=== PATIENT | male | born 1935 | race Caucasian/White ===

== ENCOUNTER 2018-11-28 14:11 | Outpatient (REF) | payer MEDICARE, BC, SELFPAY ==
[2018-11-28 21:49] LABS: ALT 34 U/L (12-78); AST 35 U/L (15-37); Amylase 49 U/L (25-115); Anion Gap 10.8 mmol/L (3-11); BUN 20 mg/dL (7-18); CO2 26.2 mmol/L (21.0-32.0); CREATININE 0.76 mg/dL (0.70-1.30); Calcium 8.6 mg/dL (8.5-10.1); Chloride 103 mmol/L (98-107); Glucose 91 mg/dL (70-100); Lipase 121 U/L (73-393); Potassium 4.3 mmol/L (3.5-5.1); Sodium 140 mmol/L (136-145)
[2018-11-28 21:51] LABS: HGB 13.9 g/dL (13.5-17.5); Mean Corp. HGB Concentration 33.9 g/dL (32.0-36.0); Mean Corpuscular Hemoglobin 31.9 pg (27.0-33.0); Platelet Count 105 x1000/uL (130-400); RBC 4.36 m/cumm (4.50-6.00); RBC Distribution Width 12.8 % (11.8-14.1)
== END 2018-11-28 14:31 ==
LOC: NCHCN 14:11
PROVIDERS: PCP Internal Medicine; Visit Provider Nurse Practitioner Family
DX: R10.9 Unspecified abdominal pain (principal)
CPT/HCPCS: 80048; 83690; 85027; 82150; 84450; 84460

== ENCOUNTER 2019-01-03 01:47 | Outpatient (CLI) | payer MEDICARE, BC, SELFPAY ==
--- NOTE | 2019-01-03 14:15 | MERGE_ITS ---
*[facility]* *[facility]* [address] [place] [address] Date of study: 01/03/2019 Transthoracic Echocardiography M-mode, complete 2D, complete spectral Doppler, and color Doppler *STUDY CONCLUSIONS* Summary: 1. Left ventricle: The cavity size was normal. Systolic function was normal. The estimated ejection fraction was 60-65%. Diastolic parameters were normal for age. There was no evidence of elevated ventricular filling pressure by Doppler parameters. 2. Aortic valve: There was mild regurgitation. 3. Mitral valve: There was mild regurgitation. 4. Left atrium: The atrium was mildly dilated. 5. Right ventricle: The cavity size was normal. Wall thickness was normal. Systolic function was normal. 6. Right atrium: The atrium was moderately dilated. 7. Atrial septum: No defect or patent foramen ovale was identified. 8. Tricuspid valve: There was moderate-severe regurgitation. 9. Pulmonary arteries: Pulmonary systolic pressure was >= 35mm Hg. 10. Inferior vena cava: Poorly visualized. *PATIENT PRESENTATION* Height: 182.9cm (72in ) S/D Pressure: 152 / 85 Weight: 68kg (149.7lb ) BSA: 1.85m^2 Test start time: 02:15 PM. Test stop time: 03:15 PM. CONSULTING Nikhil Serrano MD ORDERING Nikhil Serrano MD REFERRING Nikhil Serrano MD PERFORMING [facility] MAIL WEIGHER Rosaline Jo *PROCEDURE DATA* Procedure information: This study was interpreted by [facility]. Pertinent images and digital data are archived for permanent storage and are available for subsequent review. No prior study was available for comparison. Study status: Routine. Transthoracic echocardiography. M-mode, complete 2D, complete spectral Doppler, and color Doppler. A Transthoracic Echocardiogram was performed. Scanning was performed from the parasternal, apical, subcostal, and suprasternal notch acoustic windows. Images were obtained using an [employer] sc [id number] cardiac ultrasound machine. Image quality was adequate. Study completion: The patient tolerated the procedure well. History: PMH: Exertional dyspnea *CARDIAC ANATOMY* Left ventricle: The cavity size was normal. Systolic function was normal. The estimated ejection fraction was 60-65%. Diastolic parameters were normal for age. There was no evidence of elevated ventricular filling pressure by Doppler parameters. Aortic valve: Trileaflet; mildly thickened, mildly calcified leaflets. Doppler: There was no stenosis. There was mild regurgitation. VTI ratio of LVOT to aortic valve: 0.53. Peak velocity ratio of LVOT to aortic valve: 0.52. Mean velocity ratio of LVOT to aortic valve: 0.49. Mean gradient (S): 6mm Hg. Peak gradient (S): 11.9mm Hg. Aorta: Aortic root: The aortic root was normal in size. Mitral valve: Doppler: There was no evidence for stenosis. There was mild regurgitation. Valve area by pressure half-time: 2.9cm^2. Indexed valve area by pressure half-time: 1.6cm^2/m^2. Peak gradient (D): 3mm Hg. Left atrium: The atrium was mildly dilated. Atrial septum: No defect or patent foramen ovale was identified. Right ventricle: The cavity size was normal. Wall thickness was normal. Systolic function was normal. Pulmonic valve: Doppler: There was no evidence for stenosis. There was mild regurgitation. Peak gradient (S): 3.9mm Hg. Tricuspid valve: Doppler: There was moderate-severe regurgitation. Pulmonary artery: Poorly visualized. Pulmonary systolic pressure was >= 35mm Hg. Right atrium: The atrium was moderately dilated. Pericardium: There was no pericardial effusion. Systemic veins: Inferior vena cava: Poorly visualized. Measurements Left ventricle Value Reference LV ID, ED, PLAX 4.5 cm 3.5 - 6.0 LV ID, ES, PLAX 3.0 cm 2.1 - 4.0 LV PW thickness, ED, PLAX 0.8 cm LV end-diastolic volume, 1-p A2C 74 ml LV ejection fraction, 1-p A2C 55 % LV end-diastolic volume, 1-p A4C 86 ml LV ejection fraction, 1-p A4C 57 % LV e', lateral 0.098 m/sec LV E/e', lateral 9 LV e', medial 0.091 m/sec LV E/e', medial 10 LV e', average 0.094 m/sec LV E/e', average 9 Ventricular septum Value Reference IVS thickness, ED, PLAX 0.8 cm LVOT Value Reference LVOT peak velocity, S 0.89 m/sec LVOT mean velocity, S 0.56 m/sec LVOT VTI, S 17.6 cm LVOT peak gradient, S 3.2 mm Hg LVOT mean gradient, S 1.5 mm Hg Aortic valve Value Reference Aortic valve peak velocity, S 1.7 m/sec Aortic valve mean velocity, S 1.1 m/sec Aortic valve VTI, S 33.0 cm Aortic mean gradient, S 6 mm Hg Aortic peak gradient, S 11.9 mm Hg VTI ratio, LVOT/AV 0.53 Velocity ratio, peak, LVOT/AV 0.52 Velocity ratio, mean, LVOT/AV 0.49 Aortic regurg deceleration 156 cm/s^2 Aortic regurg pressure half-time 582 ms Aorta Value Reference Aortic root ID, ED 2.6 cm Left atrium Value Reference LA ID, A-P, ES 4.1 cm LA ID/bsa, A-P 2.2 cm/m^2 <=2.2 LA volume, ES, 2-p 72 ml LA volume/bsa, ES, 2-p 39 ml/m^2 LA/aortic root ratio 1.59 Mitral valve Value Reference Mitral E-wave peak velocity 0.87 m/sec Mitral deceleration time (H) 259 ms 150 - 230 Mitral pressure half-time 75 ms Mitral peak gradient, D 3 mm Hg Mitral valve area, PHT, DP 2.9 cm^2 Tricuspid valve Value Reference Tricuspid regurg peak velocity 2.6 m/sec Tricuspid peak RV-RA gradient 27.4 mm Hg Right atrium Value Reference RA area, ES, A4C (H) 32.2 cm^2 8.3 - 19.5 Pulmonic valve Value Reference Pulmonic peak gradient, S 3.9 mm Hg Legend: (L) and (H) casey values outside specified reference range. I have personally reviewed the images and have reviewed and edited the reported findings. Electronically signed by Martin Rae MD 01/03/2019 17:47
== END 2019-01-03 02:07 ==
PROVIDERS: PCP Internal Medicine; Visit Provider Internal Medicine
DX: R06.09 Other forms of dyspnea (principal); I35.1 Nonrheumatic aortic (valve) insufficiency; I34.0 Nonrheumatic mitral (valve) insufficiency; I36.1 Nonrheumatic tricuspid (valve) insufficiency; I51.7 Cardiomegaly
CPT/HCPCS: 93306

== ENCOUNTER 2019-01-09 03:26 | Outpatient (CLI) | payer MEDICARE, BC, SELFPAY ==
--- NOTE | 2019-01-09 15:42 | DI.US_ITS ---
EXAM: US RENAL CLINICAL HISTORY: URINARY RETENTION, R33.9. TECHNIQUE: Renal ultrasound was performed according to the usual protocol. COMPARISON: There are no comparison exams available. FINDINGS: Kidneys are normal in size and shape. There is 19 millimeter simple cyst of the upper pole of left k idney. Urinary bladder shows pre and postvoid volume measurements 383 cc and 347 cc, respectively. Urinary bladder wall appears mildly thickened and trabeculated consistent with chronic bladder outlet obstruction. Prostatic volume 22 cc. IMPRESSION: Probable chronic bladder outlet obstruction with large postvoid residual volume of the urinary bladde r. No evidence of significant upper tract lesion.
== END 2019-01-09 03:46 ==
PROVIDERS: PCP Internal Medicine; Visit Provider Internal Medicine
DX: R33.9 Retention of urine, unspecified (principal); N28.1 Cyst of kidney, acquired; N32.0 Bladder-neck obstruction
CPT/HCPCS: 76770

== ENCOUNTER → 2019-01-16 10:17 | Outpatient (BNVA) | payer MEDICARE, BC, SELFPAY | PROVIDERS: PCP Internal Medicine; Referring Provider Internal Medicine; Visit Provider Nurse Practitioner Gerontology | DX: R35.0 Frequency of micturition (principal); Z80.42 Family history of malignant neoplasm of prostate; N40.1 Benign prostatic hyperplasia with lower urinary tract symptoms | CPT/HCPCS: 51798; 99204 ==

== ENCOUNTER 2019-01-21 10:00 | Outpatient (CLI) | payer MEDICARE, BC, SELFPAY ==
[2019-01-22 10:19] LABS: PSA, Screening 84.4 ng/ml (0-6.5)
== END 2019-01-21 10:20 ==
PROVIDERS: PCP Internal Medicine; Visit Provider Nurse Practitioner Gerontology
DX: N40.1 Benign prostatic hyperplasia with lower urinary tract symptoms (principal); Z80.42 Family history of malignant neoplasm of prostate; Z12.5 Encounter for screening for malignant neoplasm of prostate
CPT/HCPCS: 36415; 84153

== ENCOUNTER → 2019-01-23 14:59 | Outpatient (BNVA) | payer MEDICARE, BC, SELFPAY | PROVIDERS: PCP Internal Medicine; Referring Provider Internal Medicine; Visit Provider Nurse Practitioner Gerontology | DX: R35.0 Frequency of micturition (principal); R97.20 Elevated prostate specific antigen [PSA]; Z71.89 Other specified counseling | CPT/HCPCS: 99213 ==

== ENCOUNTER 2019-01-29 11:22 | Outpatient (CLI) | payer MEDICARE, BC, SELFPAY ==
[2019-01-29 12:17] LABS: D-Dimer 1086 ng/mlFEU (<500)
[2019-01-29 12:59] LABS: BUN 22 mg/dL (7-18); CREATININE 0.67 mg/dL (0.70-1.30); Calcium 8.7 mg/dL (8.5-10.1); Chloride 105 mmol/L (98-107); Glucose 95 mg/dL (70-100); NT-proBNP 1529 pg/mL; Potassium 4.9 mmol/L (3.5-5.1); Sodium 140 mmol/L (136-145)
== END 2019-01-29 11:42 ==
PROVIDERS: PCP Internal Medicine; Visit Provider Nurse Practitioner Family
DX: R06.02 Shortness of breath (principal); R60.9 Edema, unspecified; R39.9 Unspecified symptoms and signs involving the genitourinary system; R97.20 Elevated prostate specific antigen [PSA]
CPT/HCPCS: 36415; 51798; 80048; 99213; 83880; 85379

== ENCOUNTER 2019-01-29 12:47 | Emergency (ER) | payer MEDICARE, BC, SELFPAY ==
[2019-01-29] VITALS (41 sets, daily range): BP systolic 101–166; BP diastolic 66–131; PULSE 54–82; RESP 15–26; TEMP 36.6; O2SAT 95–99
[2019-01-29 13:33] LABS: Abs Immature Grans 0.01 k/cumm (0.0-0.09); Absolute Basophil Count 0.02 k/cumm (0.0-0.2); Absolute Eosinophil Count 0.22 k/cumm (0.0-0.7); Absolute Lymphocyte Count 0.67 k/cumm (1.2-3.4); Absolute Monocyte Count 0.48 k/cumm (0.11-0.7); Absolute Neutrophil Count 2.62 k/cumm (1.2-6.7); Basophils % 0.5; Eosinophils % 5.5; HCT 36.2 % (40.0-50.0); HGB 11.8 g/dL (13.5-17.5); Immature Grans % 0.2; Lymphocytes % 16.7; Mean Corp. HGB Concentration 32.6 g/dL (32.0-36.0); Mean Corpuscular Hemoglobin 31.4 pg (27.0-33.0); Mean Corpuscular Volume 96.3 fL (80-95); Mean Platelet Volume 9.4 fL (8.0-11.0); Monocytes % 11.9; Neutrophils % 65.2; Platelet Count 146 x1000/uL (130-400); RBC 3.76 m/cumm (4.50-6.00); RBC Distribution Width 13.7 % (11.8-14.1); White Blood Cell Count 4.02 k/cumm (4.4-10.8)
--- NOTE | 2019-01-29 13:37 | DI.US_ITS ---
EXAM: US EXTREMITY VENOUS BI CLINICAL HISTORY: Bilateral lower leg swelling, elevated d-dimer TECHNIQUE: Ultrasound performed using standard protocol. COMPARISON: No exams were available for comparison FINDINGS: There is no evidence of DVT. Note is made of dilated popliteal vessels, left greater than right. No te is made of bilateral thigh edema. This is a nonspecific finding that can be seen chronically or w ith infection/heart failure in the appropriate clinical setting.
--- NOTE | 2019-01-29 13:37 | DI.CT_ITS ---
EXAM: CT CHEST PE CTA CLINICAL HISTORY: Shortness of breath, elevated d-dimer. TECHNIQUE: The study was conducted according to the usual protocol with an intravenous injection of 100 cc of Omnipaque 350. COMPARISON: No exams were available for comparison FINDINGS: There is no evidence of PE. Evaluation of the ascending thoracic aorta is somewhat limited due to pat ient motion. There is no evidence of an aneurysm. Atherosclerotic changes are identified. Note is made of biapical pulmonary scarring. There are scattered areas of ground-glass density which could re present atelectasis. A component of edema could not be excluded. There is moderate right and small left pleural effusion with basilar opacities which could represent atelectasis or infection. A calci fied granuloma is identified in the right lung. There is no evidence of a pneumothorax. The heart i s enlarged. There is no pericardial effusion. There is significant enlargement of the right atrium a nd right ventricle and reflux of contrast into the IVC which can be seen in right heart failure. Not e is made of lymphadenopathy with lymph nodes measuring up to 1.3 cm in short axis. Lymphadenopathy is also identified along the descending thoracic aorta with lymph nodes measuring up to 1.3 cm in edelmira rt axis. There is in addition an enlarged right hilar lymph node measuring 1.3 cm in short axis. De generative changes are noted in the thoracic spine. IMPRESSION: There is no evidence of pulmonary embolus. Mediastinal lymphadenopathy and enlarged right hilar lymp h nodes and lymphadenopathy along the descending thoracic aorta is noted. This is a nonspecific find ing that can be seen with malignancy, metastasis or infection. Note is also made of a rounded sclero tic focus in the body of T5 and a metastatic focus could not be excluded. There is a moderate right and small left pleural effusion with bibasilar opacities which could represent atelectasis or infecti on. Note is made of cardiomegaly with findings suggestive of pulmonary hypertension and right heart failure.
[2019-01-29 13:58] LABS: ALT 32 U/L (16-63); AST 29 U/L (15-37); Albumin 3.3 g/dL (3.4-5.0); Alkaline Phosphatase 112 U/L (46-116); Anion Gap 9.6 mmol/L (3-11); BUN 21 mg/dL (7-18); CO2 25.4 mmol/L (21.0-32.0); Calcium 8.5 mg/dL (8.5-10.1); Chloride 105 mmol/L (98-107); Glucose 87 mg/dL (70-100); Magnesium 1.9 mg/dL (1.8-2.4); NT-proBNP 1540 pg/mL; Potassium 4.1 mmol/L (3.5-5.1); Sodium 140 mmol/L (136-145)
[2019-01-29 14:07] LABS: INR 1.2 (0.9-1.1); PTT Activated 26.1 sec (21.0-31.4); Prothrombin Time 11.6 sec (9.3-11.0)
[2019-01-29 14:08] LABS: Troponin I < 0.05 ng/mL (0.00-0.06)
--- NOTE | 2019-01-29 14:34 | W.ED.GENAD ---
Discharge Plan Disposition Patient Disposition: HOME Condition: Fair Discharge Details Chief Complaint: SOB Clinical Impression: Acute dyspnea, CHF (congestive heart failure), Lymphadenopathy, mediastinal, Pleural effusion Primary Care Provider: Nikhil Serrano ED Provider: Yadi Chavez Home Meds and New Rx's Prescriptions: New furosemide [Lasix] 20 mg tablet 20 mg PO QAM Qty: 2 RF: 0 Continued terbinafine HCl [Antifungal (terbinafine)] 1 % cream 1 applic TP BID RF: 0 triamcinolone acetonide 0.1 % cream 1 applic TP BID RF: 0 carica papaya Tablet 1 tab PO DAILY RF: 0 Eliquis 5 mg tablet 5 mg PO BID RF: 0 turmeric root extract 500 mg capsule 750 mg PO DAILY RF: 0 cholecalciferol (vitamin D3) 400 unit capsule 800 unit PO DAILY RF: 0 saw palmetto fruit 450 mg capsule 450 mg PO DAILY RF: 0 ascorbic acid (vitamin C) 500 mg capsule 250 mg PO DAILY RF: 0 alfuzosin 10 mg tablet extended release 24 hr 10 mg PO DAILY Qty: 30 RF: 2 levofloxacin [Levaquin] 500 mg tablet 500 mg PO DAILY Qty: 3 RF: 0 Discharge Instructions Instructions: Furosemide (By mouth), Dyspnea (ED) Additional Instructions: Please keep your appointment tomorrow with urology. Please wait until after procedure to take your Lasix. Please call tomorrow morning to schedule follow-up appointment on Sunday with your primary care physician. If you develop lightheadedness, weakness it did not take Lasix. Your exam findings and CT are suggestive of congestive heart failure which is likely was leading to your fluid overload. Please avoid salty or processed foods as this can exacerbate this further. Your CT scan today did not show evidence of a blood clot but was concerning for enlarged lymph nodes and sclerosis of T5. Please discuss this further tomorrow with Dr. Verdugo as well as with your primary care. If you develop any new or worsening symptoms please seek care urgently once again. Referrals: Nikhil Serrano MD [Primary Care Provider] - Discharge Data Discharge Date/Time-TO BE ENTERED AT DEPARTURE: 01/29/19 18:45 Medical Decision Making <Oswaldo Goins NP - Last Filed: 01/30/19 10:00> Patient presenting the emergency department for chief complaint of dyspnea. Patient was seen by urology office due to him pending a biopsy for concern of prostate cancer. Patient stopped his Eliquis on Sunday in preparation for biopsy. Patient states that both his shortness of breath and swelling of his lower extremities started before stopping his Eliquis. Patient had been on a long trip down to [place] when all of his symptoms had started. Patient denies any chest pain or discomfort, syncope, fever chills. Patient is on Eliquis due to history of A. fib physical exam shows irregularly irregular rhythm but rate controlled in the 60s to 70s, clear lung sounds, no hypoxia, unremarkable vital signs, bilateral pitting edema without erythema or pain noted 3+ extending from the knees down through the ankles. Exam is otherwise unremarkable. Given patient's risk factors I do feel is reasonable to check labs, and perform CTA along with DVT studies. Review of d-dimer from previous provider shows elevated outside of age adjustment so I do feel that again studies are recommended. Patient denies any need of treatment at this time Review of labs show negative troponin, slight decrease in WBCs and hemoglobin hematocrit but nothing critical at this time, platelet count 146, BNP of 1540, otherwise unremarkable CMP. <JAYLIN Tirado - Last Filed: 01/30/19 01:04> Care was transitioned to myself from Oswaldo Goins NP with imaging pending. Patient presented today with shortness of breath. Thus far, patient has noted to have a slightly low white count at 4.02, anemia with hemoglobin of 11.8, BNP of 1540. Troponin is normal less than 0.05. Has had progressive and worsening over the past few days. No chest pain. Please refer to clinic Briseida's note regarding initial presentation and evaluation. Contacted by [facility] who advised medialstinal lymphadenopathy. Sclerotic focus in the spine. She is primarily concerned for metastasis. This does correlate with the concerns from radiology for possible prostate cancer. She also noted cardiomegally, findings suggestive of pulmonary HTN, right heart failure. robotic maintenance technician advised that any evidence of clot in the area appreciated lower extremity edema. Discussed the findings with the patient. He advised that he did have a echo 1 month ago.. Reviewed results: The left atrium is mildly dilated. Right ventricle was normal size wall thickness is normal, systolic function normal. Right atrium moderately dilated. Reviewed the echo from 1 month ago. patient had a EF of 60 to 65%. No evidence of elevated ventricular filling pressure. Mild aortic valve vegetation, mild mitral valve regurgitation atrial septum is normal, tricuspid valve was significant for moderate to severe regurgitation. Pulmonary artery systolic pressure over 35 mmHg. Patient has good kidney function and Is diuretic na?ve, will begin with 20 of Lasix for diuresis. Discussed this plan with the patient who agrees with diuresis. Patient will need close f/u with PCP. I believe the patient's primary source of his shortness of breath is associated with his congestive heart failure, most likely associated with dietary changes the patient had last week. He reports that he had more processed foods need to be because of the weekend which may have led to the increase in fluid retention. We discussed dietary changes he can make to help and is in the future. Courtney Linares NP, who knows patient well through urology, presented to the emergency department after I discussed the CT findings with her given the patient's upcoming prostate biopsy. She was to continue with the patient on 20 mg p.o. Lasix for the next 2 days appropriate. Was unable to contact the patient's primary care. Advised patient call them tomorrow to schedule follow-up appointment. Patient will keep his biopsy appointment tomorrow morning. His oxygen has been maintained in the mid to high 90s. He does not appear short of breath or respiratory distress at this time. He is requesting discharge. He was given return precautions. All questions concerns were addressed and is agreement this plan. CT findings: FINDINGS: Pulmonary arteries: No pulmonary embolism identified. The main pulmonary artery measures 3.3 cm and is similar in caliber to the aorta which can be seen with pulmonary hypertension. Aorta: Evaluation of the ascending thoracic aorta is limited secondary to motion. No aneurysm. There are vascular calcifications. Lungs: There is motion on this examination. Biapical scarring noted. There are scattered areas of groundglass which could represent atelectasis. A component of edema not excluded. There is a moderate right and small left pleural effusion with bibasilar opacities that could represent atelectasis. Infection not excluded. Calcified granuloma in the right lung, series 4 image 31 Pleural space: See above. No pneumothorax. Heart: There is cardiomegaly. No pericardial effusion. There is enlargement of the right atrium and right ventricle and reflux of contrast into the IVC which can be seen with right heart failure. Lymph nodes: There is mediastinal lymphadenopathy with lymph nodes measuring up to 1.3 cm on short axis, series 4 image 12. Lymphadenopathy is also noted along the descending thoracic aorta with lymph nodes measuring up to 1.3 cm on short axis, series 4, images 41, 52. There is an enlarged right hilar lymph node measuring 1.3 cm on short axis, series 9 image 258. Bones/joints: Skeletal degenerative changes. Series 5, image 53 demonstrates a 1.1 cm rounded sclerotic focus in the T5 vertebral body. A bony metastatic focus is not excluded. No acute fracture. Soft tissues: Unremarkable. IMPRESSION: 1. No pulmonary embolism identified. 2. Mediastinal lymphadenopathy, enlarged right hilar lymph node, and lymphadenopathy along the descending thoracic aorta. This is a nonspecific finding that can be seen with malignancy/ metastases or infection. There is also a rounded sclerotic focus in the T5 vertebral body for which a bony metastatic focus is not excluded. Per the provider, the patient is scheduled to receive a biopsy to exclude prostate cancer. Findings are therefore concerning for metastatic disease. 3. There is a moderate right and small left pleural effusion with bibasilar opacities that could represent atelectasis. Infection not excluded. 4. Cardiomegaly with findings suggestive of pulmonary hypertension and right heart failure. Other findings/details as above. FINDINGS: Right deep veins: Unremarkable. The common femoral, femoral, proximal profunda femoral and popliteal veins are patent without thrombus. Normal Doppler waveforms. Normal compressibility and/or augmentation response. Right posterior tibial vein is patent. Right superficial veins: Saphenofemoral junction is patent without thrombus. Left deep veins: Unremarkable. The common femoral, femoral, proximal profunda femoral and popliteal veins are patent without thrombus. Normal Doppler waveforms. Normal compressibility and/or augmentation response. Left posterior tibial vein is patent. Left superficial veins: Saphenofemoral junction is patent without thrombus. Soft tissues: Dilated popliteal vessels are noted, left greater than right. There is bilateral calf and thigh edema. Per the automation technologist, she mislabeled images timed at 4:36:06 PM - 4:36:52PM. These are labeled left medial calf and left medial thigh. These should be labeled right medial calf and right medial thigh. She is going to attempt to correct the labels and resubmitted the images. IMPRESSION: 1. No DVT identified in the lower extremities bilaterally as described. 2. There are dilated popliteal vessels, left greater than right. This can be seen with venous insufficiency. 3. Bilateral calf and thigh edema. This is a nonspecific finding that can be seen chronically or with infection/heart failure in the appropriate clinical setting. Correlation suggested. 4. Other findings/details as above. HPI <Oswaldo Goins NP - Last Filed: 01/30/19 10:00> General Mode of arrival: wheelchair. Date/Time Provider Initiated Documentation: 01/29/19 12:53. Limitations to Documentation: no limitations. Information obtained by: RN notes reviewed. History of Present Illness 83 year old M presents to the emergency department with the chief complaint of Shortness of breath, leg swelling, described as moderate, Quality is described as other (Denies pain or discomfort), Patient started experiencing this day(s) (5) and it has been constant. Patient notes weakness. Patient did receive the following treatments prior to arrival, none Related Data Home Medications Medication Instructions Recorded Confirmed alfuzosin 10 mg tablet,extended 10 mg PO DAILY #30 tab 01/16/19 01/29/19 release 24 hr apixaban 5 mg tablet 5 mg PO BID 01/16/19 01/29/19 ascorbic acid (vitamin C) 500 mg 250 mg PO DAILY cap 01/16/19 01/29/19 capsule carica papaya 1 tab PO DAILY tab 01/16/19 01/29/19 cholecalciferol (vitamin D3) 400 800 unit PO DAILY cap 01/16/19 01/29/19 unit capsule saw palmetto fruit 450 mg capsule 450 mg PO DAILY cap 01/16/19 01/29/19 terbinafine HCl 1 % topical cream 1 applic TP BID 01/16/19 01/29/19 triamcinolone acetonide 0.1 % 1 applic TP BID 01/16/19 01/29/19 topical cream turmeric root extract 500 mg 750 mg PO DAILY cap 01/16/19 01/29/19 capsule levofloxacin 500 mg tablet 500 mg PO DAILY #3 tab 01/23/19 01/29/19 furosemide [Lasix] 20 mg PO QAM #2 tab 01/29/19 Previous Rx's Medication Instructions Recorded alfuzosin 10 mg tablet,extended 10 mg PO DAILY #30 tab 01/16/19 release 24 hr levofloxacin 500 mg tablet 500 mg PO DAILY #3 tab 01/23/19 furosemide [Lasix] 20 mg PO QAM #2 tab 01/29/19 Allergies Allergy/AdvReac Type Severity Reaction Status Date / Time Fish Containing Products Allergy Intermediate sob,swelling Verified 01/29/19 13:01 throat Sulfa (Sulfonamide Allergy Intermediate rash,sob Verified 01/29/19 13:01 Antibiotics) General Stated Complaint: SOB YENNIFER: 2 Review of Systems <Oswaldo Goins NP - Last Filed: 01/30/19 10:00> Constitutional Constitutional: Denies chills, Denies fever(s) and Denies malaise Cardiovascular Cardiovascular: Reports as per HPI, Denies chest pain, Denies chest pain with activity, Denies syncope, Denies irregular heart rhythm, Reports leg edema, Denies palpitations and Reports dyspnea Respiratory Respiratory: Denies cough, Denies hemoptysis and Reports dyspnea Gastrointestinal Gastrointestinal: Denies abdominal pain, Denies nausea and Denies vomiting Neurologic Neurologic: Denies syncope Psychiatric Psychiatric: Denies anxiety Endocrine Endocrine: Denies cold intolerance, Denies heat intolerance and Denies palpitations PFSH <Oswaldo Goins NP - Last Filed: 01/30/19 10:00> Medical History (Updated 01/23/19 @ 16:07 by Courtney Solomon NP) Abdominal pain (Acute) Atrial fibrillation (Chronic) Degenerative joint disease (DJD) of lumbar spine (Acute) Exertional dyspnea (Acute) Lower urinary tract symptoms (Acute) Thrombocytopenia (Chronic) Tinea corporis (Acute) Urinary frequency (Acute) White coat syndrome with hypertension (Acute) Social History Smoking/Tobacco Use Status: Never Alcohol Intake: current Alcohol Intake frequency: a few times a week Alcohol type: wine Drug use: Never Current gender identity: male Do you feel safe at home: Yes Do you feel safe in your relationship?: Yes Exam <Oswaldo Goins NP - Last Filed: 01/30/19 10:00> Const General: cooperative, healthy appearing, comfortable, no acute distress, not diaphoretic and not ill appearing Nutritional Appearance: average body habitus Orientation: alert, awake and oriented x3 Limitations: mental status not altered Neck Neck: normal visual inspection, full ROM, trachea midline, supple and no anterior neck swelling Carotids: normal carotid upstroke and no bruits Chest Chest: normal inspection of the chest Resp Effort & Inspection: normal respiratory effort and able to speak in complete sentences Auscultation: clear to auscultation bilaterally Cardio Jugular venous pressure: no JVD Palpation: normal PMI Rate: regular rate Rhythm: regular rhythm Heart Sounds: S1 normal, S2 normal, no click, no gallops, no murmurs and no rubs Bruits: no abdominal aortic bruits and no carotid bruits Pulses: radial pulses present bilaterally 2+ GI Inspection: normal to inspection Palpation: soft, no aortic enlargement, no pulsatile masses and nontender Auscultation: normal bowel sounds Skin General skin exam: no rashes or lesions noted Neuro General: alert, awake, oriented x3, tone normal and moves all extremities Extrem General: normal capillary refill, no calf tenderness and pedal edema bilaterally (3+ knee down) Course <Oswaldo Goins NP - Last Filed: 01/30/19 10:00> Vital Signs Vital signs: Vital Signs Temperature 36.6 C 01/29/19 12:53 Pulse 82 01/29/19 12:53 Respiratory Rate 20 01/29/19 12:53 Blood Pressure 139/88 01/29/19 12:53 Pulse Oximetry 96 01/29/19 12:53 Temperature 36.6 C 01/29/19 12:53 Temperature Source Temporal Artery Scan 01/29/19 12:53 Pulse 59 L 01/29/19 14:16 Pulse 70 01/29/19 14:20 Respiratory Rate 19 01/29/19 14:20 Respiratory Effort 01/29/19 13:13 Respiratory Depth Normal 01/29/19 13:13 Respiratory Pattern Normal 01/29/19 13:13 Blood Pressure 147/79 H 01/29/19 14:16 Blood Pressure Mean 96 01/29/19 14:16 Blood Pressure Position Supine 01/29/19 12:53 Pulse Oximetry 98 01/29/19 14:20 Oxygen Delivery Method Room Air 01/29/19 12:53 Oxygen Flow Rate 0 01/29/19 12:53 Pain Level 0 01/29/19 12:53 Lab/Test Results Lab/Test Results: Laboratory Tests Range/Units 01/29/19 01/29/19 01/29/19 13:25 13:25 13:25 WBC (4.4-10.8) k/cumm 4.02 L RBC (4.50-6.00) m/cumm 3.76 L Hgb (13.5-17.5) g/dL 11.8 L Hct (40.0-50.0) % 36.2 L MCV (80-95) fL 96.3 H MCH (27.0-33.0) pg 31.4 MCHC (32.0-36.0) g/dL 32.6 RDW (11.8-14.1) % 13.7 Plt Count (130-400) x1000/uL 146 MPV (8.0-11.0) fL 9.4 Immature Gran % 0.2 Neutrophils % 65.2 Lymphocytes % 16.7 Monocytes % 11.9 Eosinophils % 5.5 Basophils % 0.5 Absolute Neutrophils (1.2-6.7) k/cumm 2.62 Absolute Lymphocytes (1.2-3.4) k/cumm 0.67 L Absolute Monocytes (0.11-0.7) k/cumm 0.48 Absolute Eosinophils (0.0-0.7) k/cumm 0.22 Absolute Basophils (0.0-0.2) k/cumm 0.02 PT (9.3-11.0) sec 11.6 H INR (0.9-1.1) 1.2 H APTT (21.0-31.4) sec 26.1 Sodium (136-145) mmol/L 140 Potassium (3.5-5.1) mmol/L 4.1 Chloride (98-107) mmol/L 105 Carbon Dioxide (21.0-32.0) mmol/L 25.4 Anion Gap (3-11) mmol/L 9.6 BUN (7-18) mg/dL 21 H Creatinine (0.70-1.30) mg/dL 0.70 Estimated GFR/1.73 m2 (mL/min/1.73m2) >= 60.00 Glucose (70-100) mg/dL 87 Calcium (8.5-10.1) mg/dL 8.5 Magnesium (1.8-2.4) mg/dL 1.9 Total Bilirubin (0.2-1.0) mg/dL 1.0 AST (15-37) U/L 29 ALT (16-63) U/L 32 Alkaline Phosphatase (46-116) U/L 112 Troponin I (0.00-0.06) ng/mL < 0.05 NT-Pro-B Natriuret Pep ( - 299) pg/mL 1540 H Total Protein (6.4-8.2) g/dL 7.0 Albumin (3.4-5.0) g/dL 3.3 L Sign Out <Oswaldo Goins NP - Last Filed: 01/30/19 10:00> Sign Out Data: Sign Out Comment: Patient signed out to JAYLIN Gonzalez pending CTA and DVT studies Last updated by Oswaldo Goins NP at 01/29/19 16:22
[2019-01-29] MEDS: Omnipaque 350 MG/ML 100 ML BTL IV (16:08)
--- NOTE | 2019-01-29 16:57 | DI.[facility]_ITS ---
PROCEDURE INFORMATION: Exam: CT Angiography Chest With Contrast Exam date and time: 01/29/2019 4:04 PM Clinical history: 83 years old, male; Shortness of breath; Patient HX: SOB elevated d-dimer TECHNIQUE: Imaging protocol: Computed tomographic angiography of the chest with intravenous contrast. 3D rendering: MIP reconstructed images were created and reviewed. Radiation optimization: All CT scans at this facility use at least one of these dose optimization techniques: automated exposure control; mA and/or kV adjustment per patient size (includes targeted exams where dose is matched to clinical indication); or iterative reconstruction. Contrast material: OMNIPAQUE 350; Contrast volume: 100 ml; Contrast route: IV; COMPARISON: No relevant prior studies available. FINDINGS: Pulmonary arteries: No pulmonary embolism identified. The main pulmonary artery measures 3.3 cm and is similar in caliber to the aorta which can be seen with pulmonary hypertension. Aorta: Evaluation of the ascending thoracic aorta is limited secondary to motion. No aneurysm. There are vascular calcifications. Lungs: There is motion on this examination. Biapical scarring noted. There are scattered areas of groundglass which could represent atelectasis. A component of edema not excluded. There is a moderate right and small left pleural effusion with bibasilar opacities that could represent atelectasis. Infection not excluded. Calcified granuloma in the right lung, series 4 image 31 Pleural space: See above. No pneumothorax. Heart: There is cardiomegaly. No pericardial effusion. There is enlargement of the right atrium and right ventricle and reflux of contrast into the IVC which can be seen with right heart failure. Lymph nodes: There is mediastinal lymphadenopathy with lymph nodes measuring up to 1.3 cm on short axis, series 4 image 12. Lymphadenopathy is also noted along the descending thoracic aorta with lymph nodes measuring up to 1.3 cm on short axis, series 4, images 41, 52. There is an enlarged right hilar lymph node measuring 1.3 cm on short axis, series 9 image 258. Bones/joints: Skeletal degenerative changes. Series 5, image 53 demonstrates a 1.1 cm rounded sclerotic focus in the T5 vertebral body. A bony metastatic focus is not excluded. No acute fracture. Soft tissues: Unremarkable. IMPRESSION: 1. No pulmonary embolism identified. 2. Mediastinal lymphadenopathy, enlarged right hilar lymph node, and lymphadenopathy along the descending thoracic aorta. This is a nonspecific finding that can be seen with malignancy/ metastases or infection. There is also a rounded sclerotic focus in the T5 vertebral body for which a bony metastatic focus is not excluded. Per the provider, the patient is scheduled to receive a biopsy to exclude prostate cancer. Findings are therefore concerning for metastatic disease. 3. There is a moderate right and small left pleural effusion with bibasilar opacities that could represent atelectasis. Infection not excluded. 4. Cardiomegaly with findings suggestive of pulmonary hypertension and right heart failure. Other findings/details as above. THIS REPORT CONTAINS FINDINGS THAT MAY BE CRITICAL TO PATIENT CARE. The findings were verbally communicated via telephone conference with JAYLIN Chavez at 4:52 PM EDT on 01/29/2019. The findings were acknowledged and understood. Dictated and Authenticated by: Chichi Benavides MD. Ordering:PARKER Chacon MD
--- NOTE | 2019-01-29 17:25 | DI.[facility]_ITS ---
PROCEDURE INFORMATION: Exam: US Duplex Lower Extremity Veins Exam date and time: 01/29/2019 5:03 PM Clinical history: 83 years old, male; Edema, localized; Lower extremity, right and lower extremity, left; Patient HX: Bilateral lower leg edema, elevated d-dimer. Patient is on eliquis. TECHNIQUE: Imaging protocol: Real-time duplex ultrasound of the Lower Extremities with 2-D dominguez scale, color Doppler flow and spectral waveform analysis with image documentation. Complete exam focused on the bilateral lower extremity veins. Findings were discussed with Anna Quiñonez at 01/29/2019 5:15 PM EDT. COMPARISON: No relevant prior studies available. FINDINGS: Right deep veins: Unremarkable. The common femoral, femoral, proximal profunda femoral and popliteal veins are patent without thrombus. Normal Doppler waveforms. Normal compressibility and/or augmentation response. Right posterior tibial vein is patent. Right superficial veins: Saphenofemoral junction is patent without thrombus. Left deep veins: Unremarkable. The common femoral, femoral, proximal profunda femoral and popliteal veins are patent without thrombus. Normal Doppler waveforms. Normal compressibility and/or augmentation response. Left posterior tibial vein is patent. Left superficial veins: Saphenofemoral junction is patent without thrombus. Soft tissues: Dilated popliteal vessels are noted, left greater than right. There is bilateral calf and thigh edema. Per the invasive cardiovascular technologist, she mislabeled images timed at 4:36:06 PM - 4:36:52PM. These are labeled left medial calf and left medial thigh. These should be labeled right medial calf and right medial thigh. She is going to attempt to correct the labels and resubmitted the images. IMPRESSION: 1. No DVT identified in the lower extremities bilaterally as described. 2. There are dilated popliteal vessels, left greater than right. This can be seen with venous insufficiency. 3. Bilateral calf and thigh edema. This is a nonspecific finding that can be seen chronically or with infection/heart failure in the appropriate clinical setting. Correlation suggested. 4. Other findings/details as above. Note: Per the invasive cardiovascular technologist, she mislabeled images timed at 4:36:06 PM - 4:36:52PM. These are labeled left medial calf and left medial thigh. These should be labeled right medial calf and right medial thigh. She is going to attempt to correct the labels and resubmitted the images. Dictated and Authenticated by: Chichi Benavides MD. Ordering:PARKER Chacon MD
[2019-01-29] MEDS: Furosemide 20 MG/2 ML VIAL IVP (18:20)
== END 2019-01-29 18:45 | disposition home or self-care (01) ==
PROVIDERS: Nurse Practitioner Family; Emergency Provider Physician Assistant; PCP Internal Medicine
DX: R06.00 Dyspnea, unspecified (principal); I50.9 Heart failure, unspecified; R59.0 Localized enlarged lymph nodes; J90 Pleural effusion, not elsewhere classified
CPT/HCPCS: 36415; 51798; 71275; 80048; 80053; 93005; 96374; 99213; 99285; 83735; 83880; 84484; 85025; 85379; 85610; 85730; 93010; 93970; 99284; J1941; J3490

== ENCOUNTER 2019-01-30 01:06 | Outpatient (CLI) | payer MEDICARE, BC, SELFPAY ==
--- NOTE | 2019-01-30 08:50 | PROST_PTH ---
PATIENT: Gabe Kramer LOC: [facility] U#:[id number] AGE/SX: 83/M ROOM: RE01/30/[address]: Courtney Solomon DNP : [id number] BED: DIS: 01/30/2019 SPEC #: [id number] RECD: 01/30/19 12:52 STATUS: PHILIP RE #: [id number] ERIC: 01/30/19 08:[address]: Courtney Solomon DEPT: Surgical Specimen RECD BY: Kylee Jeffrey ENTERED: 01/30/19 12:54 SP TYPE: PROST OTHR DR: Nikhil Serrano Tissues: 1 - PROSTATE NEEDLE BIOPSY 2 - PROSTATE NEEDLE BIOPSY 3 - PROSTATE NEEDLE BIOPSY 4 - PROSTATE NEEDLE BIOPSY 5 - PROSTATE NEEDLE BIOPSY 6 - PROSTATE NEEDLE BIOPSY 7 - PROSTATE NEEDLE BIOPSY 8 - PROSTATE NEEDLE BIOPSY 9 - PROSTATE NEEDLE BIOPSY 10 - PROSTATE NEEDLE BIOPSY 11 - PROSTATE NEEDLE BIOPSY 12 - PROSTATE NEEDLE BIOPSY Procedures: GROSS AND MICRO LEVEL 4 Comments: [id number]
--- NOTE | 2019-01-30 09:15 | DI.US_ITS ---
EXAM: US PROSTATE BIOPSY CLINICAL HISTORY: elevated psa,family h/o prostate ca,r97.20,z80.42 TECHNIQUE: Ultrasound performed using standard protocol. COMPARISON: US EXTREMITY VENOUS BI from 01/29/2019 FINDINGS: The prostate is enlarged measuring [address] Verdugo carried out multiple prostatic biopsies. The tissue submitted to pathology for histologic review. Please see Dr. Verdugo's report for further i nformation.
--- NOTE | 2019-01-30 09:56 | ROE_ITS ---
REPORT OF OPERATIVE PROCEDURE DATE OF PROCEDURE January 30, 2019 PREPROCEDURE DIAGNOSIS Elevated PSA. POSTPROCEDURE DIAGNOSES Elevated PSA with Pathology pending. PROCEDURE Ultrasound guided biopsy of the prostate. SURGEON Sher Verdugo M.D. ANESTHESIA Local. COMPLICATIONS None. HISTORY This is an 83-year-old gentleman who recently had a finding of an elevated PSA. His level is 84 ng/dl . He has a family history of prostate cancer. He has also had lower urinary tract symptoms and an abn ormal digital rectal exam. Yesterday, he was seen with edema. There was concern he might have a pulmonary embolism. He was evalu ated with a CT scan, which showed some mediastinal adenopathy, raising the concern for metastatic dis ease. PROCEDURE The patient was given an antibiotic and mechanical bowel prep. He was brought to the Radiology Suite on 01/30/2019. He was placed in the left lateral position. Digital rectal exam confirmed the asymmetry and firmness to his prostate. Transrectal imaging of the prostate was then performed using a variable megahertz transducer. The prostate was imaged in transverse and longitudinal planes. The prosthetic volume was calculated a t about 43 cc. No particular hypoechoic areas were seen in the peripheral zone. The transition zone was asymmetric a nd enlarged. There did appear to be asymmetry in the seminal vesicles with the right side being large r and more hypoechoic compared to the left. Periprosthetic nerve blocks were then performed and a total of 12 laterally directed biopsies were t aken and sent to Pathology for permanent section. The patient tolerated this procedure well. There were no complications. He will followup next week fo r his pathology result. CC: Nikhil Serrano M.D.
== END 2019-01-30 01:26 ==
PROVIDERS: PCP Internal Medicine; Visit Provider Nurse Practitioner Gerontology
DX: C61 Malignant neoplasm of prostate (principal); R97.20 Elevated prostate specific antigen [PSA]; Z80.42 Family history of malignant neoplasm of prostate; D07.5 Carcinoma in situ of prostate
CPT/HCPCS: 55700; 76872; 76942; 88305

== ENCOUNTER 2019-02-02 01:20 | Emergency (ER) | payer MEDICARE, BC, SELFPAY ==
[2019-02-02 01:29] VITALS: PULSE 77; RESP 16; TEMP 36.9; O2SAT 98
--- NOTE | 2019-02-02 01:38 | ED.GENADUL_ITS ---
Discharge Plan Disposition Patient Disposition: HOME Condition: Good Discharge Details Chief Complaint: Abd Prob Clinical Impression: Acute urinary retention Primary Care Provider: Nikhil Serrano ED Provider: Kenton Veliz Home Meds and New Rx's Prescriptions: No Action terbinafine HCl [Antifungal (terbinafine)] 1 % cream 1 applic TP BID RF: 0 triamcinolone acetonide 0.1 % cream 1 applic TP BID RF: 0 carica papaya Tablet 1 tab PO DAILY RF: 0 Eliquis 5 mg tablet 5 mg PO BID RF: 0 turmeric root extract 500 mg capsule 750 mg PO DAILY RF: 0 cholecalciferol (vitamin D3) 400 unit capsule 800 unit PO DAILY RF: 0 saw palmetto fruit 450 mg capsule 450 mg PO DAILY RF: 0 ascorbic acid (vitamin C) 500 mg capsule 250 mg PO DAILY RF: 0 alfuzosin 10 mg tablet extended release 24 hr 10 mg PO DAILY Qty: 30 RF: 2 furosemide [Lasix] 20 mg tablet 20 mg PO QAM Qty: 2 RF: 0 Discharge Instructions Instructions: Urinary Retention in Men (ED) Additional Instructions: You have urinary retention likely secondary to the natural aggravation caused by prostate biopsy. Please keep the Sterling catheter in until you see Dr. Verdugo on Sunday or Sunday. If you notice severe amount of blood, fever chills or flank pain, or a very large amount of urine greater than 2 Liters in 3 hours, please return immediately for reassessment. If you notice any worsening of your symptoms, or any new symptoms such as vomiting, diarrhea, fever, chills, shortness of breath, chest pain, numbness, weakness, or fainting , please return immediately to the emergency department for reevaluation. Please follow up with your primary care provider as soon as possible for reassessment and reevaluation. As always, it was a pleasure participating in your medical care today. Referrals: Sher Verdugo MD [ [facility] STAFF PHYSICIAN] - Medical Decision Making This is a pleasant 83-year-old male with a past medical history of A. fib on Eliquis, and recent prostate biopsy 3-1/2 days ago. He presents today with suprapubic pressure sensation, in conjunction with increased urinary frequency. He denies red flags of fever chills or significant abdominal pain aside from mild abdominal achiness in the suprapubic region. Physical exam demonstrates stable vital signs, however he has a notably distended bladder, confirmed by bedside ultrasound. Genitourinary exam is otherwise unremarkable. Signs and symptoms are concerning for urinary retention which he feels likely secondary to his recent prostate biopsy. We will place a Sterling catheter. We did discuss temporary catheter versus Sterling with leg bag, and at this time the patient would like to maintain the Sterling catheter and leg bag until he follows up with Dr. Verdugo. We will evaluate for infection. After he is drained we will reassess. 2:43 AM Patient had 900 mL's of urine removed. Urinalysis shows no evidence of infection. Patient was observed, there was no significant post drainage diuresis. Patient tolerated procedures well. He will be discharged home with a Sterling leg bag. Strict follow-up with Dr. Verdugo. I have extensively reviewed the treatment plan and discharge instructions with the patient and their family. I have addressed all patient concerns at this time. The patient and family was made aware of what symptoms to monitor for that would warrant a return to the emergency department. Discussed the plan with the patient and family, they demonstrate verbal understanding and agreement with our assessment and plan at this time. HPI General Date/Time Provider Initiated Documentation: 02/02/19 01:22 . HPI Narrative: This is a pleasant 83-year-old male with past medical history of a recent bladder biopsy, who presents today for evaluation of suprapubic pressure. Patient had a biopsy of his prostate by Dr. Verdugo 3-1/2 days ago. This had no complications, he had no bleeding afterwards and had been doing well. However over the last 2 days he has noticed significant suprapubic pressure which she describes as achiness, in conjunction with increased frequency of urination. He denies any burning, fever chills, flank pain, nausea vomiting or diarrhea. He has no other complaints at this time. He has been urinating every 45 minutes to an hour. It is usually in small amounts, roughly 30 to 50 cc. Aside for this he has no other complaints at this time. Past medical history is positive for atrial fibrillation for which she is on Eliquis. Related Data Home Medications Medication Instructions Recorded Confirmed alfuzosin 10 mg tablet,extended 10 mg PO DAILY #30 tab 01/16/19 02/02/19 release 24 hr apixaban 5 mg tablet 5 mg PO BID 10/10/19 10/27/19 ascorbic acid (vitamin C) 500 mg 250 mg PO DAILY cap 01/16/19 02/02/19 capsule carica papaya 1 tab PO DAILY tab 01/16/19 02/02/19 cholecalciferol (vitamin D3) 400 800 unit PO DAILY cap 01/16/19 02/02/19 unit capsule saw palmetto fruit 450 mg capsule 450 mg PO DAILY cap 01/16/19 02/02/19 terbinafine HCl 1 % topical cream 1 applic TP BID 01/16/19 02/02/19 triamcinolone acetonide 0.1 % 1 applic TP BID 01/16/19 02/02/19 topical cream turmeric root extract 500 mg 750 mg PO DAILY cap 01/16/19 02/02/19 capsule furosemide [Lasix] 20 mg PO QAM #2 tab 01/29/19 02/02/19 Previous Rx's Medication Instructions Recorded alfuzosin 10 mg tablet,extended 10 mg PO DAILY #30 tab 01/16/19 release 24 hr furosemide [Lasix] 20 mg PO QAM #2 tab 01/29/19 Allergies Allergy/AdvReac Type Severity Reaction Status Date / Time Fish Containing Products Allergy Intermediate sob,swelling Verified 02/02/19 01:33 throat Sulfa (Sulfonamide Allergy Intermediate rash,sob Verified 02/02/19 01:33 Antibiotics) General Stated Complaint: Abd Prob YENNIFER: 3 Review of Systems All systems reviewed & are unremarkable except as noted in HPI and below PFSH Medical History (Updated 01/23/19 @ 16:07 by Courtney Solomon NP) Abdominal pain (Acute) Atrial fibrillation (Chronic) Degenerative joint disease (DJD) of lumbar spine (Acute) Exertional dyspnea (Acute) Lower urinary tract symptoms (Acute) Thrombocytopenia (Chronic) Tinea corporis (Acute) Urinary frequency (Acute) White coat syndrome with hypertension (Acute) Social History Smoking/Tobacco Use Status: Never Alcohol Intake: current Alcohol Intake frequency: a few times a week Alcohol type: wine Drug use: Never Substance use type: does not use Current gender identity: male Do you feel safe at home: Yes Do you feel safe in your relationship?: Yes Exam Narrative Exam Narrative: 1.Const: Well-nourished, Well-developed, appearing stated age 2.Eyes: PERRL, no conjunctival injection, and symmetrical lids. 3.ENT: Atraumatic external nose and ears. Moist MM. Neck: Symmetric, trachea midline, No thyromegaly. 4.CVS: +S1/S2, No murmurs or gallops. Peripheral pulses 2+ and equal in all extremities. Brisk capillary refill in all extremities. 5.RESP: Unlabored respiratory effort. Clear to auscultation bilaterally. No wheezes rales or rhonchi 6.GI: Soft, Nontender/Nondistended, No hepatosplenomegaly. No guarding or rebound. Suprapubic region is notably firm, with a notably distended palpable bladder. Bedside ultrasound demonstrates notable increase in bladder size with a volume greater than 800 cc, likely around 1000 total. No testicular tenderness, no penile tenderness. No other significant abnormalities on exam. No flank or CVA tenderness. No pain at McBurney's point, negative Mccormack sign. 7.MSK: Normocephalic/Atraumatic, Extremities w/o deformity or ttp No cyanosis or clubbing, Normal movement of all extremities 8.Skin: Warm, Dry. No rashes or lesions. 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 Sensation grossly intact, no focal neurologic deficits. 10.Psych: (AAO) x3. Appropriate mood and affect Course Vital Signs Vital signs: Vital Signs Temperature 36.9 C 02/02/19 01:29 Pulse 77 02/02/19 01:29 Respiratory Rate 16 02/02/19 01:29 Pulse Oximetry 98 02/02/19 01:29 Temperature 36.9 C 02/02/19 01:29 Temperature Source Tympanic 02/02/19 01:29 Pulse 77 02/02/19 01:29 Respiratory Rate 16 02/02/19 01:29 Pulse Oximetry 98 02/02/19 01:29 Oxygen Delivery Method Room Air 02/02/19 01:29 Oxygen Flow Rate 0 02/02/19 01:29 Pain Level 5 02/02/19 01:29
[2019-02-02] MEDS: Lidocaine 2% Jelly 6 ML SYR (01:45)
[2019-02-02 01:48] LABS: Bilirubin Negative (Negative); Blood Small (Negative); Clarity Clear (Clear); Glucose Negative (Negative); Ketones Negative (Negative); Leukocyte Esterase Negative (Negative); Nitrite Negative (Negative); Urobilinogen 0.2 EU/dL (Up TO 0.2)
[2019-02-02 01:51] LABS: Bacteria Rare HPF (Negative); C & S Indicated? No; Casts Negative LPF (Negative); Crystals Negative HPF (Negative); Epithelial Cells Rare HPF (Negative); Mucus Negative (Negative); WBC Negative HPF (0-5)
--- NOTE | 2019-02-02 02:03 | NUR.NOTE ---
faxed referal to urology on02/02/19Nursing Note:
[2019-02-02 02:45] VITALS: BP 163/90; PULSE 77; RESP 16; O2SAT 100
[2019-02-02 03:01] VITALS: BP 156/83; PULSE 77; RESP 16; O2SAT 100
== END 2019-02-02 02:55 | disposition home or self-care (01) ==
LOC: ER 02:06
PROVIDERS: Emergency Provider Student in an Organized Health Care Education/Training Program; PCP Internal Medicine
DX: R33.9 Retention of urine, unspecified (principal); I48.91 Unspecified atrial fibrillation; Z79.01 Long term (current) use of anticoagulants
CPT/HCPCS: 51702; 99284; 81003; 81015

== ENCOUNTER → 2019-02-03 08:50 | Outpatient (BNVA) | payer MEDICARE, BC, SELFPAY | PROVIDERS: PCP Internal Medicine; Referring Provider Internal Medicine; Visit Provider Urology | DX: R33.9 Retention of urine, unspecified (principal) | CPT/HCPCS: 99212; 99213 ==

== ENCOUNTER → 2019-02-06 11:01 | Outpatient (BNVA) | payer MEDICARE, BC, SELFPAY | PROVIDERS: PCP Internal Medicine; Referring Provider Internal Medicine; Visit Provider Urology | DX: R33.8 Other retention of urine (principal); Z98.890 Other specified postprocedural states; Z46.6 Encounter for fitting and adjustment of urinary device; Z96.0 Presence of urogenital implants | CPT/HCPCS: 99212 ==

== ENCOUNTER → 2019-02-10 14:41 | Outpatient (BNVA) | payer MEDICARE, BC, SELFPAY | PROVIDERS: PCP Internal Medicine; Referring Provider Internal Medicine; Visit Provider Urology | DX: C61 Malignant neoplasm of prostate (principal); Z48.816 Encounter for surgical aftercare following surgery on the genitourinary system; R33.9 Retention of urine, unspecified | CPT/HCPCS: 99213 ==

== ENCOUNTER 2019-02-12 21:41 | Outpatient (REF) | payer MEDICARE, BC, SELFPAY ==
[2019-02-12 21:30] LABS: Anion Gap 7.4 mmol/L (3-11); BUN 21 mg/dL (7-18); CO2 27.6 mmol/L (21.0-32.0); CREATININE 0.84 mg/dL (0.70-1.30); Calcium 8.4 mg/dL (8.5-10.1); Chloride 103 mmol/L (98-107); Glucose 107 mg/dL (70-100); Potassium 4.5 mmol/L (3.5-5.1); Sodium 138 mmol/L (136-145)
== END 2019-02-12 22:01 ==
LOC: NCHCN 21:41
PROVIDERS: PCP Internal Medicine; Visit Provider Internal Medicine
DX: R06.9 Unspecified abnormalities of breathing (principal)
CPT/HCPCS: 80048

== ENCOUNTER 2019-02-19 00:33 | Outpatient (CLI) | payer MEDICARE, BC, SELFPAY ==
--- NOTE | 2019-02-19 07:11 | DI.CT_ITS ---
EXAM: CT ABDOMEN PELVIS W CLINICAL HISTORY: PROSTATE CA,C61, ? METS TECHNIQUE: Imaging Protocol: Axial computed tomography images with coronal and sagittal reformatted images were created and reviewed CONTRAST MATERIAL: Intravenous: Omnipaque 350 Contrast volume:100 mL contrast route:IV - Oral: Yes COMPARISON: CT CHEST PE CTA from 01/29/2019 FINDINGS: ABDOMEN: Lung Bases: There are small bilateral pleural effusions, right greater than left. Subjacent infiltra eliud are noted. These may represent atelectasis or pneumonia. There is cardiomegaly. Liver: The liver has a lobulated contour. No discrete mass is identified. There does appear to be de creased attenuation of the liver suggesting hepatic steatosis. The portal, superior mesenteric and s plenic veins are patent. Gallbladder and biliary tract: No radiodense calculus or dilation. Pancreas: Normal density, no abnormal calcifications or inflammatory process. Spleen: There are tiny hypodensities seen within the spleen. They are homogeneously of low attenuati on and may reflect cysts. Kidneys: Normal size, contour and axis. There are nonobstructing stones in the right kidney. There a re bilateral renal cysts. No solid renal mass is present. No evidence of obstruction. Adrenal glands: No masses seen. Abdominal Aorta: Abdominal portion non-dilated. Atherosclerosis. PELVIS: Bladder: There is diffuse thickening of the wall of the urinary bladder. This may be due to chronic bladder outlet obstruction or an inflammatory or infectious process. Bowel: No obstruction or bowel wall thickening. There is a large amount of stool throughout the colon which may represent constipation. No right lower quadrant inflammatory process is seen to suggest a cute appendicitis. Peritoneal cavity: No ascites, collection or mesenteric inflammatory response. Bones: There are degenerative changes seen in the spine. There are few sclerotic foci seen in the pe lvis and sacrum. Reproductive organs: The prostate gland is enlarged and impinges upon the base of the urinary bladder . The patient has a history of prostate cancer. Lymph nodes: There are enlarged retroperitoneal lymph nodes. The largest lymph node is seen in the l eft periaortic region and measures 2.3 x 1.5 cm. There an aortic caval lymph node measuring 1.1 x 1. 5 cm. There is an enlarged right external iliac lymph node measuring 1.7 x 1 cm. Impression: 1. Enlarged prostate gland impinging upon the base of the urinary bladder. The patient has a history of prostate cancer. 2. Abdominal and pelvic adenopathy. 3. Heterogeneous liver without discrete mass. Findings may suggest hepatic steatosis and hepatic cir rhosis. Please correlate clinically. 4. Diffuse thickening of the wall of the urinary bladder. This may be due to chronic bladder outlet obstruction or an inflammatory or infectious process. 5. Sclerotic foci seen in the pelvis and sacrum. A bone scan should be considered to assess for meta stasis. DATA REPOSITORY: All CT scans at this facility are submitted to the National Radiology Data Registry (NRDR) Dose Index Registry (DIR) with the [employer] (ACR). RADIATION OPTIMIZATION: All CT scans at this facility use at least one of these dose optimization te chniques: automated exposure control; mA and/or kV adjustment per patient size (includes targeted exa ms where dose is matched to clinical indication); or iterative reconstruction.
--- NOTE | 2019-02-19 07:11 | DI.NM_ITS ---
EXAM: NM BONE SCAN WHOLE BODY GRP CLINICAL HISTORY: PROSTATE CA, C61, ? METS. TECHNIQUE: Injected Dose: 25 mCi Tc-99m MDP Delayed Images: 2-3 hours. COMPARISON: No exams were available for comparison FINDINGS: Symmetric axial uptake. Bilateral renal excretion is identified. There is a focus of increased radiot racer uptake on the right side in the T5 vertebra. There is also an area of increased radiotracer up take in the cervical spine on the right. No other areas of increased radiotracer uptake are noted. IMPRESSION: Foci of increased radiotracer uptake in the cervical and thoracic spine as described above. This may represent degenerative change though metastatic disease cannot be excluded. Plain film or CT correl ation is recommended.
[2019-02-19] MEDS: Omnipaque 350 MG/ML 50 ML BTL PO (08:49)
[2019-02-19] MEDS: Omnipaque 350 MG/ML 100 ML BTL IJ (08:50)
[2019-02-19] MEDS: Breeza Beverage 473 ML BTL PO ×2 (08:50→08:51)
== END 2019-02-19 00:53 ==
PROVIDERS: PCP Internal Medicine; Visit Provider Urology
DX: C61 Malignant neoplasm of prostate (principal); I51.7 Cardiomegaly; J90 Pleural effusion, not elsewhere classified; R91.8 Other nonspecific abnormal finding of lung field; K76.0 Fatty (change of) liver, not elsewhere classified; N32.89 Other specified disorders of bladder; K59.00 Constipation, unspecified; N40.0 Benign prostatic hyperplasia without lower urinary tract symptoms; R59.0 Localized enlarged lymph nodes; M47.813 Spondylosis without myelopathy or radiculopathy, cervicothoracic region
CPT/HCPCS: 78306; 74177; J3490; Q9967

== ENCOUNTER 2019-02-24 08:35 | Outpatient (CLI) | payer MEDICARE, BC, SELFPAY ==
--- NOTE | 2019-02-24 15:40 | DI.RAD_ITS ---
EXAM: XR THORACIC SPINE COMPLETE INDICATION: correlate with bone scan, prostate cancer, C61. COMPARISON: No exams were available for comparison TECHNIQUE: 2D digital imaging was performed. FINDINGS: There is no evidence of compression fracture or scoliosis. There are degenerative disc changes which are greater in the mid to lower thoracic region, eccentric toward the right side. IMPRESSION: Degenerative disc changes. No acute abnormality.
--- NOTE | 2019-02-24 15:40 | DI.RAD_ITS ---
EXAM: XR CERVICAL SP COMP W FLEX/EXT INDICATION: correlate with bone scan, prostate cancer, C61. COMPARISON: No exams were available for comparison TECHNIQUE: 2D digital imaging was performed. FINDINGS: There is no evidence of fracture. The alignment appears normal. The disc spaces are well maintained . There are minimal endplate osteophytes. There are facet degenerative changes throughout which are most prominent at C4-5. There is apparent severe left neural foraminal narrowing at this level. Th e remaining neural foramina appear well maintained. The airway appears intact. IMPRESSION: Left neural foraminal narrowing at C4-5 mainly secondary to facet degenerative changes.
== END 2019-02-24 08:55 ==
PROVIDERS: PCP Internal Medicine; Visit Provider Urology
DX: C61 Malignant neoplasm of prostate (principal); M51.34 Other intervertebral disc degeneration, thoracic region; M47.812 Spondylosis without myelopathy or radiculopathy, cervical region
CPT/HCPCS: 99213; 72052; 72072

== ENCOUNTER → 2019-02-24 14:40 | Outpatient (BNVA) | payer MEDICARE, BC, SELFPAY | PROVIDERS: PCP Internal Medicine; Referring Provider Internal Medicine; Visit Provider Urology | DX: R69 Illness, unspecified (principal) ==

== ENCOUNTER → 2019-03-04 10:13 | Outpatient (BNVA) | payer MEDICARE, BC, SELFPAY | PROVIDERS: PCP Internal Medicine; Referring Provider Internal Medicine; Visit Provider Urology | DX: C61 Malignant neoplasm of prostate (principal); C77.0 Secondary and unspecified malignant neoplasm of lymph nodes of head, face and neck | CPT/HCPCS: 38500; 99213 ==

== ENCOUNTER 2019-03-04 11:43 | Outpatient (REF) | payer MEDICARE, BC, SELFPAY ==
--- NOTE | 2019-03-04 11:30 | LYM_PTH ---
PATIENT: Gabe Kramer LOC: [facility] U#:[id number] AGE/SX: 83/M ROOM: RE03/04/[address]: Sher Verdugo MD : [id number] BED: DIS: 03/04/2019 SPEC #: [id number] RECD: 03/04/19 12:53 STATUS: PHIILP REQ #: [id number] ERIC: 03/04/19 11:[address]: Sher Verdugo DEPT: Surgical Specimen RECD BY: Kylee Jeffrey ENTERED: 03/04/19 12:54 SP TYPE: LYM OTHR DR: Nikhil Serrano Tissues: 1 - LYMPH NODE BIOPSY Procedures: GROSS AND MICRO LEVEL 4 IMMUNOPEROXIDASE STAIN Comments: [id number]
== END 2019-03-04 12:03 ==
LOC: LBN 11:43
PROVIDERS: PCP Internal Medicine; Visit Provider Urology
DX: C77.0 Secondary and unspecified malignant neoplasm of lymph nodes of head, face and neck (principal); C61 Malignant neoplasm of prostate
CPT/HCPCS: 88305; 88361

== ENCOUNTER 2019-03-11 07:54 | Outpatient (CLI) | payer MEDICARE, BC, SELFPAY | END 2019-03-11 08:14 | PROVIDERS: PCP Internal Medicine; Visit Provider Internal Medicine Cardiovascular Disease | DX: I48.91 Unspecified atrial fibrillation (principal); I36.1 Nonrheumatic tricuspid (valve) insufficiency; R06.02 Shortness of breath; C61 Malignant neoplasm of prostate; C77.0 Secondary and unspecified malignant neoplasm of lymph nodes of head, face and neck | CPT/HCPCS: 36415; 99204; 99212; 99213; 99215; 84153; 93005; 93010 ==

== ENCOUNTER 2019-03-11 13:30 | Outpatient (CLI) | payer MEDICARE, BC, SELFPAY ==
[2019-03-12 16:08] LABS: PSA, Diagnostic 81.5 ng/mL (0.0-6.5)
== END 2019-03-11 13:50 ==
PROVIDERS: PCP Internal Medicine; Visit Provider Urology
DX: C61 Malignant neoplasm of prostate (principal)
CPT/HCPCS: 36415; 84153

== ENCOUNTER 2019-04-14 08:32 | Outpatient (CLI) | payer MEDICARE, BC, SELFPAY | END 2019-04-14 08:52 | PROVIDERS: PCP Internal Medicine; Visit Provider Internal Medicine | DX: Z91.89 Other specified personal risk factors, not elsewhere classified (principal); I48.91 Unspecified atrial fibrillation; C61 Malignant neoplasm of prostate; C77.1 Secondary and unspecified malignant neoplasm of intrathoracic lymph nodes | CPT/HCPCS: 36415; 80053; 84153; 84403; 85025; 93005; 93010 ==

== ENCOUNTER 2019-04-14 11:29 | Outpatient (CLI) | payer MEDICARE, BC, SELFPAY ==
[2019-04-14 12:32] LABS: Abs Immature Grans 0.01 k/cumm (0.0-0.09); Absolute Basophil Count 0.03 k/cumm (0.0-0.2); Absolute Eosinophil Count 0.19 k/cumm (0.0-0.7); Absolute Lymphocyte Count 1.04 k/cumm (1.2-3.4); Basophils % 0.7; Eosinophils % 4.5; HCT 37.7 % (40.0-50.0); HGB 12.7 g/dL (13.5-17.5); Immature Grans % 0.2 %; Lymphocytes % 24.6; Mean Corp. HGB Concentration 33.7 g/dL (32.0-36.0); Mean Corpuscular Hemoglobin 31.8 pg (27.0-33.0); Mean Corpuscular Volume 94.5 fL (80-95); Mean Platelet Volume 9.4 fL (8.0-11.0); Monocytes % 11.8; Neutrophils % 58.2; Platelet Count 158 x1000/uL (130-400); RBC 3.99 m/cumm (4.50-6.00); RBC Distribution Width 12.6 % (11.8-14.1); White Blood Cell Count 4.22 k/cumm (4.4-10.8)
[2019-04-14 12:33] LABS: Absolute Neutrophil Count 2.46 k/cumm (1.2-6.7)
[2019-04-14 14:02] LABS: ALT 28 U/L (16-63); AST 25 U/L (15-37); Albumin 3.7 g/dL (3.4-5.0); Alkaline Phosphatase 121 U/L (46-116); Anion Gap 7.5 mmol/L (3-11); BUN 28 mg/dL (7-18); Bilirubin, Total 0.6 mg/dL (0.2-1.0); CO2 29.5 mmol/L (21.0-32.0); CREATININE 0.73 mg/dL (0.70-1.30); Calcium 8.9 mg/dL (8.5-10.1); Chloride 103 mmol/L (98-107); Glucose 95 mg/dL (74-106); Potassium 4.8 mmol/L (3.5-5.1); Sodium 140 mmol/L (136-145); Total Protein 7.4 g/dL (6.4-8.2)
[2019-04-15 15:47] LABS: PSA, Ultrasensitive 36.1 ng/mL (<= 7.2)
[2019-04-17 07:38] LABS: Testosterone, Total <7.0 ng/dL (240-950)
== END 2019-04-14 11:49 ==
PROVIDERS: PCP Internal Medicine; Visit Provider Internal Medicine
DX: C61 Malignant neoplasm of prostate (principal); C77.1 Secondary and unspecified malignant neoplasm of intrathoracic lymph nodes
CPT/HCPCS: 36415; 80053; 84153; 84403; 85025

== ENCOUNTER 2019-05-12 02:32 | Outpatient (CLI) | payer MEDICARE, BC, SELFPAY ==
[2019-05-12 09:11] LABS: Absolute Basophil Count 0.03 k/cumm (0.0-0.2); Absolute Eosinophil Count 0.19 k/cumm (0.0-0.7); Absolute Lymphocyte Count 0.94 k/cumm (1.2-3.4); Absolute Monocyte Count 0.37 k/cumm (0.11-0.7); Absolute Neutrophil Count 1.75 k/cumm (1.2-6.7); Basophils % 0.9; Eosinophils % 5.8; HCT 37.6 % (40.0-50.0); HGB 12.6 g/dL (13.5-17.5); Lymphocytes % 28.7; Mean Corp. HGB Concentration 33.5 g/dL (32.0-36.0); Mean Corpuscular Hemoglobin 31.7 pg (27.0-33.0); Mean Corpuscular Volume 94.7 fL (80-95); Mean Platelet Volume 9.1 fL (8.0-11.0); Monocytes % 11.3; Neutrophils % 53.3; Platelet Count 140 x1000/uL (130-400); RBC 3.97 m/cumm (4.50-6.00); RBC Distribution Width 12.6 % (11.8-14.1); White Blood Cell Count 3.28 k/cumm (4.4-10.8)
[2019-05-12 09:26] LABS: ALT 26 U/L (16-63); AST 29 U/L (15-37); Albumin 3.6 g/dL (3.4-5.0); Alkaline Phosphatase 117 U/L (46-116); BUN 19 mg/dL (7-18); Bilirubin, Total 0.7 mg/dL (0.2-1.0); CREATININE 0.84 mg/dL (0.70-1.30); Calcium 8.7 mg/dL (8.5-10.1); Chloride 104 mmol/L (98-107); Glucose 83 mg/dL (74-106); Potassium 4.3 mmol/L (3.5-5.1); Sodium 142 mmol/L (136-145); Total Protein 7.2 g/dL (6.4-8.2)
[2019-05-14 16:04] LABS: Testosterone, Total <7.0 ng/dL (240-950)
[2019-05-14 19:43] LABS: PSA, Ultrasensitive 19.4 ng/mL (<= 7.2)
== END 2019-05-12 02:52 ==
PROVIDERS: PCP Internal Medicine; Visit Provider Internal Medicine
DX: C61 Malignant neoplasm of prostate (principal); C77.1 Secondary and unspecified malignant neoplasm of intrathoracic lymph nodes
CPT/HCPCS: 36415; 80053; 84153; 84403; 85025

== ENCOUNTER 2019-06-09 02:04 | Outpatient (CLI) | payer MEDICARE, BC, SELFPAY ==
[2019-06-09 09:50] LABS: Absolute Basophil Count 0.03 k/cumm (0.0-0.2); Absolute Lymphocyte Count 0.94 k/cumm (1.2-3.4); Absolute Neutrophil Count 2.28 k/cumm (1.2-6.7); Basophils % 0.7; Eosinophils % 9.9; HCT 35.7 % (40.0-50.0); HGB 11.9 g/dL (13.5-17.5); Lymphocytes % 23.2; Mean Corp. HGB Concentration 33.3 g/dL (32.0-36.0); Mean Corpuscular Hemoglobin 31.7 pg (27.0-33.0); Mean Corpuscular Volume 95.2 fL (80-95); Mean Platelet Volume 9.8 fL (8.0-11.0); Monocytes % 9.9; Neutrophils % 56.3; Platelet Count 138 x1000/uL (130-400); RBC 3.75 m/cumm (4.50-6.00); RBC Distribution Width 13.4 % (11.8-14.1); White Blood Cell Count 4.05 k/cumm (4.4-10.8)
[2019-06-09 10:08] LABS: ALT 23 U/L (16-63); AST 27 U/L (15-37); Albumin 3.6 g/dL (3.4-5.0); Alkaline Phosphatase 111 U/L (46-116); Anion Gap 6.5 mmol/L (3-11); BUN 23 mg/dL (7-18); Bilirubin, Total 0.8 mg/dL (0.2-1.0); CO2 30.5 mmol/L (21.0-32.0); CREATININE 0.82 mg/dL (0.70-1.30); Calcium 8.5 mg/dL (8.5-10.1); Chloride 103 mmol/L (98-107); Glucose 92 mg/dL (74-106); Potassium 4.2 mmol/L (3.5-5.1); Sodium 140 mmol/L (136-145); Total Protein 6.7 g/dL (6.4-8.2)
[2019-06-10 14:33] LABS: PSA, Ultrasensitive 13.4 ng/mL (<= 7.2)
[2019-06-12 07:42] LABS: Testosterone, Total <7.0 ng/dL (240-950)
== END 2019-06-09 02:24 ==
PROVIDERS: PCP Internal Medicine; Visit Provider Internal Medicine
DX: C61 Malignant neoplasm of prostate (principal); C77.1 Secondary and unspecified malignant neoplasm of intrathoracic lymph nodes
CPT/HCPCS: 36415; 80053; 84153; 84403; 85025

== ENCOUNTER → 2019-06-19 11:52 | Outpatient (BNVA) | payer MEDICARE, BC, SELFPAY | PROVIDERS: PCP Internal Medicine; Referring Provider Internal Medicine; Visit Provider Urology | DX: R69 Illness, unspecified (principal) ==

== ENCOUNTER 2019-06-27 02:13 | Outpatient (CLI) | payer MEDICARE, BC, SELFPAY ==
--- NOTE | 2019-06-27 | DI.NM_ITS ---
EXAM: NM BONE SCAN WHOLE BODY GRP CLINICAL HISTORY: METASTATIC PROSTATE CA, C61, C77.1, C79.51. COMPARISON: NM BONE SCAN WHOLE BODY GRP from 02/19/2019 XR CERVICAL SP COMP W FLEX/EXT from 02/24/2019 XR THORACIC SPINE COMPLETE from 02/24/2019 EXAMINATION: Whole body bone scan was performed with intravenous infusion of 24.0 millicuries of tyra hnetium 99 labeled methylene diphosphonate. FINDINGS: The previously described T5 vertebral body lesion seen on prior CT and bone scan of February 2019 is again noted on today's examination as an area of increased uptake, this lesion was larger on CT and m ay be slightly more intense on today's bone scan than on the prior examination. Small focus of mildly increased uptake in the right cervical spine is indeterminate and could represent degenerative roque e, unchanged on bone scan from prior examination and consistent with very prominent localized facet h ypertrophic changes on prior radiographs. No other area of increased bony uptake is seen. IMPRESSION: Stable to slightly increased intensity of T5 vertebral body lesion, presumably metastatic. No other s uspicious findings for metastatic disease.
[2019-06-27 09:44] LABS: Absolute Basophil Count 0.02 k/cumm (0.0-0.2); Absolute Lymphocyte Count 0.93 k/cumm (1.2-3.4); Absolute Monocyte Count 0.34 k/cumm (0.11-0.7); Absolute Neutrophil Count 2.06 k/cumm (1.2-6.7); Basophils % 0.6; Eosinophils % 5.6; HCT 35.8 % (40.0-50.0); HGB 11.9 g/dL (13.5-17.5); Lymphocytes % 26.2; Mean Corp. HGB Concentration 33.2 g/dL (32.0-36.0); Mean Corpuscular Hemoglobin 31.7 pg (27.0-33.0); Mean Corpuscular Volume 95.5 fL (80-95); Mean Platelet Volume 9.2 fL (8.0-11.0); Monocytes % 9.6; Platelet Count 165 x1000/uL (130-400); RBC 3.75 m/cumm (4.50-6.00); RBC Distribution Width 13.3 % (11.8-14.1); White Blood Cell Count 3.55 k/cumm (4.4-10.8)
[2019-06-27 10:01] LABS: ALT 30 U/L (16-63); AST 30 U/L (15-37); Albumin 3.6 g/dL (3.4-5.0); Alkaline Phosphatase 118 U/L (46-116); Anion Gap 7.3 mmol/L (3-11); BUN 24 mg/dL (7-18); Bilirubin, Total 0.8 mg/dL (0.2-1.0); CO2 29.7 mmol/L (21.0-32.0); CREATININE 0.83 mg/dL (0.70-1.30); Calcium 8.6 mg/dL (8.5-10.1); Chloride 104 mmol/L (98-107); Glucose 97 mg/dL (74-106); Potassium 4.1 mmol/L (3.5-5.1); Sodium 141 mmol/L (136-145); Total Protein 7.3 g/dL (6.4-8.2)
--- NOTE | 2019-06-27 10:47 | DI.CT_ITS ---
EXAM: CT CHEST/ABD/PEL W CLINICAL HISTORY: METASTATIC PROSTATE CA, RESTAGING EXAM,C61,C77.1,C79.51 TECHNIQUE: CT examination of the chest, abdomen, and pelvis was performed with bolus infusion of 100 cc of Omnipaque 350. COMPARISON: CT CHEST PE CTA from 01/29/2019 CT ABDOMEN PELVIS W from 02/19/2019 XR THORACIC SPINE COMPLETE from 02/24/2019 FINDINGS: There is a right pleural effusion and there is cardiomegaly. No pulmonary mass or consolidation. No pulmonary edema. No mediastinal or hilar adenopathy. Tracheobronchial tree appears intact. There is a T5 vertebral body sclerotic lesion which was present on prior study 02/19/2019 and which h as increased markedly since the prior examination in size, this now measures about 21 millimeters in greatest diameter on axial imaging. Findings are consistent with metastatic prostatic carcinoma. Multiple minimal sclerotic foci in the pelvis appear unchanged from prior study, these are indetermin ate for malignancy. The liver is heterogeneous in appearance, findings may indicate vascular flow phenomenon with decreas ed cardiac output in a patient with right pleural effusion and cardiomegaly. Cirrhosis not excluded. Spleen is unremarkable except for some incidental cysts. Small bilateral renal cysts also noted. Pancreas appears intact. Gallbladder and bile ducts are CT normal. Abdominal wall shows no evidence of hernia. Abdominal aorta is of normal diameter. No major abnormality of branch vessels, multi focal calcific aortic plaque is noted in the arterial circulation the abdomen. Prior study of 02/19/2019 showed multiple enlarged lymph nodes, retro aortic node in the lower medias tinum has resolved. Retrocrural node now measures 11 millimeters, compared to 18 millimeters on prio r study. Retroaortic node measures 14 millimeters as compared to 26 millimeters on prior study. Rig ht external iliac and right pelvic sidewall nodes may be slightly smaller on the current study. No focal bowel pathology identified. Urinary bladder is mildly thickened. No new adenopathy in the chest, abdomen, pelvis. IMPRESSION: 1. Interval decrease in prominence of multiple metastatic nodes in the abdomen and lower thorax. Sli ght interval decrease in size of pelvic nodes. 2. Marked interval increase in size of T5 vertebral body/right pedicle presumed metastatic lesion. 3. No other evidence of new metastatic disease.
[2019-06-27] MEDS: Omnipaque 350 MG/ML 100 ML BTL IJ (11:03)
[2019-06-27] MEDS: Normal Saline - Diluent 50 ML VIAL IV (11:05)
[2019-06-27] MEDS: Breeza Beverage 473 ML BTL PO (11:07)
[2019-06-27] MEDS: Normal Saline Flush 10 ML SYR IVP (12:53)
[2019-06-28 14:32] LABS: PSA, Ultrasensitive 11.6 ng/mL (<= 7.2)
[2019-07-01 08:12] LABS: Testosterone, Total <7.0 ng/dL (240-950)
== END 2019-06-27 02:33 ==
PROVIDERS: PCP Internal Medicine; Visit Provider Internal Medicine
DX: C61 Malignant neoplasm of prostate (principal); C77.1 Secondary and unspecified malignant neoplasm of intrathoracic lymph nodes; C79.51 Secondary malignant neoplasm of bone; J90 Pleural effusion, not elsewhere classified; I51.7 Cardiomegaly; R59.0 Localized enlarged lymph nodes
CPT/HCPCS: 74177; 78306; 80053; 84153; 84403; 71260; 85025; J3490

== ENCOUNTER 2019-07-07 04:12 | Outpatient (CLI) | payer MEDICARE, BC, SELFPAY ==
[2019-07-07 12:17] LABS: Abs Immature Grans 0.01 k/cumm (0.0-0.09); Absolute Basophil Count 0.03 k/cumm (0.0-0.2); Absolute Eosinophil Count 0.18 k/cumm (0.0-0.7); Absolute Lymphocyte Count 0.94 k/cumm (1.2-3.4); Absolute Monocyte Count 0.44 k/cumm (0.11-0.7); Absolute Neutrophil Count 2.09 k/cumm (1.2-6.7); Basophils % 0.8; Eosinophils % 4.9; HGB 12.3 g/dL (13.5-17.5); Immature Grans % 0.3 %; Lymphocytes % 25.5; Mean Corp. HGB Concentration 33.2 g/dL (32.0-36.0); Mean Corpuscular Hemoglobin 31.9 pg (27.0-33.0); Mean Corpuscular Volume 95.9 fL (80-95); Mean Platelet Volume 9.6 fL (8.0-11.0); Monocytes % 11.9; Neutrophils % 56.6; Platelet Count 163 x1000/uL (130-400); RBC 3.86 m/cumm (4.50-6.00); RBC Distribution Width 13.1 % (11.8-14.1); White Blood Cell Count 3.69 k/cumm (4.4-10.8)
[2019-07-07 13:25] LABS: ALT 30 U/L (16-63); AST 30 U/L (15-37); Alkaline Phosphatase 123 U/L (46-116); Anion Gap 5.4 mmol/L (3-11); BUN 27 mg/dL (7-18); Bilirubin, Total 0.6 mg/dL (0.2-1.0); CO2 30.6 mmol/L (21.0-32.0); CREATININE 0.81 mg/dL (0.70-1.30); Calcium 9.1 mg/dL (8.5-10.1); Chloride 103 mmol/L (98-107); Glucose 98 mg/dL (74-106); Sodium 139 mmol/L (136-145); Total Protein 7.5 g/dL (6.4-8.2)
[2019-07-08 13:13] LABS: PSA, Ultrasensitive 11.5 ng/mL (<= 7.2)
[2019-07-08 19:54] LABS: Testosterone, Total <7.0 ng/dL (240-950)
== END 2019-07-07 04:32 ==
PROVIDERS: PCP Internal Medicine; Visit Provider Internal Medicine
DX: C61 Malignant neoplasm of prostate (principal); C77.1 Secondary and unspecified malignant neoplasm of intrathoracic lymph nodes
CPT/HCPCS: 36415; 80053; 84153; 84403; 85025

== ENCOUNTER 2019-08-04 00:55 | Outpatient (CLI) | payer MEDICARE, BC, SELFPAY ==
[2019-08-04 10:10] LABS: Abs Immature Grans 0.01 k/cumm (0.0-0.09); Absolute Basophil Count 0.03 k/cumm (0.0-0.2); Absolute Eosinophil Count 0.25 k/cumm (0.0-0.7); Absolute Lymphocyte Count 0.98 k/cumm (1.2-3.4); Absolute Monocyte Count 0.53 k/cumm (0.11-0.7); Absolute Neutrophil Count 2.82 k/cumm (1.2-6.7); Basophils % 0.6; Eosinophils % 5.4; HGB 11.8 g/dL (13.5-17.5); Immature Grans % 0.2 %; Lymphocytes % 21.2; Mean Corp. HGB Concentration 33.7 g/dL (32.0-36.0); Mean Corpuscular Hemoglobin 32.8 pg (27.0-33.0); Mean Corpuscular Volume 97.2 fL (80-95); Mean Platelet Volume 9.4 fL (8.0-11.0); Monocytes % 11.5; Neutrophils % 61.1; Platelet Count 147 x1000/uL (130-400); RBC Distribution Width 13.4 % (11.8-14.1); White Blood Cell Count 4.62 k/cumm (4.4-10.8)
[2019-08-04 10:25] LABS: ALT 25 U/L (16-63); AST 22 U/L (15-37); Albumin 3.5 g/dL (3.4-5.0); Alkaline Phosphatase 102 U/L (46-116); Anion Gap 5.8 mmol/L (3-11); BUN 20 mg/dL (7-18); Bilirubin, Total 0.9 mg/dL (0.2-1.0); CO2 30.2 mmol/L (21.0-32.0); CREATININE 0.81 mg/dL (0.70-1.30); Calcium 8.6 mg/dL (8.5-10.1); Chloride 102 mmol/L (98-107); Glucose 108 mg/dL (74-106); Potassium 3.9 mmol/L (3.5-5.1); Sodium 138 mmol/L (136-145); Total Protein 7.2 g/dL (6.4-8.2)
[2019-08-05 12:39] LABS: PSA, Ultrasensitive 8.3 ng/mL (<= 7.2)
[2019-08-06 18:44] LABS: Testosterone, Total <7.0 ng/dL (240-950)
== END 2019-08-04 01:15 ==
PROVIDERS: PCP Internal Medicine; Visit Provider Internal Medicine
DX: C61 Malignant neoplasm of prostate (principal); C77.1 Secondary and unspecified malignant neoplasm of intrathoracic lymph nodes
CPT/HCPCS: 36415; 80053; 84153; 84403; 85025

== ENCOUNTER 2019-08-10 07:25 | Emergency (ER) | payer MEDICARE, BC, SELFPAY ==
[2019-08-10 07:32] VITALS: BP 142/66; PULSE 77; RESP 16; TEMP 36.7; O2SAT 99
--- NOTE | 2019-08-10 08:14 | ED.GENADUL_ITS ---
Discharge Plan Disposition Patient Disposition: HOME Condition: Stable Discharge Details Chief Complaint: Laceration Clinical Impression: Noninfected skin tear of left lower extremity Primary Care Provider: Nikhil Serrano ED Provider: Ami Camacho Home Meds and New Rx's Prescriptions: Continued terbinafine HCl [Antifungal (terbinafine)] 1 % cream 1 applic TP BID RF: 0 carica papaya Tablet 1 tab PO DAILY RF: 0 Eliquis 5 mg tablet 5 mg PO BID RF: 0 turmeric root extract 500 mg capsule 750 mg PO DAILY RF: 0 cholecalciferol (vitamin D3) 400 unit capsule 800 unit PO DAILY RF: 0 saw palmetto fruit 450 mg capsule 450 mg PO DAILY RF: 0 ascorbic acid (vitamin C) 500 mg capsule 250 mg PO DAILY RF: 0 alfuzosin 10 mg tablet extended release 24 hr 10 mg PO DAILY Qty: 30 RF: 2 triamcinolone acetonide 0.1 % cream 1 applic TP BID PRNRF: 0 ibuprofen 200 mg tablet 200 mg PO DAILY RF: 0 abiraterone 250 mg Tablet 100 mg PO DAILY RF: 0 furosemide [Lasix] 20 mg tablet 20 mg PO QAM Qty: 2 RF: 0 Discharge Instructions Instructions: Laceration (ED) Additional Instructions: Your wound was repaired by placing Steri-Strips and nonadherent dressing. Keep clean and dry, no soaking. May wash in a running soap and water daily. Return for any signs of infection, swelling, red streaks or drainage. At this time your wound is nonsuturable. Follow up with primary care provider in 3-5 days. Return to ED sooner if any worsening or concerns. Increase oral fluids. Referrals: Nikhil Serrano MD [Primary Care Provider] - Medical Decision Making 84-year-old male presents with a left anterior leonardo skin tear after catching his leg yesterday at 4 PM on a snowplow blade. He is ambulatory without difficulty in department, bleeding is controlled with pressure. He is on Eliquis daily. At this time it does not appear that the wound is suturable, mostly superficial with a small flap of skin. Wound care performed in department and Steri-Strips applied with a sterile dressing application. Patient has no other complaints no other injuries. Wound care performed with sterile saline and chlorhexidine. Bleeding is controlled upon arrival. Due to the superficial nature of the wound and the time since onset at this time we will do Steri-Strips with a nonadherent dressing and Kerlix wrap and allow wound to heal by secondary intention. At this time the wound is nonsuturable. Patient is up-to-date on his tetanus shot last tetanus was in 2019. He is otherwise without complaint. There is no signs of infection no surrounding erythema or swelling. This text was generated using [employer] dictation system, please disregard any oddities of phrase or misspellings. Patient discharged with home care instructions and strict return instructions given, verbalized understanding. HPI General Mode of arrival: ambulatory . Date/Time Provider Initiated Documentation: 08/10/19 07:26 . Limitations to Documentation: no limitations . Information obtained by: patient . HPI Narrative: 84-year-old male presents with a left anterior leonardo skin tear after catching his leg yesterday at 4 PM on a snowplow blade. He is ambulatory without difficulty in department, bleeding is controlled with pressure. He is on Eliquis daily. At this time it does not appear that the wound is suturable, mostly superficial with a small flap of skin. Wound care performed in department and Steri-Strips applied with a sterile dressing application. Patient has no other complaints no other injuries. Related Data Home Medications Medication Instructions Recorded Confirmed alfuzosin 10 mg tablet,extended 10 mg PO DAILY #30 tab 01/16/19 08/10/19 release 24 hr apixaban 5 mg tablet 5 mg PO BID 01/16/19 08/10/19 ascorbic acid (vitamin C) 500 mg 250 mg PO DAILY cap 01/16/19 08/10/19 capsule carica papaya 1 tab PO DAILY tab 01/16/19 08/10/19 cholecalciferol (vitamin D3) 10 800 unit PO DAILY cap 01/16/19 08/10/19 mcg (400 unit) capsule saw palmetto fruit 450 mg capsule 450 mg PO DAILY cap 01/16/19 08/10/19 terbinafine HCl 1 % topical cream 1 applic TP BID 01/16/19 08/10/19 turmeric root extract 500 mg 750 mg PO DAILY cap 01/16/19 08/10/19 capsule furosemide [Lasix] 20 mg PO QAM #2 tab 01/29/19 08/10/19 ibuprofen 200 mg tablet 200 mg PO DAILY tab 03/11/19 08/10/19 triamcinolone acetonide 0.1 % 1 applic TP BID PRN 03/11/19 08/10/19 topical cream abiraterone 100 mg PO DAILY 08/10/19 08/10/19 Previous Rx's Medication Instructions Recorded alfuzosin 10 mg tablet,extended 10 mg PO DAILY #30 tab 01/16/19 release 24 hr furosemide [Lasix] 20 mg PO QAM #2 tab 01/29/19 Allergies Allergy/AdvReac Type Severity Reaction Status Date / Time Fish Containing Products Allergy Intermediate sob,swelling Verified 08/10/19 07:36 throat Sulfa (Sulfonamide Allergy Intermediate rash,sob Verified 08/10/19 07:36 Antibiotics) General Stated Complaint: Laceration YENNIFER: 3 Review of Systems Narrative: Constitutional: Negative for weight loss, alert and oriented, well groomed, normal body habitus, appears comfortable. HEENT: Denies trauma, headaches, blurry vision, nasal discharge, sore throat, trouble swallowing. Neuro: Denies dizziness, blurry vision, weakness, syncope, headache or facial numbness. Hematologic: Denies intolerance to heat or cold, hair loss. Integumentary/Breasts Skin/Breast: Reports wounds [facility] Medical History Abdominal pain (Acute) Atrial fibrillation (Chronic) Degenerative joint disease (DJD) of lumbar spine (Acute) Edema (Acute) Exertional dyspnea (Acute) Lower urinary tract symptoms (Acute) Prostate cancer (Chronic) Severe tricuspid regurgitation by prior echocardiogram (Acute) Thrombocytopenia (Chronic) Tinea corporis (Acute) Urinary frequency (Acute) White coat syndrome with hypertension (Acute) Social History Smoking/Tobacco Use Status: Never Alcohol Intake: current Alcohol Intake frequency: a few times a week Alcohol type: wine Drug use: Never Substance use type: does not use Current gender identity: male What type of physical activity do you participate in: walking, bicycling and other Details: snow shoeing, hiking Duration: 30-45 minutes/day Frequency: 5-6 times per week Seatbelt use: always Do you feel safe at home: Yes Do you feel safe in your relationship?: Yes Exam Narrative Exam Narrative: Constitutional: Alert and oriented x3. Appears stated age. Normal body habitus. Head: Normocephalic, no trauma. Chest: RRR, Normal S1, S2, distal pulses intact. Resp: Lungs clear to auscultation bilaterally, no wheezes, rales, or rhonchi. Musculoskeletal: Normal gait, 5/5 strength to all four extremities. Skin: Capillary refill less than 2 sec. he has approximate 6 cm superficial skin tear noted to his anterior left leonardo. He does have a skin flap, bleeding is controlled. Neurologic: Cranial nerves II-XII intact. Alert and oriented x 3. DTR's intact. Hematologic/Lymphatic: No ecchymosis, no lymphadenopathy. Course Vital Signs Vital signs: Vital Signs Temperature 36.7 C 08/10/19 07:32 Pulse 77 08/10/19 07:32 Respiratory Rate 16 08/10/19 07:32 Blood Pressure 142/66 H 08/10/19 07:32 Pulse Oximetry 99 08/10/19 07:32 Temperature 36.7 C 08/10/19 07:32 Temperature Source Skin 08/10/19 07:32 Pulse 77 08/10/19 07:32 Respiratory Rate 16 08/10/19 07:32 Respiratory Effort Non-Labored 08/10/19 07:32 Blood Pressure 142/66 H 08/10/19 07:32 Blood Pressure Position Supine 08/10/19 07:32 Pulse Oximetry 99 08/10/19 07:32 Oxygen Delivery Method Room Air 08/10/19 07:32 Oxygen Flow Rate 0 08/10/19 07:32 Pain Level 2 08/10/19 07:32
== END 2019-08-10 08:30 | disposition home or self-care (01) ==
LOC: ER 08:25
PROVIDERS: Emergency Provider Registered Nurse Emergency; PCP Internal Medicine
DX: S81.812A Laceration without foreign body, left lower leg, initial encounter (principal); W26.8XXA Contact with other sharp object(s), not elsewhere classified, initial encounter; Z79.01 Long term (current) use of anticoagulants; I48.91 Unspecified atrial fibrillation
CPT/HCPCS: 99282; 99283

== ENCOUNTER → 2019-08-25 13:14 | Outpatient (BNVA) | payer MEDICARE, BC, SELFPAY | PROVIDERS: PCP Internal Medicine; Referring Provider Internal Medicine; Visit Provider Urology | DX: R39.89 Other symptoms and signs involving the genitourinary system (principal) | CPT/HCPCS: 99213; 99442 ==

== ENCOUNTER 2019-09-09 11:36 | Outpatient (RCR) | payer MEDICARE, BC, SELFPAY ==
[2019-09-09 12:42] LABS: Absolute Basophil Count 0.01 k/cumm (0.0-0.2); Absolute Monocyte Count 0.45 k/cumm (0.11-0.7); Absolute Neutrophil Count 2.33 k/cumm (1.2-6.7); Basophils % 0.2; Eosinophils % 6.8; HCT 37.4 % (40.0-50.0); HGB 12.5 g/dL (13.5-17.5); Lymphocytes % 29.6; Mean Corp. HGB Concentration 33.4 g/dL (32.0-36.0); Mean Corpuscular Hemoglobin 32.7 pg (27.0-33.0); Mean Corpuscular Volume 97.9 fL (80-95); Mean Platelet Volume 9.9 fL (8.0-11.0); Monocytes % 10.3; Neutrophils % 53.1; Platelet Count 155 x1000/uL (130-400); RBC 3.82 m/cumm (4.50-6.00); White Blood Cell Count 4.39 k/cumm (4.4-10.8)
[2019-09-09 12:51] LABS: ALT 27 U/L (16-63); AST 22 U/L (15-37); Albumin 3.7 g/dL (3.4-5.0); Alkaline Phosphatase 116 U/L (46-116); Anion Gap 4.8 mmol/L (3-11); BUN 24 mg/dL (7-18); Bilirubin, Total 0.8 mg/dL (0.2-1.0); CO2 29.2 mmol/L (21.0-32.0); CREATININE 0.86 mg/dL (0.70-1.30); Calcium 8.9 mg/dL (8.5-10.1); Chloride 101 mmol/L (98-107); Glucose 94 mg/dL (74-106); Sodium 135 mmol/L (136-145); Total Protein 7.6 g/dL (6.4-8.2)
[2019-09-10 15:18] LABS: PSA, Diagnostic 6.1 ng/mL (0.0-6.5)
[2019-09-13 00:25] LABS: Testosterone, Total <7.0 ng/dL (240-950)
== END 2019-10-07 23:59 | disposition home or self-care (01) ==
LOC: INF 11:36
PROVIDERS: PCP Internal Medicine; Visit Provider Internal Medicine
DX: C61 Malignant neoplasm of prostate (principal); C77.1 Secondary and unspecified malignant neoplasm of intrathoracic lymph nodes
CPT/HCPCS: 36415; 80053; 84403; 84153; 85025

== ENCOUNTER 2019-09-10 02:08 | Outpatient (CLI) | payer MEDICARE, BC, SELFPAY ==
--- NOTE | 2019-09-10 12:35 | DI.US_ITS ---
APPROVED REPORT EXAM: Comprehensive 2D, Doppler, and color-flow Echocardiogram Patient Location: Out-Patient Software Engineer Sales: Rosaline Jo RDCS (AE) Indications: Tricuspid Regurgitation Other Information Study Quality: Good Conclusion Normal left ventricular wall thickness and chamber size. Estimated ejection fraction is 60%. There are no segmental wall motion abnormalities The right ventricle is mildly to moderately dilated with normal systolic function The left atrium is mildly enlarged. The right atrium is severely dilated The aortic valve is trileaflet, mildly sclerotic with trace regurgitation Mitral leaflets are mildly thickened with trace regurgitation The tricuspid valve is structurally normal. There is severe tricuspid regurgitation. Estimated RVSP is 42 mmHg Pulmonic valve is structurally normal with trace to mild regurgitation The IVC is dilated with less than 50% collapse with inspiration Wall motion Left Ventricle The left ventricle is normal size. The left ventricular systolic function is normal. The left ventric ular ejection fraction is within the normal range. There is normal left ventricular wall thickness. T here is normal LV segmental wall motion. There is no ventricular septal defect visualized. LVEF is 60 %. Right Ventricle Right ventricle is mild to moderately dilated. The right ventricular systolic function is normal. The RVSP is 42.1 mmHg Atria Left atrium is mildly dilated. Right atrium is severely dilated. The interatrial septum is intact wit h no evidence for an atrial septal defect. Aortic Valve The Aortic valve is sclerotic. There is no aortic valvular stenosis. Trace aortic regurgitation. Mitral Valve There is mitral annular calcification. No evidence of mitral valve stenosis. Trace mitral regurgitati on. Tricuspid Valve The tricuspid valve is normal in structure. There is no tricuspid valve stenosis. Severe tricuspid re gurgitation. Pulmonic Valve The pulmonary valve is normal in structure. There is no pulmonic valvular stenosis. Trace to mild pul ed regurgitation. Great Vessels The aortic root is normal in size. The ascending aorta is normal in size. Aortic arch is not well vis ualized. The IVC collapses <50% with inspiration. The IVC is dilated. Pericardium There is no pericardial effusion. There is no pleural effusion. 2D Dimensions IVSD d PLAX 0.74 cm M: 0.6-1.2 LV Vol A2C d MOD 86.6 mL LVPW d PLAX 0.74 cm M: 0.6 - 1.2 LV Vol A4C d MOD 77.9 mL LVID d PLAX 4.51 cm M: 4.2 - 5.8 LA vol/ BSA A2C s A-L 26.4 mL/m2 LVDs 2.80 cm M: 2.5 - 4.0 LA vol/ BSA A4C s A-L 29.1 mL/m2 Ao Root d 2.66 cm M: 3.1 - 3.7 LA Vol/ BSA Biplane s A-L 28.0 mL/m2 RA Area A4C 32.93 cm2 LA Area A4C s MOD 18.58 cm2 RA Vol/ BSA A4C s A-L 75.3 mL/m2 LA Area A2C s MOD 17.50 cm2 Ao Asc Diam d 2.75 cm M: 2.6 - 3.4 LV EF A4C MOD 50.7 % LV EF Teichholz 68.0 % LV EF A2C MOD 50.7 % LVEF (Arcos's) 50.46 % M: 52 - 72 LV EF Biplane MOD 50.5 % LV Volume 65.65 mL M: 62 - 150 SV 43.29 mL LV Volume Index 34.92 mL/m2 M: 34 - 74 SV Index 22.96 mL/m2 LV Vol Biplane MOD 85.8 mL FS 37.75 % M-Mode TAPSE 1.67 cm (M/F) >1.7 LV Diastology MV E' medial 0.169 (>0.07 m/s) MV E Vmax 0.96 (0.4-1.3 m/s) LV E/e MED 5.65 (<14) MV E' lateral 0.177 (>0.1 m/s) LV E/e LAT 5.40 (<14) MV E/E' medial 5.68 MV E/E' lateral 5.41 Aortic Valve LVOT Area 2.65 cm2 AoV Area Vmax 2.87 cm2 LVOT Vmax 1.86 m/s AoV Area/ BSA (Vmax) 1.52 cm2/m2 LVOT Mean Jeramy. 1.05 m/s SAVI Mean Jeramy. 2.28 cm2 LVOT Peak Grad 13.8 mmHg SAVI Mean Jermay. Index 1.21 cm2/m2 LVOT Mean Grad 5.5 mmHg AR DT 2456 msec LVOT VTI 0.330 m AR PHT 712 msec LVOT Diam s 1.80 cm AoV Vmax 1.71 m/s Velocity Ratio 1.08 AoV Mean Jeramy. 1.22 m/s AoV Peak Grad 11.7 mmHg LVOT SV 87.21 mL AoV Mean Grad 6.6 mmHg AoV VTI 0.307 m AoV Area VTI 2.84 cm2 AoV Area/ BSA (VTI) 1.50 cm/m2 Mitral Valve MV DT 200 (160-240 msec) MV PHT 58 msec MV Area PHT 3.79 cm2 Pulmonary Valve PV Vmax 1.02 (0.5-1.5 m/s) RVOT Peak Gr. 3.08 mmHg PV Peak Grad 4.2 mmHg RVOT Mean Gr. 1.50 mmHg PV Mean Grad 2.0 mmHg RVOT VTI 0.148 m PV VTI 0.176 m RVOT Vmax 0.88 m/s Tricuspid Valve TR Peak Grad 34.0 mmHg TR Vmax 2.92 m/s RA Pressure 8.00 mmHg RVSP (TR) 42.1 mmHg
== END 2019-09-10 02:28 ==
PROVIDERS: PCP Internal Medicine; Visit Provider Internal Medicine Cardiovascular Disease
DX: I07.1 Rheumatic tricuspid insufficiency (principal); I08.0 Rheumatic disorders of both mitral and aortic valves; I51.7 Cardiomegaly
CPT/HCPCS: 93306

== ENCOUNTER → 2019-09-12 08:43 | Outpatient (BNVA) | payer MEDICARE, BC, SELFPAY | PROVIDERS: PCP Internal Medicine; Referring Provider Internal Medicine; Visit Provider Internal Medicine Cardiovascular Disease | DX: I48.91 Unspecified atrial fibrillation (principal); I07.1 Rheumatic tricuspid insufficiency | CPT/HCPCS: 99214 ==

== ENCOUNTER 2019-09-14 18:39 | Inpatient (IN) | payer MEDICARE, BC, SELFPAY ==
[2019-09-14 18:42] VITALS: BP 160/93; PULSE 82; RESP 97; TEMP 36.8; O2SAT 98
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
[2019-09-14] MEDS: HYDROmorphone 2 MG/ML VIAL 0.5 MG IVP (18:57)
[2019-09-14] MEDS: Normal Saline Flush 10 ML SYR IVP ×2 (18:58→23:08)
[2019-09-14] MEDS: Normal Saline 1,000 ML 150 ML IV (19:05)
[2019-09-14 19:09] LABS: Abs Immature Grans 0.01 k/cumm (0.0-0.09); Absolute Basophil Count 0.01 k/cumm (0.0-0.2); Absolute Eosinophil Count 0.07 k/cumm (0.0-0.7); Absolute Lymphocyte Count 0.63 k/cumm (1.2-3.4); Absolute Monocyte Count 0.29 k/cumm (0.11-0.7); Absolute Neutrophil Count 4.06 k/cumm (1.2-6.7); Basophils % 0.2; Eosinophils % 1.4; HCT 33.8 % (40.0-50.0); HGB 11.2 g/dL (13.5-17.5); Immature Grans % 0.2 %; Lymphocytes % 12.4; Mean Corp. HGB Concentration 33.1 g/dL (32.0-36.0); Mean Corpuscular Hemoglobin 32.7 pg (27.0-33.0); Mean Corpuscular Volume 98.5 fL (80-95); Mean Platelet Volume 9.7 fL (8.0-11.0); Monocytes % 5.7; Neutrophils % 80.1; Platelet Count 144 x1000/uL (130-400); RBC 3.43 m/cumm (4.50-6.00); RBC Distribution Width 12.8 % (11.8-14.1); White Blood Cell Count 5.07 k/cumm (4.4-10.8)
[2019-09-14 19:22] LABS: ALT 24 U/L (16-63); AST 24 U/L (15-37); Albumin 3.5 g/dL (3.4-5.0); Alkaline Phosphatase 112 U/L (46-116); Anion Gap 9.5 mmol/L (3-11); BUN 31 mg/dL (7-18); Bilirubin, Total 0.7 mg/dL (0.2-1.0); CO2 28.5 mmol/L (21.0-32.0); CREATININE 0.98 mg/dL (0.70-1.30); Calcium 8.6 mg/dL (8.5-10.1); Chloride 105 mmol/L (98-107); Glucose 153 mg/dL (74-106); Potassium 4.1 mmol/L (3.5-5.1); Sodium 143 mmol/L (136-145); Total Protein 7.1 g/dL (6.4-8.2)
[2019-09-14 19:29] LABS: INR 1.1 (0.9-1.1); PTT Activated 23.6 sec (21.0-31.4); Prothrombin Time 11.2 sec (9.3-11.0)
--- NOTE | 2019-09-14 19:55 | DI.RAD_ITS ---
EXAM: XR CHEST 1V IN DI DEPT CLINICAL HISTORY: Left hip pain and deformity TECHNIQUE: 2D digital imaging was performed. COMPARISON: CR XR THORACIC SPINE COMPLETE from 02/24/[address] CHEST/ABD/PEL W from 06/27/2019 FINDINGS: MEDIASTINUM: Normal. HEART: Moderate cardiomegaly. PULMONARY VASCULATURE: Mild venous congestion. LUNGS: Clear. PLEURAL SPACE: No pleural effusion or pneumothorax. BONE:There is a 2 cm round sclerotic lesion again seen in the right aspect of the T5 vertebral body. This was present on the CT scan of the abdomen and pelvis from 06/27 19. On the nuclear medicine ex amination of the same day, it showed increased uptake. This is unchanged compared to the prior exami nations. OTHER FINDINGS:Normal. IMPRESSION: Moderate cardiomegaly with mild vascular congestion. DATA REPOSITORY: RADIATION DOSE DELIVERED:
--- NOTE | 2019-09-14 19:55 | DI.RAD_ITS ---
EXAM: XR HIP LT COMPLETE AP PELVIS CLINICAL HISTORY: Left hip pain and deformity after fall from standi. TECHNIQUE: 2D digital imaging was performed. COMPARISON: No exams were available for comparison FINDINGS: BONES: There is an acute comminuted intertrochanteric fracture of the left femur. There is varus ang ulation of the fracture. No bony destructive lesion is seen. JOINTS: No dislocation present. Degenerative changes are seen in the lower lumbar spine. SOFT TISSUE: Surgical clips are seen inferior to the pelvis which may reflect prior vasectomy. IMPRESSION: Acute comminuted angulated intertrochanteric fracture of the left femur. DATA REPOSITORY: RADIATION DOSE DELIVERED:
--- NOTE | 2019-09-14 20:04 | DI.VRAD_ITS ---
PROCEDURE INFORMATION: Exam: XR Left Hip with Pelvis when Performed Exam date and time: 09/14/2019 19:38 Age: 84 years old Clinical indication: Injury or trauma; Initial encounter; Blunt trauma (contusions or hematomas); Left; Injury date: 09/14/19; Injury details: Fall, hip pain and deformity TECHNIQUE: Imaging protocol: XR Left hip with pelvis when performed. Views: 2 or 3 views. COMPARISON: CT CHEST/ABD/PEL W 06/27/2019 10:42 FINDINGS: Bones/joints: Acute comminuted left femoral intertrochanteric fracture with a severe varus angulation. Mild degenerative changes in the hips. Soft tissues: Surgical clips projecting over the upper scrotum. IMPRESSION: Acute comminuted left femoral intertrochanteric fracture with a severe varus angulation. Dictated and Authenticated by: Manjula Garcia MD. Ordering:GEORGI Caldera MD
--- NOTE | 2019-09-14 20:05 | DI.VRAD_ITS ---
PROCEDURE INFORMATION: Exam: XR Chest, 1 View Exam date and time: 09/14/2019 19:55 Age: 84 years old Clinical indication: Injury or trauma; Initial encounter; Blunt trauma (contusions or hematomas); Injury date: 09/14/19; Injury details: Fall with hip deformity TECHNIQUE: Imaging protocol: XR of the chest Views: 1 view. COMPARISON: CT CHEST/ABD/PEL W 06/27/2019 10:42 FINDINGS: Lungs: No airspace consolidation. Pleural space: No significant pleural effusion. No pneumothorax. Heart/Mediastinum: Moderate cardiomegaly with mild vascular congestion. Bones/joints: 21 mm calcific density projecting over the upper mediastinum, also projecting over the spine, question a large osteophyte. No corresponding mediastinal calcification on a recent prior CT. No displaced fracture. IMPRESSION: Moderate cardiomegaly with mild vascular congestion. Dictated and Authenticated by: Manjula Garcia MD. Ordering:GEORGI Caldera MD
--- NOTE | 2019-09-14 20:36 | NUR.NOTE ---
Nursing Note: informed of admission and has been consulted about pt's medications from home. Verified medication with over the phone. Family has brought in 2 medication (3 bottles) from home, 2 of oral chemo medication Abiraterone and also Alfuzosin. Gate Agent to take meds to pharmacy.
[2019-09-14 20:54] VITALS: BP 160/93; PULSE 86; RESP 16; O2SAT 95
[2019-09-14 21:00] VITALS: BP 109/76; PULSE 108; RESP 18; TEMP 36.8; O2SAT 88
[2019-09-14] MEDS: Normal Saline 1,000 ML 75 ML IV (22:08)
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
[2019-09-14] MEDS: diazePAM 10 MG/2 ML SYR 2 MG IVP (23:05)
[2019-09-14 23:06] VITALS: BP 150/73; PULSE 77; RESP 17; TEMP 37.6; O2SAT 97
[2019-09-14 23:15] VITALS: BP 153/75; PULSE 83; RESP 18; O2SAT 96
[2019-09-15] VITALS (15 sets, daily range): BP systolic 104–152; BP diastolic 62–90; PULSE 69–109; RESP 13–21; TEMP 37–37.7; O2SAT 92–100
[2019-09-15] MEDS: Normal Saline Flush 10 ML SYR IVP ×8 (01:54→21:40)
[2019-09-15] MEDS: MORPHine 2 MG/ML SYR IVP (05:54)
[2019-09-15 06:41] LABS: HCT 29.8 % (40.0-50.0); HGB 9.9 g/dL (13.5-17.5); Mean Corp. HGB Concentration 33.2 g/dL (32.0-36.0); Mean Corpuscular Hemoglobin 32.6 pg (27.0-33.0); Mean Platelet Volume 9.9 fL (8.0-11.0); Platelet Count 122 x1000/uL (130-400); RBC 3.04 m/cumm (4.50-6.00); RBC Distribution Width 12.7 % (11.8-14.1); White Blood Cell Count 6.24 k/cumm (4.4-10.8)
[2019-09-15 06:48] LABS: Anion Gap 8.5 mmol/L (3-11); BUN 20 mg/dL (7-18); CO2 26.5 mmol/L (21.0-32.0); CREATININE 0.77 mg/dL (0.70-1.30); Chloride 106 mmol/L (98-107); Glucose 93 mg/dL (74-106); Potassium 3.5 mmol/L (3.5-5.1); Sodium 141 mmol/L (136-145)
[2019-09-15 06:52] LABS: Calcium 8.2 mg/dL (8.5-10.1)
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
[2019-09-15] MEDS: predniSONE 5 MG TAB PO (09:16)
[2019-09-15] MEDS: Furosemide 20 MG TAB 40 MG PO (09:16)
--- NOTE | 2019-09-15 09:29 | PGE_ITS ---
Date of Service Date of service: 09/15/19 Time of Service: 09:29 Assessment and Plan Assessment and plan (1) Closed fracture of left hip: Start date: 09/15/19 Start time: 09:33 Status: Acute Assessment and plan: He has a severely angulated and comminuted fracture of the left hip. Dr. Lorenz has decided to take patient to OR today given severity of trauma. NPO, will hold fluids at this time due to severe regurg and cardiomyopathy. Sterling ICS Bowel regimen pain management- managed with both valium and morphine therefore will be placed on capnography Qualifiers: Encounter type: initial encounter Qualified Code(s): S72.002A - Fracture of unspecified part of neck of left femur, initial encounter for closed fracture (2) Severe tricuspid regurgitation by prior echocardiogram: Start date: 09/15/19 Start time: 09:35 Status: Acute Assessment and plan: Severe and potentially worsening tricuspid regurg. He does not show overt signs of right heart failure or severe fluid overload. Will continue on his furosemide dose of 40 mg daily. (3) Atrial fibrillation: Start date: 09/15/19 Start time: 09:36 Status: Chronic Assessment and plan: His rate is well controlled. We are holding the api xaban because of the acute fracture. Will use SCDs for DVT prophylaxis. (4) Prostate cancer: Start date: 09/15/19 Start time: 09:36 Status: Chronic Assessment and plan: He has advanced prostate cancer. We will continue him on his abiraterone and prednisone. He also takes alfluzosin for urinary retention. He will be getting a Sterling catheter. (5) Discharge planning issues: Start date: 09/15/19 Start time: 09:36 Status: Acute Assessment and plan: He will remain inpatient with PT until stable for discharge. Will either be discharged with home services or rehab. Above case discussed with Dr. Reynoso who is in agreement. Subjective Subjective Patient reports: pain is less Interval history since last seen: Slept well pain is controlled. Plan for OR this afternoon. Denies SOB, CP, N/V/D. Exam Narrative Exam Narrative: Const: Younger appearing than stated age. Comfortable in bed AAOx3. Eyes: Perrla, EOMI Neck: no lymphedema, goiter Resp: LSC no wheezing, rhonchi or crackles anteriorly, did not listen posteriorly due to comfort and positioning. Cardio: Irregular rate and rhythm, controlled GI: BSx4, no tenderness Extrem: LLE with internal rotation, unable to compare to right for shortening given position and comfortability Objective Objective Clinical Data: Abnormal lab results 09/14/19 09/14/19 09/14/19 Range/Units 18:50 18:50 18:50 RBC 3.43 L (4.50-6.00) m/cumm Hgb 11.2 L (13.5-17.5) g/dL Hct 33.8 L (40.0-50.0) % MCV 98.5 H (80-95) fL Plt Count (130-400) x1000/uL Absolute Lymphocytes 0.63 L (1.2-3.4) k/cumm PT 11.2 H (9.3-11.0) sec BUN 31 H (7-18) mg/dL Glucose 153 H (74-106) mg/dL Calcium (8.5-10.1) mg/dL 09/15/19 09/15/19 Range/Units 06:27 06:27 RBC 3.04 L (4.50-6.00) m/cumm Hgb 9.9 L (13.5-17.5) g/dL Hct 29.8 L (40.0-50.0) % MCV 98.0 H (80-95) fL Plt Count 122 L (130-400) x1000/uL Absolute Lymphocytes (1.2-3.4) k/cumm PT (9.3-11.0) sec BUN 20 H D (7-18) mg/dL Glucose (74-106) mg/dL Calcium 8.2 L (8.5-10.1) mg/dL Vital Signs Temperature 36.8 C 09/15/19 07:05 Temperature Source Tympanic 09/15/19 07:05 Pulse 108 H 09/15/19 07:05 Pulse Rhythm Irregular 09/15/19 01:45 Respiratory Rate 18 09/15/19 07:05 Respiratory Effort 09/15/19 01:45 Respiratory Depth Normal 09/15/19 01:45 Respiratory Pattern Normal 09/15/19 01:45 Blood Pressure 109/76 09/15/19 07:05 Blood Pressure Position Supine 09/14/19 18:42 Pulse Oximetry 98 09/15/19 07:05 Oxygen Delivery Method Nasal Cannula 09/15/19 07:05 Oxygen Flow Rate 2 09/15/19 07:05 Pain Level 1 09/15/19 09:15 Comment 09/15/19 00:32 Intake & Output 09/14/19 09/14/19 09/15/19 11:59 23:59 11:59 Intake Total 967.5 / 967.5 1383.75 / 1383.75 Output Total 850 / 850 Balance 967.5 / 967.5 533.75 / 533.75 Weight 68.039 kg 78.5 kg Intake: IV 467.5 / 467.5 833.75 / 833.75 Oral 500 / 500 550 / 550 Output: Urine 850 / 850 Other: Urine Color Pale Yellow Yellow Urine Appearance Clear Clear Urine Odor Normal Laboratory Results WBC 6.24 k/cumm (4.4-10.8) 09/15/19 06:27 RBC 3.04 m/cumm (4.50-6.00) L 09/15/19 06:27 Hgb 9.9 g/dL (13.5-17.5) L 09/15/19 06:27 Hct 29.8 % (40.0-50.0) L 09/15/19 06:27 MCV 98.0 fL (80-95) H 09/15/19 06:27 MCH 32.6 pg (27.0-33.0) 09/15/19 06:27 MCHC 33.2 g/dL (32.0-36.0) 09/15/19 06:27 RDW 12.7 % (11.8-14.1) 09/15/19 06:27 Plt Count 122 x1000/uL (130-400) L 09/15/19 06:27 MPV 9.9 fL (8.0-11.0) 09/15/19 06:27 Immature Gran % 0.2 % 09/14/19 18:50 Neutrophils % 80.1 09/14/19 18:50 Lymphocytes % 12.4 09/14/19 18:50 Monocytes % 5.7 09/14/19 18:50 Eosinophils % 1.4 09/14/19 18:50 Basophils % 0.2 09/14/19 18:50 Absolute Neutrophils 4.06 k/cumm (1.2-6.7) 09/14/19 18:50 Absolute Lymphocytes 0.63 k/cumm (1.2-3.4) L 09/14/19 18:50 Absolute Monocytes 0.29 k/cumm (0.11-0.7) 09/14/19 18:50 Absolute Eosinophils 0.07 k/cumm (0.0-0.7) 09/14/19 18:50 Absolute Basophils 0.01 k/cumm (0.0-0.2) 09/14/19 18:50 PT 11.2 sec (9.3-11.0) H 09/14/19 18:50 INR 1.1 (0.9-1.1) 09/14/19 18:50 APTT 23.6 sec (21.0-31.4) 09/14/19 18:50 Sodium 141 mmol/L (136-145) 09/15/19 06:27 Potassium 3.5 mmol/L (3.5-5.1) 09/15/19 06:27 Chloride 106 mmol/L (98-107) 09/15/19 06:27 Carbon Dioxide 26.5 mmol/L (21.0-32.0) 09/15/19 06:27 Anion Gap 8.5 mmol/L (3-11) 09/15/19 06:27 BUN 20 mg/dL (7-18) H D 09/15/19 06:27 Creatinine 0.77 mg/dL (0.70-1.30) 09/15/19 06:27 Estimated GFR/1.73 m2 >= 60.00 (mL/min/1.73m2) 09/15/19 06:27 Glucose 93 mg/dL (74-106) D 09/15/19 06:27 Calcium 8.2 mg/dL (8.5-10.1) L 09/15/19 06:27 Magnesium 2.0 mg/dL (1.8-2.4) 09/15/19 06:27 Total Bilirubin 0.7 mg/dL (0.2-1.0) 09/14/19 18:50 AST 24 U/L (15-37) 09/14/19 18:50 ALT 24 U/L (16-63) 09/14/19 18:50 Alkaline Phosphatase 112 U/L (46-116) 09/14/19 18:50 Total Protein 7.1 g/dL (6.4-8.2) 09/14/19 18:50 Albumin 3.5 g/dL (3.4-5.0) 09/14/19 18:50 Patient ABO/Rh O Positive 09/14/19 19:10 Antibody Screen Negative 09/14/19 19:10
--- NOTE | 2019-09-15 11:58 | PHA.REVIEW ---
Pharmacy Admission Review - Admission Clinical Review (Last Reviewed 09/15/19 @ 08:11 by Parker Lorenz MD) Discharge planning issues (Acute) Closed fracture of left hip (Acute) Severe tricuspid regurgitation by prior echocardiogram (Acute) Fish Containing Products Allergy (Intermediate, Verified 08/10/19 07:36) sob,swelling throat Sulfa (Sulfonamide Antibiotics) Allergy (Intermediate, Verified 08/10/19 07:36) rash,sob Height 6 ft Weight 78.5 kg - Renal Dosing Renal Dosing: BUN 20 mg/dL (7-18) H D 09/15/19 06:27 Creatinine 0.77 mg/dL (0.70-1.30) 09/15/19 06:27 Medications needing adjustments: Reviewed (Crcl ~76 mL/min current meds okay) - Anticoagulation Anticoagulation: Hgb 9.9 g/dL (13.5-17.5) L 09/15/19 06:27 Hct 29.8 % (40.0-50.0) L 09/15/19 06:27 Plt Count 122 x1000/uL (130-400) L 09/15/19 06:27 INR 1.1 (0.9-1.1) 09/14/19 18:50 Creatinine 0.77 mg/dL (0.70-1.30) 09/15/19 06:27 Therapeutic Anticoagulation: Reviewed Medications: Apixaban (on hold until after surgery) - Opiate Usage Evaluate Pain Scale/Pains Meds: Reviewed Scheduled Bowel Reg ordered if on Opiates?: No (PRN meds ordered) - Relevant Labs Sodium 141 mmol/L (136-145) 09/15/19 06:27 Potassium 3.5 mmol/L (3.5-5.1) 09/15/19 06:27 Chloride 106 mmol/L (98-107) 09/15/19 06:27 Magnesium 2.0 mg/dL (1.8-2.4) 09/15/19 06:27 Electrolytes, C-Reactive P, ESR: Reviewed - DM Control DM Control: Glucose 93 mg/dL (74-106) D 09/15/19 06:27 Insulin Dosing: N/A - Heart Failure/RI EF%, STEVAN's, B-Blockers, Diuretics: Reviewed (furosemide) - BP Control BP Control: Blood Pressure 152/83 Blood Pressure 146/77 If elevated: Reviewed - Qtc Review If Elevated: Reviewed (QTc 463) - IV to PO Switch IV Medications: N/A () - Home Meds Home Med List reviewed: Reviewed (Ibuprofen may enhance the bleed risk of apixaban. Ibuprofen may diminish the diuretic effect of furosemide, furosemide may enhance the nephrotoxic effect of ibuprofen. Monitor renal function and for decreased effects.) Relevent Home Meds Not ordered & why?: apixaban (on hold), other meds on home med list that are not ordered have not been confirmed. - Current meds Current Medication Order Review: Intervened (talked to provider about 2 morphine orders, changed to one order with a dose range, discontinued duplicate entries, fixed diazpam order (added PRN in frequency)) - Comments Comments/Follow Ups: Watch BP and for restart of apixaban postop. Pt has two home meds that have been checked by pharmacy and sent up for pt use. Antibiotic Activity - Pharmacy Antibiotic Review Pharmacy Antibiotic Activity: Reviewed, no change (preop dose ordered)
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
--- NOTE | 2019-09-15 14:30 | DI.RAD_ITS ---
EXAM: XR HIP LT IN OR CLINICAL HISTORY: LEFT HIP FX TECHNIQUE: 2D and realtime digital imaging was performed. CONTRAST MATERIAL: Refer to procedure report. COMPARISON: CR,XR XR HIP LT COMPLETE AP PELVIS from 09/14/2019 FINDINGS: Fluoroscopy was provided for Dr. Lorenz during the performance of a reduction and internal fixatio n of the proximal left femoral fracture.. Please refer to the procedure report for complete details. Fluoro time: 215.1 seconds IMPRESSION: RADIATION DOSE DELIVERED:
[2019-09-15 14:56] LABS: COVID-19 RT-PCR UVMMC Result Negative (Negative)
[2019-09-15] MEDS: ceFAZolin 2 GM/50 ML BAG IVPB (15:44)
[2019-09-15] MEDS: Ketorolac 30 MG/ML VIAL (16:23)
[2019-09-15] MEDS: Bupivacaine 0.25% Pres-Free 30 ML VIAL (16:23)
[2019-09-15] MEDS: ELECTROLYTE-R SOLUTION 1,000 ML 30 ML IV ×3 (16:23→19:53)
--- NOTE | 2019-09-15 19:24 | W.PM.OP ---
Date of service: 09/15/19 Time of Service: 18:25 Operative Note Operative Note DATE OF PROCEDURE: 09/15/19 PRE-OP DIAGNOSIS: Left Femur Fracture, Comminuted Subtrochanteric POST-OP DIAGNOSIS: same PROCEDURE: Left Intramedullary and Cerclage Fixation of Proximal Femur Fracture SURGEON: Parker Lorenz DELIVERER MERCHANDISE: Barbie Marrero ANESTHESIA: GETA ESTIMATED BLOOD LOSS: 500 PATHOLOGY: none sent TOURNIQUET TIME: 0 COMPLICATIONS: None Patient was transported to: PACU Patient's condition: stable Implants: Depuy-Synthes TFNA 11mm x 400mm with 100mm Helical Blade Indications: Gabe is a 84 year old male who presented to the Emergency Department after a fall. X-rays confirmed the diagnosis of a comminuted, subtrochanteric fracture of the proximal femur. I reviewed the possible treatment options and given the fracture of the femur, I recommened operative fixation. I discussed the technical details of the surgery. I reviewed the risks such as bleeding, infection, pain, stiffness, malunion, nonunion, hardware prominence, hardware faiilure, malrotation, avascular necrosis, blood clot. Despite these risks, he agreed to proceed. Findings: There was a fracture of the proximal femur which was comminuted. I was able to be reduce the fracture with open reduction. This was secured with an intramedullary TFNA and an accessory cerclage cable. Procedure Description: Gabe was greeted in the preoperative area. Consent was previously reviewed and signed. Once in the operating room, general anesthesia was administered. The patient was transferred to the fracture table in the supine position. He was positioned onto the perineal post. All bony prominences were well padded. The arm of the operative side was then placed across the chest and secured. The nonoperative leg was scissored and secured to the traction boom with a pillow and tape. The operative limb was placed in the traction boot and padded and secured. A gentle reduction was then performed with traction and internal rotation and gentle external manipulation. This improved alignment considerably but there still was displacement of the multiple fracture fragments. A single dose of TXA, 1 gram, was then administered IV. Prophylactic antibiotics, Cefazolin 2 grams, was given for prophylactic antibiotics. A timeout was performed for safe surgery. The left leg was prepped with Chloraprep. A shower curtain drape was placed. Using fluoroscopy, the starting point was marked over the lateral hip, proximal to the tip of the greater trochanter. A lateral incision was made at the level of the fracture approximately in line of where the helical blade would enter the lateral femur. This incision was taken down through the skin, subcutaneous tissue, IT band, and vastus fascia. The vastus musculature was split in line with its fibers using a Rankin elevator. This exposed the fracture which was noted to be displaced and comminuted. There was a main coronal split which extended quite distally. This coronal split was then in half creating a proximal and a distal portion. There is notable displacement. The fracture edges were cleaned and interposed muscle was removed. A collinear clamp was first applied but kept falling into the coronal split. Therefore, with the piece distally manually reduced I placed over a Verbruge clamp. This nicely reduced the distal coronal split. There is some mild gapping proximally extending into the lesser trochanter which was difficult to control. However, a ball spike pusher was able to reduce the lateral wall which also improve the proximal reduction. Both manual palpation confirmed adequate reduction with less than 2 to 3 mm of displacement. X-ray also, in both AP and lateral, confirmed appropriate reduction. This reduction was held with the Verbruge clamp and a ball spike pusher. A 3cm incision was made through skin and the fascia of the gluteus musculature until the tip of the trochanter was palpable. The starting wire was placed onto the tip, just slightly on the media aspect, and centered in the AP plane. Using a nati, the starting guide wire was buried into the bone. A lateral x-ray confirmed appropriate position and the guidewire was advanced to the level of the lesser trochanter. With a tissue protector, the proximal femur was opened with the opening reamer. A ball-tipped guide wire was inserted into the femur and advanced to the distal extent. AP and lateral fluoroscopic images confirmed appropriate positioning in the distal femur. The length was measured as 400mm. A Synthes TFNA [id number] nail was selected and opened on the back table. The femur was reamed sequentially from 9mm to 13mm. The nail was assembled to the aiming arm on the back table and confirmed to be aligned with the triple sleeve for blade insertion. Using manual force the nail was advanced into the femur. A few light mallet blows advanced the nail to its appropriate position. The triple sleeve was inserted through the targeting arm and the skin, soft tissue, and IT band was then incised. The triple sleeve was advanced down to the lateral femur. A guidewire was advanced into the femoral head where it was noted to be centered. A lateral x-ray was used to confirm centered positioning on the lateral. Happy with the length of the guidewire, this was measured. A 100mm helical blade was opened. The path of the blade was reamed with a tapered reamer to appropriate depth. The helical blade was malletted into position and confirmed to be appropriately located on fluoroscopy. The set screw was advanced to a half turn shy of fully tightened, allowing for the helical blade to slide. The targeting device was removed. AP and lateral x-rays of both the hip and the knee confirmed appropriate positioning within the femur and with good alignment of the fracture. The ball spike pusher was removed without any signicant change in the alignment. However, the verbruge clamp, when relaxed, seemed to be holding the lateral, posterior fragment in better alignment. This piece, without the verbruge, displaced posteriorly and laterally. Therefore, since it was reducible with the clamp, I placed a single Synthes Cerclage Cable. This was passed around the femur with the passer, staying next to bone. The wire was manually tightened and the piece was reduced. The tensioner was applied and tightened to 40 lbs. This was crimped in two directions an then the cable was cut. The c-arm was moved to the knee where perfect circles were obtained for distal screw placement. The skin and deeper tissues were incised down to the femur. The drill was taken through the femur, nail, and opposite cortex. This was measured. The screw was inserted with good purchase and bite. Lateral x-ray showed the screws were through the nail and then an AP image confirmed appopriate length. Final x-rays were obtained. The wounds were thoroughly irrigated with normal saline and Irrispet. A mixture of 0.25% Bupivacaine along with Ketorolac and Exparal was injected throughout the wounds over the leg. The deep fascia of the proximal wouns was reapproximated with a 0 Vicryl. The Vastus lateralis fascia was closed with a running #0 Vicrly. The IT band was clsed with a running #1 Vicryl. The deep tisses were closed with a 2-0 Vicryl and the skin was closed with kevin. At the end of the case, all counts were correct. Gabe tolerated the procedure well without known complication and was taken to the PACU for recovery. He did have 500cc of blood loss but a large portion of that was evacuate from the thigh compartment around the fracture. Physical therapy will start post-operatively, weigh-bearing as tolerated with assistive devices. Anticoagulation will start within 12-24 hours. 3 doses of post-operative antibitiocis for prophylaxis will
[2019-09-15] MEDS: ceFAZolin 1 GM/50 ML BAG IVPB (19:52)
[2019-09-15] MEDS: Acetaminophen 325 MG TAB 650 MG PO (20:41)
[2019-09-15] MEDS: Ketorolac 15 MG/ML VIAL IVP (21:40)
[2019-09-16] VITALS (9 sets, daily range): BP systolic 89–111; BP diastolic 45–65; PULSE 68–95; RESP 16–20; TEMP 36.5–37.2; O2SAT 95–100
[2019-09-16] MEDS: ceFAZolin 1 GM/50 ML BAG IVPB ×2 (03:37→11:57)
[2019-09-16] MEDS: Ketorolac 15 MG/ML VIAL IVP ×3 (03:38→16:32)
[2019-09-16] MEDS: Normal Saline Flush 10 ML SYR IVP (03:39)
[2019-09-16 05:48] LABS: HCT 26.2 % (40.0-50.0); HGB 8.7 g/dL (13.5-17.5); Mean Corp. HGB Concentration 33.2 g/dL (32.0-36.0); Mean Corpuscular Hemoglobin 32.3 pg (27.0-33.0); Mean Corpuscular Volume 97.4 fL (80-95); Mean Platelet Volume 9.6 fL (8.0-11.0); Platelet Count 129 x1000/uL (130-400); RBC 2.69 m/cumm (4.50-6.00); RBC Distribution Width 12.2 % (11.8-14.1); White Blood Cell Count 8.23 k/cumm (4.4-10.8)
[2019-09-16 05:51] LABS: Anion Gap 3.2 mmol/L (3-11); BUN 22 mg/dL (7-18); CO2 31.8 mmol/L (21.0-32.0); CREATININE 0.79 mg/dL (0.70-1.30); Calcium 7.9 mg/dL (8.5-10.1); Chloride 104 mmol/L (98-107); Glucose 126 mg/dL (74-106); Potassium 3.7 mmol/L (3.5-5.1); Sodium 139 mmol/L (136-145)
[2019-09-16] MEDS: predniSONE 5 MG TAB PO (08:28)
[2019-09-16] MEDS: Apixaban 5 MG TAB PO ×2 (08:28→19:47)
[2019-09-16] MEDS: Acetaminophen 325 MG TAB 650 MG PO ×4 (08:29→19:47)
[2019-09-16] MEDS: Furosemide 20 MG TAB 40 MG PO (08:31)
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
--- NOTE | 2019-09-16 10:23 | PDOC.CMPRO ---
Care Management Progress Note S/O: Gabe is being closely monitored for pain post surgically and continues to work with Physical Therapy. Anticipate he will discharge home when ready per MD, with new FWW and VNA PT orders through [facility]. Gabe struggled to participate in PT today, due to increased weakness and low BP. CM continues to follow. A: 84 year old male admitted to [facility] 09/14/19 for Left Hip Fracture, surgical intervention 09/15/19. P: Gabe continues to be closely monitored post surgically and evaluated by physical therapy. Anticipate he will return home with new VNA orders for PT, a new FWW, as well as follow up appointments with Ortho, and his PCP. He will transport via private vehicle with his .
--- NOTE | 2019-09-16 10:39 | W.NUTRFU ---
Date of service: 09/16/19 Time of Service: 10:39 Nutritional Follow up NOTE: 84 year old male s/p hip fracture/surgery. Following heart healthy diet with adequate intake. Not at risk for nutritional decline. will follow prn. Time Spent in Nutritional Counseling and Treatment: 0 time spent
--- NOTE | 2019-09-16 11:17 | W.PM.PROGNOT ---
Date of Service Date of service: 09/16/19 Time of Service: 11:18 Assessment and Plan Assessment and plan (1) Closed fracture of left hip: Status: Acute Assessment and plan: POD #1, pain managed, continue routine post operative care per orthopedics. continue bowel management, PT/OT, pulmonary toileting and wean oxygen. Qualifiers: Encounter type: initial encounter Qualified Code(s): S72.002A - Fracture of unspecified part of neck of left femur, initial encounter for closed fracture (2) Atrial fibrillation: Status: Chronic Assessment and plan: stable with rate controlled, is anticoagulated with apixaban, (3) Urinary retention: Status: Acute Assessment and plan: has indwelling lester catheter which will be removed at discharge. will continue Alfuzosin. patient straight caths daily at home. (4) Prostate cancer: Status: Chronic Assessment and plan: continue abiraterone (5) DVT prophylaxis: Status: Acute Assessment and plan: is fully anticoagulated on apixaban (6) Discharge planning issues: Status: Acute Assessment and plan: plan is discharge to home with home health services/PT/OT. case management following. case and plan of care discussed with Dr Reynoso who is in agreement Subjective Subjective Patient reports: no new complaints, feels better, pain is less, tolerating liquids well, tolerating a regular diet, bowel movement, nausea (brief nausea in am that resolved spontaneously) and afebrile; denies shortness of breath Exam Const General: cooperative, comfortable, no acute distress and well groomed Nutritional Appearance: thin Orientation: alert, awake and oriented x3 HENMT Head: normal to inspection, normocephalic and atraumatic Mouth: oral mucosae normal Resp Effort & Inspection: normal respiratory effort Auscultation: clear to auscultation bilaterally Cardio Rate: regular rate Rhythm: abnormal rhythm irregularly irregular Heart Sounds: murmur GI Inspection: normal to inspection Palpation: soft Auscultation: normal bowel sounds General: other (lester draining med yellow urine) Skin Lesions: lesion noted (surgical, clean and dry) Neuro General: patient alert, patient awake and patient oriented x3 Cognition: normal cognition Speech: speech normal Gait: normal gait Motor: muscle tone normal throughout Extrem General: normal to inspection and no pedal edema Objective Objective Clinical Data: Abnormal lab results 09/16/19 09/16/19 Range/Units 05:35 05:35 RBC 2.69 L (4.50-6.00) m/cumm Hgb 8.7 L (13.5-17.5) g/dL Hct 26.2 L (40.0-50.0) % MCV 97.4 H (80-95) fL Plt Count 129 L (130-400) x1000/uL BUN 22 H (7-18) mg/dL Glucose 126 H (74-106) mg/dL Calcium 7.9 L (8.5-10.1) mg/dL Vital Signs Temperature 37.2 C 09/16/19 07:28 Temperature Source Temporal Artery Scan 09/16/19 07:28 Pulse 85 09/16/19 09:35 Pulse Rhythm Regular 09/16/19 08:30 Respiratory Rate 18 09/16/19 07:28 Respiratory Effort Non-Labored 09/16/19 08:30 Respiratory Depth Normal 09/16/19 08:30 Respiratory Pattern Normal 09/16/19 08:30 Blood Pressure 109/57 L 09/16/19 09:35 Blood Pressure Position Supine 09/14/19 18:42 Pulse Oximetry 100 09/16/19 11:08 Respiratory End-tidal CO2 32 09/15/19 19:13 Oxygen Delivery Method Nasal Cannula 09/16/19 11:08 Oxygen Flow Rate 1 09/16/19 11:08 Pain Level 1 09/16/19 07:28 Comment 09/16/19 09:35 Intake & Output 09/15/19 09/15/19 09/16/19 11:59 23:59 11:59 Intake Total 1433.75 / 2961.75 1528 / 2961.75 360 / 360 Output Total 2800 / 5400 2600 / 5400 550 / 550 Balance -1366.25 / -2438.25 -1072 / -2438.25 -190 / -190 Weight 70.5 kg 69.8 kg Intake: IV 883.75 / 2211.75 1328 / 2211.75 Oral 550 / 750 200 / 750 360 / 360 Output: Urine 2800 / 4900 2100 / 4900 550 / 550 Estimated Blood Loss 500 / 500 Other: Urine Color Yellow Yellow [place] Urine Appearance Clear Clear Clear Urine Odor Normal Stool Size Moderate Stool Characteristics Soft Formed Brown Emesis Description None Laboratory Results WBC 8.23 k/cumm (4.4-10.8) D 09/16/19 05:35 RBC 2.69 m/cumm (4.50-6.00) L 09/16/19 05:35 Hgb 8.7 g/dL (13.5-17.5) L 09/16/19 05:35 Hct 26.2 % (40.0-50.0) L 09/16/19 05:35 MCV 97.4 fL (80-95) H 09/16/19 05:35 MCH 32.3 pg (27.0-33.0) 09/16/19 05:35 MCHC 33.2 g/dL (32.0-36.0) 09/16/19 05:35 RDW 12.2 % (11.8-14.1) 09/16/19 05:35 Plt Count 129 x1000/uL (130-400) L 09/16/19 05:35 MPV 9.6 fL (8.0-11.0) 09/16/19 05:35 Immature Gran % 0.2 % 09/14/19 18:50 Neutrophils % 80.1 09/14/19 18:50 Lymphocytes % 12.4 09/14/19 18:50 Monocytes % 5.7 09/14/19 18:50 Eosinophils % 1.4 09/14/19 18:50 Basophils % 0.2 09/14/19 18:50 Absolute Neutrophils 4.06 k/cumm (1.2-6.7) 09/14/19 18:50 Absolute Lymphocytes 0.63 k/cumm (1.2-3.4) L 09/14/19 18:50 Absolute Monocytes 0.29 k/cumm (0.11-0.7) 09/14/19 18:50 Absolute Eosinophils 0.07 k/cumm (0.0-0.7) 09/14/19 18:50 Absolute Basophils 0.01 k/cumm (0.0-0.2) 09/14/19 18:50 PT 11.2 sec (9.3-11.0) H 09/14/19 18:50 INR 1.1 (0.9-1.1) 09/14/19 18:50 APTT 23.6 sec (21.0-31.4) 09/14/19 18:50 Sodium 139 mmol/L (136-145) 09/16/19 05:35 Potassium 3.7 mmol/L (3.5-5.1) 09/16/19 05:35 Chloride 104 mmol/L (98-107) 09/16/19 05:35 Carbon Dioxide 31.8 mmol/L (21.0-32.0) 09/16/19 05:35 Anion Gap 3.2 mmol/L (3-11) 09/16/19 05:35 BUN 22 mg/dL (7-18) H 09/16/19 05:35 Creatinine 0.79 mg/dL (0.70-1.30) 09/16/19 05:35 Estimated GFR/1.73 m2 >= 60.00 (mL/min/1.73m2) 09/16/19 05:35 Glucose 126 mg/dL (74-106) H 09/16/19 05:35 Calcium 7.9 mg/dL (8.5-10.1) L 09/16/19 05:35 Magnesium 2.0 mg/dL (1.8-2.4) 09/16/19 05:35 Total Bilirubin 0.7 mg/dL (0.2-1.0) 09/14/19 18:50 AST 24 U/L (15-37) 09/14/19 18:50 ALT 24 U/L (16-63) 09/14/19 18:50 Alkaline Phosphatase 112 U/L (46-116) 09/14/19 18:50 Total Protein 7.1 g/dL (6.4-8.2) 09/14/19 18:50 Albumin 3.5 g/dL (3.4-5.0) 09/14/19 18:50 COVID-19 PCR Negative (Negative) 09/14/19 20:28 Nasopharyn COVID-19 PCR Not Applicable 09/14/19 20:28 Ref Test Perform Site [facility] lab 09/14/19 20:28 Patient ABO/Rh O Positive 09/14/19 19:10 Antibody Screen Negative 09/14/19 19:10
--- NOTE | 2019-09-16 11:31 | PTTR_ITS ---
Date of service: 09/16/19 Time of Service: 10:50 PT Notes Visit Reasons: L HIP FRACTURE Inpatient Physical Therapy Treatment Note [facility] Date: 09/16/19 PRECAUTIONS: Fall, WBAT L SUBJECTIVE: Gabe is agreeable to participating in PT, he reports that his hip is somewhat uncomfortable at this time. OBJECTIVE: PAIN: Patient c/o L hip discomfort with transfers and ther ex completion. BED MOBILITY/TRANSFERS Sit-stand: CGA Stand-sit: CGA GAIT Assistive Device: FWW Weight bearing: WBAT L Assist: CGA Distance: 0' Deviation: Held gait training due to low BP VITALS: Standing BP: 89/45; SaO2: 100% on 1L O2 via NC THEREX: Patient completed a LE strengthening and stabilization program, as per flow sheet. He completed standing weight shifts and L hip flexion, as well as seated hip flexion and abduction, LAQ, glute sets, and ankle pumps. ASSESSMENT: Patient tolerated session well with some c/o L hip discomfort with transfers and ther ex completion. Held gait training due to othrostatic BP, but patient was able to perform ther ex program for L LE strengthening and stabilization in both standing and seated positions, while remaining asy mptomatic. PLAN: Continue with PT's POC TREATMENT CODE/TIME: 35 minutes; 73002, [id number]
--- NOTE | 2019-09-16 13:49 | CHAPLAIN ---
Gabe had surgery yesterday for a fractured hip. He said from his point of view it went well. He easily engaged in a conversation. I left when Dr. Lorenz arrived to check in with Gabe.
--- NOTE | 2019-09-16 17:59 | PGE_ITS ---
Date of Service Date of service: 09/16/19 Time of Service: 09:59 Assessment and Plan Assessment and plan (1) Closed fracture of left hip: Status: Acute Assessment and plan: Gabe is an 84-year-old who status post intervention nail fixation of a comminuted subtrochanteric femur fracture. He is doing well. It is to be expect this will take some time for him to start mobilizing more fully. I am happy that he made up to the chair today. Hopefully, tomorrow he will be able to make some more improvements. His blood pressures have been running slightly low which is not terribly concerning. I do recommend continued fluids with likely Sterling discontinuation later today or tomorrow. He may return to his Eliquis for DVT prophylaxis. Weightbearing as tolerated with assistive devices. Continue PT consult and discharge planning. Qualifiers: Encounter type: initial encounter Qualified Code(s): S72.002A - Fracture of unspecified part of neck of left femur, initial encounter for closed fracture Subjective Subjective Interval history since last seen: Gabe reports that he has been able to be more comfortable in the bed in the chair. He was able to mobilize from the bed to the chair with physical therapy although he does have hip discomfort. The pain he has about the left hip is much different than it was from before surgery. He does complain of this pain around the left hip and thigh. He denies any chest pain or shortness of breath. His vital signs have been stable although he has been running low in blood pressure, but not requiring any other interventions. Exam Narrative Exam Narrative: Sitting up in the chair having breakfast. No acute distress. Evaluation the left thigh shows that all dressings are clean dry and intact. There is some swelling of the left thigh. Mild ecchymosis. The thigh is compressible. Gentle range of motion, hip internal and external rotation, does not reproduce any significant pain. Sensation intact light touch over the femoral nerve distribution, deep and superficial peroneal nerve, and tibial nerve distributions. Palpable DP and PT pulses. Objective Objective Clinical Data: Abnormal lab results 09/16/19 09/16/19 Range/Units 05:35 05:35 RBC 2.69 L (4.50-6.00) m/cumm Hgb 8.7 L (13.5-17.5) g/dL Hct 26.2 L (40.0-50.0) % MCV 97.4 H (80-95) fL Plt Count 129 L (130-400) x1000/uL BUN 22 H (7-18) mg/dL Glucose 126 H (74-106) mg/dL Calcium 7.9 L (8.5-10.1) mg/dL Vital Signs Temperature 36.9 C 09/16/19 18:50 Temperature Source Tympanic 09/16/19 18:50 Pulse 83 09/16/19 18:50 Pulse Rhythm Regular 09/16/19 12:00 Respiratory Rate 18 09/16/19 18:50 Respiratory Effort Non-Labored 09/16/19 12:00 Respiratory Depth Normal 09/16/19 12:00 Respiratory Pattern Normal 09/16/19 12:00 Blood Pressure 97/59 L 09/16/19 18:50 Blood Pressure Position Supine 09/14/19 18:42 Pulse Oximetry 99 09/16/19 18:50 Respiratory End-tidal CO2 32 09/15/19 19:13 Oxygen Delivery Method Room Air 09/16/19 18:50 Oxygen Flow Rate 0 09/16/19 18:50 Pain Level 1 09/16/19 19:47 Comment 09/16/19 09:35 Intake & Output 09/15/19 09/16/19 09/16/19 23:59 11:59 23:59 Intake Total 1528 / 2961.75 410 / 810 400 / 810 Output Total 2600 / 5400 550 / 1200 650 / 1200 Balance -1072 / -2438.25 -140 / -390 -250 / -390 Weight 69.8 kg Intake: IV 1328 / 2211.75 50 / 50 Oral 200 / 750 360 / 760 400 / 760 Output: Urine 2100 / 4900 550 / 1200 650 / 1200 Estimated Blood Loss 500 / 500 Other: Urine Color Yellow [place] Yellow Urine Appearance Clear Clear Clear Stool Size Moderate Stool Characteristics Soft Formed Brown Emesis Description None Laboratory Results WBC 8.23 k/cumm (4.4-10.8) D 09/16/19 05:35 RBC 2.69 m/cumm (4.50-6.00) L 09/16/19 05:35 Hgb 8.7 g/dL (13.5-17.5) L 09/16/19 05:35 Hct 26.2 % (40.0-50.0) L 09/16/19 05:35 MCV 97.4 fL (80-95) H 09/16/19 05:35 MCH 32.3 pg (27.0-33.0) 09/16/19 05:35 MCHC 33.2 g/dL (32.0-36.0) 09/16/19 05:35 RDW 12.2 % (11.8-14.1) 09/16/19 05:35 Plt Count 129 x1000/uL (130-400) L 09/16/19 05:35 MPV 9.6 fL (8.0-11.0) 09/16/19 05:35 Immature Gran % 0.2 % 09/14/19 18:50 Neutrophils % 80.1 09/14/19 18:50 Lymphocytes % 12.4 09/14/19 18:50 Monocytes % 5.7 09/14/19 18:50 Eosinophils % 1.4 09/14/19 18:50 Basophils % 0.2 09/14/19 18:50 Absolute Neutrophils 4.06 k/cumm (1.2-6.7) 09/14/19 18:50 Absolute Lymphocytes 0.63 k/cumm (1.2-3.4) L 09/14/19 18:50 Absolute Monocytes 0.29 k/cumm (0.11-0.7) 09/14/19 18:50 Absolute Eosinophils 0.07 k/cumm (0.0-0.7) 09/14/19 18:50 Absolute Basophils 0.01 k/cumm (0.0-0.2) 09/14/19 18:50 PT 11.2 sec (9.3-11.0) H 09/14/19 18:50 INR 1.1 (0.9-1.1) 09/14/19 18:50 APTT 23.6 sec (21.0-31.4) 09/14/19 18:50 Sodium 139 mmol/L (136-145) 09/16/19 05:35 Potassium 3.7 mmol/L (3.5-5.1) 09/16/19 05:35 Chloride 104 mmol/L (98-107) 09/16/19 05:35 Carbon Dioxide 31.8 mmol/L (21.0-32.0) 09/16/19 05:35 Anion Gap 3.2 mmol/L (3-11) 09/16/19 05:35 BUN 22 mg/dL (7-18) H 09/16/19 05:35 Creatinine 0.79 mg/dL (0.70-1.30) 09/16/19 05:35 Estimated GFR/1.73 m2 >= 60.00 (mL/min/1.73m2) 09/16/19 05:35 Glucose 126 mg/dL (74-106) H 09/16/19 05:35 Calcium 7.9 mg/dL (8.5-10.1) L 09/16/19 05:35 Magnesium 2.0 mg/dL (1.8-2.4) 09/16/19 05:35 Total Bilirubin 0.7 mg/dL (0.2-1.0) 09/14/19 18:50 AST 24 U/L (15-37) 09/14/19 18:50 ALT 24 U/L (16-63) 09/14/19 18:50 Alkaline Phosphatase 112 U/L (46-116) 09/14/19 18:50 Total Protein 7.1 g/dL (6.4-8.2) 09/14/19 18:50 Albumin 3.5 g/dL (3.4-5.0) 09/14/19 18:50 COVID-19 PCR Negative (Negative) 09/14/19 20:28 Nasopharyn COVID-19 PCR Not Applicable 09/14/19 20:28 Ref Test Perform Site [facility] lab 09/14/19 20:28 Patient ABO/Rh O Positive 09/14/19 19:10 Antibody Screen Negative 09/14/19 19:10
[2019-09-17 03:46] VITALS: BP 110/56; PULSE 91; RESP 17; TEMP 37.1; O2SAT 100
[2019-09-17] MEDS: ELECTROLYTE-R SOLUTION 1,000 ML 30 ML IV (04:26)
[2019-09-17 06:54] LABS: HCT 25.5 % (40.0-50.0); HGB 8.5 g/dL (13.5-17.5); Mean Corp. HGB Concentration 33.3 g/dL (32.0-36.0); Mean Corpuscular Hemoglobin 32.4 pg (27.0-33.0); Mean Corpuscular Volume 97.3 fL (80-95); Mean Platelet Volume 10.1 fL (8.0-11.0); Platelet Count 129 x1000/uL (130-400); RBC 2.62 m/cumm (4.50-6.00); RBC Distribution Width 12.3 % (11.8-14.1); White Blood Cell Count 7.81 k/cumm (4.4-10.8)
[2019-09-17 07:07] LABS: BUN 31 mg/dL (7-18); Calcium 8.2 mg/dL (8.5-10.1); Chloride 103 mmol/L (98-107); Glucose 92 mg/dL (74-106); Potassium 3.8 mmol/L (3.5-5.1); Sodium 139 mmol/L (136-145)
[2019-09-17 07:17] VITALS: BP 131/59; PULSE 83; RESP 18; TEMP 36.6; O2SAT 98
[2019-09-17] MEDS: Acetaminophen 325 MG TAB 650 MG PO ×4 (08:14→20:14)
[2019-09-17] MEDS: predniSONE 5 MG TAB PO (08:14)
[2019-09-17] MEDS: Furosemide 20 MG TAB 40 MG PO (08:15)
[2019-09-17] MEDS: Apixaban 5 MG TAB PO ×2 (08:15→20:14)
[2019-09-17] MEDS: oxyCODONE 5 MG TAB PO ×2 (08:15→14:29)
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
--- NOTE | 2019-09-17 10:13 | W.PM.PROGNOT ---
Date of Service Date of service: 09/17/19 Time of Service: 10:14 Assessment and Plan Assessment and plan (1) Orthostatic hypotension: Status: Acute Assessment and plan: likely d/t fluid volume deficit. given 2 250 ml bolus of NS with resolution of symptoms. his H&H stable, with no evidence of active bleeding. lasix placed on hold for tomorrow. will check orthostatic vital signs in am, safety/fall precautions. (2) Closed fracture of left hip: Status: Acute Assessment and plan: POD #2, pain managed, continue routine post operative care per orthopedics. continue bowel management, PT/OT, pulmonary toileting and successfully weaned off oxygen. Qualifiers: Encounter type: initial encounter Qualified Code(s): S72.002A - Fracture of unspecified part of neck of left femur, initial encounter for closed fracture (3) Atrial fibrillation: Status: Chronic Assessment and plan: stable with rate controlled, is anticoagulated with apixaban (4) Prostate cancer: Status: Chronic Assessment and plan: continue abiraterone (5) Urinary retention: Status: Acute Assessment and plan: has indwelling lester catheter which will be removed at discharge. will continue Alfuzosin. patient straight caths daily at home. (6) DVT prophylaxis: Status: Acute Assessment and plan: is fully anticoagulated on apixaban (7) Discharge planning issues: Status: Acute Assessment and plan: plan is discharge to home with home health services/PT/OT. case management following. case and plan of care discussed with Dr Reynoso who is in agreement Subjective Subjective Patient reports: no new complaints, tolerating liquids well, tolerating a regular diet, bowel movement and afebrile Exam Const General: cooperative, comfortable, no acute distress and well groomed Nutritional Appearance: thin Orientation: alert, awake and oriented x3 HENMT Head: normal to inspection, normocephalic and atraumatic Mouth: oral mucosae normal Resp Effort & Inspection: normal respiratory effort Auscultation: clear to auscultation bilaterally Cardio Rate: regular rate Rhythm: abnormal rhythm irregularly irregular Heart Sounds: murmur GI Inspection: normal to inspection Palpation: soft Auscultation: normal bowel sounds General: other (lester draining med yellow urine) Skin Lesions: lesion noted (surgical, clean and dry) Neuro General: patient alert, patient awake and patient oriented x3 Cognition: normal cognition Speech: speech normal Gait: normal gait Motor: muscle tone normal throughout Extrem General: normal to inspection and no pedal edema Objective Objective Clinical Data: Abnormal lab results 09/17/19 09/17/19 Range/Units 06:05 06:05 RBC 2.62 L (4.50-6.00) m/cumm Hgb 8.5 L (13.5-17.5) g/dL Hct 25.5 L (40.0-50.0) % MCV 97.3 H (80-95) fL Plt Count 129 L (130-400) x1000/uL BUN 31 H D (7-18) mg/dL Calcium 8.2 L (8.5-10.1) mg/dL Vital Signs Temperature 36.6 C 09/17/19 07:17 Temperature Source Tympanic 09/17/19 07:17 Pulse 83 09/17/19 07:17 Pulse Rhythm Regular 09/17/19 09:41 Respiratory Rate 18 09/17/19 07:17 Respiratory Effort Non-Labored 09/17/19 09:41 Respiratory Depth Normal 09/17/19 09:41 Respiratory Pattern Normal 09/17/19 09:41 Blood Pressure 131/59 L 09/17/19 07:17 Blood Pressure Position Supine 09/14/19 18:42 Pulse Oximetry 98 09/17/19 07:17 Respiratory End-tidal CO2 32 09/15/19 19:13 Oxygen Delivery Method Room Air 09/17/19 07:17 Oxygen Flow Rate 0 09/17/19 07:17 Pain Level 1 09/17/19 09:15 Comment 09/16/19 09:35 Intake & Output 09/16/19 09/16/19 09/17/19 11:59 23:59 11:59 Intake Total 410 / 860 450 / 860 1736.5 / 1736.5 Output Total 550 / 1750 1200 / 1750 1250 / 1250 Balance -140 / -890 -750 / -890 486.5 / 486.5 Weight 69.8 kg 70.3 kg Intake: IV 50 / 100 50 / 100 986.5 / 986.5 Oral 360 / 760 400 / 760 750 / 750 Output: Urine 550 / 1750 1200 / 1750 1250 / 1250 Other: Urine Color [place] Yellow Yellow Urine Appearance Clear Clear Clear Stool Size Moderate Stool Characteristics Soft Formed Brown Laboratory Results WBC 7.81 k/cumm (4.4-10.8) 09/17/19 06:05 RBC 2.62 m/cumm (4.50-6.00) L 09/17/19 06:05 Hgb 8.5 g/dL (13.5-17.5) L 09/17/19 06:05 Hct 25.5 % (40.0-50.0) L 09/17/19 06:05 MCV 97.3 fL (80-95) H 09/17/19 06:05 MCH 32.4 pg (27.0-33.0) 09/17/19 06:05 MCHC 33.3 g/dL (32.0-36.0) 09/17/19 06:05 RDW 12.3 % (11.8-14.1) 09/17/19 06:05 Plt Count 129 x1000/uL (130-400) L 09/17/19 06:05 MPV 10.1 fL (8.0-11.0) 09/17/19 06:05 Immature Gran % 0.2 % 09/14/19 18:50 Neutrophils % 80.1 09/14/19 18:50 Lymphocytes % 12.4 09/14/19 18:50 Monocytes % 5.7 09/14/19 18:50 Eosinophils % 1.4 09/14/19 18:50 Basophils % 0.2 09/14/19 18:50 Absolute Neutrophils 4.06 k/cumm (1.2-6.7) 09/14/19 18:50 Absolute Lymphocytes 0.63 k/cumm (1.2-3.4) L 09/14/19 18:50 Absolute Monocytes 0.29 k/cumm (0.11-0.7) 09/14/19 18:50 Absolute Eosinophils 0.07 k/cumm (0.0-0.7) 09/14/19 18:50 Absolute Basophils 0.01 k/cumm (0.0-0.2) 09/14/19 18:50 PT 11.2 sec (9.3-11.0) H 09/14/19 18:50 INR 1.1 (0.9-1.1) 09/14/19 18:50 APTT 23.6 sec (21.0-31.4) 09/14/19 18:50 Sodium 139 mmol/L (136-145) 09/17/19 06:05 Potassium 3.8 mmol/L (3.5-5.1) 09/17/19 06:05 Chloride 103 mmol/L (98-107) 09/17/19 06:05 Carbon Dioxide 31.0 mmol/L (21.0-32.0) 09/17/19 06:05 Anion Gap 5.0 mmol/L (3-11) 09/17/19 06:05 BUN 31 mg/dL (7-18) H D 09/17/19 06:05 Creatinine 1.00 mg/dL (0.70-1.30) 09/17/19 06:05 Estimated GFR/1.73 m2 >= 60.00 (mL/min/1.73m2) 09/17/19 06:05 Glucose 92 mg/dL (74-106) 09/17/19 06:05 Calcium 8.2 mg/dL (8.5-10.1) L 09/17/19 06:05 Magnesium 2.0 mg/dL (1.8-2.4) 09/16/19 05:35 Total Bilirubin 0.7 mg/dL (0.2-1.0) 09/14/19 18:50 AST 24 U/L (15-37) 09/14/19 18:50 ALT 24 U/L (16-63) 09/14/19 18:50 Alkaline Phosphatase 112 U/L (46-116) 09/14/19 18:50 Total Protein 7.1 g/dL (6.4-8.2) 09/14/19 18:50 Albumin 3.5 g/dL (3.4-5.0) 09/14/19 18:50 COVID-19 PCR Negative (Negative) 09/14/19 20:28 Nasopharyn COVID-19 PCR Not Applicable 09/14/19 20:28 Ref Test Perform Site [facility] lab 09/14/19 20:28 Patient ABO/Rh O Positive 09/14/19 19:10 Antibody Screen Negative 09/14/19 19:10
[2019-09-17] MEDS: Normal Saline 250 ML 500 ML IV ×2 (10:58→12:34)
[2019-09-17 11:12] VITALS: BP 100/52; PULSE 83; RESP 17; TEMP 36.6; O2SAT 100
--- NOTE | 2019-09-17 14:44 | PT.INTREAT ---
Date of service: 09/17/19 Time of Service: 14:44 PT Notes Visit Reasons: L HIP FRACTURE Inpatient Physical Therapy Treatment Note [facility] Date: 09/17/19 PRECAUTIONS: Standard. Fall. WBAT on left LE. SUBJECTIVE: Patient reports feeling considerably better today than he did yesterday. He denies any symptoms of dizziness, lightheadedness, chest pain, and headache during both sessions today. Patient adamantly refuses to be placed in a intermediate and states that his can replicate his room environment at home while providing the care that he needs. He is agreeable to home health PT coming in to continue with mobility skilling. OBJECTIVE: General observation: IV in the right UE. Sterling catheter in place. PAIN: 4-5/10 in the left hip with movement and weightbearing BED MOBILITY/TRANSFERS Supine to sit standby assist requires minimal verbal cueing for use of BUE for support Sit to supine standby assist requires minimal verbal cueing for use of BUE for support Sit to stand standby assist requires minimal verbal cueing for use of BUE for support, needs front wheeled walker Stand to sit standby assist requires minimal verbal cueing for use of BUE for support Bed to chair standby assist requires minimal verbal cueing for use of BUE for support, needs front wheeled walker Chair to bed standby assist requires minimal verbal cueing for use of BUE for support, needs front wheeled walker GAIT Assistive Device: FWW Weight bearing: WBAT L Assist: CGA Distance: For the morning session ambulation activity was deferred due to blood pressure being in the 80s systolically and in the high 30s diastolically. In the afternoon, patient's blood pressure normalized to 120 systolically and in the high 50s diastolically. Patient did feet of level surface ambulation using front wheeled walker with contact-guard assist with complaints of 5-6/10 pain level in the left hip. Deviation: Step to gait pattern THEREX: In the morning session patient tolerated ankle pumps x20 neutral setting exercises x10, long arc quads to 30 degrees on the left side x10 seated hip flexion on the left side to 10 degrees beyond 90?10 and chair push-ups with both hands on armrests x10 without any significant effect on blood pressure. In the afternoon patient tolerated ankle pumps x20 quad sets x10, glutes sets x10 and long arc quads x10. A new set of room exercises was written on the white board for patient to do every hour. ASSESSMENT: Ambulation activity was withheld for the morning session but was performed with patient for the afternoon session with normalization of blood pressure. PLAN: Continue with PT's POC TREATMENT CODE/TIME: Session 1??[id number] x 30 minutes, [id number] 0 x 13 minutes beginning at 9:45 AM. Session 2-- [id number] x47 minutes beginning at 14:44 PM. CC:
--- NOTE | 2019-09-17 15:36 | CMPROGNOTE_ITS ---
- If Service Date Differs Date of service: 09/17/19 Time of Service: 15:36 Care Management Progress Note S/O: CHUCK met with Gabe while he was sitting in his chair. He stated that the recommendation made today by the provider was for him to go to a short term rehab facility for continued PT. Gabe stated that his goal is to return home with his , who is an RN. CM discussed this with the PROPERTY DAMAGE CLAIMS ADJUSTOR, PT and Ortho, who reported that his blood pressure was low today, which was a concern regarding him going home. CM presented the [facility] form to give Gabe options for rehab facilities, and he agreed to sending a referral to the [facility]. The [facility] did have a bed and made an offer for tomorrow at the earliest. Upon further discussion with the providers, it was determined that Gabe would remain at [facility] today to monitor his blood pressure and to continue work with PT. Once he is medically cleared, he will then be ready to return home with the support of and his . Gabe later stated that he is agreeable to remaining at [facility], but he does not agree to go to a rehab facility. CM will continue to follow. A: 84 year old male admitted to [facility] 09/14/19 for Left Hip Fracture, surgical intervention 09/15/19. P: Gabe continues to be closely monitored post surgically and evaluated by physical therapy. Anticipate he will return home with new VNA orders for PT, a new FWW, as well as follow up appointments with Ortho, and his PCP. He will transport via private vehicle with his . CM will continue to follow and support pt with discharge planning considerations.
[2019-09-17 18:15] VITALS: BP 107/59; PULSE 106; RESP 19; TEMP 36.5; O2SAT 79
--- NOTE | 2019-09-17 21:53 | W.PM.PROGNOT ---
Date of Service Date of service: 09/17/19 Time of Service: 09:53 Assessment and Plan Assessment and plan (1) Closed fracture of left hip: Status: Acute Assessment and plan: Gabe is an 84-year-old who is status post intramedullary nail fixation of a comminuted subtrochanteric femur fracture of the left side. In general, I think he is doing well. Unfortunately, his ability to work with physical therapy has been limited due to orthostatic hypotension. However, I think this just may be he is slightly dehydrated. I expect that since he is not symptomatic that will improve with some time. I would continue with diligent physical therapy to assess whether will he be able to return home or not. He is motivated to get home and does not need to be able to do much given his single floor living. However, short swing bed or rehab stay may be necessary depending on how he does over the next 1 to 2 days. Weight-bear as tolerated with assistive devices. Continue anticoagulation, Eliquis. Qualifiers: Encounter type: initial encounter Qualified Code(s): S72.002A - Fracture of unspecified part of neck of left femur, initial encounter for closed fracture Subjective Subjective Interval history since last seen: Gabe reports been doing well. His pain, while present, is controlled. He has been up in the chair. He has been unable to work diligently with physical therapy due to some hypotension when he stands. Although, he has not been particularly symptomatic. His hemoglobin has been stable in the low eights. He has had no chest pain or shortness of breath. He denies numbness or tingling. Exam Narrative Exam Narrative: Sitting comfortably in the chair, no acute distress. Left lower extremity shows swelling throughout the thigh. There is some ecchymosis. Dressings are clean dry and intact. He tolerates internal X rotation of the left hip without any significant pain. Active dorsiflexion and plantarflexion of the ankle and sensation intact light touch over the femoral and static nerve distributions. Objective Objective Clinical Data: Abnormal lab results 09/17/19 09/17/19 Range/Units 06:05 06:05 RBC 2.62 L (4.50-6.00) m/cumm Hgb 8.5 L (13.5-17.5) g/dL Hct 25.5 L (40.0-50.0) % MCV 97.3 H (80-95) fL Plt Count 129 L (130-400) x1000/uL BUN 31 H D (7-18) mg/dL Calcium 8.2 L (8.5-10.1) mg/dL Vital Signs Temperature 36.8 C 09/18/19 03:23 Temperature Source Tympanic 09/18/19 03:23 Pulse 85 09/18/19 03:23 Pulse Rhythm Regular 09/18/19 02:12 Respiratory Rate 18 09/18/19 03:23 Respiratory Effort Non-Labored 09/18/19 02:12 Respiratory Depth Deep 09/18/19 02:12 Respiratory Pattern Normal 09/18/19 02:12 Blood Pressure 117/56 L 09/18/19 03:23 Blood Pressure Position Supine 09/14/19 18:42 Pulse Oximetry 98 09/18/19 03:23 Respiratory End-tidal CO2 32 09/15/19 19:13 Oxygen Delivery Method Room Air 09/18/19 03:23 Oxygen Flow Rate 0 09/18/19 03:23 Pain Level 0 09/18/19 03:23 Comment 09/16/19 09:35 Intake & Output 09/17/19 09/17/19 09/18/19 11:59 23:59 11:59 Intake Total 1986.5 / 2476.5 490 / 2476.5 Output Total 1250 / 2600 1350 / 2600 1400 / 1400 Balance 736.5 / -123.5 -860 / -123.5 -1400 / -1400 Weight 70.3 kg 70.2 kg Intake: IV 1236.5 / 1486.5 250 / 1486.5 Oral 750 / 990 240 / 990 Output: Urine 1250 / 2600 1350 / 2600 1400 / 1400 Other: Urine Color Yellow Yellow Yellow Straw Urine Appearance Clear Clear Clear Stool Size Small Stool Characteristics Soft Formed Brown Black Laboratory Results WBC 7.81 k/cumm (4.4-10.8) 09/17/19 06:05 RBC 2.62 m/cumm (4.50-6.00) L 09/17/19 06:05 Hgb 8.5 g/dL (13.5-17.5) L 09/17/19 06:05 Hct 25.5 % (40.0-50.0) L 09/17/19 06:05 MCV 97.3 fL (80-95) H 09/17/19 06:05 MCH 32.4 pg (27.0-33.0) 09/17/19 06:05 MCHC 33.3 g/dL (32.0-36.0) 09/17/19 06:05 RDW 12.3 % (11.8-14.1) 09/17/19 06:05 Plt Count 129 x1000/uL (130-400) L 09/17/19 06:05 MPV 10.1 fL (8.0-11.0) 09/17/19 06:05 Immature Gran % 0.2 % 09/14/19 18:50 Neutrophils % 80.1 09/14/19 18:50 Lymphocytes % 12.4 09/14/19 18:50 Monocytes % 5.7 09/14/19 18:50 Eosinophils % 1.4 09/14/19 18:50 Basophils % 0.2 09/14/19 18:50 Absolute Neutrophils 4.06 k/cumm (1.2-6.7) 09/14/19 18:50 Absolute Lymphocytes 0.63 k/cumm (1.2-3.4) L 09/14/19 18:50 Absolute Monocytes 0.29 k/cumm (0.11-0.7) 09/14/19 18:50 Absolute Eosinophils 0.07 k/cumm (0.0-0.7) 09/14/19 18:50 Absolute Basophils 0.01 k/cumm (0.0-0.2) 09/14/19 18:50 PT 11.2 sec (9.3-11.0) H 09/14/19 18:50 INR 1.1 (0.9-1.1) 09/14/19 18:50 APTT 23.6 sec (21.0-31.4) 09/14/19 18:50 Sodium 139 mmol/L (136-145) 09/17/19 06:05 Potassium 3.8 mmol/L (3.5-5.1) 09/17/19 06:05 Chloride 103 mmol/L (98-107) 09/17/19 06:05 Carbon Dioxide 31.0 mmol/L (21.0-32.0) 09/17/19 06:05 Anion Gap 5.0 mmol/L (3-11) 09/17/19 06:05 BUN 31 mg/dL (7-18) H D 09/17/19 06:05 Creatinine 1.00 mg/dL (0.70-1.30) 09/17/19 06:05 Estimated GFR/1.73 m2 >= 60.00 (mL/min/1.73m2) 09/17/19 06:05 Glucose 92 mg/dL (74-106) 09/17/19 06:05 Calcium 8.2 mg/dL (8.5-10.1) L 09/17/19 06:05 Magnesium 2.0 mg/dL (1.8-2.4) 09/16/19 05:35 Total Bilirubin 0.7 mg/dL (0.2-1.0) 09/14/19 18:50 AST 24 U/L (15-37) 09/14/19 18:50 ALT 24 U/L (16-63) 09/14/19 18:50 Alkaline Phosphatase 112 U/L (46-116) 09/14/19 18:50 Total Protein 7.1 g/dL (6.4-8.2) 09/14/19 18:50 Albumin 3.5 g/dL (3.4-5.0) 09/14/19 18:50 25-OH Vitamin D Total 56.2 ng/ml (30-100) 09/16/19 05:35 COVID-19 PCR Negative (Negative) 09/14/19 20:28 Nasopharyn COVID-19 PCR Not Applicable 09/14/19 20:28 Ref Test Perform Site [facility] lab 09/14/19 20:28 Patient ABO/Rh O Positive 09/14/19 19:10 Antibody Screen Negative 09/14/19 19:10
[2019-09-18] VITALS (7 sets, daily range): BP systolic 111–129; BP diastolic 56–74; PULSE 72–95; RESP 17–18; TEMP 36.4–37.1; O2SAT 97–100
[2019-09-18] MEDS: oxyCODONE 5 MG TAB PO ×2 (02:18→20:28)
[2019-09-18 05:40] LABS: Vitamin D 25 Total 56.2 ng/ml (30-100)
[2019-09-18 07:09] LABS: HCT 27.1 % (40.0-50.0); HGB 8.9 g/dL (13.5-17.5); Mean Corp. HGB Concentration 32.8 g/dL (32.0-36.0); Mean Corpuscular Hemoglobin 32.1 pg (27.0-33.0); Mean Corpuscular Volume 97.8 fL (80-95); Mean Platelet Volume 9.6 fL (8.0-11.0); Platelet Count 194 x1000/uL (130-400); RBC 2.77 m/cumm (4.50-6.00); RBC Distribution Width 12.6 % (11.8-14.1); White Blood Cell Count 8.48 k/cumm (4.4-10.8)
[2019-09-18 07:30] LABS: Anion Gap 6.6 mmol/L (3-11); BUN 29 mg/dL (7-18); CO2 30.4 mmol/L (21.0-32.0); CREATININE 0.97 mg/dL (0.70-1.30); Calcium 8.4 mg/dL (8.5-10.1); Chloride 100 mmol/L (98-107); Glucose 98 mg/dL (74-106); Potassium 3.3 mmol/L (3.5-5.1); Sodium 137 mmol/L (136-145)
[2019-09-18] MEDS: Acetaminophen 325 MG TAB 650 MG PO ×4 (09:28→20:29)
[2019-09-18] MEDS: predniSONE 5 MG TAB PO (09:28)
[2019-09-18] MEDS: Apixaban 5 MG TAB PO ×2 (09:28→20:29)
--- NOTE | 2019-09-18 09:40 | CMPROGNOTE_ITS ---
Care Management Progress Note S/O: Gabe continues to be closely monitored, per MD he may be discharge ready as soon as tomorrow. He was sitting up in his chair, reviewed his discharge plan and plan for recovering at home. He reports having all equipment in his home setting and feeling confident in his ability to make progress within his own home setting. He reports having a bedroom and bathroom on one floor, FWW, hospital bed, commode and more. Anticipate new orders for VNA PT/OT. CM will continue to follow. A: 84 year old male admitted to [facility] 09/14/19 for Left Hip Fracture, surgical intervention 09/15/19. P: Gabe continues to be closely monitored post surgically and evaluated by physical therapy. Anticipate he will return home with new VNA orders for PT/OT, as well as follow up appointments with Ortho, and his PCP. He will transport via private vehicle with his . CM will continue to follow and support discharge planning considerations.
[2019-09-18 10:01] LABS: Magnesium 2.1 mg/dL (1.8-2.4)
[2019-09-18] MEDS: Potassium Chloride 20 MEQ TABCR 40 MEQ PO ×2 (11:28→20:30)
--- NOTE | 2019-09-18 11:37 | W.PM.PROGNOT ---
Date of Service Date of service: 09/18/19 Time of Service: 11:37 Assessment and Plan Assessment and plan (1) Orthostatic hypotension: Status: Acute Assessment and plan: likely d/t fluid volume deficit. resolved after receiving 2 250 ml bolus of NS yesterday. his H&H stable, with no evidence of active bleeding. lasix placed on hold today. will check orthostatic vital signs in am, safety/fall precautions. (2) Closed fracture of left hip: Status: Acute Assessment and plan: POD #3, pain managed, continue routine post operative care per orthopedics. continue bowel management, PT/OT, pulmonary toileting and successfully weaned off oxygen. Qualifiers: Encounter type: initial encounter Qualified Code(s): S72.002A - Fracture of unspecified part of neck of left femur, initial encounter for closed fracture (3) Atrial fibrillation: Status: Chronic Assessment and plan: stable with rate controlled, is anticoagulated with apixaban (4) Prostate cancer: Status: Chronic Assessment and plan: continue abiraterone (5) Urinary retention: Status: Acute Assessment and plan: has indwelling lester catheter which will be removed at discharge. will continue Alfuzosin. patient straight caths daily at home. (6) DVT prophylaxis: Status: Acute Assessment and plan: is fully anticoagulated on apixaban (7) Discharge planning issues: Status: Acute Assessment and plan: plan is discharge to home with home health services/PT/OT. case management following. case and plan of care discussed with Dr Reynoso who is in agreement (8) Blood loss anemia: Status: Acute Assessment and plan: operative, H&H stable, will add supplemental iron. Subjective Subjective Patient reports: no new complaints, feels better, pain is less, tolerating liquids well, tolerating a regular diet and bowel movement Interval history since last seen: continue to have lester, working with PT, no hypotension this am. Exam Const General: cooperative, comfortable, no acute distress and well groomed Nutritional Appearance: thin Orientation: alert, awake and oriented x3 HENMT Head: normal to inspection, normocephalic and atraumatic Mouth: oral mucosae normal Resp Effort & Inspection: normal respiratory effort Auscultation: clear to auscultation bilaterally Cardio Rate: regular rate Rhythm: abnormal rhythm irregularly irregular Heart Sounds: murmur GI Inspection: normal to inspection Palpation: soft Auscultation: normal bowel sounds General: other (lester draining med yellow urine) Skin Lesions: lesion noted (surgical, clean and dry) Neuro General: patient alert, patient awake and patient oriented x3 Cognition: normal cognition Speech: speech normal Gait: normal gait Motor: muscle tone normal throughout Extrem General: normal to inspection and no pedal edema Objective Objective Clinical Data: Abnormal lab results 09/18/19 09/18/19 Range/Units 06:50 06:50 RBC 2.77 L (4.50-6.00) m/cumm Hgb 8.9 L (13.5-17.5) g/dL Hct 27.1 L (40.0-50.0) % MCV 97.8 H (80-95) fL Potassium 3.3 L (3.5-5.1) mmol/L BUN 29 H (7-18) mg/dL Calcium 8.4 L (8.5-10.1) mg/dL Vital Signs Temperature 36.4 C L 09/18/19 07:48 Temperature Source Tympanic 09/18/19 07:48 Pulse 93 H 09/18/19 07:48 Pulse Rhythm Regular 09/18/19 02:12 Respiratory Rate 18 09/18/19 07:48 Respiratory Effort Non-Labored 09/18/19 02:12 Respiratory Depth Deep 09/18/19 02:12 Respiratory Pattern Normal 09/18/19 02:12 Blood Pressure 129/67 09/18/19 07:48 Blood Pressure Position Supine 09/14/19 18:42 Pulse Oximetry 100 09/18/19 07:48 Respiratory End-tidal CO2 32 09/15/19 19:13 Oxygen Delivery Method Room Air 09/18/19 07:48 Oxygen Flow Rate 0 09/18/19 07:48 Pain Level 1 09/18/19 07:48 Comment 09/16/19 09:35 Intake & Output 09/17/19 09/17/19 09/18/19 11:59 23:59 11:59 Intake Total 1986.5 / 2476.5 490 / 2476.5 450 / 450 Output Total 1250 / 2600 1350 / 2600 1400 / 1400 Balance 736.5 / -123.5 -860 / -123.5 -950 / -950 Weight 70.3 kg 70.2 kg Intake: IV 1236.5 / 1486.5 250 / 1486.5 Oral 750 / 990 240 / 990 450 / 450 Output: Urine 1250 / 2600 1350 / 2600 1400 / 1400 Other: Urine Color Yellow Yellow Yellow Straw Urine Appearance Clear Clear Clear Stool Size Small Large Stool Characteristics Soft Soft Formed Formed Brown Brown Black Laboratory Results WBC 8.48 k/cumm (4.4-10.8) 09/18/19 06:50 RBC 2.77 m/cumm (4.50-6.00) L 09/18/19 06:50 Hgb 8.9 g/dL (13.5-17.5) L 09/18/19 06:50 Hct 27.1 % (40.0-50.0) L 09/18/19 06:50 MCV 97.8 fL (80-95) H 09/18/19 06:50 MCH 32.1 pg (27.0-33.0) 09/18/19 06:50 MCHC 32.8 g/dL (32.0-36.0) 09/18/19 06:50 RDW 12.6 % (11.8-14.1) 09/18/19 06:50 Plt Count 194 x1000/uL (130-400) 09/18/19 06:50 MPV 9.6 fL (8.0-11.0) 09/18/19 06:50 Immature Gran % 0.2 % 09/14/19 18:50 Neutrophils % 80.1 09/14/19 18:50 Lymphocytes % 12.4 09/14/19 18:50 Monocytes % 5.7 09/14/19 18:50 Eosinophils % 1.4 09/14/19 18:50 Basophils % 0.2 09/14/19 18:50 Absolute Neutrophils 4.06 k/cumm (1.2-6.7) 09/14/19 18:50 Absolute Lymphocytes 0.63 k/cumm (1.2-3.4) L 09/14/19 18:50 Absolute Monocytes 0.29 k/cumm (0.11-0.7) 09/14/19 18:50 Absolute Eosinophils 0.07 k/cumm (0.0-0.7) 09/14/19 18:50 Absolute Basophils 0.01 k/cumm (0.0-0.2) 09/14/19 18:50 PT 11.2 sec (9.3-11.0) H 09/14/19 18:50 INR 1.1 (0.9-1.1) 09/14/19 18:50 APTT 23.6 sec (21.0-31.4) 09/14/19 18:50 Sodium 137 mmol/L (136-145) 09/18/19 06:50 Potassium 3.3 mmol/L (3.5-5.1) L 09/18/19 06:50 Chloride 100 mmol/L (98-107) 09/18/19 06:50 Carbon Dioxide 30.4 mmol/L (21.0-32.0) 09/18/19 06:50 Anion Gap 6.6 mmol/L (3-11) 09/18/19 06:50 BUN 29 mg/dL (7-18) H 09/18/19 06:50 Creatinine 0.97 mg/dL (0.70-1.30) 09/18/19 06:50 Estimated GFR/1.73 m2 >= 60.00 (mL/min/1.73m2) 09/18/19 06:50 Glucose 98 mg/dL (74-106) 09/18/19 06:50 Calcium 8.4 mg/dL (8.5-10.1) L 09/18/19 06:50 Magnesium 2.1 mg/dL (1.8-2.4) 09/18/19 06:50 Total Bilirubin 0.7 mg/dL (0.2-1.0) 09/14/19 18:50 AST 24 U/L (15-37) 09/14/19 18:50 ALT 24 U/L (16-63) 09/14/19 18:50 Alkaline Phosphatase 112 U/L (46-116) 09/14/19 18:50 Total Protein 7.1 g/dL (6.4-8.2) 09/14/19 18:50 Albumin 3.5 g/dL (3.4-5.0) 09/14/19 18:50 25-OH Vitamin D Total 56.2 ng/ml (30-100) 09/16/19 05:35 COVID-19 PCR Negative (Negative) 09/14/19 20:28 Nasopharyn COVID-19 PCR Not Applicable 09/14/19 20:28 Ref Test Perform Site [facility] lab 09/14/19 20:28 Patient ABO/Rh O Positive 09/14/19 19:10 Antibody Screen Negative 09/14/19 19:10
--- NOTE | 2019-09-18 14:26 | PT.INTREAT ---
Date of service: 09/18/19 Time of Service: 14:26 PT Notes Visit Reasons: L HIP FRACTURE Inpatient Physical Therapy Treatment Note [facility] Date: 09/18/19 PRECAUTIONS: Standard. Fall. WBAT on left LE. SUBJECTIVE: Patient was upset about the delay in his pain pill medication early today and requested that PT session be moved to a later time in the morning. OBJECTIVE: General observation: IV in the right UE. Sterling catheter in place. PAIN: 6-7/10 in the left hip with movement and weight bearing BED MOBILITY/TRANSFERS Supine to sit standby assist requires minimal verbal cueing for use of BUE for support Sit to supine standby assist requires minimal verbal cueing for use of BUE for support Sit to stand standby assist requires minimal verbal cueing for use of BUE for support, needs front wheeled walker Stand to sit standby assist requires minimal verbal cueing for use of BUE for support Bed to chair standby assist requires minimal verbal cueing for use of BUE for support, needs front wheeled walker Chair to bed standby assist requires minimal verbal cueing for use of BUE for support, needs front wheeled walker GAIT Assistive Device: FWW Weight bearing: WBAT L Assist: CGA Distance: For the morning session patient tolerated 50 feet and reported increase in pain to 8-9/10 and requested to stop and rest so he could do more in the afternoon. In the afternoon,patient was able to do 200 feet with 6-7/10 pain report. Up to gait pattern with cues required for safe technique and posture. No LOB. No SOB. No dizziness. Deviation: Step-to gait pattern STAIRS: Patient tolerated up-and-down six 4 inch steps and four 6 inch steps while holding onto bilateral rails requiring minimal assist to left knee for increased stability with pain report of 8?9/10 at the end. ASSESSMENT: Patient tolerated today's activity but needed ample rest time in between due to pain complaint. He has been very good with doing his hourly performance of his room exercises. PLAN: Continue with PT's POC. We will continue to coordinate with nurse for pre-medication for pain for maximized functional performance. TREATMENT CODE/TIME: Session 1?? [id number] x 28 minutes beginning at 10:15 AM. Session 2-- [id number] x 53 minutes beginning at 14:26 PM.
[2019-09-18] MEDS: Ferrous Sulfate 325 MG TAB PO ×2 (14:29→20:29)
[2019-09-18] MEDS: Calcium Carbonate *TUMS* 500 MG CHEW PO (20:29)
[2019-09-19 00:15] VITALS: BP 114/75; PULSE 82; RESP 16; TEMP 36.2; O2SAT 99
[2019-09-19] MEDS: oxyCODONE 5 MG TAB PO ×3 (01:18→15:13)
[2019-09-19 07:30] VITALS: BP 139/66; PULSE 63; RESP 22; TEMP 36.9; O2SAT 100
[2019-09-19 07:38] LABS: HCT 25.4 % (40.0-50.0); HGB 8.2 g/dL (13.5-17.5); Mean Corp. HGB Concentration 32.3 g/dL (32.0-36.0); Mean Corpuscular Volume 99.2 fL (80-95); Platelet Count 210 x1000/uL (130-400); RBC 2.56 m/cumm (4.50-6.00); RBC Distribution Width 12.7 % (11.8-14.1); White Blood Cell Count 6.97 k/cumm (4.4-10.8)
[2019-09-19 07:47] LABS: Anion Gap 5.5 mmol/L (3-11); BUN 22 mg/dL (7-18); CO2 30.5 mmol/L (21.0-32.0); CREATININE 0.86 mg/dL (0.70-1.30); Calcium 8.5 mg/dL (8.5-10.1); Chloride 103 mmol/L (98-107); Glucose 95 mg/dL (74-106); Sodium 139 mmol/L (136-145)
[2019-09-19] MEDS: predniSONE 5 MG TAB PO (07:56)
[2019-09-19] MEDS: Acetaminophen 325 MG TAB 650 MG PO ×3 (07:56→15:14)
[2019-09-19] MEDS: Ferrous Sulfate 325 MG TAB PO (07:57)
[2019-09-19] MEDS: Apixaban 5 MG TAB PO (07:57)
--- NOTE | 2019-09-19 08:49 | PDOC.CMDIS ---
LACE Index Scoring Tool - Questions: Length of Stay (in days): 4 - 6 Acuity (Admit via E.D.?): Yes Comorbidities: Any Tumor E.D. Visits: 2 - Answers: Total Score: 11 Risk of Readmission: High Risk Care Management Discharge Reason for Hospitalization: L Hip Fracture Discharge Plan: Gabe will return home with new [facility] orders for RN/PT/OT, as well as follow up appointments with Ortho, and his PCP. He has all needed DME equipment at home and is refusing SNF, reporting confidence in his abilility to return home for recovery. He will transport via private vehicle with his . CM will continue to follow and support discharge planning considerations. Patient/Family Education Needs: Review of discharge instructions, discuss Ask Me Three. Services Needed at Discharge: DME Agency (Patient's own), Home Health Care Services ([facility]: RN/PT/OT)
--- NOTE | 2019-09-19 09:37 | CHAPLAIN ---
Gabe was up in a chair when I visited yesterday. He shared some personal history, telling me about moving from [place] to [place], his careen moves, and where his children are now. Gabe said he is experiencing more pain than the thought he would but he understands pain is expected. He is in touch with family by phone. He is a member of the [employer], but has not attended in a long time due to health issues.
[2019-09-19] MEDS: Calcium Carbonate *TUMS* 500 MG CHEW PO (09:49)
--- NOTE | 2019-09-19 09:55 | W.PM.PROGNOT ---
Date of Service Date of service: 09/19/19 Time of Service: 07:56 Assessment and Plan Assessment and plan (1) Closed fracture of left hip: Status: Acute Assessment and plan: Gabe is an 84-year-old who is status post IM nail fixation of a left femur fracture., He is doing well. He does have some limitations by think he is made enough progress to be able to go home if not today tomorrow. I will default to physical therapy and their evaluation. He does seem to be slightly more fluid overloaded. He is chronically on Lasix I think this should be restarted today. The serous drainage is to be expected and not particular concerning. I have advised nursing to apply a pressure type dressing with gauze, ABD, and tape. This should stay on for the next 3 days and then can be replaced we there is some light gauze dressing or Mepilex dressing. He will continue on his home dose of Eliquis as a blood thinner for the surgery. I will see him back in 4 weeks. Discharge instructions were updated in the discharge summary. Qualifiers: Encounter type: initial encounter Qualified Code(s): S72.002A - Fracture of unspecified part of neck of left femur, initial encounter for closed fracture Subjective Subjective Interval history since last seen: Gabe is an 84-year-old who is status post IM nail fixation of a left proximal femur fracture with significant comminution. He is doing well. He has made some progress physical therapy. He does report pain but responds well to pain medications. He is happy that he has been able to walk. He is looking forward to going home soon as he can. He denies chest pain or shortness of breath. There has been some drainage from his wounds which has been serous in nature. They have been changed by nursing. He has no fever no chills. Exam Narrative Exam Narrative: Sitting up in the bed. No acute distress. Alert and oriented x3. Evaluation of left leg shows notable swelling. This is slightly worse than it has been. There is some serous drainage seen from all 3 wounds equally, actually worse on the more distal one. Minimal ecchymosis. No bleeding. Very minimal tenderness to palpation. He tolerates internal and external rotation without significant pain. Objective Objective Clinical Data: Abnormal lab results 09/19/19 09/19/19 Range/Units 06:25 06:25 RBC 2.56 L (4.50-6.00) m/cumm Hgb 8.2 L (13.5-17.5) g/dL Hct 25.4 L (40.0-50.0) % MCV 99.2 H (80-95) fL BUN 22 H D (7-18) mg/dL Vital Signs Temperature 36.2 C L 09/19/19 00:15 Temperature Source Tympanic 09/19/19 00:15 Pulse 82 09/19/19 00:15 Pulse Rhythm Regular 09/18/19 22:00 Respiratory Rate 16 09/19/19 00:15 Respiratory Effort Non-Labored 09/18/19 22:00 Respiratory Depth Deep 09/18/19 22:00 Respiratory Pattern Normal 09/18/19 22:00 Blood Pressure 114/75 09/19/19 00:15 Blood Pressure Position Supine 09/14/19 18:42 Pulse Oximetry 99 09/19/19 00:15 Respiratory End-tidal CO2 32 09/15/19 19:13 Oxygen Delivery Method Room Air 09/19/19 00:15 Oxygen Flow Rate 0 09/19/19 00:15 Pain Level 3 09/19/19 09:49 Comment 09/16/19 09:35 Intake & Output 09/18/19 09/18/19 09/19/19 11:59 23:59 11:59 Intake Total 450 / 1690 1240 / 1690 Output Total 1900 / 2850 950 / 2850 150 / 150 Balance -1450 / -1160 290 / -1160 -150 / -150 Weight 70.2 kg 71.1 kg Intake: IV 1000 / 1000 Oral 450 / 690 240 / 690 Output: Urine 1900 / 2850 950 / 2850 150 / 150 Other: Urine Color Yellow Yellow Yellow Urine Appearance Clear Clear Clear Stool Size Large Stool Characteristics Soft Formed Brown Laboratory Results WBC 6.97 k/cumm (4.4-10.8) 09/19/19 06:25 RBC 2.56 m/cumm (4.50-6.00) L 09/19/19 06:25 Hgb 8.2 g/dL (13.5-17.5) L 09/19/19 06:25 Hct 25.4 % (40.0-50.0) L 09/19/19 06:25 MCV 99.2 fL (80-95) H 09/19/19 06:25 MCH 32.0 pg (27.0-33.0) 09/19/19 06:25 MCHC 32.3 g/dL (32.0-36.0) 09/19/19 06:25 RDW 12.7 % (11.8-14.1) 09/19/19 06:25 Plt Count 210 x1000/uL (130-400) 09/19/19 06:25 MPV 10.0 fL (8.0-11.0) 09/19/19 06:25 Immature Gran % 0.2 % 09/14/19 18:50 Neutrophils % 80.1 09/14/19 18:50 Lymphocytes % 12.4 09/14/19 18:50 Monocytes % 5.7 09/14/19 18:50 Eosinophils % 1.4 09/14/19 18:50 Basophils % 0.2 09/14/19 18:50 Absolute Neutrophils 4.06 k/cumm (1.2-6.7) 09/14/19 18:50 Absolute Lymphocytes 0.63 k/cumm (1.2-3.4) L 09/14/19 18:50 Absolute Monocytes 0.29 k/cumm (0.11-0.7) 09/14/19 18:50 Absolute Eosinophils 0.07 k/cumm (0.0-0.7) 09/14/19 18:50 Absolute Basophils 0.01 k/cumm (0.0-0.2) 09/14/19 18:50 PT 11.2 sec (9.3-11.0) H 09/14/19 18:50 INR 1.1 (0.9-1.1) 09/14/19 18:50 APTT 23.6 sec (21.0-31.4) 09/14/19 18:50 Sodium 139 mmol/L (136-145) 09/19/19 06:25 Potassium 4.0 mmol/L (3.5-5.1) D 09/19/19 06:25 Chloride 103 mmol/L (98-107) 09/19/19 06:25 Carbon Dioxide 30.5 mmol/L (21.0-32.0) 09/19/19 06:25 Anion Gap 5.5 mmol/L (3-11) 09/19/19 06:25 BUN 22 mg/dL (7-18) H D 09/19/19 06:25 Creatinine 0.86 mg/dL (0.70-1.30) 09/19/19 06:25 Estimated GFR/1.73 m2 >= 60.00 (mL/min/1.73m2) 09/19/19 06:25 Glucose 95 mg/dL (74-106) 09/19/19 06:25 Calcium 8.5 mg/dL (8.5-10.1) 09/19/19 06:25 Magnesium 2.1 mg/dL (1.8-2.4) 09/18/19 06:50 Total Bilirubin 0.7 mg/dL (0.2-1.0) 09/14/19 18:50 AST 24 U/L (15-37) 09/14/19 18:50 ALT 24 U/L (16-63) 09/14/19 18:50 Alkaline Phosphatase 112 U/L (46-116) 09/14/19 18:50 Total Protein 7.1 g/dL (6.4-8.2) 09/14/19 18:50 Albumin 3.5 g/dL (3.4-5.0) 09/14/19 18:50 25-OH Vitamin D Total 56.2 ng/ml (30-100) 09/16/19 05:35 COVID-19 PCR Negative (Negative) 09/14/19 20:28 Nasopharyn COVID-19 PCR Not Applicable 09/14/19 20:28 Ref Test Perform Site Counts include 234 beds at the [facility] lab 09/14/19 20:28 Patient ABO/Rh O Positive 09/14/19 19:10 Antibody Screen Negative 09/14/19 19:10
--- NOTE | 2019-09-19 11:19 | PDOC.HHF2F_ITS ---
Home Health Certification Home Health Certification: 1. Encounter Date and Reason I certify that MARISA MARTIN was seen by Fani Porras on 09/19/19 and that I had a [id number] encounter with this patient that meets the physician face to face encounter requirements. 2. Clinical Findings Supporting Skilled Need and Homebound Status I certify that home health services are medically necessary, include either intermittent intermediate and/or physical/speech therapy, and that this patient is homebound in that absences from the home require considerable and taxing effort and are infrequent or of short duration, or are attributable to the need to receive medical care. [X] (a) Attached documentation from encounter provides clinical findings supporting skilled need and homebound status (including what assistance patient requires to leave the home). The encounter with the patient was in whole, or in part, for the following medical condition, which is the primary reason for home health care: L HIP FRACTURE Physical Therapy: routine evaluation and treatment following a left hip repair of fracture following a mechanical fall. goal to restore patient's ability to ambulate safely and independently, increase strength and endurance. Homebound: patient unable to safely leave house unassisted d/t pain, decreased strength and endurance, unsteady gait, and impaired transfers 3. Certification and Authentication I certify that I composed the above information based on my clinical judgement relating to this patient's medical condition and, if applicable, clinical findings communicated to me by the NPP or inpatient physician who performed the Home Health Referral. All further orders will be obtained through (Community Based Physician - PCP)
[2019-09-19 12:45] VITALS: RESP 20; O2SAT 100
[2019-09-19 13:35] VITALS: BP 122/61; BP 123/58; BP 139/66; PULSE 63; PULSE 97; PULSE 98
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
== END 2019-09-19 16:04 | disposition home health service (06) | DRG 481 ==
LOC: ER 20:39 → MS 20:56
PROVIDERS: Nurse Practitioner Acute Care; Nurse Practitioner Family; Student in an Organized Health Care Education/Training Program; Admitting Provider Family Medicine; Emergency Provider Emergency Medicine; PCP Internal Medicine; Visit Provider Internal Medicine
PROC: 0QS706Z Reposition Left Upper Femur with Intramedullary Internal Fixation Device, Open Approach (ICD-10-PCS; CPT 27245; principal; 2019-09-15 15:30)
DX: S72.142A Displaced intertrochanteric fracture of left femur, initial encounter for closed fracture (principal); D62 Acute posthemorrhagic anemia; M25.552 Pain in left hip; M21.152 Varus deformity, not elsewhere classified, left hip; V18.3XXA Person boarding or alighting a pedal cycle injured in noncollision transport accident, initial encounter; E87.70 Fluid overload, unspecified; I48.91 Unspecified atrial fibrillation; Z79.01 Long term (current) use of anticoagulants; I95.1 Orthostatic hypotension; C61 Malignant neoplasm of prostate; Z79.899 Other long term (current) drug therapy; Z01.818 Encounter for other preprocedural examination; I07.1 Rheumatic tricuspid insufficiency; R33.9 Retention of urine, unspecified; Y83.8 Other surgical procedures as the cause of abnormal reaction of the patient, or of later complication, without mention of misadventure at the time of the procedure
CPT/HCPCS: 27245; 36415; 51702; 80048; 80053; 82306; 85027; 86850; 86900; 86901; 93005; 96361; 96374; 96375; 97110; 97162; 97530; 99222; 99233; 99239; 99253; 99285; NC; U0003; 71045; 73501; 73502; 83735; 85025; 85610; 85730; 93010; 99232; J0690; J1100; J1885; J2001; J2270; J2405; J3010; J3360; J7512

== ENCOUNTER 2019-09-30 19:39 | Outpatient (REF) | payer MEDICARE, BC, SELFPAY ==
[2019-09-30 20:46] LABS: Abs Immature Grans 0.01 k/cumm (0.0-0.09); Absolute Basophil Count 0.02 k/cumm (0.0-0.2); Absolute Eosinophil Count 0.04 k/cumm (0.0-0.7); Absolute Lymphocyte Count 0.68 k/cumm (1.2-3.4); Absolute Monocyte Count 0.62 k/cumm (0.11-0.7); Basophils % 0.3; Eosinophils % 0.5; HCT 29.2 % (40.0-50.0); HGB 9.4 g/dL (13.5-17.5); Immature Grans % 0.1 %; Mean Corp. HGB Concentration 32.2 g/dL (32.0-36.0); Mean Corpuscular Hemoglobin 33.2 pg (27.0-33.0); Mean Corpuscular Volume 103.2 fL (80-95); Mean Platelet Volume 9.5 fL (8.0-11.0); Monocytes % 8.2; Neutrophils % 81.9; Platelet Count 352 x1000/uL (130-400); RBC 2.83 m/cumm (4.50-6.00); RBC Distribution Width 15.1 % (11.8-14.1); White Blood Cell Count 7.57 k/cumm (4.4-10.8)
[2019-09-30 21:00] LABS: Bilirubin Negative (Negative); Blood Negative (Negative); Clarity Sl Cloudy (Clear); Glucose Negative (Negative); Ketones Negative (Negative); Leukocyte Esterase Moderate (Negative); Nitrite Negative (Negative); Specific Gravity 1.015 (1.005-1.025)
[2019-09-30 21:01] LABS: ALT 20 U/L (16-63); AST 24 U/L (15-37); Alkaline Phosphatase 227 U/L (46-116); Anion Gap 7.4 mmol/L (3-11); BUN 20 mg/dL (7-18); Bilirubin, Total 1.1 mg/dL (0.2-1.0); CO2 29.6 mmol/L (21.0-32.0); CREATININE 0.93 mg/dL (0.70-1.30); Calcium 8.3 mg/dL (8.5-10.1); Chloride 101 mmol/L (98-107); Glucose 118 mg/dL (74-106); Potassium 4.4 mmol/L (3.5-5.1); Sodium 138 mmol/L (136-145); Total Protein 6.2 g/dL (6.4-8.2)
[2019-09-30 21:19] LABS: Bacteria Packed HPF (Negative); C & S Indicated? Yes; Crystals Negative HPF (Negative); Epithelial Cells Negative HPF (Negative); Mucus Negative (Negative); Other Cells Rare Renal (Negative)
[2019-10-04 08:36] LABS: Testosterone, Total <7.0 ng/dL (240-950)
== END 2019-09-30 19:59 ==
LOC: NCHCN 19:39
PROVIDERS: Internal Medicine; PCP Internal Medicine; Visit Provider Internal Medicine
DX: C61 Malignant neoplasm of prostate (principal); R30.0 Dysuria
CPT/HCPCS: 80053; 84153; 84403; 87077; 81003; 81015; 85025; 87086; 87186

== ENCOUNTER 2019-10-20 11:37 | Outpatient (CLI) | payer MEDICARE, BC, SELFPAY ==
--- NOTE | 2019-10-20 10:30 | DI.RAD_ITS ---
EXAM: XR FEMUR LT CLINICAL HISTORY: F/U FRACTURE. TECHNIQUE: 2D digital imaging was performed. COMPARISON: XR HIP LT IN OR from 09/15/2019 FINDINGS: There is again seen an intramedullary angelia screws and wire transfixing the proximal left femoral fract ure. The orthopedic hardware appears in good position. The fracture is stable in alignment. Callus formation has developed about the fracture consistent with some interval healing. Soft tissues are unremarkable. Vascular calcifications are present. IMPRESSION: Healing proximal left femoral fracture. DATA REPOSITORY: RADIATION DOSE DELIVERED:
== END 2019-10-20 11:57 ==
PROVIDERS: PCP Internal Medicine; Referring Provider Internal Medicine; Visit Provider Student in an Organized Health Care Education/Training Program
DX: S72.142D Displaced intertrochanteric fracture of left femur, subsequent encounter for closed fracture with routine healing (principal); X58.XXXD Exposure to other specified factors, subsequent encounter
CPT/HCPCS: 73552

== ENCOUNTER 2019-10-28 08:32 | Outpatient (CLI) | payer MEDICARE, BC, SELFPAY | END 2019-10-28 08:52 | PROVIDERS: PCP Internal Medicine; Visit Provider Internal Medicine | DX: R33.8 Other retention of urine (principal); C61 Malignant neoplasm of prostate | CPT/HCPCS: 99213; 99442 ==

== ENCOUNTER 2019-10-28 12:40 | Outpatient (REF) | payer MEDICARE, BC, SELFPAY ==
[2019-10-28 21:25] LABS: Abs Immature Grans 0.01 k/cumm (0.0-0.09); Absolute Basophil Count 0.02 k/cumm (0.0-0.2); Absolute Lymphocyte Count 0.94 k/cumm (1.2-3.4); Absolute Monocyte Count 0.78 k/cumm (0.11-0.7); Absolute Neutrophil Count 4.27 k/cumm (1.2-6.7); Basophils % 0.3; Eosinophils % 4.7; HCT 36.4 % (40.0-50.0); HGB 11.5 g/dL (13.5-17.5); Immature Grans % 0.2 %; Lymphocytes % 14.9; Mean Corp. HGB Concentration 31.6 g/dL (32.0-36.0); Mean Corpuscular Volume 98.1 fL (80-95); Mean Platelet Volume 11.2 fL (8.0-11.0); Monocytes % 12.3; Neutrophils % 67.6; Platelet Count 274 x1000/uL (130-400); RBC 3.71 m/cumm (4.50-6.00); RBC Distribution Width 13.4 % (11.8-14.1); White Blood Cell Count 6.32 k/cumm (4.4-10.8)
[2019-10-29 14:07] LABS: ALT 18 U/L (16-63); AST 20 U/L (15-37); Albumin 3.5 g/dL (3.4-5.0); Alkaline Phosphatase 347 U/L (46-116); Anion Gap 6.1 mmol/L (3-11); BUN 20 mg/dL (7-18); Bilirubin, Total 0.7 mg/dL (0.2-1.0); CO2 30.9 mmol/L (21.0-32.0); CREATININE 0.76 mg/dL (0.70-1.30); Calcium 9.2 mg/dL (8.5-10.1); Chloride 103 mmol/L (98-107); Glucose 110 mg/dL (74-106); Sodium 140 mmol/L (136-145)
[2019-10-29 14:10] LABS: Total Protein 7.3 g/dL (6.4-8.2)
[2019-10-30 11:15] LABS: PSA, Ultrasensitive 6.7 ng/mL (<= 7.2)
[2019-11-05 08:09] LABS: Testosterone, Total <7.0 ng/dL (240-950)
== END 2019-10-28 13:00 ==
LOC: NCHCN 12:40
PROVIDERS: PCP Internal Medicine; Visit Provider Family Medicine
DX: C61 Malignant neoplasm of prostate (principal)
CPT/HCPCS: 80053; 84153; 84403; 85025

== ENCOUNTER 2019-11-12 14:09 | Outpatient (REF) | payer MEDICARE, BC, SELFPAY ==
[2019-11-12 20:12] LABS: Anion Gap 7.8 mmol/L (3-11); BUN 23 mg/dL (7-18); CO2 28.2 mmol/L (21.0-32.0); CREATININE 0.79 mg/dL (0.70-1.30); Calcium 8.9 mg/dL (8.5-10.1); Chloride 102 mmol/L (98-107); Glucose 107 mg/dL (74-106); Potassium 4.1 mmol/L (3.5-5.1); Sodium 138 mmol/L (136-145)
== END 2019-11-12 14:29 ==
LOC: NCHCN 14:09
PROVIDERS: PCP Internal Medicine; Visit Provider Internal Medicine
DX: R35.1 Nocturia (principal)
CPT/HCPCS: 80048

== ENCOUNTER 2019-11-17 10:21 | Outpatient (CLI) | payer MEDICARE, BC, SELFPAY ==
--- NOTE | 2019-11-17 10:00 | DI.RAD_ITS ---
EXAM: XR FEMUR LT CLINICAL HISTORY: s/p L femur IMN. TECHNIQUE: 2D digital imaging was performed. COMPARISON: CR XR FEMUR LT from 10/20/2019 FINDINGS: BONES: There are stable post operative changes present. There has been no change in alignment of the proximal femoral fracture. There is increased callus formation about the fracture. No new fracture or dislocation is present. JOINTS: The joint spaces are well maintained. SOFT TISSUE: Vascular calcifications are present. IMPRESSION: Stable postoperative changes. DATA REPOSITORY: RADIATION DOSE DELIVERED:
== END 2019-11-17 10:41 ==
PROVIDERS: PCP Internal Medicine; Referring Provider Internal Medicine; Visit Provider Student in an Organized Health Care Education/Training Program
DX: S72.002D Fracture of unspecified part of neck of left femur, subsequent encounter for closed fracture with routine healing; X58.XXXD Exposure to other specified factors, subsequent encounter
CPT/HCPCS: 73552

== ENCOUNTER 2019-11-25 02:31 | Outpatient (CLI) | payer MEDICARE, BC, SELFPAY ==
[2019-11-25 10:32] LABS: Abs Immature Grans 0.02 10^3/uL (0.0-0.06); Absolute Basophil Count 0.03 10^3/uL (0.0-0.2); Absolute Eosinophil Count 0.24 10^3/uL (0.0-0.7); Absolute Lymphocyte Count 0.76 10^3/uL (1.2-3.4); Absolute Neutrophil Count 3.56 10^3/uL (1.2-6.7); Basophils % 0.6; Eosinophils % 4.7; HGB 11.2 g/dL (13.5-17.5); Immature Grans % 0.4; Lymphocytes % 14.9; MCH 31.1 pg (27.0-33.0); MCHC 32.9 % (32.0-36.0); MCV 94.4 fL (80-95); MPV 9.5 fL (8.0-11.0); Monocytes % 9.8; Neutrophils % 69.6; Nucleated RBC 0 %; Platelet Count 200 10^3/uL (130-400); RDW 13.3 % (11.8-14.1); RDW-SD 45.7 fL; WBC 5.11 10^3/uL (4.4-10.8)
[2019-11-25 10:57] LABS: ALT 18 U/L (16-63); AST 20 U/L (15-37); Albumin 3.3 g/dL (3.4-5.0); Alkaline Phosphatase 280 U/L (46-116); Anion Gap 11.4 mmol/L (3-11); BUN 24 mg/dL (7-18); Bilirubin, Total 0.8 mg/dL (0.2-1.0); CO2 24.6 mmol/L (21.0-32.0); CREATININE 0.62 mg/dL (0.70-1.30); Chloride 103 mmol/L (98-107); Glucose 106 mg/dL (74-106); Potassium 3.6 mmol/L (3.5-5.1); Sodium 139 mmol/L (136-145); Total Protein 7.4 g/dL (6.4-8.2)
[2019-11-27 11:06] LABS: Testosterone, Total <7.0 ng/dL (240-950)
== END 2019-11-25 02:51 ==
PROVIDERS: PCP Internal Medicine; Visit Provider Internal Medicine
DX: C61 Malignant neoplasm of prostate (principal); C77.1 Secondary and unspecified malignant neoplasm of intrathoracic lymph nodes
CPT/HCPCS: 36415; 80053; 84153; 84403; 85025

== ENCOUNTER 2019-12-05 18:14 | Outpatient (REF) | payer MEDICARE, BC, SELFPAY ==
[2019-12-05 21:09] LABS: Anion Gap 6.2 mmol/L (3-11); BUN 16 mg/dL (7-18); CO2 29.8 mmol/L (21.0-32.0); CREATININE 0.75 mg/dL (0.70-1.30); Calcium 8.8 mg/dL (8.5-10.1); Chloride 101 mmol/L (98-107); Glucose 116 mg/dL (74-106); Potassium 4.7 mmol/L (3.5-5.1); Sodium 137 mmol/L (136-145)
== END 2019-12-05 18:34 ==
LOC: NCHCN 18:14
PROVIDERS: PCP Internal Medicine; Visit Provider Internal Medicine
DX: R35.1 Nocturia (principal)
CPT/HCPCS: 80048

== ENCOUNTER 2019-12-22 03:20 | Outpatient (CLI) | payer MEDICARE, BC, SELFPAY ==
[2019-12-22 11:16] LABS: Abs Immature Grans 0.01 10^3/uL (0.0-0.06); Absolute Basophil Count 0.02 10^3/uL (0.0-0.2); Absolute Eosinophil Count 0.19 10^3/uL (0.0-0.7); Absolute Lymphocyte Count 0.74 10^3/uL (1.2-3.4); Absolute Monocyte Count 0.51 10^3/uL (0.1-0.8); Absolute Neutrophil Count 3.52 10^3/uL (1.2-6.7); Basophils % 0.4; Eosinophils % 3.8; HCT 35.5 % (40.0-50.0); HGB 11.3 g/dL (13.5-17.5); Immature Grans % 0.2; Lymphocytes % 14.8; MCH 29.7 pg (27.0-33.0); MCHC 31.8 % (32.0-36.0); MCV 93.4 fL (80-95); MPV 9.6 fL (8.0-11.0); Monocytes % 10.2; Neutrophils % 70.6; Nucleated RBC 0 %; Platelet Count 189 10^3/uL (130-400); RDW 13.7 % (11.8-14.1); RDW-SD 46.6 fL; WBC 4.99 10^3/uL (4.4-10.8)
[2019-12-22 11:26] LABS: ALT 27 U/L (16-63); AST 25 U/L (15-37); Albumin 3.3 g/dL (3.4-5.0); Alkaline Phosphatase 237 U/L (46-116); Anion Gap 4.1 mmol/L (3-11); BUN 21 mg/dL (7-18); Bilirubin, Total 0.8 mg/dL (0.2-1.0); CO2 30.9 mmol/L (21.0-32.0); CREATININE 0.74 mg/dL (0.70-1.30); Calcium 8.8 mg/dL (8.5-10.1); Chloride 102 mmol/L (98-107); Glucose 95 mg/dL (74-106); Potassium 4.1 mmol/L (3.5-5.1); Sodium 137 mmol/L (136-145); Total Protein 7.3 g/dL (6.4-8.2)
[2019-12-25 08:36] LABS: Testosterone, Total <7.0 ng/dL (240-950)
== END 2019-12-22 03:40 ==
PROVIDERS: PCP Internal Medicine; Visit Provider Internal Medicine
DX: C61 Malignant neoplasm of prostate (principal); C77.1 Secondary and unspecified malignant neoplasm of intrathoracic lymph nodes
CPT/HCPCS: 36415; 80053; 84153; 84403; 85025

== ENCOUNTER 2020-01-19 14:56 | Outpatient (REF) | payer MEDICARE, BC, SELFPAY ==
[2020-01-19 20:55] LABS: Abs Immature Grans 0.02 10^3/uL (0.0-0.06); Absolute Basophil Count 0.04 10^3/uL (0.0-0.2); Absolute Eosinophil Count 0.08 10^3/uL (0.0-0.7); Absolute Lymphocyte Count 0.73 10^3/uL (1.2-3.4); Absolute Monocyte Count 0.42 10^3/uL (0.1-0.8); Absolute Neutrophil Count 4.34 10^3/uL (1.2-6.7); Basophils % 0.7; Eosinophils % 1.4; HCT 36.9 % (40.0-50.0); HGB 11.8 g/dL (13.5-17.5); Immature Grans % 0.4; MCH 29.6 pg (27.0-33.0); MCV 92.5 fL (80-95); MPV 11.2 fL (8.0-11.0); Monocytes % 7.5; Nucleated RBC 0 %; Platelet Count 232 10^3/uL (130-400); RBC 3.99 10^6/uL (4.36-5.78); RDW 14.6 % (11.8-14.1); RDW-SD 49.9 fL; WBC 5.63 10^3/uL (4.4-10.8)
[2020-01-19 21:07] LABS: ALT 28 U/L (16-63); AST 29 U/L (15-37); Albumin 3.7 g/dL (3.4-5.0); Alkaline Phosphatase 363 U/L (46-116); Anion Gap 7.7 mmol/L (3-11); BUN 20 mg/dL (7-18); CO2 30.3 mmol/L (21.0-32.0); CREATININE 0.82 mg/dL (0.70-1.30); Calcium 9.2 mg/dL (8.5-10.1); Chloride 102 mmol/L (98-107); Glucose 101 mg/dL (74-106); Potassium 4.5 mmol/L (3.5-5.1); Sodium 140 mmol/L (136-145); Total Protein 7.7 g/dL (6.4-8.2)
[2020-01-20 18:22] LABS: PSA, Diagnostic 3.3 ng/mL (0.0-6.5)
== END 2020-01-19 15:16 ==
LOC: NCHCN 14:56
PROVIDERS: PCP Internal Medicine; Visit Provider Internal Medicine
DX: C61 Malignant neoplasm of prostate (principal)
CPT/HCPCS: 80053; 84402; 84403; 84153; 85025

== ENCOUNTER 2020-01-20 12:06 | Outpatient (CLI) | payer MEDICARE, BC, SELFPAY ==
[2020-01-23 12:21] LABS: Testosterone, Total <7.0 ng/dL (240-950)
== END 2020-01-20 12:26 ==
PROVIDERS: PCP Internal Medicine; Visit Provider Internal Medicine
DX: C61 Malignant neoplasm of prostate (principal)
CPT/HCPCS: 36415; 84402; 84403

== ENCOUNTER 2020-01-26 12:43 | Outpatient (CLI) | payer MEDICARE, BC, SELFPAY ==
--- NOTE | 2020-01-26 09:43 | DI.RAD_ITS ---
EXAM: XR FEMUR LT INDICATION: follow up. COMPARISON: CR XR FEMUR LT from 11/17/2019 TECHNIQUE: 2D digital imaging was performed. FINDINGS: There has been no change in fracture or hardware alignment.. There has been continued increase in ca llous formation around the proximal femoral fracture. DATA REPOSITORY: RADIATION DOSE DELIVERED:
== END 2020-01-26 13:03 ==
PROVIDERS: PCP Internal Medicine; Referring Provider Internal Medicine; Visit Provider Student in an Organized Health Care Education/Training Program
DX: S72.8X2A Other fracture of left femur, initial encounter for closed fracture (principal); S72.002D Fracture of unspecified part of neck of left femur, subsequent encounter for closed fracture with routine healing; X58.XXXD Exposure to other specified factors, subsequent encounter
CPT/HCPCS: 73552; 99213

== ENCOUNTER 2020-02-17 02:10 | Outpatient (CLI) | payer MEDICARE, BC, SELFPAY ==
[2020-02-17 16:21] LABS: Abs Immature Grans 0.02 10^3/uL (0.0-0.06); Absolute Basophil Count 0.02 10^3/uL (0.0-0.2); Absolute Eosinophil Count 0.06 10^3/uL (0.0-0.7); Absolute Lymphocyte Count 0.63 10^3/uL (1.2-3.4); Absolute Monocyte Count 0.31 10^3/uL (0.1-0.8); Absolute Neutrophil Count 3.55 10^3/uL (1.2-6.7); Basophils % 0.4; Eosinophils % 1.3; HCT 35.1 % (40.0-50.0); HGB 11.4 g/dL (13.5-17.5); Immature Grans % 0.4; Lymphocytes % 13.7; MCH 30.3 pg (27.0-33.0); MCHC 32.5 % (32.0-36.0); MCV 93.4 fL (80-95); MPV 9.5 fL (8.0-11.0); Monocytes % 6.8; Neutrophils % 77.4; Nucleated RBC 0 %; Platelet Count 161 10^3/uL (130-400); RBC 3.76 10^6/uL (4.36-5.78); RDW 14.2 % (11.8-14.1); RDW-SD 49.1 fL; WBC 4.59 10^3/uL (4.4-10.8)
[2020-02-17 18:02] LABS: ALT 23 U/L (16-63); AST 26 U/L (15-37); Albumin 3.6 g/dL (3.4-5.0); Alkaline Phosphatase 268 U/L (46-116); Anion Gap 9.3 mmol/L (3-11); BUN 23 mg/dL (7-18); Bilirubin, Total 0.8 mg/dL (0.2-1.0); CO2 25.7 mmol/L (21.0-32.0); CREATININE 0.85 mg/dL (0.70-1.30); Calcium 8.5 mg/dL (8.5-10.1); Chloride 105 mmol/L (98-107); Glucose 106 mg/dL (74-106); Potassium 4.1 mmol/L (3.5-5.1); Sodium 140 mmol/L (136-145); Total Protein 7.1 g/dL (6.4-8.2)
[2020-02-19 13:27] LABS: PSA, Ultrasensitive 2.9 ng/mL (<= 7.2)
[2020-02-20 13:56] LABS: Testosterone, Total <7.0 ng/dL (240-950)
== END 2020-02-17 02:30 ==
PROVIDERS: PCP Internal Medicine; Visit Provider Internal Medicine
DX: C61 Malignant neoplasm of prostate (principal); C77.1 Secondary and unspecified malignant neoplasm of intrathoracic lymph nodes
CPT/HCPCS: 36415; 80053; 84153; 84403; 85025

== ENCOUNTER 2020-03-02 01:31 | Outpatient (CLI) | payer MEDICARE, BC, SELFPAY ==
--- NOTE | 2020-03-02 | DI.DEXA_ITS ---
EXAM: XR DEXA BONE DENSITY W/WO TAINA CLINICAL HISTORY: METASTATIC PROSTATE CA,C61,C77.1,OSTEOPOROSIS, M81.0,ANDROGEN DEPRIVATION TECHNIQUE: COMPARISON: CR,XR XR HIP LT COMPLETE AP PELVIS from 09/14/2019 FINDINGS: DEXA scan was performed according to the usual protocol. Please see the accompanying data sheets. F indings for right hip scanning are T-score -1.6. Lumbar spine scanning shows T-score 1.1. Left forearm scanning shows T-score -1.3. IMPRESSION: Findings consistent with osteopenia according to the WHO criteria. The lateral vertebral scanogram shows no evidence of a vertebral compression fracture. RADIATION DOSE DELIVERED: Total DLP
== END 2020-03-02 01:51 ==
PROVIDERS: PCP Internal Medicine; Visit Provider Internal Medicine
DX: M85.89 Other specified disorders of bone density and structure, multiple sites (principal); C61 Malignant neoplasm of prostate; C77.1 Secondary and unspecified malignant neoplasm of intrathoracic lymph nodes; M81.0 Age-related osteoporosis without current pathological fracture; R39.89 Other symptoms and signs involving the genitourinary system
CPT/HCPCS: 77080; 99213; 99442

== ENCOUNTER 2020-03-11 02:49 | Outpatient (CLI) | payer MEDICARE, BC, SELFPAY ==
[2020-03-13 16:32] LABS: COVID-19 RT-PCR Result NEGATIVE (Negative)
== END 2020-03-11 03:09 ==
PROVIDERS: PCP Internal Medicine; Visit Provider Nurse Practitioner
DX: Z11.59 Encounter for screening for other viral diseases (principal); Z01.818 Encounter for other preprocedural examination
CPT/HCPCS: U0003

== ENCOUNTER 2020-03-17 10:38 | Outpatient (CLI) | payer MEDICARE, BC, SELFPAY ==
[2020-03-17 10:57] LABS: Abs Immature Grans 0.01 10^3/uL (0.0-0.06); Absolute Basophil Count 0.03 10^3/uL (0.0-0.2); Absolute Eosinophil Count 0.32 10^3/uL (0.0-0.7); Absolute Lymphocyte Count 0.95 10^3/uL (1.2-3.4); Basophils % 0.7; HCT 38.2 % (40.0-50.0); HGB 12.2 g/dL (13.5-17.5); Immature Grans % 0.2; Lymphocytes % 23.7; MCH 30.3 pg (27.0-33.0); MCHC 31.9 % (32.0-36.0); MCV 94.8 fL (80-95); MPV 9.4 fL (8.0-11.0); Monocytes % 12.5; Neutrophils % 54.9; Nucleated RBC 0 %; Platelet Count 155 10^3/uL (130-400); RBC 4.03 10^6/uL (4.36-5.78); RDW-SD 49.1 fL; WBC 4.01 10^3/uL (4.4-10.8)
[2020-03-17 11:13] LABS: ALT 18 U/L (16-63); AST 22 U/L (15-37); Albumin 3.5 g/dL (3.4-5.0); Alkaline Phosphatase 201 U/L (46-116); Anion Gap 3.5 mmol/L (3-11); BUN 24 mg/dL (7-18); Bilirubin, Total 0.7 mg/dL (0.2-1.0); CO2 30.5 mmol/L (21.0-32.0); CREATININE 0.79 mg/dL (0.70-1.30); Calcium 8.9 mg/dL (8.5-10.1); Chloride 105 mmol/L (98-107); Glucose 85 mg/dL (74-106); Sodium 139 mmol/L (136-145); Total Protein 7.4 g/dL (6.4-8.2)
[2020-03-18 16:19] LABS: PSA, Ultrasensitive 2.8 ng/mL (<= 7.2)
[2020-03-19 12:30] LABS: Testosterone, Total <7.0 ng/dL (240-950)
== END 2020-03-17 10:58 ==
PROVIDERS: PCP Internal Medicine; Visit Provider Internal Medicine
DX: C61 Malignant neoplasm of prostate (principal); C77.1 Secondary and unspecified malignant neoplasm of intrathoracic lymph nodes
CPT/HCPCS: 36415; 80053; 84153; 84403; 85025

== ENCOUNTER → 2020-04-05 14:01 | Outpatient (BNVA) | payer MEDICARE, BC, SELFPAY | PROVIDERS: PCP Internal Medicine; Referring Provider Internal Medicine; Visit Provider Internal Medicine Cardiovascular Disease | DX: I07.1 Rheumatic tricuspid insufficiency; I48.21 Permanent atrial fibrillation; Z79.01 Long term (current) use of anticoagulants | CPT/HCPCS: 99442; 99213 ==

== ENCOUNTER 2020-04-19 02:38 | Outpatient (CLI) | payer MEDICARE, BC, SELFPAY ==
[2020-04-19 13:35] LABS: Abs Immature Grans 0.02 10^3/uL (0.0-0.06); Absolute Basophil Count 0.03 10^3/uL (0.0-0.2); Absolute Eosinophil Count 0.04 10^3/uL (0.0-0.7); Absolute Lymphocyte Count 0.49 10^3/uL (1.2-3.4); Absolute Monocyte Count 0.19 10^3/uL (0.1-0.8); Basophils % 0.6; Eosinophils % 0.8; HCT 37.1 % (40.0-50.0); HGB 12.2 g/dL (13.5-17.5); Immature Grans % 0.4; Lymphocytes % 9.7; MCHC 32.9 % (32.0-36.0); MCV 94.4 fL (80-95); MPV 9.8 fL (8.0-11.0); Monocytes % 3.7; Neutrophils % 84.8; Nucleated RBC 0 %; Platelet Count 152 10^3/uL (130-400); RBC 3.93 10^6/uL (4.36-5.78); WBC 5.07 10^3/uL (4.4-10.8)
[2020-04-19 14:31] LABS: ALT 24 U/L (16-63); AST 25 U/L (15-37); Albumin 3.8 g/dL (3.4-5.0); Alkaline Phosphatase 178 U/L (46-116); Anion Gap 5.3 mmol/L (3-11); BUN 25 mg/dL (7-18); Bilirubin, Total 0.9 mg/dL (0.2-1.0); CO2 29.7 mmol/L (21.0-32.0); CREATININE 0.78 mg/dL (0.70-1.30); Calcium 9.1 mg/dL (8.5-10.1); Chloride 104 mmol/L (98-107); Glucose 145 mg/dL (74-106); Potassium 4.5 mmol/L (3.5-5.1); Sodium 139 mmol/L (136-145); Total Protein 7.2 g/dL (6.4-8.2)
[2020-04-20 17:50] LABS: PSA, Ultrasensitive 2.2 ng/mL (<= 7.2)
[2020-04-21 22:28] LABS: Testosterone, Total <7.0 ng/dL (240-950)
== END 2020-04-19 02:58 ==
PROVIDERS: PCP Internal Medicine; Visit Provider Internal Medicine
DX: C61 Malignant neoplasm of prostate (principal); C77.1 Secondary and unspecified malignant neoplasm of intrathoracic lymph nodes
CPT/HCPCS: 36415; 80053; 84153; 84403; 85025

== ENCOUNTER 2020-05-17 03:27 | Outpatient (CLI) | payer MEDICARE, BC, SELFPAY ==
[2020-05-17 12:24] LABS: Abs Immature Grans 0.02 10^3/uL (0.0-0.06); Absolute Basophil Count 0.02 10^3/uL (0.0-0.2); Absolute Eosinophil Count 0.08 10^3/uL (0.0-0.7); Absolute Lymphocyte Count 0.52 10^3/uL (1.2-3.4); Absolute Monocyte Count 0.29 10^3/uL (0.1-0.8); Absolute Neutrophil Count 4.48 10^3/uL (1.2-6.7); Basophils % 0.4; Eosinophils % 1.5; HCT 36.8 % (40.0-50.0); HGB 12.1 g/dL (13.5-17.5); Immature Grans % 0.4; Lymphocytes % 9.6; MCH 31.5 pg (27.0-33.0); MCHC 32.9 % (32.0-36.0); MCV 95.8 fL (80-95); MPV 10.2 fL (8.0-11.0); Monocytes % 5.4; Neutrophils % 82.7; Nucleated RBC 0 %; Platelet Count 178 10^3/uL (130-400); RBC 3.84 10^6/uL (4.36-5.78); RDW 13.5 % (11.8-14.1); RDW-SD 47.8 fL; WBC 5.41 10^3/uL (4.4-10.8)
[2020-05-17 13:28] LABS: ALT 24 U/L (16-63); AST 21 U/L (15-37); Albumin 3.7 g/dL (3.4-5.0); Alkaline Phosphatase 173 U/L (46-116); Anion Gap 8.5 mmol/L (3-11); BUN 20 mg/dL (7-18); CO2 28.5 mmol/L (21.0-32.0); CREATININE 0.7 mg/dL (0.70-1.30); Calcium 9.3 mg/dL (8.5-10.1); Chloride 104 mmol/L (98-107); Glucose 97 mg/dL (74-106); Potassium 4.4 mmol/L (3.5-5.1); Sodium 141 mmol/L (136-145); Total Protein 7.3 g/dL (6.4-8.2)
[2020-05-18 15:35] LABS: PSA, Ultrasensitive 2.2 ng/mL (<= 7.2)
[2020-05-20 15:12] LABS: Testosterone, Total <7.0 ng/dL (240-950)
== END 2020-05-17 03:28 | disposition home or self-care (01) ==
PROVIDERS: PCP Internal Medicine; Visit Provider Nurse Practitioner Adult Health
DX: C61 Malignant neoplasm of prostate (principal); C77.1 Secondary and unspecified malignant neoplasm of intrathoracic lymph nodes; C79.51 Secondary malignant neoplasm of bone
CPT/HCPCS: 36415; 80053; 84153; 84403; 85025

== ENCOUNTER → 2020-06-02 08:44 | Outpatient (BNVA) | payer MEDICARE, BC, SELFPAY | PROVIDERS: PCP Internal Medicine; Referring Provider Internal Medicine; Visit Provider Nurse Practitioner Gerontology | DX: R33.0 Drug induced retention of urine (principal); T44.6X5A Adverse effect of alpha-adrenoreceptor antagonists, initial encounter; Z79.899 Other long term (current) drug therapy; C61 Malignant neoplasm of prostate | CPT/HCPCS: 99443 ==

== ENCOUNTER 2020-06-14 04:29 | Outpatient (CLI) | payer MEDICARE, BC, SELFPAY ==
[2020-06-14 10:08] LABS: Abs Immature Grans 0.02 10^3/uL (0.0-0.06); Absolute Basophil Count 0.04 10^3/uL (0.0-0.2); Absolute Eosinophil Count 0.21 10^3/uL (0.0-0.7); Absolute Lymphocyte Count 0.95 10^3/uL (1.2-3.4); Absolute Monocyte Count 0.63 10^3/uL (0.1-0.8); Absolute Neutrophil Count 3.72 10^3/uL (1.2-6.7); Basophils % 0.7; Eosinophils % 3.8; HCT 36.6 % (40.0-50.0); Immature Grans % 0.4; Lymphocytes % 17.1; MCH 31.3 pg (27.0-33.0); MCHC 32.8 % (32.0-36.0); MCV 95.6 fL (80-95); MPV 9.7 fL (8.0-11.0); Monocytes % 11.3; Neutrophils % 66.7; Nucleated RBC 0 %; Platelet Count 176 10^3/uL (130-400); RBC 3.83 10^6/uL (4.36-5.78); RDW 13.2 % (11.8-14.1); RDW-SD 46.6 fL; WBC 5.57 10^3/uL (4.4-10.8)
[2020-06-14 10:17] LABS: ALT 21 U/L (16-63); AST 21 U/L (15-37); Albumin 3.5 g/dL (3.4-5.0); Alkaline Phosphatase 155 U/L (46-116); Anion Gap 6.6 mmol/L (3-11); BUN 22 mg/dL (7-18); CO2 28.4 mmol/L (21.0-32.0); CREATININE 0.6 mg/dL (0.70-1.30); Calcium 9.1 mg/dL (8.5-10.1); Chloride 105 mmol/L (98-107); Glucose 94 mg/dL (74-106); Potassium 4.2 mmol/L (3.5-5.1); Sodium 140 mmol/L (136-145); Total Protein 7.6 g/dL (6.4-8.2)
[2020-06-15 16:06] LABS: PSA, Ultrasensitive 2.2 ng/mL (<= 7.2)
[2020-06-18 10:30] LABS: Testosterone, Total <7.0 ng/dL (240-950)
== END 2020-06-14 04:30 | disposition home or self-care (01) ==
LOC: LBO 04:29
PROVIDERS: PCP Internal Medicine; Visit Provider Internal Medicine
DX: C61 Malignant neoplasm of prostate (principal); C77.1 Secondary and unspecified malignant neoplasm of intrathoracic lymph nodes; C79.51 Secondary malignant neoplasm of bone
CPT/HCPCS: 36415; 80053; 84153; 84403; 85025

== ENCOUNTER → 2020-08-31 13:52 | Outpatient (BNVA) | payer MEDICARE, BC, SELFPAY | PROVIDERS: PCP Internal Medicine; Referring Provider Internal Medicine; Visit Provider Nurse Practitioner Gerontology | DX: R33.8 Other retention of urine (principal); C61 Malignant neoplasm of prostate | CPT/HCPCS: 99443 ==

== ENCOUNTER 2020-09-07 02:51 | Outpatient (CLI) | payer MEDICARE, BC, SELFPAY ==
[2020-09-07 09:07] LABS: Abs Immature Grans 0.02 10^3/uL (0.0-0.06); Absolute Basophil Count 0.04 10^3/uL (0.0-0.2); Absolute Eosinophil Count 0.27 10^3/uL (0.0-0.7); Absolute Lymphocyte Count 0.87 10^3/uL (1.2-3.4); Absolute Monocyte Count 0.49 10^3/uL (0.1-0.8); Absolute Neutrophil Count 2.76 10^3/uL (1.2-6.7); Basophils % 0.9; Eosinophils % 6.1; HCT 38.1 % (40.0-50.0); HGB 12.7 g/dL (13.5-17.5); Immature Grans % 0.4; Lymphocytes % 19.6; MCH 31.8 pg (27.0-33.0); MCHC 33.3 % (32.0-36.0); MCV 95.5 fL (80-95); MPV 9.5 fL (8.0-11.0); Nucleated RBC 0 %; Platelet Count 163 10^3/uL (130-400); RBC 3.99 10^6/uL (4.36-5.78); RDW 13.2 % (11.8-14.1); RDW-SD 46.8 fL; WBC 4.45 10^3/uL (4.4-10.8)
[2020-09-07 10:19] LABS: ALT 20 U/L (16-63); AST 22 U/L (15-37); Albumin 3.7 g/dL (3.4-5.0); Alkaline Phosphatase 143 U/L (46-116); Anion Gap 7.6 mmol/L (3-11); BUN 21 mg/dL (7-18); CO2 30.4 mmol/L (21.0-32.0); CREATININE 0.9 mg/dL (0.70-1.30); Calcium 8.9 mg/dL (8.5-10.1); Chloride 105 mmol/L (98-107); Glucose 110 mg/dL (74-106); Sodium 143 mmol/L (136-145); Total Protein 7.3 g/dL (6.4-8.2)
[2020-09-08 15:51] LABS: PSA, Ultrasensitive 1.7 ng/mL (<= 7.2)
[2020-09-10 17:33] LABS: Testosterone, Total <7.0 ng/dL (240-950)
== END 2020-09-07 02:52 | disposition home or self-care (01) ==
LOC: LBO 02:51
PROVIDERS: PCP Internal Medicine; Visit Provider Internal Medicine
DX: C61 Malignant neoplasm of prostate (principal); C77.1 Secondary and unspecified malignant neoplasm of intrathoracic lymph nodes; C79.51 Secondary malignant neoplasm of bone
CPT/HCPCS: 36415; 80053; 84153; 84403; 85025

== ENCOUNTER → 2020-10-15 09:28 | Outpatient (BNVA) | payer MEDICARE, BC, SELFPAY | PROVIDERS: PCP Internal Medicine; Referring Provider Internal Medicine; Visit Provider Internal Medicine Cardiovascular Disease | DX: I48.21 Permanent atrial fibrillation (principal); I07.1 Rheumatic tricuspid insufficiency; C61 Malignant neoplasm of prostate; Z79.01 Long term (current) use of anticoagulants | CPT/HCPCS: 99214 ==

== ENCOUNTER 2020-10-18 12:29 | Outpatient (REF) | payer MEDICARE, BC, SELFPAY ==
[2020-10-18 17:33] LABS: HCT 34.9 % (40.0-50.0); HGB 11.1 g/dL (13.5-17.5); MCH 31.4 pg (27.0-33.0); MCHC 31.8 % (32.0-36.0); MCV 98.9 fL (80-95); MPV 10.3 fL (8.0-11.0); Platelet Count 280 10^3/uL (130-400); RBC 3.53 10^6/uL (4.36-5.78); RDW 13.6 % (11.8-14.1); RDW-SD 49.6 fL; WBC 7.55 10^3/uL (4.4-10.8)
[2020-10-18 17:42] LABS: Anion Gap 8.1 mmol/L (3-11); BUN 20 mg/dL (7-18); CO2 28.9 mmol/L (21.0-32.0); CREATININE 0.9 mg/dL (0.70-1.30); Calcium 8.7 mg/dL (8.5-10.1); Chloride 103 mmol/L (98-107); Glucose 98 mg/dL (74-106); NT-proBNP 1213 pg/mL (<300); Potassium 4.5 mmol/L (3.5-5.1); Sodium 140 mmol/L (136-145)
== END 2020-10-18 12:30 | disposition home or self-care (01) ==
LOC: NCHCN 12:29
PROVIDERS: PCP Internal Medicine; Visit Provider Internal Medicine
DX: C61 Malignant neoplasm of prostate (principal); I07.1 Rheumatic tricuspid insufficiency; I48.91 Unspecified atrial fibrillation; R06.09 Other forms of dyspnea; R60.0 Localized edema
CPT/HCPCS: 80048; 85027; 83880

== ENCOUNTER 2020-10-20 02:06 | Outpatient (CLI) | payer MEDICARE, BC, SELFPAY ==
--- NOTE | 2020-10-20 | DI.RAD_ITS ---
Exam(s) XR CHEST 2V PA LATERAL EXAM: XR CHEST 2V PA LATERAL CLINICAL HISTORY: EXERTIONAL DYSPNEA,R06.09,METASTATIC PROSTATE CA,C61,TRICUSPID INSUFFICIENC. TECHNIQUE: 2D digital imaging was performed. COMPARISON: CR,XR XR CHEST 1V IN DI DEPT from 09/14/2019 FINDINGS: Cardiomegaly again noted. Mediastinum not widened. There is now significant infiltrate in left lower lobe and a moderate-sized left pleural effusion, no t previously present 1 year ago. There is also a smaller right-sided pleural effusion which was also not previously present. There does not appear to be airspace pulmonary edema. IMPRESSION: Significant deterioration as described above when compared to the prior x-rays of September 2019. DATA REPOSITORY: RADIATION DOSE DELIVERED:
== END 2020-10-20 02:26 ==
PROVIDERS: PCP Internal Medicine; Visit Provider Internal Medicine
DX: C61 Malignant neoplasm of prostate (principal); I07.1 Rheumatic tricuspid insufficiency; R06.09 Other forms of dyspnea
CPT/HCPCS: 71046

== ENCOUNTER 2020-10-21 10:43 | Emergency (ER) | payer MEDICARE, BC, SELFPAY ==
[2020-10-21] VITALS (19 sets, daily range): BP systolic 127–156; BP diastolic 76–93; PULSE 75–96; RESP 21–31; TEMP 36.5; O2SAT 95–97
--- NOTE | 2020-10-21 10:30 | RT.EKG_ITS ---
APPROVED REPORT Exam: Resting ECG Reason for Exam: shortness of breath Patient Location: E HR:73 bpm ECG Measurements Heart Rate 73 AXIS NV [id number] P [id number] QRSd 107 QRS 72 QT 379 T 10 QTc 418 Conclusion Atrial fibrillation...V-rate 61- 85, irreg A-activity Anteroseptal infarct, age indeterminate...Q >35mS, T neg, V1-V2. Afib. I have reviewed and interpreted ECG and agree with software generated interpretation. No STEMI.
--- NOTE | 2020-10-21 10:47 | ED.GENADUL_ITS ---
Discharge Plan Disposition Patient Disposition: [facility] ([facility]) Condition: Serious Discharge Details Clinical Impression: Pericardial effusion, Pleural effusion, Prostate cancer metastatic to intraabdominal lymph node, Acute Lyme disease, History of atrial fibrillation, Chronic anticoagulation Primary Care Provider: Nikhil Serrano ED Provider: Noemi Mitchell Home Meds and New Rx's Prescriptions: No Action carica papaya Tablet 1 tab PO DAILY RF: 0 Eliquis 5 mg tablet 5 mg PO BID RF: 0 saw palmetto 450 mg capsule 450 mg PO DAILY RF: 0 ascorbic acid (vitamin C) 500 mg capsule 250 mg PO DAILY RF: 0 triamcinolone acetonide 0.1 % cream 1 applic TP BID PRNRF: 0 cholecalciferol (vitamin D3) 10 mcg (400 unit) capsule 800 unit PO DAILY RF: 0 Lupron Depot 7.5 mg syringe kit 22.5 mg IM .3months RF: 0 silodosin 4 mg capsule 4 mg PO DAILY Qty: 30 RF: 6 furosemide [Lasix] 40 mg tablet 40 mg PO BID RF: 0 abiraterone 250 mg tablet 1,000 mg PO DAILY RF: 0 prednisone 5 mg tablet 5 mg PO DAILY RF: 0 doxycycline hyclate 100 mg capsule 100 mg PO BID RF: 0 torsemide 20 mg tablet 20 mg PO DAILY RF: 0 desmopressin 0.2 mg tablet 0.4 mg PO HS RF: 0 magnesium 250 mg Tablet 250 mg PO DAILY RF: 0 calcium citrate 200 mg (950 mg) Tablet 200 mg PO DAILY RF: 0 silodosin 4 mg capsule 4 mg PO DAILY RF: 0 Discharge Data Discharge Date/Time-TO BE ENTERED AT DEPARTURE: 10/21/20 14:10 Medical Decision Making 85-year-old male with a history of 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 Patient sent here by PCP office after they discussed with surgery on recommendation to send patient here for potential thoracentesis secondary to a moderate size left sided pleural effusion noted on outpatient chest x-ray yesterday. Patient appears comfortable and nontoxic. He is breathing normally and speaking in full sentences. His oxygen is 97% on room air. He has diminished breath sounds in the left base. He has bilateral lower extremity edema, more significant in the right leg. He states this is been present for a few weeks, but review of PCP records notes that this is been present for quite a long time and being managed with diuretics. We will obtain screening labs, CT chest abdomen and pelvis, and bilateral leg ultrasounds. Labs and imaging reviewed. Normal white blood cell count. INR 1.2. Troponin negative. BNP 1710. CT chest notes b/l pleural effusions, worse on left and significant sized pericardial effusion with a maximum diameter of almost 2 cm. Doppler ultrasound negative for DVT bilaterally. Imaging reviewed and case discussed with surgery on-call. Considering patient's extensive history and new pericardial effusion which may require pericardiocentesis, patient will be best served at a tertiary care center. Discussed with [facility] transfer [place] and no beds available. Discussed with [facility] transfer center who discussed with CT surgery and advised patient be transferred to their ED. Case discussed with [facility] ED attending Dr. Sherman who accepts patient for transfer. Plan discussed with patient and family and agreeable with transfer. Patient has remained comfortable and hemodynamically stable. Oxygen saturation high 90s on room air. Patient is a full code. Medical Records Medical records reviewed: Yes I reviewed the patient's medical records. Imaging Data Radiologic Study: Radiologist's impression: US EXTREMITY VENOUS BI CLINICAL HISTORY: b/l leg swelling, R worse than L, r/o dvt TECHNIQUE: Grayscale, color, and doppler imaging of the deep venous system of both lower extremities was performed. COMPARISON: US US ECHOCARDIOGRAM from 09/10/2019 FINDINGS: There is no evidence of intraluminal thrombus and there is normal compression a nd augmentation demonstrated within the common femoral veins, femoral veins, and popliteal veins of both lower extremities. In the calves the interrogated veins also exhibit normal compression/ augme ntation properties. The greater saphenous veins also appear patent as do the saphenofemoral junctions bilaterally.. IMPRESSION: 1. No ultrasound evidence of DVT in either lower extremity. 2. There is some edema noted bilaterally. CT CHEST PE ABD PELVIS W CLINICAL HISTORY: shortness of breath. TECHNIQUE: Imaging Protocol: Axial CT angiography was performed with multi- slice acquisition and multi-planar and/or 3D reconstructions. CONTRAST MATERIAL: Intravenous: Omnipaque 350 Contrast volume:100 ml Oral: None COMPARISON: CT CT CHEST/ABD/PEL W from 06/27/2019 FINDINGS: CHEST: PULMONARY ARTERIES: There are no intra-arterial filling defects to suggest the presence of acute pulmonary emboli. LUNGS: There are now moderate relatively symmetrical size bilateral pleural effusions with volume loss in the basal segments of both lower lobes evident.. There are no distinct pulmonary nodules. There is no pneumothorax. MEDIASTINUM: There is no hilar nor mediastinal adenopathy. Visualized thyroid unremarkable. CARDIAC: There is cardiomegaly. Enlarged right side of the heart with some contrast reflux into the intrahepatic IVC noted. There is also a significant pericardial effusion now evident. Maximum thickness of this pericardial effusion is 1.9 cm. The caliber of the thoracic aorta is within normal limits. OSSEOUS: No significant osseous lesions.. ABDOMEN: There is no ascites. LIVER: Liver size is upper normal. There is an element of inhomogeneous enhancement of the liver parenchyma without a discernible nodule. I suspect th is may be related to an element of right heart failure GALLBLADDER/BILIARY: No obvious gallbladder pathology. CBD is not dilated. PANCREAS: No evidence of pancreatic mass nor dilatation of the pancreatic duct. SPLEEN: Spleen size is normal. There is a cyst in the inferior pole of the spleen which measures 11 x 8 millimeters. Splenic and portal veins are patent. ADRENALS: There are no significant adrenal masses. KIDNEYS:There is a benign cyst in the anterior cortex of the left kidney measuring 2.3 by 1.8 cm. A smaller cyst is noted in the posterior cortex. No other significant focal left kidney findings. Small cortical cysts in the opposite-right kidney measuring up to 9 millimeters are noted. No calculi nor hydronephrosis. No solid renal masses. ABDOMINAL AORTA: Abdominal aorta is not enlarged. LYMPH NODES: There is no retroperitoneal or para-aortic adenopathy. ABDOMINAL WALL/GI: No evidence of significant anterior abdominal wall hernia. There is streaking in the anterior abdominal wall subcutaneous fat both sides as well as flanks. No drainable fluid collection noted. PELVIS: LYMPH NODES: There is no intrapelvic nor inguinal adenopathy. GI: The appendix is difficult to located is a separate structure.No evidence of obvious acute appendicitis. No evidence of sigmoid diverticulitis. URINARY BLADDER: Slight uniform thickening of the bladder wall noted. REPRODUCTIVE: Prostate gland is slightly enlarged. There is a 1.4 x 0.9 cm right obturator lymph node noted. No other lymphadenopathy noted in the pelvis. There is no inguinal adenopathy. OSSEOUS: Left hip hardware. There are no lytic nor blastic osseous lesions identified IMPRESSION: 1. No evidence of acute pulmonary emboli nor pulmonary infarction. 2. However, there are now significant bilateral pleural effusions and volume loss in both lower lobes basal segments. 3. There is also a significant sized pericardial effusion now evident with maximum diameter 1.9 cm. 4. Cardiomegaly. Enlarged right heart also noted with some contrast reflux into the intrahepatic IVC. Possibly element right heart failure. 5. Inhomogeneous enhancement pattern in the liver which may be related to an e lement of right heart failure. There are no discernible hepatic lesions. 6. there is an 11 millimeter cyst in the spleen. Spleen size is normal. 7. benign bilateral renal cysts. No solid renal masses. 8. Prominent subcutaneous streaking on both sides of the abdomen. No drainable fluid collection. 9. Mild enlargement of the prostate gland and there is also a 14 x 9 millimeter right sided obturator lymph node evident. No other intrapelvic adenopathy. 10. Left hip hardware. Lab Data Lab results reviewed: Yes I reviewed the patient's lab results. Labs: Laboratory Tests Range/Units 10/21/20 10/21/20 10/21/20 11:04 11:04 11:04 WBC (4.4-10.8) 10^3/uL 6.30 RBC (4.36-5.78) 10^6/uL 3.32 L Hgb (13.5-17.5) g/dL 10.5 L Hct (40.0-50.0) % 31.9 L MCV (80-95) fL 96.1 H MCH (27.0-33.0) pg 31.6 MCHC (32.0-36.0) % 32.9 RDW (11.8-14.1) % 13.2 Plt Count (130-400) 10^3/uL 213 MPV (8.0-11.0) fL 9.2 Immature Gran % 0.3 Neutrophils % 71.5 Lymphocytes % 12.4 Monocytes % 13.0 Eosinophils % 2.5 Basophils % 0.3 Nucleated RBC % % 0 Absolute Neutrophils (1.2-6.7) 10^3/uL 4.50 Absolute Lymphocytes (1.2-3.4) 10^3/uL 0.78 L Absolute Monocytes (0.1-0.8) 10^3/uL 0.82 H Absolute Eosinophils (0.0-0.7) 10^3/uL 0.16 Absolute Basophils (0.0-0.2) 10^3/uL 0.02 PT (9.3-11.0) sec INR (0.9-1.1) APTT (21.0-27.5) sec Sodium (136-145) mmol/L 134 L Potassium (3.5-5.1) mmol/L 3.6 Chloride (98-107) mmol/L 102 Carbon Dioxide (21.0-32.0) mmol/L 28.2 Anion Gap (3-11) mmol/L 3.8 BUN (7-18) mg/dL 16 Creatinine (0.70-1.30) mg/dL 0.7 Estimated GFR/1.73 m2 (mL/min/1.73m2) >= 60.00 Glucose (74-106) mg/dL 102 Calcium (8.5-10.1) mg/dL 8.2 L Magnesium (1.8-2.4) mg/dL 2.0 Total Bilirubin (0.2-1.0) mg/dL 1.0 AST (15-37) U/L 23 ALT (16-63) U/L 20 Alkaline Phosphatase (46-116) U/L 138 H Troponin I (<0.06) ng/mL < 0.05 NT-Pro-B Natriuret Pep (<300) pg/mL 1710 H Total Protein (6.4-8.2) g/dL 6.8 Albumin (3.4-5.0) g/dL 2.5 L Range/Units 10/21/20 11:04 WBC (4.4-10.8) 10^3/uL RBC (4.36-5.78) 10^6/uL Hgb (13.5-17.5) g/dL Hct (40.0-50.0) % MCV (80-95) fL MCH (27.0-33.0) pg MCHC (32.0-36.0) % RDW (11.8-14.1) % Plt Count (130-400) 10^3/uL MPV (8.0-11.0) fL Immature Gran % Neutrophils % Lymphocytes % Monocytes % Eosinophils % Basophils % Nucleated RBC % % Absolute Neutrophils (1.2-6.7) 10^3/uL Absolute Lymphocytes (1.2-3.4) 10^3/uL Absolute Monocytes (0.1-0.8) 10^3/uL Absolute Eosinophils (0.0-0.7) 10^3/uL Absolute Basophils (0.0-0.2) 10^3/uL PT (9.3-11.0) sec 12.2 H INR (0.9-1.1) 1.2 H APTT (21.0-27.5) sec 27.1 Sodium (136-145) mmol/L Potassium (3.5-5.1) mmol/L Chloride (98-107) mmol/L Carbon Dioxide (21.0-32.0) mmol/L Anion Gap (3-11) mmol/L BUN (7-18) mg/dL Creatinine (0.70-1.30) mg/dL Estimated GFR/1.73 m2 (mL/min/1.73m2) Glucose (74-106) mg/dL Calcium (8.5-10.1) mg/dL Magnesium (1.8-2.4) mg/dL Total Bilirubin (0.2-1.0) mg/dL AST (15-37) U/L ALT (16-63) U/L Alkaline Phosphatase (46-116) U/L Troponin I (<0.06) ng/mL NT-Pro-B Natriuret Pep (<300) pg/mL Total Protein (6.4-8.2) g/dL Albumin (3.4-5.0) g/dL ECG Data Attestation: I personally reviewed and interpreted this ECG (s) as follows: Interpretation: Rate of 73, A. fib, no STEMI. HPI General Date/Time Provider Initiated Documentation: 10/21/20 10:43 . 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 [facility] called informing us of patient's arrival to the ED after they discussed with surgery and was referred here for evaluation and thoracentesis. Patient was seen by Dr. Serrano for this ongoing shortness of breath and was referred for outpatient labs and an outpatient chest x-ray which was done yesterday and noted a moderate left-sided pleural effusion. Patient was seen at [facility] at the beginning of this month weakness and myalgias and had a tick and Lyme panel drawn at that time which resulted positive in the last week. He states he has been on doxycycline for the past 3 days. Patient initially developed a red bump under his right arm at the end of September which was treated for possible cellulitis with Keflex. He denies any fever at any time. Patient states he has stopped taking his prednisone and hormone therapy since starting the doxycycline. Related Data Home Medications Medication Instructions Recorded Confirmed apixaban 5 mg tablet 5 mg PO BID 01/16/19 10/21/20 ascorbic acid (vitamin C) 500 mg 250 mg PO DAILY cap 01/16/19 10/21/20 capsule carica papaya 1 tab PO DAILY tab 01/16/19 10/21/20 saw palmetto 450 mg capsule 450 mg PO DAILY cap 01/16/19 10/21/20 triamcinolone acetonide 0.1 % 1 applic TP BID PRN 03/11/19 10/21/20 topical cream prednisone 5 mg PO DAILY 09/14/19 06/02/20 silodosin 4 mg capsule 4 mg PO DAILY #30 cap 03/16/20 10/21/20 leuprolide 7.5 mg intramuscular 22.5 mg IM .3months ea 08/31/20 10/21/20 syringe kit abiraterone 250 mg tablet 1,000 mg PO DAILY tab 10/15/20 cholecalciferol (vitamin D3) 10 800 unit PO DAILY cap 10/15/20 10/21/20 mcg (400 unit) capsule furosemide 40 mg tablet 40 mg PO BID tab 10/18/20 10/21/20 calcium citrate 200 mg PO DAILY 10/21/20 10/21/20 desmopressin 0.4 mg PO HS 10/21/20 10/21/20 doxycycline hyclate 100 mg PO BID 10/21/20 10/21/20 magnesium 250 mg PO DAILY 10/21/20 10/21/20 silodosin 4 mg PO DAILY 10/21/20 10/21/20 torsemide 20 mg PO DAILY 10/21/20 10/21/20 Previous Rx's Medication Instructions Recorded silodosin 4 mg capsule 4 mg PO DAILY #30 cap 03/16/20 Allergies Allergy/AdvReac Type Severity Reaction Status Date / Time Fish Containing Products Allergy Intermediate sob,swelling Verified 10/15/20 09:37 throat Sulfa (Sulfonamide Allergy Intermediate rash,sob Verified 10/15/20 09:37 Antibiotics) shellfish derived Allergy Anaphylaxis Unverified 10/21/20 10:53 General YENNIFER: 3 Review of Systems All systems reviewed & are unremarkable except as noted in HPI and below Constitutional Constitutional: Reports as per HPI, Denies chills and Denies fever(s) Eyes Eyes: Denies blurry vision ENT Ears, Nose, Mouth, and Throat: Denies dizziness, Denies sore throat and Denies throat swelling Cardiovascular Cardiovascular: Denies chest pain, Reports leg edema and Reports dyspnea Respiratory Respiratory: Denies cough and Reports dyspnea Gastrointestinal Gastrointestinal: Denies abdominal pain, Denies diarrhea and Denies vomiting Genitourinary Genitourinary: Denies hematuria and Denies dysuria Musculoskeletal Musculoskeletal: Denies back pain and Denies numbness Integumentary/Breasts Skin/Breast: Denies lesions and Denies rash Neurologic Neurologic: Denies dizziness, Denies localized weakness and Denies numbness Allergic/Immunologic Allergic/Immunologic: Denies throat swelling [facility] Medical History (Updated 10/21/20 @ 13:44 by Noemi Mitchell DO) Atrial fibrillation Degenerative joint disease (DJD) of lumbar spine Prostate cancer Severe tricuspid regurgitation by prior echocardiogram Thrombocytopenia White coat syndrome with hypertension Surgical History (Updated 10/21/20 @ 11:13 by Noemi Mitchell DO) History of tonsillectomy Social History Smoking/Tobacco Use Status: Never Smoking risk assessment performed?: Yes Alcohol Intake: current Alcohol Intake frequency: holidays/special occasions only Alcohol type: wine Drug use: Never Substance use type: does not use Current gender identity: male What type of physical activity do you participate in: walking, bicycling and other Details: snow shoeing, hiking Duration: 30-45 minutes/day Frequency: 5-6 times per week Seatbelt use: always Do you feel safe at home: Yes Do you feel safe in your relationship?: Yes Exam Const General: cooperative and no acute distress [facility] Head: normal to inspection Face and sinus: normal facial exam Mouth: oral mucosae normal Eyes General: appearance normal, both eyes and all related structures EOM: EOM intact bilaterally Neck Neck: normal visual inspection and No submandibular swelling Lymphatic: no lymphadenopathy noted Chest Chest: normal inspection of the chest and no tenderness Resp Effort & Inspection: normal respiratory effort and able to speak in complete sentences Auscultation: diminished lung sounds on the left in the lower lung aquino Cardio Rate: regular rate Rhythm: regular rhythm GI Inspection: normal to inspection Palpation: soft, not firm, not rigid and nontender Auscultation: normal bowel sounds Skin General skin exam: no rashes or lesions noted Neuro General: patient alert, patient awake and patient oriented x3 Cognition: normal cognition Speech: speech normal Motor: muscle tone normal throughout Sensory Exam: no sensory deficits noted Extrem General: normal to inspection, full ROM, capillary refill normal, no calf tenderness bilaterally and no edema Other: 1+ pitting edema left leg. 2-3+ pitting edema right lower extremity. No calf tenderness. Bilateral distal pulses intact. Psych Appearance: grossly normal Mental Status: mental status grossly normal Speech and Movement: speech and movement normal Affect: normal affect
--- NOTE | 2020-10-21 11:00 | DI.US_ITS ---
Exam(s) US EXTREMITY VENOUS BI EXAM: US EXTREMITY VENOUS BI CLINICAL HISTORY: b/l leg swelling, R worse than L, r/o dvt TECHNIQUE: Grayscale, color, and doppler imaging of the deep venous system of both lower extremities was performed. COMPARISON: US US ECHOCARDIOGRAM from 09/10/2019 FINDINGS: There is no evidence of intraluminal thrombus and there is normal compression and augmentation demons trated within the common femoral veins, femoral veins, and popliteal veins of both lower extremities. In the calves the interrogated veins also exhibit normal compression/ augmentation properties. The greater saphenous veins also appear patent as do the saphenofemoral junctions bilaterally.. IMPRESSION: 1. No ultrasound evidence of DVT in either lower extremity. 2. There is some edema noted bilaterally. DATA REPOSITORY:
[2020-10-21 11:16] LABS: Abs Immature Grans 0.02 10^3/uL (0.0-0.06); Absolute Basophil Count 0.02 10^3/uL (0.0-0.2); Absolute Eosinophil Count 0.16 10^3/uL (0.0-0.7); Absolute Lymphocyte Count 0.78 10^3/uL (1.2-3.4); Absolute Monocyte Count 0.82 10^3/uL (0.1-0.8); Basophils % 0.3; Eosinophils % 2.5; HCT 31.9 % (40.0-50.0); HGB 10.5 g/dL (13.5-17.5); Immature Grans % 0.3; Lymphocytes % 12.4; MCH 31.6 pg (27.0-33.0); MCHC 32.9 % (32.0-36.0); MCV 96.1 fL (80-95); MPV 9.2 fL (8.0-11.0); Neutrophils % 71.5; Nucleated RBC 0 %; Platelet Count 213 10^3/uL (130-400); RBC 3.32 10^6/uL (4.36-5.78); RDW 13.2 % (11.8-14.1); RDW-SD 46.5 fL
[2020-10-21 11:32] LABS: INR 1.2 (0.9-1.1); PTT Activated 27.1 sec (21.0-27.5); Prothrombin Time 12.2 sec (9.3-11.0)
[2020-10-21 11:34] LABS: ALT 20 U/L (16-63); AST 23 U/L (15-37); Albumin 2.5 g/dL (3.4-5.0); Alkaline Phosphatase 138 U/L (46-116); Anion Gap 3.8 mmol/L (3-11); BUN 16 mg/dL (7-18); CO2 28.2 mmol/L (21.0-32.0); CREATININE 0.7 mg/dL (0.70-1.30); Calcium 8.2 mg/dL (8.5-10.1); Chloride 102 mmol/L (98-107); Glucose 102 mg/dL (74-106); Potassium 3.6 mmol/L (3.5-5.1); Sodium 134 mmol/L (136-145); Total Protein 6.8 g/dL (6.4-8.2)
[2020-10-21 11:35] LABS: Troponin I < 0.05 ng/mL (<0.06)
[2020-10-21] MEDS: Omnipaque 350 MG/ML 100 ML BTL IJ (11:41)
[2020-10-21] MEDS: Normal Saline - Diluent 50 ML VIAL IV (11:42)
--- NOTE | 2020-10-21 11:50 | DI.CT_ITS ---
Exam(s) CT CHEST PE ABD PELVIS W EXAM: CT CHEST PE ABD PELVIS W CLINICAL HISTORY: shortness of breath. TECHNIQUE: Imaging Protocol: Axial CT angiography was performed with multi-slice acquisition and m ulti-planar and/or 3D reconstructions. CONTRAST MATERIAL: Intravenous: Omnipaque 350 Contrast volume:100 ml Oral: None COMPARISON: CT CT CHEST/ABD/PEL W from 06/27/2019 FINDINGS: CHEST: PULMONARY ARTERIES: There are no intra-arterial filling defects to suggest the presence of acute pulm onary emboli. LUNGS: There are now moderate relatively symmetrical size bilateral pleural effusions with volume los s in the basal segments of both lower lobes evident.. There are no distinct pulmonary nodules. Ther e is no pneumothorax. MEDIASTINUM: There is no hilar nor mediastinal adenopathy. Visualized thyroid unremarkable. CARDIAC: There is cardiomegaly. Enlarged right side of the heart with some contrast reflux into the intrahepatic IVC noted. There is also a significant pericardial effusion now evident. Maximum thick ness of this pericardial effusion is 1.9 cm. The caliber of the thoracic aorta is within normal ridley its. OSSEOUS: No significant osseous lesions.. ABDOMEN: There is no ascites. LIVER: Liver size is upper normal. There is an element of inhomogeneous enhancement of the liver par enchyma without a discernible nodule. I suspect this may be related to an element of right heart chun lure GALLBLADDER/BILIARY: No obvious gallbladder pathology. CBD is not dilated. PANCREAS: No evidence of pancreatic mass nor dilatation of the pancreatic duct. SPLEEN: Spleen size is normal. There is a cyst in the inferior pole of the spleen which measures 11 x 8 millimeters. Splenic and portal veins are patent. ADRENALS: There are no significant adrenal masses. KIDNEYS:There is a benign cyst in the anterior cortex of the left kidney measuring 2.3 by 1.8 cm. A smaller cyst is noted in the posterior cortex. No other significant focal left kidney findings. Sma ll cortical cysts in the opposite-right kidney measuring up to 9 millimeters are noted. No calculi n or hydronephrosis. No solid renal masses. ABDOMINAL AORTA: Abdominal aorta is not enlarged. LYMPH NODES: There is no retroperitoneal or para-aortic adenopathy. ABDOMINAL WALL/GI: No evidence of significant anterior abdominal wall hernia. There is streaking in the anterior abdominal wall subcutaneous fat both sides as well as flanks. No drainable fluid collec tion noted. PELVIS: LYMPH NODES: There is no intrapelvic nor inguinal adenopathy. GI: The appendix is difficult to located is a separate structure.No evidence of obvious acute appendi citis. No evidence of sigmoid diverticulitis. URINARY BLADDER: Slight uniform thickening of the bladder wall noted. REPRODUCTIVE: Prostate gland is slightly enlarged. There is a 1.4 x 0.9 cm right obturator lymph nod e noted. No other lymphadenopathy noted in the pelvis. There is no inguinal adenopathy. OSSEOUS: Left hip hardware. There are no lytic nor blastic osseous lesions identified IMPRESSION: 1. No evidence of acute pulmonary emboli nor pulmonary infarction. 2. However, there are now significant bilateral pleural effusions and volume loss in both lower lobes basal segments. 3. There is also a significant sized pericardial effusion now evident with maximum diameter 1.9 cm. 4. Cardiomegaly. Enlarged right heart also noted with some contrast reflux into the intrahepatic IVC . Possibly element right heart failure. 5. Inhomogeneous enhancement pattern in the liver which may be related to an element of right heart f ailure. There are no discernible hepatic lesions. 6. there is an 11 millimeter cyst in the spleen. Spleen size is normal. 7. benign bilateral renal cysts. No solid renal masses. 8. Prominent subcutaneous streaking on both sides of the abdomen. No drainable fluid collection. 9. Mild enlargement of the prostate gland and there is also a 14 x 9 millimeter right sided obturato r lymph node evident. No other intrapelvic adenopathy. 10. Left hip hardware. RADIATION DOSE DELIVERED: 910.3mGy.cm Total DLP DATA REPOSITORY: All CT scans at this facility are submitted to the National Radiology Data Registry (NRDR) Dose Index Registry (DIR) with the [employer] ([employer]). RADIATION OPTIMIZATION: All CT scans at this facility use at least one of these dose optimization te chniques: automated exposure control; mA and/or kV adjustment per patient size (includes targeted exa ms where dose is matched to clinical indication); or iterative reconstruction.
[2020-10-21 12:03] LABS: NT-proBNP 1710 pg/mL (<300)
== END 2020-10-21 14:10 | disposition short-term general hospital (02) ==
PROVIDERS: Emergency Provider Physician Assistant; PCP Internal Medicine
DX: I30.9 Acute pericarditis, unspecified (principal); J90 Pleural effusion, not elsewhere classified; C61 Malignant neoplasm of prostate; C77.2 Secondary and unspecified malignant neoplasm of intra-abdominal lymph nodes; A69.20 Lyme disease, unspecified; R06.02 Shortness of breath; I48.91 Unspecified atrial fibrillation; Z79.01 Long term (current) use of anticoagulants
CPT/HCPCS: 36415; 71275; 74177; 80053; 93005; 99284; 83735; 83880; 84484; 85025; 85610; 85730; 93010; 93970; 99285; J3490

== ENCOUNTER 2020-10-28 09:54 | Outpatient (REF) | payer MEDICARE, BC, SELFPAY ==
[2020-10-28 15:50] LABS: Anion Gap 7.7 mmol/L (3-11); BUN 19 mg/dL (7-18); CO2 29.3 mmol/L (21.0-32.0); CREATININE 0.8 mg/dL (0.70-1.30); Calcium 8.5 mg/dL (8.5-10.1); Chloride 106 mmol/L (98-107); Glucose 81 mg/dL (74-106); Sodium 143 mmol/L (136-145)
== END 2020-10-28 09:55 | disposition home or self-care (01) ==
LOC: NCHCN 09:54
PROVIDERS: PCP Internal Medicine; Visit Provider Internal Medicine
DX: I48.91 Unspecified atrial fibrillation (principal)
CPT/HCPCS: 80048

== ENCOUNTER 2020-11-05 03:48 | Outpatient (CLI) | payer MEDICARE, BC, SELFPAY ==
--- NOTE | 2020-11-05 07:30 | DI.US_ITS ---
APPROVED REPORT EXAM: Comprehensive 2D, Doppler, and color-flow Echocardiogram Patient Location: Out-Patient [facility]aging [facility] Operator: Rosaline Jo RDCS (AE) Indications: Shortness of breath, Atrial Fibrillation, Tricuspid Regurgitation Conclusion Normal left ventricular wall thickness and chamber size. Estimated ejection fraction is 60%. Wall m otion is normal Mildly to moderately dilated right ventricle. Normal right ventricular function The left atrium is moderately dilated. The right atrium is severely dilated Mildly sclerotic trileaflet aortic valve with mild regurgitation Normal mitral valve with mild regurgitation Normal tricuspid valve with moderate to severe regurgitation. Estimated right ventricular systolic p ressure is 42 mmHg Normal pulmonic valve with mild regurgitation Mildly dilated ascending aorta Wall motion Left Ventricle The left ventricle is normal size. The left ventricular systolic function is normal. The left ventric ular ejection fraction is within the normal range. There is normal left ventricular wall thickness. T here is normal LV segmental wall motion. There is no ventricular septal defect visualized. LVEF is 58 %. Right Ventricle Right ventricle is mild to moderately dilated. The right ventricular systolic function is normal. The RVSP is 42.4 mmHg. Atria Left atrium is moderately dilated. Right atrium is severely dilated. The interatrial septum is intact with no evidence for an atrial septal defect. Aortic Valve Mildly sclerotic trileaflet There is no aortic valvular stenosis. Mild aortic regurgitation. Mitral Valve The mitral valve is normal in structure. No evidence of mitral valve stenosis. Mild mitral regurgitat ion. Tricuspid Valve The tricuspid valve is normal in structure. There is no tricuspid valve stenosis. Moderate to severe tricuspid regurgitation. Pulmonic Valve The pulmonary valve is normal in structure. There is no pulmonic valvular stenosis. Mild pulmonic reg urgitation. Great Vessels The aortic root is normal in size. The ascending aorta is mildly dilated. Aortic arch is not well vis ualized. The IVC collapses <50% with inspiration. Pericardium There is no pericardial effusion. 2D Dimensions IVSD d PLAX 0.78 cm M: 0.6-1.2 LV Vol A2C d MOD 123.5 mL LVPW d PLAX 0.75 cm M: 0.6 - 1.2 LV Vol A4C d MOD 81.5 mL LVID d PLAX 4.60 cm M: 4.2 - 5.8 LA vol/ BSA A4C s A-L 40.3 mL/m2 LVDs 3.10 cm M: 2.5 - 4.0 LA Area A4C s MOD 24.73 cm2 Ao Root d 2.70 cm M: 3.1 - 3.7 LV EF A4C MOD 59.0 % RA Area A4C 34.87 cm2 LV EF A2C MOD 57.8 % RA Vol/ BSA A4C s A-L 73.7 mL/m2 LV EF Biplane MOD 59.5 % Ao Asc Diam d 3.60 cm M: 2.6 - 3.4 SV 62.60 mL LV EF Teichholz 60.9 % SV Index 33.21 mL/m2 LVEF (Arcos's) 59.45 % M: 52 - 72 LV Volume 80.58 mL M: 62 - 150 LV Volume Index 42.86 mL/m2 M: 34 - 74 LV Vol Biplane MOD 105.3 mL FS 32.45 % M-Mode TAPSE 1.37 cm (M/F) >1.7 LV Diastology MV E Vmax 0.89 (0.4-1.3 m/s) Aortic Valve LVOT Area 2.94 cm2 AoV Area Vmax 1.95 cm2 LVOT Vmax 1.02 m/s AoV Area/ BSA (Vmax) 1.03 cm2/m2 LVOT Mean Jearmy. 0.61 m/s SAVI Mean Jeramy. 1.70 cm2 LVOT Peak Grad 4.1 mmHg SAVI Mean Jeramy. Index 0.90 cm2/m2 LVOT Mean Grad 1.8 mmHg AR DT 3357 msec LVOT VTI 0.207 m AR PHT 974 msec LVOT Diam s 1.90 cm AoV Vmax 1.54 m/s Velocity Ratio 0.66 AoV Mean Jeramy. 1.05 m/s AoV Peak Grad 9.4 mmHg LVOT SV 60.84 mL AoV Mean Grad 4.9 mmHg AoV VTI 0.325 m AoV Area VTI 1.87 cm2 AoV Area/ BSA (VTI) 0.99 cm/m2 Mitral Valve MV DT 216 (160-240 msec) MV PHT 63 msec MV Area PHT 3.52 cm2 MV VTI 0.280 m MV VTI Annulus 0.289 m MV Area VTI 2.24 (4.0-6.0 cm2) Pulmonary Valve PV Vmax 1.04 (0.5-1.5 m/s) RVOT Peak Gr. 3.03 mmHg PV Peak Grad 4.4 mmHg RVOT Mean Gr. 1.55 mmHg PV Mean Grad 1.9 mmHg RVOT VTI 0.162 m PV VTI 0.189 m RVOT Vmax 0.87 m/s Tricuspid Valve TR Peak Grad 34.4 mmHg TR Vmax 2.93 m/s RA Pressure 8.00 mmHg RVSP (TR) 42.4 mmHg
== END 2020-11-05 04:08 ==
PROVIDERS: PCP Internal Medicine; Visit Provider Internal Medicine Cardiovascular Disease
DX: I08.3 Combined rheumatic disorders of mitral, aortic and tricuspid valves; I48.91 Unspecified atrial fibrillation; R06.02 Shortness of breath; I77.810 Thoracic aortic ectasia
CPT/HCPCS: 93306

== ENCOUNTER 2020-11-12 02:41 | Outpatient (CLI) | payer MEDICARE, BC, SELFPAY ==
[2020-11-12 09:20] LABS: Abs Immature Grans 0.01 10^3/uL (0.0-0.06); Absolute Basophil Count 0.04 10^3/uL (0.0-0.2); Absolute Lymphocyte Count 0.81 10^3/uL (1.2-3.4); Eosinophils % 7.2; HCT 36.1 % (40.0-50.0); HGB 11.7 g/dL (13.5-17.5); Immature Grans % 0.2; Lymphocytes % 19.5; MCH 31.5 pg (27.0-33.0); MCHC 32.4 % (32.0-36.0); MCV 97.3 fL (80-95); MPV 8.8 fL (8.0-11.0); Neutrophils % 60.1; Nucleated RBC 0 %; Platelet Count 185 10^3/uL (130-400); RBC 3.71 10^6/uL (4.36-5.78); RDW 13.2 % (11.8-14.1); RDW-SD 47.6 fL; WBC 4.16 10^3/uL (4.4-10.8)
[2020-11-12 09:33] LABS: ALT 21 U/L (16-63); AST 28 U/L (15-37); Albumin 3.3 g/dL (3.4-5.0); Alkaline Phosphatase 134 U/L (46-116); Anion Gap 6.6 mmol/L (3-11); BUN 20 mg/dL (7-18); Bilirubin, Total 0.6 mg/dL (0.2-1.0); CO2 30.4 mmol/L (21.0-32.0); CREATININE 0.8 mg/dL (0.70-1.30); Chloride 103 mmol/L (98-107); Glucose 94 mg/dL (74-106); Potassium 4.2 mmol/L (3.5-5.1); Sodium 140 mmol/L (136-145); Total Protein 7.9 g/dL (6.4-8.2)
[2020-11-13 13:02] LABS: PSA, Ultrasensitive 1.8 ng/mL (<= 7.2)
[2020-11-17 14:13] LABS: Testosterone, Total <7.0 ng/dL (240-950)
== END 2020-11-12 02:42 | disposition home or self-care (01) ==
PROVIDERS: PCP Internal Medicine; Visit Provider Nurse Practitioner Adult Health
DX: C61 Malignant neoplasm of prostate (principal); C77.1 Secondary and unspecified malignant neoplasm of intrathoracic lymph nodes; C79.51 Secondary malignant neoplasm of bone
CPT/HCPCS: 36415; 80053; 84153; 84403; 85025

== ENCOUNTER → 2020-12-01 14:49 | Outpatient (BNVA) | payer MEDICARE, BC, SELFPAY | PROVIDERS: PCP Internal Medicine; Referring Provider Internal Medicine; Visit Provider Nurse Practitioner Gerontology | DX: R33.9 Retention of urine, unspecified (principal); Z85.46 Personal history of malignant neoplasm of prostate | CPT/HCPCS: 99443 ==

== ENCOUNTER 2020-12-31 03:46 | Outpatient (CLI) | payer MEDICARE, BC, SELFPAY ==
--- NOTE | 2020-12-31 | DI.CT_ITS ---
Exam(s) CT CHEST/ABD/PEL W EXAM: CT CHEST/ABD/PEL W CLINICAL HISTORY: METASTATIC PROSTATE CA,C61,C77.1,RESTAGING,ASSESS TREATMENT RESPONSE TECHNIQUE: Imaging Protocol: Axial computed tomography images with coronal and sagittal reformatted images were created and reviewed CONTRAST MATERIAL: Intravenous: Omnipaque 350 Contrast volume:100 mL Oral: Yes COMPARISON: CT CT CHEST PE CTA from 01/29/[address] CHEST PE CTA from 01/29/[address] ABDOMEN PELVIS W from 02/19/[address] CHEST/ABD/PEL W from 06/27/[address] CHEST PE ABD PELVIS W from 10/21/[address] CHEST PE ABD PELVIS W from 10/21/2020 FINDINGS: CHEST: Tracheobronchial tree: Patent where visualized. Pulmonary parenchyma: Since the prior examination there has been resolution of the left pleural effus ion and near complete resolution of the right pleural effusion. There is a tiny right persistent eff usion. No focal consolidating infiltrates are present. No architectural distortion. Visualized thyroid gland: Unremarkable. Mediastinum and Keysha: No dominant adenopathy or fluid collection. Pleura: Please see the above discussion. Heart: Marked cardiomegaly. Mild coronary artery calcification. Resolution of the pericardial effus ion. Aorta: Thoracic aorta non-dilated. Atherosclerosis. Lymph nodes: Within normal limits. Soft tissues: Mild gynecomastia bilaterally. Bones:Degenerative changes in the spine. The sclerotic focus in the T5 vertebral body is unchanged c ompared to the examination from 10/21/2020. No new lesions are identified. ABDOMEN: Liver: Mottled enhancement pattern of the liver likely reflecting the patient's heart failure. No ev idence of a hepatic metastases. Portal, Superior Mesenteric, and Splenic Veins: Unremarkable. Gallbladder and Biliary Tract: No radiodense calculus or dilation. Pancreas: Normal density, no abnormal calcifications or inflammatory process. Spleen: Stable splenic cysts. Adrenals: No masses seen. Kidneys: Normal size, contour and axis. No radiodense stones or obstructive uropathy. Stable renal cy sts. No follow-up is recommended. Abdominal Aorta: Abdominal portion non-dilated. Atherosclerosis. Bowel: No obstruction or bowel wall thickening. No evidence of appendicitis. Small hiatal hernia. R edundant sigmoid colon. Moderate amount of retained stool throughout the colon. Peritoneal Cavity: No ascites, collection or mesenteric inflammatory response. No free air. Lymph Nodes: Within normal limits. Bones: Degenerative changes are seen throughout the spine. No lytic or sclerotic lesions are seen. Multilevel central spinal canal stenosis is seen secondary to the degenerative changes. Soft Tissues: Significant interval decrease in the subcutaneous edema compared to the prior examinati on. Minimal edema is seen in subcutaneous tissues of the anterior abdominal wall. PELVIS: Bladder: Symmetric distention, no gross wall thickening. Reproductive Organs: Mildly enlarged prostate gland. Lymph Nodes: Within normal limits. Bones: No lytic or sclerotic lesions. IMPRESSION: 1. No evidence of abdominal or pelvic metastatic disease. 2. Significant improvement in the subcutaneous edema with only minimal edema in the anterior abdomina l wall. 3. Mildly enlarged prostate gland. 4. Interval resolution of the bilateral basilar infiltrates in the left pleural effusion. There is a tiny residual right pleural effusion. 5. Interval resolution of the pericardial effusion. 6. Stable T5 sclerotic lesion. RADIATION DOSE DELIVERED: 1,362.46mGy.cm Total DLP DATA REPOSITORY: All CT scans at this facility are submitted to the National Radiology Data Registry (NRDR) Dose Index Registry (DIR) with the [employer] (ACR). RADIATION OPTIMIZATION: All CT scans at this facility use at least one of these dose optimization te chniques: automated exposure control; mA and/or kV adjustment per patient size (includes targeted exa ms where dose is matched to clinical indication); or iterative reconstruction.
--- NOTE | 2020-12-31 | DI.NM_ITS ---
Exam(s) RI BONE SCAN WHOLE BODY GRP EXAM: RI BONE SCAN WHOLE BODY GRP CLINICAL HISTORY: PROSTATE CA,METASTATIC,C61.C77.1,RESTAGING. TECHNIQUE: Injected Dose: 27.5 mCi Tc-99m MDP Delayed Images: 2-3 hours. COMPARISON: [facility] BONE SCAN WHOLE BODY GRP from 06/27/2019 CR XR FEMUR LT from 01/26/2020 CR XR FEMUR LT from 01/26/2020 FINDINGS: Symmetric axial uptake. Bilateral renal excretion is identified. There has been slight increase in si ze of the focal radiotracer uptake in the T5 vertebral body. This corresponds to the sclerotic lesio n seen on the CT scan from earlier in the day. There is relative increased radiotracer uptake in the proximal left femur consistent with the patient's old left proximal femoral fracture. No other foci of increased radiotracer uptake is identified. IMPRESSION: 1. Slight interval increase in size of the increased radiotracer uptake in the T5 vertebral body. 2. No new foci to suggest progressive metastatic disease. DATA REPOSITORY:
[2020-12-31] MEDS: Breeza Beverage 473 ML BTL PO ×2 (08:56→08:57)
[2020-12-31] MEDS: Omnipaque 350 MG/ML 50 ML BTL PO (08:56)
[2020-12-31 09:32] LABS: Abs Immature Grans 0.01 10^3/uL (0.0-0.06); Absolute Basophil Count 0.04 10^3/uL (0.0-0.2); Absolute Eosinophil Count 0.19 10^3/uL (0.0-0.7); Absolute Lymphocyte Count 0.68 10^3/uL (1.2-3.4); Absolute Monocyte Count 0.42 10^3/uL (0.1-0.8); Absolute Neutrophil Count 2.34 10^3/uL (1.2-6.7); Basophils % 1.1; Eosinophils % 5.2; HCT 34.3 % (40.0-50.0); HGB 11.1 g/dL (13.5-17.5); Immature Grans % 0.3; Lymphocytes % 18.5; MCH 31.1 pg (27.0-33.0); MCHC 32.4 % (32.0-36.0); MCV 96.1 fL (80-95); MPV 9.7 fL (8.0-11.0); Monocytes % 11.4; Neutrophils % 63.5; Nucleated RBC 0 %; Platelet Count 154 10^3/uL (130-400); RBC 3.57 10^6/uL (4.36-5.78); RDW 13.6 % (11.8-14.1); RDW-SD 48.2 fL; WBC 3.68 10^3/uL (4.4-10.8)
[2020-12-31 09:44] LABS: ALT 28 U/L (16-63); AST 33 U/L (15-37); Albumin 3.3 g/dL (3.4-5.0); Alkaline Phosphatase 135 U/L (46-116); Anion Gap 4.8 mmol/L (3-11); BUN 25 mg/dL (7-18); Bilirubin, Total 0.6 mg/dL (0.2-1.0); CO2 31.2 mmol/L (21.0-32.0); CREATININE 0.8 mg/dL (0.70-1.30); Calcium 8.7 mg/dL (8.5-10.1); Chloride 105 mmol/L (98-107); Glucose 82 mg/dL (74-106); Potassium 4.6 mmol/L (3.5-5.1); Sodium 141 mmol/L (136-145); Total Protein 7.2 g/dL (6.4-8.2)
[2020-12-31] MEDS: Omnipaque 350 MG/ML 100 ML BTL IJ (11:03)
[2021-01-01 12:58] LABS: PSA, Ultrasensitive 1.4 ng/mL (<= 7.2)
[2021-01-05 16:24] LABS: Testosterone, Total <7.0 ng/dL (240-950)
== END 2020-12-31 04:06 ==
PROVIDERS: PCP Family Medicine; Visit Provider Internal Medicine
DX: C61 Malignant neoplasm of prostate (principal); C77.1 Secondary and unspecified malignant neoplasm of intrathoracic lymph nodes; N40.0 Benign prostatic hyperplasia without lower urinary tract symptoms
CPT/HCPCS: 74177; 78306; 80053; 84153; 84403; 71260; 85025; J3490; Q9967

== ENCOUNTER 2021-01-05 03:39 | Outpatient (CLI) | payer MEDICARE, BC, SELFPAY ==
[2021-01-05 09:50] LABS: Abs Immature Grans 0.01 10^3/uL (0.0-0.06); Absolute Basophil Count 0.02 10^3/uL (0.0-0.2); Absolute Eosinophil Count 0.07 10^3/uL (0.0-0.7); Absolute Lymphocyte Count 0.84 10^3/uL (1.2-3.4); Absolute Monocyte Count 0.77 10^3/uL (0.1-0.8); Absolute Neutrophil Count 3.45 10^3/uL (1.2-6.7); Basophils % 0.4; Eosinophils % 1.4; HGB 11.2 g/dL (13.5-17.5); Immature Grans % 0.2; Lymphocytes % 16.3; MCH 30.4 pg (27.0-33.0); MCV 95.1 fL (80-95); MPV 9.3 fL (8.0-11.0); Monocytes % 14.9; Neutrophils % 66.8; Nucleated RBC 0 %; Platelet Count 127 10^3/uL (130-400); RBC 3.68 10^6/uL (4.36-5.78); RDW 13.6 % (11.8-14.1); RDW-SD 47.9 fL; WBC 5.16 10^3/uL (4.4-10.8)
[2021-01-05 10:07] LABS: ALT 36 U/L (16-63); AST 30 U/L (15-37); Albumin 3.4 g/dL (3.4-5.0); Alkaline Phosphatase 143 U/L (46-116); Anion Gap 4.9 mmol/L (3-11); BUN 22 mg/dL (7-18); Bilirubin, Total 1.3 mg/dL (0.2-1.0); CO2 30.1 mmol/L (21.0-32.0); CREATININE 0.7 mg/dL (0.70-1.30); Calcium 8.7 mg/dL (8.5-10.1); Chloride 103 mmol/L (98-107); Glucose 80 mg/dL (74-106); Potassium 4.3 mmol/L (3.5-5.1); Sodium 138 mmol/L (136-145); Total Protein 7.6 g/dL (6.4-8.2)
[2021-01-07 17:01] LABS: PSA, Ultrasensitive 1.5 ng/mL (<= 7.2)
[2021-01-09 17:37] LABS: Testosterone, Total <7.0 ng/dL (240-950)
== END 2021-01-05 03:40 | disposition home or self-care (01) ==
LOC: LBO 03:39
PROVIDERS: PCP Family Medicine; Visit Provider Internal Medicine
DX: C61 Malignant neoplasm of prostate (principal); C77.1 Secondary and unspecified malignant neoplasm of intrathoracic lymph nodes
CPT/HCPCS: 36415; 80053; 84153; 84403; 85025

== ENCOUNTER → 2021-01-07 10:18 | Outpatient (BNVA) | payer MEDICARE, BC, SELFPAY | PROVIDERS: PCP Family Medicine; Visit Provider Internal Medicine Cardiovascular Disease | DX: I48.91 Unspecified atrial fibrillation (principal); I07.1 Rheumatic tricuspid insufficiency; C61 Malignant neoplasm of prostate; Z79.01 Long term (current) use of anticoagulants | CPT/HCPCS: 99214 ==

== ENCOUNTER 2021-03-09 02:45 | Outpatient (CLI) | payer MEDICARE, BC, SELFPAY ==
[2021-03-09 10:58] LABS: Abs Immature Grans 0.01 10^3/uL (0.0-0.06); Absolute Basophil Count 0.04 10^3/uL (0.0-0.2); Absolute Eosinophil Count 0.28 10^3/uL (0.0-0.7); Absolute Monocyte Count 0.47 10^3/uL (0.1-0.8); Absolute Neutrophil Count 3.41 10^3/uL (1.2-6.7); Basophils % 0.8; Eosinophils % 5.4; HCT 38.3 % (40.0-50.0); HGB 12.5 g/dL (13.5-17.5); Immature Grans % 0.2; Lymphocytes % 19.2; MCH 30.6 pg (27.0-33.0); MCHC 32.6 % (32.0-36.0); MCV 93.9 fL (80-95); MPV 8.8 fL (8.0-11.0); Neutrophils % 65.4; Nucleated RBC 0 %; Platelet Count 145 10^3/uL (130-400); RBC 4.08 10^6/uL (4.36-5.78); RDW 13.4 % (11.8-14.1); RDW-SD 46.2 fL; WBC 5.21 10^3/uL (4.4-10.8)
[2021-03-09 11:14] LABS: ALT 26 U/L (16-63); AST 30 U/L (15-37); Albumin 3.7 g/dL (3.4-5.0); Alkaline Phosphatase 151 U/L (46-116); Anion Gap 5.4 mmol/L (3-11); BUN 22 mg/dL (7-18); Bilirubin, Total 0.6 mg/dL (0.2-1.0); CO2 29.6 mmol/L (21.0-32.0); CREATININE 0.8 mg/dL (0.70-1.30); Chloride 104 mmol/L (98-107); Glucose 111 mg/dL (74-106); Potassium 4.1 mmol/L (3.5-5.1); Sodium 139 mmol/L (136-145)
[2021-03-10 15:48] LABS: PSA, Ultrasensitive 1.7 ng/mL (<= 7.2)
[2021-03-11 12:09] LABS: Testosterone, Total <7.0 ng/dL (240-950)
== END 2021-03-09 02:46 | disposition home or self-care (01) ==
LOC: LBO 02:46
PROVIDERS: PCP Family Medicine; Visit Provider Internal Medicine
DX: C61 Malignant neoplasm of prostate (principal); C77.1 Secondary and unspecified malignant neoplasm of intrathoracic lymph nodes
CPT/HCPCS: 36415; 80053; 84153; 84403; 85025

== ENCOUNTER → 2021-06-01 14:26 | Outpatient (BNVA) | payer MEDICARE, SELFPAY | PROVIDERS: PCP Family Medicine; Visit Provider Nurse Practitioner Gerontology | DX: R33.8 Other retention of urine (principal); C61 Malignant neoplasm of prostate | CPT/HCPCS: 99443 ==

== ENCOUNTER 2021-06-07 03:39 | Outpatient (CLI) | payer MEDICARE, SELFPAY ==
[2021-06-07 10:30] LABS: Abs Immature Grans 0.01 10^3/uL (0.0-0.06); Absolute Basophil Count 0.03 10^3/uL (0.0-0.2); Absolute Eosinophil Count 0.21 10^3/uL (0.0-0.7); Absolute Lymphocyte Count 0.89 10^3/uL (1.2-3.4); Absolute Monocyte Count 0.49 10^3/uL (0.1-0.8); Absolute Neutrophil Count 2.66 10^3/uL (1.2-6.7); Basophils % 0.7; Eosinophils % 4.9; HCT 36.4 % (40.0-50.0); Immature Grans % 0.2; Lymphocytes % 20.7; MCH 31.3 pg (27.0-33.0); Monocytes % 11.4; Neutrophils % 62.1; Nucleated RBC 0 %; Platelet Count 142 10^3/uL (130-400); RBC 3.83 10^6/uL (4.36-5.78); RDW 13.4 % (11.8-14.1); RDW-SD 46.9 fL; WBC 4.29 10^3/uL (4.4-10.8)
[2021-06-07 11:26] LABS: ALT 26 U/L (16-63); AST 29 U/L (15-37); Albumin 3.8 g/dL (3.4-5.0); Alkaline Phosphatase 153 U/L (46-116); Anion Gap 5.6 mmol/L (3-11); BUN 23 mg/dL (7-18); Bilirubin, Total 0.6 mg/dL (0.2-1.0); CO2 29.4 mmol/L (21.0-32.0); CREATININE 0.7 mg/dL (0.70-1.30); Calcium 8.7 mg/dL (8.5-10.1); Chloride 103 mmol/L (98-107); Glucose 94 mg/dL (74-106); Potassium 4.5 mmol/L (3.5-5.1); Sodium 138 mmol/L (136-145); Total Protein 7.6 g/dL (6.4-8.2)
[2021-06-09 10:04] LABS: PSA, Ultrasensitive 2.2 ng/mL (<= 7.2)
[2021-06-14 10:49] LABS: Testosterone, Total <7.0 ng/dL (240-950)
== END 2021-06-07 03:40 | disposition home or self-care (01) ==
LOC: LBO 03:39
PROVIDERS: PCP Family Medicine; Visit Provider Internal Medicine
DX: C61 Malignant neoplasm of prostate (principal); C77.1 Secondary and unspecified malignant neoplasm of intrathoracic lymph nodes
CPT/HCPCS: 36415; 80053; 84153; 84403; 85025

== ENCOUNTER → 2021-07-08 09:51 | Outpatient (BNVA) | payer MEDICARE, SELFPAY | PROVIDERS: PCP Family Medicine; Visit Provider Internal Medicine Cardiovascular Disease | DX: I48.91 Unspecified atrial fibrillation (principal) | CPT/HCPCS: 99213 ==

== ENCOUNTER 2021-09-13 02:03 | Outpatient (CLI) | payer MEDICARE, SELFPAY ==
[2021-09-13 11:12] LABS: Abs Immature Grans 0.01 10^3/uL (0.0-0.06); Absolute Basophil Count 0.03 10^3/uL (0.0-0.2); Absolute Eosinophil Count 0.14 10^3/uL (0.0-0.7); Absolute Lymphocyte Count 0.83 10^3/uL (1.2-3.4); Absolute Monocyte Count 0.47 10^3/uL (0.1-0.8); Absolute Neutrophil Count 2.82 10^3/uL (1.2-6.7); Basophils % 0.7; Eosinophils % 3.3; HCT 35.8 % (40.0-50.0); HGB 11.9 g/dL (13.5-17.5); Immature Grans % 0.2; Lymphocytes % 19.3; MCH 31.3 pg (27.0-33.0); MCHC 33.2 % (32.0-36.0); MCV 94 fL (80-95); MPV 9.7 fL (8.0-11.0); Monocytes % 10.9; Neutrophils % 65.6; Platelet Count 121 10^3/uL (130-400); RDW 12.5 % (11.8-14.1); RDW-SD 43.6 fL
[2021-09-13 11:47] LABS: ALT 28 U/L (16-63); AST 36 U/L (15-37); Albumin 3.7 g/dL (3.4-5.0); Alkaline Phosphatase 154 U/L (46-116); Anion Gap 5.4 mmol/L (3-11); BUN 23 mg/dL (7-18); Bilirubin, Total 0.8 mg/dL (0.2-1.0); CO2 28.6 mmol/L (21.0-32.0); CREATININE 0.9 mg/dL (0.70-1.30); Chloride 102 mmol/L (98-107); Glucose 95 mg/dL (74-106); Potassium 4.2 mmol/L (3.5-5.1); Sodium 136 mmol/L (136-145); Total Protein 7.8 g/dL (6.4-8.2)
[2021-09-14 15:55] LABS: PSA, Ultrasensitive 2.8 ng/mL (<= 7.2)
[2021-09-17 01:43] LABS: Testosterone, Total <7.0 ng/dL (240-950)
== END 2021-09-13 02:04 | disposition home or self-care (01) ==
LOC: LBO 02:03
PROVIDERS: PCP Family Medicine; Visit Provider Internal Medicine
DX: C61 Malignant neoplasm of prostate (principal); C77.1 Secondary and unspecified malignant neoplasm of intrathoracic lymph nodes
CPT/HCPCS: 36415; 80053; 84153; 84403; 85025

== ENCOUNTER → 2021-10-14 00:17 | Outpatient (CLI) | payer MEDICARE, SELFPAY ==
--- NOTE | 2021-10-14 | DI.CT_ITS ---
Exam(s) CT CHEST/ABD/PEL W EXAM: CT CHEST/ABD/PEL W CLINICAL HISTORY: METASTATIC PROSTATE CA,C61,C77.1,ASSESS TREATMENT RESPONSE,RISING PSA. TECHNIQUE: Imaging Protocol: Axial computed tomography images with coronal and sagittal reformatted images were created and reviewed CONTRAST MATERIAL: Intravenous: Omnipaque 350 Contrast volume:100 ml Oral: yes / COMPARISON: CT CT CHEST PE ABD PELVIS W from 10/21/[address] CHEST/ABD/PEL W from 12/31/2020 NM NM BONE SCAN WHOLE BODY GRP from 12/31/2020 FINDINGS: CHEST: Tracheobronchial tree: Patent where visualized. Mediastinum and Keysha: No dominant adenopathy or fluid collection. Pulmonary parenchyma: No consolidation or dominant measurable mass. Pleura: No effusion or pneumothorax. Lymph nodes: Within normal limits. Aorta: Thoracic portion non-dilated. Heart: Marked dilatation of the right atrium and moderate dilatation of the left atrium and left vent ricle. No pericardial effusion. Bones: Sclerosis T5 vertebral body. The area of sclerosis is increased in size when compared with th e previous exam. No new sclerotic or lytic lesions. Degenerative disc changes. ABDOMEN: Liver: Passive venous congestion.. No measurable mass. Gallbladder and biliary tract: No radiodense calculus or dilation. Pancreas: Normal density, no abnormal calcifications or inflammatory process. Spleen: Normal. Kidneys: Normal size, contour and axis. No radiodense stones or obstructive uropathy. Bilateral padmini l cysts. No masses seen. Adrenal glands: No masses seen. Aorta: Abdominal portion non-dilated. Atherosclerotic changes. Lymph nodes: Within normal limits. Soft tissues: mildly increased density in the anterior abdominal wall likely injection sites. . PELVIS: Bladder: Symmetric distention, no gross wall thickening. Bowel: No obstruction or bowel wall thickening. Peritoneal cavity: No ascites, collection or mesenteric inflammatory response. Bones: Hardware left f emur. Degenerative disc changes and facet degenerative changes are noted in the lumbar spine. Stable tiny sclerotic foci in both medial ilium which may represent bone islands. Reproductive organs: Stable appearance of prostate. IMPRESSION: Increased size of sclerotic lesion in the T5 vertebral body. Stable tiny foci of sclerosis in both il ia which may represent bone islands. No new bony lesions. RADIATION DOSE DELIVERED: 1,241.64mGy.cm Total DLP DATA REPOSITORY: All CT scans at this facility are submitted to the National Radiology Data Registry (NRDR) Dose Index Registry (DIR) with the [employer] (ACR). RADIATION OPTIMIZATION: All CT scans at this facility use at least one of these dose optimization te chniques: automated exposure control; mA and/or kV adjustment per patient size (includes targeted exa ms where dose is matched to clinical indication); or iterative reconstruction.
--- NOTE | 2021-10-14 11:15 | DI.NM_ITS ---
Exam(s) NM BONE SCAN WHOLE BODY GRP EXAM: NM BONE SCAN WHOLE BODY GRP CLINICAL HISTORY: PROSTATE CA, METS TO INTRATHORACIC LYMPH NODE, C61, C77.1. TECHNIQUE: Injected Dose: 25 mCi Tc-99m MDP Delayed Images: 2-3 hours. COMPARISON: No exams were available for comparison FINDINGS: Symmetric axial uptake. Bilateral renal excretion is identified. There is been interval increase in t he size and increase in activity in the upper thoracic spine corresponding to the area of increased s clerosis in the T5 vertebral body on CT. No additional lesions are seen in the remainder of the skel eton. IMPRESSION: 1. Interval increase in size and activity of the T5 vertebral body lesion. DATA REPOSITORY:
[2021-10-14 11:40] LABS: Abs Immature Grans 0.02 10^3/uL (0.0-0.06); Absolute Basophil Count 0.03 10^3/uL (0.0-0.2); Absolute Eosinophil Count 0.18 10^3/uL (0.0-0.7); Absolute Lymphocyte Count 0.77 10^3/uL (1.2-3.4); Absolute Monocyte Count 0.47 10^3/uL (0.1-0.8); Basophils % 0.7; Eosinophils % 3.9; HCT 35.3 % (40.0-50.0); HGB 11.9 g/dL (13.5-17.5); Immature Grans % 0.4; Lymphocytes % 16.8; MCH 32.1 pg (27.0-33.0); MCHC 33.7 % (32.0-36.0); MCV 95 fL (80-95); MPV 9.4 fL (8.0-11.0); Monocytes % 10.3; Neutrophils % 67.9; Platelet Count 130 10^3/uL (130-400); RBC 3.71 10^6/uL (4.36-5.78); RDW 12.7 % (11.8-14.1); RDW-SD 43.8 fL; WBC 4.57 10^3/uL (4.4-10.8)
[2021-10-14 11:56] LABS: ALT 28 U/L (16-63); AST 30 U/L (15-37); Albumin 3.5 g/dL (3.4-5.0); Alkaline Phosphatase 168 U/L (46-116); Anion Gap 8.1 mmol/L (3-11); BUN 25 mg/dL (7-18); Bilirubin, Total 0.6 mg/dL (0.2-1.0); CO2 27.9 mmol/L (21.0-32.0); CREATININE 0.8 mg/dL (0.70-1.30); Calcium 8.8 mg/dL (8.5-10.1); Chloride 101 mmol/L (98-107); Glucose 95 mg/dL (74-106); Potassium 4.4 mmol/L (3.5-5.1); Sodium 137 mmol/L (136-145); Total Protein 7.6 g/dL (6.4-8.2)
[2021-10-14] MEDS: Omnipaque 350 MG/ML 100 ML BTL IJ (13:25)
[2021-10-14] MEDS: Barium Sulfate 2% W/V-Berry Smoothie 450 ML BTL 900 ML PO (13:34)
[2021-10-15 12:57] LABS: PSA, Ultrasensitive 3.2 ng/mL (<= 7.2)
[2021-10-21 13:35] LABS: Testosterone, Total <7.0 ng/dL (240-950)
== END ==
PROVIDERS: Internal Medicine; PCP Family Medicine; Visit Provider Nurse Practitioner Family
DX: C61 Malignant neoplasm of prostate (principal); C77.1 Secondary and unspecified malignant neoplasm of intrathoracic lymph nodes; R97.20 Elevated prostate specific antigen [PSA]; M89.8X8 Other specified disorders of bone, other site
CPT/HCPCS: 74177; 78306; 80053; 84153; 84403; 71260; 85025; J3490

== ENCOUNTER → 2021-11-29 14:02 | Outpatient (BNVA) | payer MEDICARE, SELFPAY | PROVIDERS: PCP Family Medicine; Referring Provider Family Medicine; Visit Provider Nurse Practitioner Gerontology | DX: R33.8 Other retention of urine (principal); R35.0 Frequency of micturition; C61 Malignant neoplasm of prostate; C77.2 Secondary and unspecified malignant neoplasm of intra-abdominal lymph nodes | CPT/HCPCS: 51798; 99214 ==

== ENCOUNTER 2021-12-05 09:13 | Outpatient (CLI) | payer MEDICARE, SELFPAY ==
[2021-12-05 12:56] LABS: Abs Immature Grans 0.01 10^3/uL (0.0-0.06); Absolute Basophil Count 0.04 10^3/uL (0.0-0.2); Absolute Eosinophil Count 0.15 10^3/uL (0.0-0.7); Absolute Lymphocyte Count 0.86 10^3/uL (1.2-3.4); Absolute Monocyte Count 0.54 10^3/uL (0.1-0.8); Absolute Neutrophil Count 3.98 10^3/uL (1.2-6.7); Basophils % 0.7; Eosinophils % 2.7; HCT 33.3 % (40.0-50.0); HGB 11.2 g/dL (13.5-17.5); Immature Grans % 0.2; Lymphocytes % 15.4; MCH 31.5 pg (27.0-33.0); MCHC 33.6 % (32.0-36.0); MCV 94 fL (80-95); MPV 9.2 fL (8.0-11.0); Monocytes % 9.7; Neutrophils % 71.3; Platelet Count 151 10^3/uL (130-400); RBC 3.56 10^6/uL (4.36-5.78); RDW 13.1 % (11.8-14.1); RDW-SD 44.9 fL; WBC 5.58 10^3/uL (4.4-10.8)
[2021-12-05 13:12] LABS: ALT 32 U/L (16-63); AST 33 U/L (15-37); Albumin 3.1 g/dL (3.4-5.0); Alkaline Phosphatase 210 U/L (46-116); Anion Gap 7.2 mmol/L (3-11); BUN 21 mg/dL (7-18); Bilirubin, Total 0.6 mg/dL (0.2-1.0); CO2 28.8 mmol/L (21.0-32.0); CREATININE 0.7 mg/dL (0.70-1.30); Calcium 8.9 mg/dL (8.5-10.1); Chloride 101 mmol/L (98-107); Glucose 115 mg/dL (74-106); Potassium 4.3 mmol/L (3.5-5.1); Sodium 137 mmol/L (136-145); Total Protein 7.8 g/dL (6.4-8.2)
[2021-12-09 22:42] LABS: Testosterone, Total <7.0 ng/dL (240-950)
== END 2021-12-05 09:14 | disposition home or self-care (01) ==
LOC: LBO 09:13
PROVIDERS: PCP Family Medicine; Visit Provider Internal Medicine
DX: C61 Malignant neoplasm of prostate (principal); C79.51 Secondary malignant neoplasm of bone
CPT/HCPCS: 36415; 80053; 84153; 84403; 85025

== ENCOUNTER → 2022-01-12 09:31 | Outpatient (BNVA) | payer MEDICARE, SELFPAY | PROVIDERS: PCP Family Medicine; Visit Provider Internal Medicine Cardiovascular Disease | DX: I48.21 Permanent atrial fibrillation (principal); I07.1 Rheumatic tricuspid insufficiency; C61 Malignant neoplasm of prostate | CPT/HCPCS: 99213 ==

== ENCOUNTER 2022-01-16 03:05 | Outpatient (CLI) | payer MEDICARE, SELFPAY ==
[2022-01-16 11:45] LABS: Abs Immature Grans 0.03 10^3/uL (0.0-0.06); Absolute Basophil Count 0.04 10^3/uL (0.0-0.2); Absolute Eosinophil Count 0.21 10^3/uL (0.0-0.7); Absolute Lymphocyte Count 1.19 10^3/uL (1.2-3.4); Absolute Monocyte Count 0.69 10^3/uL (0.1-0.8); Absolute Neutrophil Count 4.36 10^3/uL (1.2-6.7); Basophils % 0.6; Eosinophils % 3.2; HCT 35.2 % (40.0-50.0); HGB 11.6 g/dL (13.5-17.5); Immature Grans % 0.5; Lymphocytes % 18.3; MCH 31.5 pg (27.0-33.0); MCV 96 fL (80-95); MPV 9.4 fL (8.0-11.0); Monocytes % 10.6; Neutrophils % 66.8; Platelet Count 179 10^3/uL (130-400); RBC 3.68 10^6/uL (4.36-5.78); RDW 14.2 % (11.8-14.1); RDW-SD 50.1 fL; WBC 6.52 10^3/uL (4.4-10.8)
[2022-01-16 12:27] LABS: ALT 24 U/L (16-63); AST 29 U/L (15-37); Albumin 3.2 g/dL (3.4-5.0); Alkaline Phosphatase 173 U/L (46-116); BUN 27 mg/dL (7-18); Bilirubin, Total 0.6 mg/dL (0.2-1.0); CREATININE 0.7 mg/dL (0.70-1.30); Calcium 8.9 mg/dL (8.5-10.1); Chloride 102 mmol/L (98-107); Glucose 113 mg/dL (74-106); Potassium 4.5 mmol/L (3.5-5.1); Sodium 138 mmol/L (136-145); Total Protein 8.2 g/dL (6.4-8.2)
[2022-01-19 15:21] LABS: Testosterone, Total <7.0 ng/dL (240-950)
== END 2022-01-16 03:06 | disposition home or self-care (01) ==
LOC: LBO 03:05
PROVIDERS: PCP Family Medicine; Visit Provider Internal Medicine
DX: C61 Malignant neoplasm of prostate (principal); C79.51 Secondary malignant neoplasm of bone
CPT/HCPCS: 36415; 80053; 84153; 84403; 85025

== ENCOUNTER 2022-02-28 02:51 | Outpatient (CLI) | payer MEDICARE, SELFPAY ==
[2022-02-28 10:18] LABS: Abs Immature Grans 0.01 10^3/uL (0.0-0.06); Absolute Basophil Count 0.04 10^3/uL (0.0-0.2); Absolute Eosinophil Count 0.37 10^3/uL (0.0-0.7); Absolute Lymphocyte Count 1.13 10^3/uL (1.2-3.4); Absolute Monocyte Count 0.56 10^3/uL (0.1-0.8); Absolute Neutrophil Count 3.45 10^3/uL (1.2-6.7); Basophils % 0.7; Eosinophils % 6.7; HCT 36.1 % (40.0-50.0); HGB 11.5 g/dL (13.5-17.5); Immature Grans % 0.2; Lymphocytes % 20.3; MCH 30.6 pg (27.0-33.0); MCHC 31.9 % (32.0-36.0); MCV 96 fL (80-95); MPV 9.2 fL (8.0-11.0); Monocytes % 10.1; Platelet Count 156 10^3/uL (130-400); RBC 3.76 10^6/uL (4.36-5.78); RDW 13.7 % (11.8-14.1); RDW-SD 48.8 fL; WBC 5.56 10^3/uL (4.4-10.8)
[2022-02-28 10:49] LABS: ALT 19 U/L (16-63); AST 26 U/L (15-37); Albumin 3.3 g/dL (3.4-5.0); Alkaline Phosphatase 124 U/L (46-116); Anion Gap 5.4 mmol/L (3-11); BUN 23 mg/dL (7-18); Bilirubin, Total 0.6 mg/dL (0.2-1.0); CO2 28.6 mmol/L (21.0-32.0); CREATININE 0.9 mg/dL (0.70-1.30); Calcium 8.7 mg/dL (8.5-10.1); Chloride 103 mmol/L (98-107); Glucose 93 mg/dL (74-106); Potassium 4.5 mmol/L (3.5-5.1); Sodium 137 mmol/L (136-145); Total Protein 8.2 g/dL (6.4-8.2)
[2022-03-04 16:45] LABS: Testosterone, Total <7.0 ng/dL (240-950)
== END 2022-02-28 02:52 | disposition home or self-care (01) ==
PROVIDERS: PCP Family Medicine; Visit Provider Nurse Practitioner Family
DX: C61 Malignant neoplasm of prostate (principal); C79.51 Secondary malignant neoplasm of bone
CPT/HCPCS: 36415; 80053; 84153; 84403; 85025

== ENCOUNTER 2022-05-30 02:00 | Outpatient (CLI) | payer MEDICARE, SELFPAY ==
[2022-05-30 07:43] LABS: Abs Immature Grans 0.01 10^3/uL (0.0-0.06); Absolute Basophil Count 0.04 10^3/uL (0.0-0.2); Absolute Eosinophil Count 0.28 10^3/uL (0.0-0.7); Absolute Lymphocyte Count 0.97 10^3/uL (1.2-3.4); Absolute Monocyte Count 0.55 10^3/uL (0.1-0.8); Absolute Neutrophil Count 2.13 10^3/uL (1.2-6.7); HCT 37.3 % (40.0-50.0); HGB 11.9 g/dL (13.5-17.5); Immature Grans % 0.3; Lymphocytes % 24.4; MCH 30.6 pg (27.0-33.0); MCHC 31.9 % (32.0-36.0); MCV 96 fL (80-95); Monocytes % 13.8; Neutrophils % 53.5; Platelet Count 128 10^3/uL (130-400); RBC 3.89 10^6/uL (4.36-5.78); RDW-SD 49.1 fL; WBC 3.98 10^3/uL (4.4-10.8)
[2022-05-30 09:00] LABS: ALT 21 U/L (16-63); AST 27 U/L (15-37); Albumin 3.5 g/dL (3.4-5.0); Alkaline Phosphatase 106 U/L (46-116); Anion Gap 6.1 mmol/L (3-11); BUN 24 mg/dL (7-18); Bilirubin, Total 0.6 mg/dL (0.2-1.0); CO2 29.9 mmol/L (21.0-32.0); CREATININE 0.8 mg/dL (0.70-1.30); Chloride 104 mmol/L (98-107); Estimated GFR 86.73 (mL/min/1.73m2); Glucose 83 mg/dL (74-106); Potassium 4.4 mmol/L (3.5-5.1); Sodium 140 mmol/L (136-145); Total Protein 8.5 g/dL (6.4-8.2)
[2022-06-02 16:38] LABS: PSA, Ultrasensitive 4.3 ng/mL (<= 7.2)
[2022-06-06 11:23] LABS: Testosterone, Total <7.0 ng/dL (240-950)
== END 2022-05-30 02:01 | disposition home or self-care (01) ==
PROVIDERS: PCP Family Medicine; Visit Provider Nurse Practitioner Family
DX: C61 Malignant neoplasm of prostate (principal); C79.51 Secondary malignant neoplasm of bone
CPT/HCPCS: 36415; 80053; 84153; 84403; 85025

== ENCOUNTER → 2022-06-01 08:37 | Outpatient (BNVA) | payer MEDICARE, SELFPAY | PROVIDERS: PCP Family Medicine; Referring Provider Family Medicine; Visit Provider Nurse Practitioner Gerontology | DX: R33.9 Retention of urine, unspecified (principal); C61 Malignant neoplasm of prostate | CPT/HCPCS: 99443 ==

== ENCOUNTER 2022-08-22 03:14 | Outpatient (CLI) | payer MEDICARE, SELFPAY ==
[2022-08-22 10:07] LABS: Abs Immature Grans 0.01 10^3/uL (0.0-0.06); Absolute Basophil Count 0.01 10^3/uL (0.0-0.2); Absolute Eosinophil Count 0.01 10^3/uL (0.0-0.7); Absolute Lymphocyte Count 0.56 10^3/uL (1.2-3.4); Absolute Monocyte Count 0.12 10^3/uL (0.1-0.8); Absolute Neutrophil Count 4.33 10^3/uL (1.2-6.7); Basophils % 0.2; Eosinophils % 0.2; HCT 34.1 % (40.0-50.0); HGB 11.4 g/dL (13.5-17.5); Immature Grans % 0.2; Lymphocytes % 11.1; MCH 31.3 pg (27.0-33.0); MCHC 33.4 % (32.0-36.0); MCV 94 fL (80-95); MPV 9.1 fL (8.0-11.0); Monocytes % 2.4; Neutrophils % 85.9; Platelet Count 141 10^3/uL (130-400); RBC 3.64 10^6/uL (4.36-5.78); RDW 14.5 % (11.8-14.1); RDW-SD 49.1 fL; WBC 5.04 10^3/uL (4.4-10.8)
[2022-08-22 10:41] LABS: ALT 33 U/L (16-63); AST 27 U/L (15-37); Albumin 3.5 g/dL (3.4-5.0); Alkaline Phosphatase 105 U/L (46-116); Anion Gap 7.4 mmol/L (3-11); BUN 22 mg/dL (7-18); Bilirubin, Total 0.5 mg/dL (0.2-1.0); CO2 26.6 mmol/L (21.0-32.0); CREATININE 0.8 mg/dL (0.70-1.30); Calcium 9.1 mg/dL (8.5-10.1); Chloride 104 mmol/L (98-107); Estimated GFR 86.19 (mL/min/1.73m2); Glucose 129 mg/dL (74-106); Potassium 4.3 mmol/L (3.5-5.1); Sodium 138 mmol/L (136-145); Total Protein 8.4 g/dL (6.4-8.2)
[2022-08-24 10:39] LABS: PSA, Ultrasensitive 5.7 ng/mL (<= 7.2)
[2022-08-26 16:30] LABS: Testosterone, Total <7.0 ng/dL (240-950)
== END 2022-08-22 03:15 | disposition home or self-care (01) ==
PROVIDERS: PCP Family Medicine; Visit Provider Nurse Practitioner Family
DX: C61 Malignant neoplasm of prostate (principal); C79.51 Secondary malignant neoplasm of bone
CPT/HCPCS: 36415; 80053; 84153; 84403; 85025

== ENCOUNTER → 2022-10-16 12:57 | Outpatient (BNVA) | payer MEDICARE, SELFPAY | PROVIDERS: PCP Family Medicine; Referring Provider Family Medicine; Visit Provider Student in an Organized Health Care Education/Training Program | DX: M25.561 Pain in right knee (principal); M25.562 Pain in left knee; M76.891 Other specified enthesopathies of right lower limb, excluding foot; M76.892 Other specified enthesopathies of left lower limb, excluding foot | CPT/HCPCS: 99213 ==

== ENCOUNTER → 2022-11-13 01:29 | Outpatient (CLI) | payer MEDICARE, SELFPAY ==
--- NOTE | 2022-11-13 | DI.CT_ITS ---
Exam(s) CT THORACIC SPINE WO EXAM: CT THORACIC SPINE WO CLINICAL HISTORY: THORACIC BACK PAIN, M54.6. TECHNIQUE: Imaging Protocol: Axial computed tomography images with coronal and sagittal reformatted images were created and reviewed. CONTRAST MATERIAL: Noncontrast COMPARISON: NM NM BONE SCAN WHOLE BODY GRP from 10/14/[address] CHEST/ABD/PEL W from 10/14/2021 FINDINGS: Bones: Diffusely increased sclerosis seen within the T5 vertebral body. Sclerosis also extends into the pedicles, right transverse process and both lamina as well as spinous process. Rounded area of l ucency now seen within the right side of the vertebral body. The remainder of the vertebral body edelmira w no evidence of metastatic disease. Degenerative changes are present. No fractures or dislocations are seen. The alignment of the spine is normal including the cervicothoracic junction. Soft tissues: The soft tissues of the chest are unremarkable. No large disk herniations are identifie d. IMPRESSION: Sclerosis in the T5 vertebral body with new lytic area. No evidence of compression fracture or retro pulsion. Extension of sclerosis into the pedicles, lamina and right transverse process. RADIATION DOSE DELIVERED: 522.45mGy.cm Total DLP DATA REPOSITORY: All CT scans at this facility are submitted to the National Radiology Data Registry (NRDR) Dose Index Registry (DIR) with the [employer] (ACR). RADIATION OPTIMIZATION: All CT scans at this facility use at least one of these dose optimization te chniques: automated exposure control; mA and/or kV adjustment per patient size (includes targeted exa ms where dose is matched to clinical indication); or iterative reconstruction.
== END ==
PROVIDERS: PCP Family Medicine; Visit Provider Family Medicine
DX: M89.8X8 Other specified disorders of bone, other site (principal)
CPT/HCPCS: 72128

== ENCOUNTER 2022-11-20 03:50 | Outpatient (CLI) | payer MEDICARE, SELFPAY ==
[2022-11-20 10:21] LABS: Absolute Basophil Count 0.03 10^3/uL (0.0-0.2); Absolute Eosinophil Count 0.13 10^3/uL (0.0-0.7); Absolute Lymphocyte Count 0.83 10^3/uL (1.2-3.4); Absolute Monocyte Count 0.44 10^3/uL (0.1-0.8); Absolute Neutrophil Count 3.25 10^3/uL (1.2-6.7); Basophils % 0.6; Eosinophils % 2.8; HCT 35.1 % (40.0-50.0); HGB 11.6 g/dL (13.5-17.5); Lymphocytes % 17.7; MCV 97 fL (80-95); MPV 9.4 fL (8.0-11.0); Monocytes % 9.4; Neutrophils % 69.5; Platelet Count 152 10^3/uL (130-400); RBC 3.63 10^6/uL (4.36-5.78); RDW 13.4 % (11.8-14.1); RDW-SD 47.8 fL; WBC 4.68 10^3/uL (4.4-10.8)
[2022-11-20 10:40] LABS: ALT 20 U/L (16-63); AST 27 U/L (15-37); Albumin 3.5 g/dL (3.4-5.0); Alkaline Phosphatase 131 U/L (46-116); Anion Gap 5.5 mmol/L (3-11); BUN 21 mg/dL (7-18); Bilirubin, Total 0.6 mg/dL (0.2-1.0); CO2 31.5 mmol/L (21.0-32.0); Calcium 9.1 mg/dL (8.5-10.1); Chloride 100 mmol/L (98-107); Glucose 103 mg/dL (74-106); Potassium 4.1 mmol/L (3.5-5.1); Sodium 137 mmol/L (136-145); Total Protein 8.4 g/dL (6.4-8.2)
[2022-11-21 17:28] LABS: PSA, Ultrasensitive 9.6 ng/mL (<= 7.2)
[2022-11-24 14:47] LABS: Testosterone, Total <7.0 ng/dL (240-950)
== END 2022-11-20 03:51 | disposition home or self-care (01) ==
PROVIDERS: Internal Medicine; PCP Family Medicine; Visit Provider Nurse Practitioner Family
DX: C61 Malignant neoplasm of prostate (principal); C79.51 Secondary malignant neoplasm of bone
CPT/HCPCS: 36415; 80053; 84153; 84403; 85025

== ENCOUNTER → 2023-01-03 12:09 | Outpatient (BNVA) | payer MEDICARE, SELFPAY | PROVIDERS: PCP Family Medicine; Referring Provider Family Medicine; Visit Provider Nurse Practitioner Gerontology | DX: C77.2 Secondary and unspecified malignant neoplasm of intra-abdominal lymph nodes (principal); R33.9 Retention of urine, unspecified; C61 Malignant neoplasm of prostate | CPT/HCPCS: 51798; 99214 ==

== ENCOUNTER 2023-01-11 07:44 | Outpatient (CLI) | payer MEDICARE, SELFPAY ==
--- NOTE | 2023-01-11 07:30 | RT.EKG_ITS ---
APPROVED REPORT Exam: Resting ECG Reason for Exam: afib Patient Location: O HR:77 bpm ECG Measurements Heart Rate 77 AXIS NM [id number] P [id number] QRSd 94 QRS 82 QT 409 T 43 QTc 463 Conclusion Atrial fibrillation...? atrial activity
== END 2023-01-11 07:45 | disposition home or self-care (01) ==
LOC: DI.CARD 07:45
PROVIDERS: PCP Family Medicine; Visit Provider Internal Medicine Cardiovascular Disease
DX: I48.91 Unspecified atrial fibrillation (principal)
CPT/HCPCS: 93010

== ENCOUNTER → 2023-01-11 10:11 | Outpatient (BNVA) | payer MEDICARE, SELFPAY | PROVIDERS: PCP Family Medicine; Visit Provider Internal Medicine Cardiovascular Disease | DX: Z79.01 Long term (current) use of anticoagulants (principal); C77.2 Secondary and unspecified malignant neoplasm of intra-abdominal lymph nodes; I48.91 Unspecified atrial fibrillation; I07.1 Rheumatic tricuspid insufficiency; C61 Malignant neoplasm of prostate | CPT/HCPCS: 93005; 99213 ==

== ENCOUNTER 2023-01-22 04:46 | Outpatient (CLI) | payer MEDICARE, SELFPAY ==
[2023-01-22 12:46] LABS: Abs Immature Grans 0.02 10^3/uL (0.0-0.06); Absolute Basophil Count 0.04 10^3/uL (0.0-0.2); Absolute Eosinophil Count 0.43 10^3/uL (0.0-0.7); Absolute Lymphocyte Count 1.16 10^3/uL (1.2-3.4); Absolute Monocyte Count 0.65 10^3/uL (0.1-0.8); Absolute Neutrophil Count 4.07 10^3/uL (1.2-6.7); Basophils % 0.6; Eosinophils % 6.8; HCT 32.5 % (40.0-50.0); HGB 10.6 g/dL (13.5-17.5); Immature Grans % 0.3; Lymphocytes % 18.2; MCH 30.3 pg (27.0-33.0); MCHC 32.6 % (32.0-36.0); MCV 93 fL (80-95); MPV 8.6 fL (8.0-11.0); Monocytes % 10.2; Neutrophils % 63.9; Platelet Count 217 10^3/uL (130-400); RDW 13.1 % (11.8-14.1); RDW-SD 44.4 fL; WBC 6.37 10^3/uL (4.4-10.8)
[2023-01-22 13:03] LABS: ALT 16 U/L (16-63); AST 23 U/L (15-37); Alkaline Phosphatase 193 U/L (46-116); Anion Gap 7.3 mmol/L (3-11); BUN 24 mg/dL (7-18); Bilirubin, Total 0.5 mg/dL (0.2-1.0); CO2 27.7 mmol/L (21.0-32.0); CREATININE 0.7 mg/dL (0.70-1.30); Calcium 9.2 mg/dL (8.5-10.1); Chloride 100 mmol/L (98-107); Estimated GFR 89.73 (mL/min/1.73m2); Glucose 104 mg/dL (74-106); Potassium 3.6 mmol/L (3.5-5.1); Sodium 135 mmol/L (136-145); Total Protein 8.4 g/dL (6.4-8.2)
[2023-01-24 18:20] LABS: PSA, Ultrasensitive 13.7 ng/mL (<= 7.2)
[2023-01-25 21:51] LABS: Testosterone, Total <7.0 ng/dL (240-950)
== END 2023-01-22 04:47 | disposition home or self-care (01) ==
LOC: LBO 04:46
PROVIDERS: PCP Family Medicine; Visit Provider Internal Medicine
DX: C61 Malignant neoplasm of prostate (principal); C79.51 Secondary malignant neoplasm of bone
CPT/HCPCS: 36415; 80053; 84153; 84403; 85025

== ENCOUNTER → 2023-02-12 14:12 | Outpatient (BNVA) | payer MEDICARE, SELFPAY | PROVIDERS: PCP Family Medicine; Referring Provider Family Medicine; Visit Provider Podiatrist | DX: B35.1 Tinea unguium (principal); L60.3 Nail dystrophy; I73.89 Other specified peripheral vascular diseases; B35.9 Dermatophytosis, unspecified | CPT/HCPCS: 11721 ==

== ENCOUNTER → 2023-02-13 00:13 | Outpatient (CLI) | payer MEDICARE, SELFPAY ==
--- NOTE | 2023-02-13 | DI.MRI_ITS ---
Exam(s) MR THORACIC SPINE WO/W EXAM: MR THORACIC SPINE WO/W CLINICAL HISTORY: METS PROSTATE CA, SECONDARY MALIGNANT NEOPLASM BONE, C79.51 TECHNIQUE: Multiplanar multisequence MRI of the thoracic spine was performed without intravenous con trast. COMPARISON: CT CT THORACIC SPINE WO from 11/13/2022 FINDINGS: OSSEOUS: When compared to the CT scan of 11/13/2022 there has been interval multilevel fusion surgery with posterior fusion rods supported by bilateral in screws now evident at the T2 through T5 vertebr al bodies, inclusive. The diffuse signal abnormality in the T5 vertebral body is noted consistent wi th the sclerotic metastatic involvement as seen on the November 2022 CT scan and there is mild posterio r bulging of the posterior cortex at this level but without prominent compromise of the spinal canal evident at this level. There are no other vertebrae exhibiting diffusely hypointense sclerotic-type signal in similar fashion to T5. There is no obvious intravertebral vertebral body enhancement, incl uding within small T1 bright lesions in the T 7 and and T10 vertebral bodies which are most probably benign intraosseous hemangiomas. Although there is significant fact from hardware, there does not appear to be significant central spi nal canal stenosis at the fused levels nor prominent foraminal stenosis. There is no loss of vertebr al height at these levels. THORACIC SPINAL CORD: There is mild prominence of the central canal of the thoracic spinal cord evide nt from the T4 level down to T11 level. There is no cord dysraphism. No obvious focal cord swelling nor focal cord atrophy. Also no abnormal intramedullary enhancement following contrast injection. There is no evidence of mass at the conus medullaris. The position of the conus medullaris is at low er L1 level. However, there appears to be an element of mild central spinal canal stenosis at L1-2 l evel and diffuse annular bulging at this level which extends into the floor both exiting neural олег nicholas but not causing prominent foraminal stenosis on either side. At the level the exiting in the left neural foramen at T8-T9 level there is a cystic 0.7 by 0.8 by 1. 3 cm nonenhancing expanded nerve root sleeve at this level. No associated bone destruction. A simil ar but smaller finding is seen on the opposite-right side at the level of the exiting neural foramen of T6-T7. PARASPINAL TISSUES: There is a small right pleural effusion which was present on the CT scan of Augus t 2022. IMPRESSION: 1. Multilevel fusion hardware T2 through T5, inclusive, with the T5 vertebral body exhibiting diffuse signal abnormality consistent with diffuse sclerotic or osseous metastatic disease, as seen on recen t CT scan. There is mild posterior bulging of the posterior cortex of this affected T5 vertebral bod y but no prominent compromise of the canal at this level. 2. Other smaller bone lesions in T7 and T10 vertebral bodies are most probably benign intraosseous he mangiomas and do not exhibit enhancement. 3. 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 There is no evidence of intramedullary mass nor a bnormal thoracic spinal cord enhancement. DATA REPOSITORY:
[2023-02-13] MEDS: Gadoterate meglumine 20 ML SYRINGE 14 ML IVP (12:43)
[2023-02-13] MEDS: Normal Saline Flush 10 ML SYR IVP (12:43)
--- NOTE | 2023-02-13 18:46 | DI.VRAD_ITS ---
PROCEDURE INFORMATION: Exam: MR Thoracic Spine Without and With Contrast Exam date and time: 02/13/2023 12:40 PM Age: 87 years old Clinical indication: Other: Mets prostate CA, secondary malignant neoplasm bone, c79.51 TECHNIQUE: Imaging protocol: Magnetic resonance imaging of the thoracic spine without and with contrast. COMPARISON: CT THORACIC SPINE WO 11/13/2022 8:23 AM FINDINGS: Bones/joints: Postsurgical changes are now seen at upper thoracic levels with bilateral transpedicular screw and angelia fixation assemblies now uniting the 2nd through the 5th lumbar segments with associated posterior laminectomy defect. Abnormal hypointensity involving the vertebral body and posterior elements at T5 is again consistent with sclerotic bony metastasis and mild convexity along the posterior margin of this vertebral body indents the ventral thecal sac without severe canal stenosis or cord compression. No pathologic fractures are detected at this or other thoracic levels. Spinal cord: Susceptibility artifact related to fusion hardware obscures anatomic detail in the region of the spinal canal and cord at and above the T5 levels. Punctate intramedullary hyperintensity seen on fluid sensitive sequences involving the central cord between the T6 and T11 levels could relate to mild prominence of the central canal of the spinal cord and measures less than 1.5 mm in maximal cross-sectional dimension with no evidence of associated cord expansion or enhancement. T1-T2: No disc bulge/protrusion, canal stenosis or foraminal narrowing detected. T2-T3: No disc bulge/protrusion, canal stenosis or foraminal narrowing detected. T3-T4: No disc bulge/protrusion, canal stenosis or foraminal narrowing detected. T4-T5: No disc bulge/protrusion, canal stenosis or foraminal narrowing detected. T5-T6: No disc bulge/protrusion, canal stenosis or foraminal narrowing detected. T6-T7: No disc bulge/protrusion, canal stenosis or foraminal narrowing detected. T7-T8: No disc bulge/protrusion, canal stenosis or foraminal narrowing detected. T8-T9: Posterior central disc protrusion at this level indents the ventral thecal sac and results in mild canal narrowing (AP canal dimension approximately 9 mm) without significant mass effect upon the cord. T9-T10: No disc bulge/protrusion, canal stenosis or foraminal narrowing detected. T10-T11: No disc bulge/protrusion, canal stenosis or foraminal narrowing detected. T11-T12: No disc bulge/protrusion, canal stenosis or foraminal narrowing detected. T12-L1: No disc bulge/protrusion, canal stenosis or foraminal narrowing detected. Soft tissues: Pleural effusion layers posteriorly at the right lung base. IMPRESSION: 1. Postsurgical changes are now seen at upper thoracic levels with bilateral transpedicular screw and angelia fixation assemblies now uniting the 2nd through the 5th lumbar segments with associated posterior laminectomy defect. Abnormal hypointensity involving the vertebral body and posterior elements at T5 is again consistent with sclerotic bony metastasis and mild convexity along the posterior margin of this vertebral body indents the ventral thecal sac without severe canal stenosis or cord compression. No pathologic fractures are detected at this or other thoracic levels. 2. Punctate intramedullary hyperintensity seen on fluid sensitive sequences involving the central cord between the T6 and T11 levels could relate to mild prominence of the central canal of the spinal cord and measures less than 1.5 mm in maximal cross-sectional dimension with no evidence of associated cord expansion or enhancement. Short-term follow-up MRI study could be performed in 4-6 months to exclude an enlarging syrinx. 3. Posterior central disc protrusion at T8-9 indents the ventral thecal sac and results in mild canal narrowing (AP canal dimension approximately 9 mm) without significant mass effect upon the cord. No evidence of canal stenosis or cord compression at remaining thoracic levels with technical limitation noted as above. Dictated and Authenticated by: Aravind Bryant MD. Ordering:EVITA Hess MD
== END ==
PROVIDERS: PCP Family Medicine; Visit Provider Radiology Radiation Oncology
DX: C79.51 Secondary malignant neoplasm of bone (principal); G95.89 Other specified diseases of spinal cord; D18.01 Hemangioma of skin and subcutaneous tissue
CPT/HCPCS: 72157

== ENCOUNTER 2023-02-20 01:39 | Outpatient (CLI) | payer MEDICARE, SELFPAY ==
[2023-02-20 09:00] LABS: Abs Immature Grans 0.02 10^3/uL (0.0-0.06); Absolute Basophil Count 0.09 10^3/uL (0.0-0.2); Absolute Eosinophil Count 0.15 10^3/uL (0.0-0.7); Absolute Lymphocyte Count 0.95 10^3/uL (1.2-3.4); Absolute Monocyte Count 0.83 10^3/uL (0.1-0.8); Absolute Neutrophil Count 4.92 10^3/uL (1.2-6.7); Basophils % 1.3; Eosinophils % 2.2; HCT 30.3 % (40.0-50.0); HGB 9.7 g/dL (13.5-17.5); Immature Grans % 0.3; Lymphocytes % 13.6; MCH 29.6 pg (27.0-33.0); MCV 92 fL (80-95); MPV 8.6 fL (8.0-11.0); Monocytes % 11.9; Neutrophils % 70.7; Platelet Count 333 10^3/uL (130-400); RBC 3.28 10^6/uL (4.36-5.78); RDW 14.7 % (11.8-14.1); RDW-SD 49.4 fL; WBC 6.96 10^3/uL (4.4-10.8)
[2023-02-20 09:28] LABS: ALT 13 U/L (16-63); AST 20 U/L (15-37); Albumin 2.8 g/dL (3.4-5.0); Alkaline Phosphatase 156 U/L (46-116); Anion Gap 6.5 mmol/L (3-11); BUN 25 mg/dL (7-18); Bilirubin, Total 0.3 mg/dL (0.2-1.0); CO2 26.5 mmol/L (21.0-32.0); CREATININE 0.8 mg/dL (0.70-1.30); Chloride 103 mmol/L (98-107); Estimated GFR 86.19 (mL/min/1.73m2); Glucose 96 mg/dL (74-106); Potassium 4.1 mmol/L (3.5-5.1); Sodium 136 mmol/L (136-145); Total Protein 7.6 g/dL (6.4-8.2)
[2023-02-23 11:21] LABS: Testosterone, Total <7.0 ng/dL (240-950)
[2023-02-24 08:53] LABS: PSA, Ultrasensitive 9.7 ng/mL (<= 7.2)
== END 2023-02-20 01:40 | disposition home or self-care (01) ==
LOC: LBO 01:40
PROVIDERS: PCP Family Medicine; Visit Provider Internal Medicine
DX: C61 Malignant neoplasm of prostate (principal); C79.51 Secondary malignant neoplasm of bone
CPT/HCPCS: 36415; 80053; 84153; 84403; 85025

== ENCOUNTER 2023-03-13 02:23 | Outpatient (CLI) | payer MEDICARE, SELFPAY ==
--- OUTSIDE RECORDS SUMMARY | 2023-03-13 02:25 | XMS_ITS | Continuity of Care Document ---
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) - Obstructive sleep apnea (adult) (pediatric)(Final) - Rheumatic tricuspid insufficiency(Final) - Anemia in other chronic diseases classified elsewhere(Final) - Constipation, unspecified(Final) - Retention of urine, unspecified(Final) - Spinal cord mass(Discharge Diagnosis) - 12/06/22 Other cord compression(Final) - 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 RN reported pt had uneventful night. no new findings. pt found up in chair in room alert, pleasant and oriented x4. VSS assessment benign, took am medications without issue, denies pain. pt scheduled for d/c this morning 0930/ and son will bring pt home. Discharge instructions gone over with pt including; medication schedule, purpose and dosing, prescriptions for new medications faxed to preferred pharmacy, pt and family verbalized understanding. Safety and physical restrictions gone over, pt understands the importance of safety and restrictions, returning home and toileting plan gone over, pt and family had no questions. pivot board, w/c and gait belt given to pt. Referrals and prescription for PT/ OT/ [employer]/ placed in blue book, blue book gone over, personal belongings returned to pt. contract writer took pt in w/c to private car, slide board transfer to car, pt left in stable condition at 11:00 Addendum by Winnie Mauricio on December 30, 2022 11:38 EDT Flomax order/prescription sent to [facility] (Dr Jean Carlos Beckman) for pick-up. pt has f/u appointment with Neuro urology. Extracted from: Title:SOAP Note: Rehab Note Author:Satrr Burt Date:12/27/22 Health Status Allergies: Allergic Reactions (All) Severe Shellfish- No reactions were documented., Allergies (1) Active Severity Reaction shellfish Severe None Documented Medications Current medications: (Selected) Inpatient Medications Ordered Colace: 100 mg = 1 cap(s), Oral, BID, PRN: Constipation Ditropan XL: 10 mg = 2 tab(s), Oral, Daily Dulcolax Laxative: 10 mg = 1 supp, Per rectum, Daily, PRN: Congestion Dulcolax Laxative: 10 mg = 1 supp, Per rectum, Daily, PRN: Constipation Eliquis: 5 mg = 1 tab(s), Oral, BID Flomax: 0.4 mg = 1 cap(s), Oral, HS Lasix: 40 mg = 1 tab(s), Oral, Daily MiraLax: 17 gm = 1 packet(s), Oral, Daily, PRN: Constipation Refresh PM: 1 drop(s), Eye-Both, q6hr, PRN: Dry eyes Robitussin Sugar-Free: 300 mg = 15 mL, Oral, q6hr, PRN: Cough Vitamin C: 500 mg = 1 tab(s), Oral, Daily Vitamin D3: 2,000 unit(s) = 2 tab(s), Oral, Daily acetaminophen: 650 mg = 2 tab(s), Oral, q6hr, PRN: Pain bacitracin zinc 500 units/g topical ointment: 1 yefri, TOP, q8hr, PRN: Other (see comment) benzonatate: 100 mg = 1 cap(s), Oral, TID, PRN: Cough calcium (as carbonate) 500 mg oral tablet, chewable: 500 mg = 1 tab(s), Oral, Daily fluticasone 50 mcg/inh nasal spray: 50 mcg = 1 spray(s), Nostrils-Both, Daily, PRN: Allergy symptoms magnesium oxide: 400 mg = 1 tab(s), Oral, Daily melatonin: 3 mg = 1 tab(s), Oral, HS, PRN: Insomnia ondansetron: 4 mg = 1 tab(s), Oral, q6hr, PRN: Nausea/Vomiting oxyCODONE immediate release: 5 mg = 1 tab(s), Oral, q4hr, PRN: Pain senna: 17.2 mg = 2 tab(s), Oral, HS traZODone: 25 mg = 0.5 tab(s), Oral, HS, PRN: Insomnia Documented Medications Documented Eliquis 5 mg oral tablet: 5 mg = 1 tab(s), Oral, BID, 0 Refill(s) Flonase 50 mc mcg = 1 spray(s), Nasal, Daily, PRN: Allergy symptoms, 0 Refill(s) Lasix 40 mg oral tablet: 40 mg = 1 tab(s), Oral, Daily, 0 Refill(s) Ultram 50 mg oral tablet: 50 mg, Oral, q6hr, PRN: Pain, 0 Refill(s) Vitamin C 500 mg oral tablet: 500 mg = 1 tab(s), Oral, Daily, 0 Refill(s) Vitamin D3 2000 intl units oral capsule: 50 mcg = 1 cap(s), Oral, Daily, 0 Refill(s) calcium citrate: 200 mg, Oral, Daily, 0 Refill(s) lactobacillus rhamnosus: 1 capsule, Oral, Daily, 0 Refill(s) magnesium gluconate 250 mg oral tablet: 250 mg = 1 tab(s), Oral, Daily, 0 Refill(s) saw palmetto: 0 Refill(s) silodosin: 0 Refill(s), Medications (23) Active Scheduled: (9) apixaban 5 mg tab [[facility]] 5 mg 1 tab(s), Oral, BID ascorbic acid 500 mg Tab [[facility]] 500 mg 1 tab(s), Oral, Daily calcium carbonate 500 mg Chew Tab [[facility]] 500 mg 1 tab(s), Oral, Daily cholecalciferol (25 mcg) 1000 units tablet [[facility]] 2,000 unit(s) 2 tab(s), Oral, Daily furosemide 40 mg Tab [[facility]] 40 mg 1 tab(s), Oral, Daily magnesium oxide 400 mg Tab [[facility]] 400 mg 1 tab(s), Oral, Daily oxybutynin 5 mg ER Tab [[facility]] 10 mg 2 tab(s), Oral, Daily senna 8.6 mg Tab [[facility]] 17.2 mg 2 tab(s), Oral, HS tamsulosin 0.4 mg Oral Cap [[facility]] 0.4 mg 1 cap(s), Oral, HS Continuous: (0) PRN: (14) acetaminophen 325 mg Tab [[facility]] 650 mg 2 tab(s), Oral, q6hr bacitracin zinc 500 units/g Top Oint UD [[facility]] 1 yefri, TOP, q8hr benzonatate 100 mg Cap [[facility]] 100 mg 1 cap(s), Oral, TID bisacodyl 10 mg Supp [[facility]] 10 mg 1 supp, Per rectum, Daily bisacodyl 10 mg Supp [[facility]] 10 mg 1 supp, Per rectum, Daily carboxymethylcellulose 0.5% ophth Emeli [[facility]] 1 drop(s), Eye-Both, q6hr docusate sodium 100 mg Cap [[facility]] 100 mg 1 cap(s), Oral, BID fluticasone Nasal 50 mcg/inh [place] [[facility]] 50 mcg 1 spray(s), Nostrils-Both, Daily guaiFENesin 20 mg/mL Oral Liq [[facility]] 300 mg 15 mL, Oral, q6hr melatonin 3 mg Tab [[facility]] 3 mg 1 tab(s), Oral, HS ondansetron 4 mg Dis Tab [[facility]] 4 mg 1 tab(s), Oral, q6hr oxyCODONE 5 mg Tab [[facility]] 5 mg 1 tab(s), Oral, q4hr polyethylene glycol 3350 Oral Pwdr Recon [[facility]] 17 gm 1 packet(s), Oral, Daily traZODone 50 mg Tab [[facility]] 25 mg 0.5 tab(s), Oral, HS . 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 #SHERIE - CPAP per home #Cardiovascular #afib #mod to severe TR continue apixaban 5 bid and lasix 40 daily. Daily weights 71->72 kg #anemia Hb 10.2, stable from DH check at 10 secondary to ABLA, ACD #NG bowel daily bowel program with daily supp and dig stim #NG bladder follow PVRs on flomax (sub for silodosin) PVRs 100-200 not requiring cathing likely to eventually have small spastic bladder given level of injury discussed trial ditropan and need for f/u with neuro-urology started ditropan XL 5 mg daily on 12/20, increased to 10 12/26 #sleep improved, continues on melatonin, trazodone prn #Pain postoperative pain, controlled with acetaminophen, topical anesthetics, marinol, oxycodone 5 q 4 prn has tapered off oxycodone and marinol already stopped #DME Patient is non-ambulatory and has mobility limitations that cannot be resolved with a cane or walker.?? He will be able to propel a wheelchair in his home, except to his toilet.?? He will be using the wheelchair for mobility and ADLs in his home, including to get to a commode.?? He is able to propel a wheelchair on level surfaces.?? His home has a ramp to enter, and his family will be assisting him on the ramp. #dispo home after 3 week LOS; planning d/c home 12/27,may be delayed few days to allow for additional CGT for f/u PCP, neurosurg, neurourology for eval for NG bladder #Potential or actual clinically significant medication issues addressed per CMS regulations: NO 35 min total time spent of chart review, team discussion, and face to face eval Extracted from: Title:SOAP Note: Rehab Note Author:Starr Burt Date:12/26/22 Health Status Allergies: Allergic Reactions (All) Severe Shellfish- No reactions were documented., Allergies (1) Active Severity Reaction shellfish Severe None Documented Medications Current medications: (Selected) Inpatient Medications Ordered Colace: 100 mg = 1 cap(s), Oral, BID, PRN: Constipation Ditropan XL: 10 mg = 2 tab(s), Oral, Daily Dulcolax Laxative: 10 mg = 1 supp, Per rectum, Daily, PRN: Congestion Dulcolax Laxative: 10 mg = 1 supp, Per rectum, Daily, PRN: Constipation Eliquis: 5 mg = 1 tab(s), Oral, BID Flomax: 0.4 mg = 1 cap(s), Oral, HS Lasix: 40 mg = 1 tab(s), Oral, Daily MiraLax: 17 gm = 1 packet(s), Oral, Daily, PRN: Constipation Refresh PM: 1 drop(s), Eye-Both, q6hr Robitussin Sugar-Free: 300 mg = 15 mL, Oral, q6hr, PRN: Cough Vitamin C: 500 mg = 1 tab(s), Oral, Daily Vitamin D3: 2,000 unit(s) = 2 tab(s), Oral, Daily acetaminophen: 650 mg = 2 tab(s), Oral, q6hr, PRN: Pain bacitracin zinc 500 units/g topical ointment: 1 yefri, TOP, q8hr, PRN: Other (see comment) benzonatate: 100 mg = 1 cap(s), Oral, TID, PRN: Cough calcium (as carbonate) 500 mg oral tablet, chewable: 500 mg = 1 tab(s), Oral, Daily fluticasone 50 mcg/inh nasal spray: 50 mcg = 1 spray(s), Nostrils-Both, Daily, PRN: Allergy symptoms magnesium oxide: 400 mg = 1 tab(s), Oral, Daily melatonin: 3 mg = 1 tab(s), Oral, HS, PRN: Insomnia ondansetron: 4 mg = 1 tab(s), Oral, q6hr, PRN: Nausea/Vomiting oxyCODONE immediate release: 5 mg = 1 tab(s), Oral, q4hr, PRN: Pain senna: 17.2 mg = 2 tab(s), Oral, HS traZODone: 25 mg = 0.5 tab(s), Oral, HS, PRN: Insomnia Documented Medications Documented Eliquis 5 mg oral tablet: 5 mg = 1 tab(s), Oral, BID, 0 Refill(s) Flonase 50 mc mcg = 1 spray(s), Nasal, Daily, PRN: Allergy symptoms, 0 Refill(s) Lasix 40 mg oral tablet: 40 mg = 1 tab(s), Oral, Daily, 0 Refill(s) Ultram 50 mg oral tablet: 50 mg, Oral, q6hr, PRN: Pain, 0 Refill(s) Vitamin C 500 mg oral tablet: 500 mg = 1 tab(s), Oral, Daily, 0 Refill(s) Vitamin D3 2000 intl units oral capsule: 50 mcg = 1 cap(s), Oral, Daily, 0 Refill(s) calcium citrate: 200 mg, Oral, Daily, 0 Refill(s) lactobacillus rhamnosus: 1 capsule, Oral, Daily, 0 Refill(s) magnesium gluconate 250 mg oral tablet: 250 mg = 1 tab(s), Oral, Daily, 0 Refill(s) saw palmetto: 0 Refill(s) silodosin: 0 Refill(s), Medications (23) Active Scheduled: (10) apixaban 5 mg tab [[facility]] 5 mg 1 tab(s), Oral, BID ascorbic acid 500 mg Tab [[facility]] 500 mg 1 tab(s), Oral, Daily calcium carbonate 500 mg Chew Tab [[facility]] 500 mg 1 tab(s), Oral, Daily carboxymethylcellulose 0.5% ophth Emeli [[facility]] 1 drop(s), Eye-Both, q6hr cholecalciferol (25 mcg) 1000 units tablet [[facility]] 2,000 unit(s) 2 tab(s), Oral, Daily furosemide 40 mg Tab [[facility]] 40 mg 1 tab(s), Oral, Daily magnesium oxide 400 mg Tab [[facility]] 400 mg 1 tab(s), Oral, Daily oxybutynin 5 mg ER Tab [[facility]] 10 mg 2 tab(s), Oral, Daily senna 8.6 mg Tab [[facility]] 17.2 mg 2 tab(s), Oral, HS tamsulosin 0.4 mg Oral Cap [[facility]] 0.4 mg 1 cap(s), Oral, HS Continuous: (0) PRN: (13) acetaminophen 325 mg Tab [[facility]] 650 mg 2 tab(s), Oral, q6hr bacitracin zinc 500 units/g Top Oint UD [[facility]] 1 yefri, TOP, q8hr benzonatate 100 mg Cap [[facility]] 100 mg 1 cap(s), Oral, TID bisacodyl 10 mg Supp [[facility]] 10 mg 1 supp, Per rectum, Daily bisacodyl 10 mg Supp [[facility]] 10 mg 1 supp, Per rectum, Daily docusate sodium 100 mg Cap [[facility]] 100 mg 1 cap(s), Oral, BID fluticasone Nasal 50 mcg/inh [place] [[facility]] 50 mcg 1 spray(s), Nostrils-Both, Daily guaiFENesin 20 mg/mL Oral Liq [[facility]] 300 mg 15 mL, Oral, q6hr melatonin 3 mg Tab [[facility]] 3 mg 1 tab(s), Oral, HS ondansetron 4 mg Dis Tab [[facility]] 4 mg 1 tab(s), Oral, q6hr oxyCODONE 5 mg Tab [[facility]] 5 mg 1 tab(s), Oral, q4hr polyethylene glycol 3350 Oral Pwdr Recon [[facility]] 17 gm 1 packet(s), Oral, Daily traZODone 50 mg Tab [[facility]] 25 mg 0.5 tab(s), Oral, HS . 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 #SHERIE - CPAP per home #Cardiovascular #afib #mod to severe TR continue apixaban 5 bid and lasix 40 daily. Daily weights 71->72 kg #anemia Hb 10.2, stable from check at 10 secondary to ABLA, ACD #NG bowel daily bowel program with daily supp and dig stim #NG bladder follow PVRs on flomax (sub for silodosin) PVRs 100-200 not requiring cathing likely to eventually have small spastic bladder given level of injury discussed trial ditropan and need for f/u with neuro-urology started ditropan XL 5 mg daily on 12/20 #sleep improved, continues on melatonin, trazodone prn #Pain postoperative pain, controlled with acetaminophen, topical anesthetics, marinol, oxycodone 5 q 4 prn has tapered off oxycodone and marinol already stopped #DME Patient is non-ambulatory and has mobility limitations that cannot be resolved with a cane or walker.?? He will be able to propel a wheelchair in his home, except to his toilet.?? He will be using the wheelchair for mobility and ADLs in his home, including to get to a commode.?? He is able to propel a wheelchair on level surfaces.?? His home has a ramp to enter, and his family will be assisting him on the ramp. #dispo home after 3 week LOS; planning d/c home 12/27,may be delayed few days to allow for additional CGT for f/u PCP, neurosurg, neurourology for eval for NG bladder #Potential or actual clinically significant medication issues addressed per CMS regulations: YES ditropan increased Did the facility complete prescribed/recommended actions in response to the identified potentially clinically significant medication issues by midnight of the next calendar day? YES 35 min total time spent of chart review, team discussion, and face to face eval Extracted from: Title:SOAP Note: Rehab Note Author:Starr Burt Date:12/22/22 Health Status Allergies: Allergic Reactions (All) Severe Shellfish- No reactions were documented., Allergies (1) Active Severity Reaction shellfish Severe None Documented Medications Current medications: (Selected) Inpatient Medications Ordered Colace: 100 mg = 1 cap(s), Oral, BID, PRN: Constipation Ditropan XL: 5 mg = 1 tab(s), Oral, Daily Dulcolax Laxative: 10 mg = 1 supp, Per rectum, Daily, PRN: Congestion Dulcolax Laxative: 10 mg = 1 supp, Per rectum, Daily, PRN: Constipation Eliquis: 5 mg = 1 tab(s), Oral, BID Flomax: 0.4 mg = 1 cap(s), Oral, HS Lasix: 40 mg = 1 tab(s), Oral, Daily MiraLax: 17 gm = 1 packet(s), Oral, Daily, PRN: Constipation Refresh PM: 1 drop(s), Eye-Both, q6hr Robitussin Sugar-Free: 300 mg = 15 mL, Oral, q6hr, PRN: Cough Vitamin C: 500 mg = 1 tab(s), Oral, Daily Vitamin D3: 2,000 unit(s) = 2 tab(s), Oral, Daily acetaminophen: 650 mg = 2 tab(s), Oral, q6hr, PRN: Pain bacitracin zinc 500 units/g topical ointment: 1 yefri, TOP, q8hr, PRN: Other (see comment) benzonatate: 100 mg = 1 cap(s), Oral, TID, PRN: Cough calcium (as carbonate) 500 mg oral tablet, chewable: 500 mg = 1 tab(s), Oral, Daily fluticasone 50 mcg/inh nasal spray: 50 mcg = 1 spray(s), Nostrils-Both, Daily, PRN: Allergy symptoms magnesium oxide: 400 mg = 1 tab(s), Oral, Daily melatonin: 3 mg = 1 tab(s), Oral, HS, PRN: Insomnia ondansetron: 4 mg = 1 tab(s), Oral, q6hr, PRN: Nausea/Vomiting oxyCODONE immediate release: 5 mg = 1 tab(s), Oral, q4hr, PRN: Pain senna: 17.2 mg = 2 tab(s), Oral, HS traZODone: 25 mg = 0.5 tab(s), Oral, HS, PRN: Insomnia Documented Medications Documented Eliquis 5 mg oral tablet: 5 mg = 1 tab(s), Oral, BID, 0 Refill(s) Flonase 50 mc mcg = 1 spray(s), Nasal, Daily, PRN: Allergy symptoms, 0 Refill(s) Lasix 40 mg oral tablet: 40 mg = 1 tab(s), Oral, Daily, 0 Refill(s) Ultram 50 mg oral tablet: 50 mg, Oral, q6hr, PRN: Pain, 0 Refill(s) Vitamin C 500 mg oral tablet: 500 mg = 1 tab(s), Oral, Daily, 0 Refill(s) Vitamin D3 2000 intl units oral capsule: 50 mcg = 1 cap(s), Oral, Daily, 0 Refill(s) calcium citrate: 200 mg, Oral, Daily, 0 Refill(s) lactobacillus rhamnosus: 1 capsule, Oral, Daily, 0 Refill(s) magnesium gluconate 250 mg oral tablet: 250 mg = 1 tab(s), Oral, Daily, 0 Refill(s) saw palmetto: 0 Refill(s) silodosin: 0 Refill(s), Medications (23) Active Scheduled: (10) apixaban 5 mg tab [[facility]] 5 mg 1 tab(s), Oral, BID ascorbic acid 500 mg Tab [[facility]] 500 mg 1 tab(s), Oral, Daily calcium carbonate 500 mg Chew Tab [[facility]] 500 mg 1 tab(s), Oral, Daily carboxymethylcellulose 0.5% ophth Emeli [[facility]] 1 drop(s), Eye-Both, q6hr cholecalciferol (25 mcg) 1000 units tablet [[facility]] 2,000 unit(s) 2 tab(s), Oral, Daily furosemide 40 mg Tab [[facility]] 40 mg 1 tab(s), Oral, Daily magnesium oxide 400 mg Tab [[facility]] 400 mg 1 tab(s), Oral, Daily oxybutynin 5 mg ER Tab [[facility]] 5 mg 1 tab(s), Oral, Daily senna 8.6 mg Tab [[facility]] 17.2 mg 2 tab(s), Oral, HS tamsulosin 0.4 mg Oral Cap [[facility]] 0.4 mg 1 cap(s), Oral, HS Continuous: (0) PRN: (13) acetaminophen 325 mg Tab [[facility]] 650 mg 2 tab(s), Oral, q6hr bacitracin zinc 500 units/g Top Oint UD [[facility]] 1 yefri, TOP, q8hr benzonatate 100 mg Cap [[facility]] 100 mg 1 cap(s), Oral, TID bisacodyl 10 mg Supp [[facility]] 10 mg 1 supp, Per rectum, Daily bisacodyl 10 mg Supp [[facility]] 10 mg 1 supp, Per rectum, Daily docusate sodium 100 mg Cap [[facility]] 100 mg 1 cap(s), Oral, BID fluticasone Nasal 50 mcg/inh [place] [[facility]] 50 mcg 1 spray(s), Nostrils-Both, Daily guaiFENesin 20 mg/mL Oral Liq [[facility]] 300 mg 15 mL, Oral, q6hr melatonin 3 mg Tab [[facility]] 3 mg 1 tab(s), Oral, HS ondansetron 4 mg Dis Tab [[facility]] 4 mg 1 tab(s), Oral, q6hr oxyCODONE 5 mg Tab [[facility]] 5 mg 1 tab(s), Oral, q4hr polyethylene glycol 3350 Oral Pwdr Recon [[facility]] 17 gm 1 packet(s), Oral, Daily traZODone 50 mg Tab [[facility]] 25 mg 0.5 tab(s), Oral, HS . 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 #SHERIE - CPAP per home #Cardiovascular #afib #mod to severe TR continue apixaban 5 bid and lasix 40 daily. 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 He will be able to propel a wheelchair in his home, except to his toilet.?? He will be using the wheelchair for mobility and ADLs in his home, including to get to a commode.?? He is able to propel a wheelchair on level surfaces.?? His home has a ramp to enter, and his family will be assisting him on the ramp. #dispo home after 3 week LOS; planning d/c home 12/27 f/u PCP, neurosurg, neurourology for eval for NG bladder #Potential or actual clinically significant medication issues addressed per CMS regulations: NO 35 min total time spent of chart review, team discussion, and face to face eval Extracted from: Title:SOAP Note: Rehab Note Author:Starr Burt Date:12/20/22 Health Status Allergies: Allergic Reactions (All) Severe Shellfish- No reactions were documented., Allergies (1) Active Severity Reaction shellfish Severe None Documented Medications Current medications: (Selected) Inpatient Medications Ordered Colace: 100 mg = 1 cap(s), Oral, BID, PRN: Constipation Ditropan XL: 5 mg = 1 tab(s), Oral, Daily Dulcolax Laxative: 10 mg = 1 supp, Per rectum, Daily Dulcolax Laxative: 10 mg = 1 supp, Per rectum, Daily, PRN: Constipation Eliquis: 5 mg = 1 tab(s), Oral, BID Flomax: 0.4 mg = 1 cap(s), Oral, HS Lasix: 40 mg = 1 tab(s), Oral, Daily MiraLax: 17 gm = 1 packet(s), Oral, Daily, PRN: Constipation Refresh PM: 1 drop(s), Eye-Both, q6hr Robitussin Sugar-Free: 300 mg = 15 mL, Oral, q6hr, PRN: Cough Vitamin C: 500 mg = 1 tab(s), Oral, Daily Vitamin D3: 2,000 unit(s) = 2 tab(s), Oral, Daily acetaminophen: 650 mg = 2 tab(s), Oral, q6hr, PRN: Pain bacitracin zinc 500 units/g topical ointment: 1 yefri, TOP, q8hr, PRN: Other (see comment) benzonatate: 100 mg = 1 cap(s), Oral, TID, PRN: Cough calcium (as carbonate) 500 mg oral tablet, chewable: 500 mg = 1 tab(s), Oral, Daily fluticasone 50 mcg/inh nasal spray: 50 mcg = 1 spray(s), Nostrils-Both, Daily, PRN: Allergy symptoms magnesium oxide: 400 mg = 1 tab(s), Oral, Daily melatonin: 3 mg = 1 tab(s), Oral, HS, PRN: Insomnia ondansetron: 4 mg = 1 tab(s), Oral, q6hr, PRN: Nausea/Vomiting oxyCODONE immediate release: 5 mg = 1 tab(s), Oral, q4hr, PRN: Pain senna: 17.2 mg = 2 tab(s), Oral, HS traZODone: 25 mg = 0.5 tab(s), Oral, HS, PRN: Insomnia Documented Medications Documented Eliquis 5 mg oral tablet: 5 mg = 1 tab(s), Oral, BID, 0 Refill(s) Flonase 50 mc mcg = 1 spray(s), Nasal, Daily, PRN: Allergy symptoms, 0 Refill(s) Lasix 40 mg oral tablet: 40 mg = 1 tab(s), Oral, Daily, 0 Refill(s) Ultram 50 mg oral tablet: 50 mg, Oral, q6hr, PRN: Pain, 0 Refill(s) Vitamin C 500 mg oral tablet: 500 mg = 1 tab(s), Oral, Daily, 0 Refill(s) Vitamin D3 2000 intl units oral capsule: 50 mcg = 1 cap(s), Oral, Daily, 0 Refill(s) calcium citrate: 200 mg, Oral, Daily, 0 Refill(s) lactobacillus rhamnosus: 1 capsule, Oral, Daily, 0 Refill(s) magnesium gluconate 250 mg oral tablet: 250 mg = 1 tab(s), Oral, Daily, 0 Refill(s) saw palmetto: 0 Refill(s) silodosin: 0 Refill(s), Medications (23) Active Scheduled: (11) apixaban 5 mg tab [[facility]] 5 mg 1 tab(s), Oral, BID ascorbic acid 500 mg Tab [[facility]] 500 mg 1 tab(s), Oral, Daily bisacodyl 10 mg Supp [[facility]] 10 mg 1 supp, Per rectum, Daily calcium carbonate 500 mg Chew Tab [[facility]] 500 mg 1 tab(s), Oral, Daily carboxymethylcellulose 0.5% ophth Emeli [[facility]] 1 drop(s), Eye-Both, q6hr cholecalciferol (25 mcg) 1000 units tablet [[facility]] 2,000 unit(s) 2 tab(s), Oral, Daily furosemide 40 mg Tab [[facility]] 40 mg 1 tab(s), Oral, Daily magnesium oxide 400 mg Tab [[facility]] 400 mg 1 tab(s), Oral, Daily oxybutynin 5 mg ER Tab [[facility]] 5 mg 1 tab(s), Oral, Daily senna 8.6 mg Tab [[facility]] 17.2 mg 2 tab(s), Oral, HS tamsulosin 0.4 mg Oral Cap [[facility]] 0.4 mg 1 cap(s), Oral, HS Continuous: (0) PRN: (12) acetaminophen 325 mg Tab [[facility]] 650 mg 2 tab(s), Oral, q6hr bacitracin zinc 500 units/g Top Oint UD [[facility]] 1 yefri, TOP, q8hr benzonatate 100 mg Cap [[facility]] 100 mg 1 cap(s), Oral, TID bisacodyl 10 mg Supp [[facility]] 10 mg 1 supp, Per rectum, Daily docusate sodium 100 mg Cap [[facility]] 100 mg 1 cap(s), Oral, BID fluticasone Nasal 50 mcg/inh [place] [[facility]] 50 mcg 1 spray(s), Nostrils-Both, Daily guaiFENesin 20 mg/mL Oral Liq [[facility]] 300 mg 15 mL, Oral, q6hr melatonin 3 mg Tab [[facility]] 3 mg 1 tab(s), Oral, HS ondansetron 4 mg Dis Tab [[facility]] 4 mg 1 tab(s), Oral, q6hr oxyCODONE 5 mg Tab [[facility]] 5 mg 1 tab(s), Oral, q4hr polyethylene glycol 3350 Oral Pwdr Recon [[facility]] 17 gm 1 packet(s), Oral, Daily traZODone 50 mg Tab [[facility]] 25 mg 0.5 tab(s), Oral, HS . 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 #SHERIE - CPAP per home #Cardiovascular #afib #mod to severe TR continue apixaban 5 bid and lasix 40 daily. 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 He will be able to propel a wheelchair in his home, except to his toilet.?? He will be using the wheelchair for mobility and ADLs in his home, including to get to a commode.?? He is able to propel a wheelchair on level surfaces.?? His home has a ramp to enter, and his family will be assisting him on the ramp. #dispo home after 3 week LOS f/u PCP, neurosurg, urology if needed #Potential or actual clinically significant medication issues addressed per [facility] regulations: NO 25 min total time spent of chart review, team discussion, and face to face eval Extracted from: Title:SOAP Note: Rehab Note Author:Starr Burt Date:12/19/22 Health Status Allergies: Allergic Reactions (All) Severe Shellfish- No reactions were documented., Allergies (1) Active Severity Reaction shellfish Severe None Documented Medications Current medications: (Selected) Inpatient Medications Ordered Colace: 100 mg = 1 cap(s), Oral, BID, PRN: Constipation Ditropan XL: 5 mg = 1 tab(s), Oral, Daily Dulcolax Laxative: 10 mg = 1 supp, Per rectum, Daily Dulcolax Laxative: 10 mg = 1 supp, Per rectum, Daily, PRN: Constipation Eliquis: 5 mg = 1 tab(s), Oral, BID Flomax: 0.4 mg = 1 cap(s), Oral, HS Lasix: 40 mg = 1 tab(s), Oral, Daily MiraLax: 17 gm = 1 packet(s), Oral, Daily, PRN: Constipation Refresh PM: 1 drop(s), Eye-Both, q6hr Robitussin Sugar-Free: 300 mg = 15 mL, Oral, q6hr, PRN: Cough Vitamin C: 500 mg = 1 tab(s), Oral, Daily Vitamin D3: 2,000 unit(s) = 2 tab(s), Oral, Daily acetaminophen: 650 mg = 2 tab(s), Oral, q6hr, PRN: Pain bacitracin zinc 500 units/g topical ointment: 1 yefri, TOP, q8hr, PRN: Other (see comment) benzonatate: 100 mg = 1 cap(s), Oral, TID, PRN: Cough calcium (as carbonate) 500 mg oral tablet, chewable: 500 mg = 1 tab(s), Oral, Daily fluticasone 50 mcg/inh nasal spray: 50 mcg = 1 spray(s), Nostrils-Both, Daily, PRN: Allergy symptoms magnesium oxide: 400 mg = 1 tab(s), Oral, Daily melatonin: 3 mg = 1 tab(s), Oral, HS, PRN: Insomnia ondansetron: 4 mg = 1 tab(s), Oral, q6hr, PRN: Nausea/Vomiting oxyCODONE immediate release: 5 mg = 1 tab(s), Oral, q4hr, PRN: Pain senna: 17.2 mg = 2 tab(s), Oral, HS traZODone: 25 mg = 0.5 tab(s), Oral, HS, PRN: Insomnia Documented Medications Documented Eliquis 5 mg oral tablet: 5 mg = 1 tab(s), Oral, BID, 0 Refill(s) Flonase 50 mc mcg = 1 spray(s), Nasal, Daily, PRN: Allergy symptoms, 0 Refill(s) Lasix 40 mg oral tablet: 40 mg = 1 tab(s), Oral, Daily, 0 Refill(s) Ultram 50 mg oral tablet: 50 mg, Oral, q6hr, PRN: Pain, 0 Refill(s) Vitamin C 500 mg oral tablet: 500 mg = 1 tab(s), Oral, Daily, 0 Refill(s) Vitamin D3 2000 intl units oral capsule: 50 mcg = 1 cap(s), Oral, Daily, 0 Refill(s) calcium citrate: 200 mg, Oral, Daily, 0 Refill(s) lactobacillus rhamnosus: 1 capsule, Oral, Daily, 0 Refill(s) magnesium gluconate 250 mg oral tablet: 250 mg = 1 tab(s), Oral, Daily, 0 Refill(s) saw palmetto: 0 Refill(s) silodosin: 0 Refill(s), Medications (23) Active Scheduled: (11) apixaban 5 mg tab [[facility]] 5 mg 1 tab(s), Oral, BID ascorbic acid 500 mg Tab [[facility]] 500 mg 1 tab(s), Oral, Daily bisacodyl 10 mg Supp [[facility]] 10 mg 1 supp, Per rectum, Daily calcium carbonate 500 mg Chew Tab [[facility]] 500 mg 1 tab(s), Oral, Daily carboxymethylcellulose 0.5% ophth [place] [[facility]] 1 drop(s), Eye-Both, q6hr cholecalciferol (25 mcg) 1000 units tablet [[facility]] 2,000 unit(s) 2 tab(s), Oral, Daily furosemide 40 mg Tab [[facility]] 40 mg 1 tab(s), Oral, Daily magnesium oxide 400 mg Tab [[facility]] 400 mg 1 tab(s), Oral, Daily oxybutynin 5 mg ER Tab [[facility]] 5 mg 1 tab(s), Oral, Daily senna 8.6 mg Tab [[facility]] 17.2 mg 2 tab(s), Oral, HS tamsulosin 0.4 mg Oral Cap [[facility]] 0.4 mg 1 cap(s), Oral, HS Continuous: (0) PRN: (12) acetaminophen 325 mg Tab [[facility]] 650 mg 2 tab(s), Oral, q6hr bacitracin zinc 500 units/g Top Oint UD [[facility]] 1 yefri, TOP, q8hr benzonatate 100 mg Cap [[facility]] 100 mg 1 cap(s), Oral, TID bisacodyl 10 mg Supp [[facility]] 10 mg 1 supp, Per rectum, Daily docusate sodium 100 mg Cap [[facility]] 100 mg 1 cap(s), Oral, BID fluticasone Nasal 50 mcg/inh [place] [[facility]] 50 mcg 1 spray(s), Nostrils-Both, Daily guaiFENesin 20 mg/mL Oral Liq [[facility]] 300 mg 15 mL, Oral, q6hr melatonin 3 mg Tab [[facility]] 3 mg 1 tab(s), Oral, HS ondansetron 4 mg Dis Tab [[facility]] 4 mg 1 tab(s), Oral, q6hr oxyCODONE 5 mg Tab [[facility]] 5 mg 1 tab(s), Oral, q4hr polyethylene glycol 3350 Oral Pwdr Recon [[facility]] 17 gm 1 packet(s), Oral, Daily traZODone 50 mg Tab [[facility]] 25 mg 0.5 tab(s), Oral, HS . 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 #SHERIE - CPAP per home #Cardiovascular #afib #mod to severe TR continue apixaban 5 bid and lasix 40 daily. Daily weights 71->72 kg #anemia Hb 10.2, stable from DH check at 10 secondary to ABLA, ACD #NG bowel starting daily bowel program with daily supp and dig stim #NG bladder follow PVRs on flomax (sub for silodosin) PVRs 100-200 not requiring cathing likely to eventually have small spastic bladder given level of injury discussed trial ditropan and need for f/u with neuro-urology started ditropan XL 5 mg daily on 12/19 #sleep improved, continues on melatonin, trazodone prn #Pain postoperative pain, controlled with acetaminophen, topical anesthetics, marinol, oxycodone 5 q 4 prn has tapered off oxycodone and marinol already stopped #dispo home after 3 week LOS f/u PCP, neurosurg, urology if needed #Potential or actual clinically significant medication issues addressed per CMS regulations: YES started ditropan Did the facility complete prescribed/recommended actions in response to the identified potentially clinically significant medication issues by midnight of the next calendar day? YES 35 min total time spent of chart review, team discussion, and face to face eval Extracted from: Title:SOAP Note: Rehab Note Author:Starr Burt Date:12/15/22 Health Status Allergies: Allergic Reactions (All) Severe Shellfish- No reactions were documented., Allergies (1) Active Severity Reaction shellfish Severe None Documented Medications Current medications: (Selected) Inpatient Medications Ordered Colace: 100 mg = 1 cap(s), Oral, BID, PRN: Constipation Dulcolax Laxative: 10 mg = 1 supp, Per rectum, Daily Dulcolax Laxative: 10 mg = 1 supp, Per rectum, Daily, PRN: Constipation Eliquis: 5 mg = 1 tab(s), Oral, BID Flomax: 0.4 mg = 1 cap(s), Oral, HS Lasix: 40 mg = 1 tab(s), Oral, Daily MiraLax: 17 gm = 1 packet(s), Oral, Daily, PRN: Constipation Refresh PM: 1 drop(s), Eye-Both, HS Robitussin Sugar-Free: 300 mg = 15 mL, Oral, q6hr, PRN: Cough Vitamin C: 500 mg = 1 tab(s), Oral, Daily Vitamin D3: 2,000 unit(s) = 2 tab(s), Oral, Daily acetaminophen: 650 mg = 2 tab(s), Oral, q6hr, PRN: Pain bacitracin zinc 500 units/g topical ointment: 1 yefri, TOP, q8hr, PRN: Other (see comment) benzonatate: 100 mg = 1 cap(s), Oral, TID, PRN: Cough calcium (as carbonate) 500 mg oral tablet, chewable: 500 mg = 1 tab(s), Oral, Daily fluticasone 50 mcg/inh nasal spray: 50 mcg = 1 spray(s), Nostrils-Both, Daily, PRN: Allergy symptoms magnesium oxide: 400 mg = 1 tab(s), Oral, Daily melatonin: 3 mg = 1 tab(s), Oral, HS, PRN: Insomnia ondansetron: 4 mg = 1 tab(s), Oral, q6hr, PRN: Nausea/Vomiting oxyCODONE immediate release: 5 mg = 1 tab(s), Oral, q4hr, PRN: Pain senna: 17.2 mg = 2 tab(s), Oral, HS traZODone: 25 mg = 0.5 tab(s), Oral, HS, PRN: Insomnia Documented Medications Documented Eliquis 5 mg oral tablet: 5 mg = 1 tab(s), Oral, BID, 0 Refill(s) Flonase 50 mc mcg = 1 spray(s), Nasal, Daily, PRN: Allergy symptoms, 0 Refill(s) Lasix 40 mg oral tablet: 40 mg = 1 tab(s), Oral, Daily, 0 Refill(s) Ultram 50 mg oral tablet: 50 mg, Oral, q6hr, PRN: Pain, 0 Refill(s) Vitamin C 500 mg oral tablet: 500 mg = 1 tab(s), Oral, Daily, 0 Refill(s) Vitamin D3 2000 intl units oral capsule: 50 mcg = 1 cap(s), Oral, Daily, 0 Refill(s) calcium citrate: 200 mg, Oral, Daily, 0 Refill(s) lactobacillus rhamnosus: 1 capsule, Oral, Daily, 0 Refill(s) magnesium gluconate 250 mg oral tablet: 250 mg = 1 tab(s), Oral, Daily, 0 Refill(s) saw palmetto: 0 Refill(s) silodosin: 0 Refill(s), Medications (22) Active Scheduled: (10) apixaban 5 mg tab [[facility]] 5 mg 1 tab(s), Oral, BID ascorbic acid 500 mg Tab [[facility]] 500 mg 1 tab(s), Oral, Daily bisacodyl 10 mg Supp [[facility]] 10 mg 1 supp, Per rectum, Daily calcium carbonate 500 mg Chew Tab [[facility]] 500 mg 1 tab(s), Oral, Daily carboxymethylcellulose 0.5% ophth [place] [[facility]] 1 drop(s), Eye-Both, HS cholecalciferol (25 mcg) 1000 units tablet [[facility]] 2,000 unit(s) 2 tab(s), Oral, Daily furosemide 40 mg Tab [[facility]] 40 mg 1 tab(s), Oral, Daily magnesium oxide 400 mg Tab [[facility]] 400 mg 1 tab(s), Oral, Daily senna 8.6 mg Tab [[facility]] 17.2 mg 2 tab(s), Oral, HS tamsulosin 0.4 mg Oral Cap [[facility]] 0.4 mg 1 cap(s), Oral, HS Continuous: (0) PRN: (12) acetaminophen 325 mg Tab [[facility]] 650 mg 2 tab(s), Oral, q6hr bacitracin zinc 500 units/g Top Oint UD [[facility]] 1 yefri, TOP, q8hr benzonatate 100 mg Cap [[facility]] 100 mg 1 cap(s), Oral, TID bisacodyl 10 mg Supp [[facility]] 10 mg 1 supp, Per rectum, Daily docusate sodium 100 mg Cap [[facility]] 100 mg 1 cap(s), Oral, BID fluticasone Nasal 50 mcg/inh [place] [[facility]] 50 mcg 1 spray(s), Nostrils-Both, Daily guaiFENesin 20 mg/mL Oral Liq [[facility]] 300 mg 15 mL, Oral, q6hr melatonin 3 mg Tab [[facility]] 3 mg 1 tab(s), Oral, HS ondansetron 4 mg Dis Tab [[facility]] 4 mg 1 tab(s), Oral, q6hr oxyCODONE 5 mg Tab [[facility]] 5 mg 1 tab(s), Oral, q4hr polyethylene glycol 3350 Oral Pwdr Recon [[facility]] 17 gm 1 packet(s), Oral, Daily traZODone 50 mg Tab [[facility]] 25 mg 0.5 tab(s), Oral, HS . 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 #SHERIE - CPAP per home #Cardiovascular #afib #mod to severe TR continue apixaban 5 bid and lasix 40 daily. Daily weights 71->72 kg #anemia Hb 10.2, stable from DH check at 10 secondary to ABLA, ACD #NG bowel starting daily bowel program with daily supp and dig stim #NG bladder follow PVRs on flomax (sub for silodosin) PVRs 100-200 not requiring cathing likely to eventually have small spastic bladder given level of injury discussed trial ditropan and need for f/u with neuro-urology #sleep improved, continues on melatonin, trazodone prn #Pain postoperative pain, controlled with acetaminophen, topical anesthetics, marinol, oxycodone 5 q 4 prn has tapered off oxycodone and marinol already stopped #dispo home after 3 week LOS f/u PCP, neurosurg, urology if needed #Potential or actual clinically significant medication issues addressed per [facility] regulations: NO 35 min total time spent of chart review, team discussion, and face to face eval Extracted from: Title:SOAP Note: Rehab Note Author:Starr Burt Date:12/13/22 Health Status Allergies: Allergic Reactions (All) Severe Shellfish- No reactions were documented., Allergies (1) Active Severity Reaction shellfish Severe None Documented Medications Current medications: (Selected) Inpatient Medications Ordered Colace: 100 mg = 1 cap(s), Oral, BID, PRN: Constipation Dulcolax Laxative: 10 mg = 1 supp, Per rectum, Daily Dulcolax Laxative: 10 mg = 1 supp, Per rectum, Daily, PRN: Constipation Eliquis: 5 mg = 1 tab(s), Oral, BID Flomax: 0.4 mg = 1 cap(s), Oral, HS Lasix: 40 mg = 1 tab(s), Oral, Daily MiraLax: 17 gm = 1 packet(s), Oral, Daily, PRN: Constipation Refresh PM: 1 drop(s), Eye-Both, HS Robitussin Sugar-Free: 300 mg = 15 mL, Oral, q6hr, PRN: Cough Vitamin C: 500 mg = 1 tab(s), Oral, Daily Vitamin D3: 2,000 unit(s) = 2 tab(s), Oral, Daily acetaminophen: 650 mg = 2 tab(s), Oral, q6hr, PRN: Pain bacitracin zinc 500 units/g topical ointment: 1 yefri, TOP, q8hr, PRN: Other (see comment) benzonatate: 100 mg = 1 cap(s), Oral, TID, PRN: Cough calcium (as carbonate) 500 mg oral tablet, chewable: 500 mg = 1 tab(s), Oral, Daily fluticasone 50 mcg/inh nasal spray: 50 mcg = 1 spray(s), Nostrils-Both, Daily, PRN: Allergy symptoms magnesium oxide: 400 mg = 1 tab(s), Oral, Daily melatonin: 3 mg = 1 tab(s), Oral, HS, PRN: Insomnia ondansetron: 4 mg = 1 tab(s), Oral, q6hr, PRN: Nausea/Vomiting oxyCODONE immediate release: 5 mg = 1 tab(s), Oral, q4hr, PRN: Pain senna: 17.2 mg = 2 tab(s), Oral, HS traZODone: 25 mg = 0.5 tab(s), Oral, HS, PRN: Insomnia Documented Medications Documented Eliquis 5 mg oral tablet: 5 mg = 1 tab(s), Oral, BID, 0 Refill(s) Flonase 50 mc mcg = 1 spray(s), Nasal, Daily, PRN: Allergy symptoms, 0 Refill(s) Lasix 40 mg oral tablet: 40 mg = 1 tab(s), Oral, Daily, 0 Refill(s) Ultram 50 mg oral tablet: 50 mg, Oral, q6hr, PRN: Pain, 0 Refill(s) Vitamin C 500 mg oral tablet: 500 mg = 1 tab(s), Oral, Daily, 0 Refill(s) Vitamin D3 2000 intl units oral capsule: 50 mcg = 1 cap(s), Oral, Daily, 0 Refill(s) calcium citrate: 200 mg, Oral, Daily, 0 Refill(s) lactobacillus rhamnosus: 1 capsule, Oral, Daily, 0 Refill(s) magnesium gluconate 250 mg oral tablet: 250 mg = 1 tab(s), Oral, Daily, 0 Refill(s) saw palmetto: 0 Refill(s) silodosin: 0 Refill(s), Medications (22) Active Scheduled: (10) apixaban 5 mg tab [[facility]] 5 mg 1 tab(s), Oral, BID ascorbic acid 500 mg Tab [[facility]] 500 mg 1 tab(s), Oral, Daily bisacodyl 10 mg Supp [[facility]] 10 mg 1 supp, Per rectum, Daily calcium carbonate 500 mg Chew Tab [[facility]] 500 mg 1 tab(s), Oral, Daily carboxymethylcellulose 0.5% ophth [place] [[facility]] 1 drop(s), Eye-Both, HS cholecalciferol (25 mcg) 1000 units tablet [[facility]] 2,000 unit(s) 2 tab(s), Oral, Daily furosemide 40 mg Tab [[facility]] 40 mg 1 tab(s), Oral, Daily magnesium oxide 400 mg Tab [[facility]] 400 mg 1 tab(s), Oral, Daily senna 8.6 mg Tab [[facility]] 17.2 mg 2 tab(s), Oral, HS tamsulosin 0.4 mg Oral Cap [[facility]] 0.4 mg 1 cap(s), Oral, HS Continuous: (0) PRN: (12) acetaminophen 325 mg Tab [[facility]] 650 mg 2 tab(s), Oral, q6hr bacitracin zinc 500 units/g Top Oint UD [[facility]] 1 yefri, TOP, q8hr benzonatate 100 mg Cap [[facility]] 100 mg 1 cap(s), Oral, TID bisacodyl 10 mg Supp [[facility]] 10 mg 1 supp, Per rectum, Daily docusate sodium 100 mg Cap [[facility]] 100 mg 1 cap(s), Oral, BID fluticasone Nasal 50 mcg/inh [place] [[facility]] 50 mcg 1 spray(s), Nostrils-Both, Daily guaiFENesin 20 mg/mL Oral Liq [[facility]] 300 mg 15 mL, Oral, q6hr melatonin 3 mg Tab [[facility]] 3 mg 1 tab(s), Oral, HS ondansetron 4 mg Dis Tab [[facility]] 4 mg 1 tab(s), Oral, q6hr oxyCODONE 5 mg Tab [[facility]] 5 mg 1 tab(s), Oral, q4hr polyethylene glycol 3350 Oral Pwdr Recon [[facility]] 17 gm 1 packet(s), Oral, Daily traZODone 50 mg Tab [[facility]] 25 mg 0.5 tab(s), Oral, HS . 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 #SHERIE - CPAP per home #Cardiovascular #afib #mod to severe TR continue apixaban 5 bid and lasix 40 daily. Daily weights 71->72 kg #anemia Hb 10.2, stable from DH check at 10 secondary to ABLA, ACD #NG bowel starting daily bowel program with daily supp and dig stim #NG bladder follow PVRs on flomax (sub for silodosin) PVRs 100-200 not requiring cathing likely to eventually have small spastic bladder given level of injury discussed trial ditropan and need for f/u with neuro-urology #sleep improved, continues on melatonin, trazodone prn #Pain postoperative pain, controlled with acetaminophen, topical anesthetics, marinol, oxycodone 5 q 4 prn taking oxycodone only 1x/d #dispo home after 3 week LOS f/u PCP, neurosurg, urology if needed #Potential or actual clinically significant medication issues addressed per CMS regulations: NO 25 min total time spent of chart review, team discussion, and face to face eval Extracted from: Title:SOAP Note: Rehab Note Author:Starr Burt Date:12/12/22 Health Status Allergies: Allergic Reactions (All) Severe Shellfish- No reactions were documented., Allergies (1) Active Severity Reaction shellfish Severe None Documented Medications Current medications: (Selected) Inpatient Medications Ordered Colace: 100 mg = 1 cap(s), Oral, BID, PRN: Constipation Dulcolax Laxative: 10 mg = 1 supp, Per rectum, Daily Dulcolax Laxative: 10 mg = 1 supp, Per rectum, Daily, PRN: Constipation Eliquis: 5 mg = 1 tab(s), Oral, BID Flomax: 0.4 mg = 1 cap(s), Oral, HS Lasix: 40 mg = 1 tab(s), Oral, Daily MiraLax: 17 gm = 1 packet(s), Oral, Daily, PRN: Constipation Refresh PM: 1 drop(s), Eye-Both, HS Robitussin Sugar-Free: 300 mg = 15 mL, Oral, q6hr, PRN: Cough Vitamin C: 500 mg = 1 tab(s), Oral, Daily Vitamin D3: 2,000 unit(s) = 2 tab(s), Oral, Daily acetaminophen: 1,000 mg = 2 tab(s), Oral, TID bacitracin zinc 500 units/g topical ointment: 1 yefri, TOP, q8hr, PRN: Other (see comment) benzonatate: 100 mg = 1 cap(s), Oral, TID, PRN: Cough calcium (as carbonate) 500 mg oral tablet, chewable: 500 mg = 1 tab(s), Oral, Daily fluticasone 50 mcg/inh nasal spray: 50 mcg = 1 spray(s), Nostrils-Both, Daily, PRN: Allergy symptoms magnesium oxide: 400 mg = 1 tab(s), Oral, Daily melatonin: 3 mg = 1 tab(s), Oral, HS, PRN: Insomnia ondansetron: 4 mg = 1 tab(s), Oral, q6hr, PRN: Nausea/Vomiting oxyCODONE immediate release: 5 mg = 1 tab(s), Oral, q4hr, PRN: Pain senna: 17.2 mg = 2 tab(s), Oral, HS traZODone: 25 mg = 0.5 tab(s), Oral, HS, PRN: Insomnia Documented Medications Documented Eliquis 5 mg oral tablet: 5 mg = 1 tab(s), Oral, BID, 0 Refill(s) Flonase 50 mc mcg = 1 spray(s), Nasal, Daily, PRN: Allergy symptoms, 0 Refill(s) Lasix 40 mg oral tablet: 40 mg = 1 tab(s), Oral, Daily, 0 Refill(s) Ultram 50 mg oral tablet: 50 mg, Oral, q6hr, PRN: Pain, 0 Refill(s) Vitamin C 500 mg oral tablet: 500 mg = 1 tab(s), Oral, Daily, 0 Refill(s) Vitamin D3 2000 intl units oral capsule: 50 mcg = 1 cap(s), Oral, Daily, 0 Refill(s) calcium citrate: 200 mg, Oral, Daily, 0 Refill(s) lactobacillus rhamnosus: 1 capsule, Oral, Daily, 0 Refill(s) magnesium gluconate 250 mg oral tablet: 250 mg = 1 tab(s), Oral, Daily, 0 Refill(s) saw palmetto: 0 Refill(s) silodosin: 0 Refill(s), Medications (22) Active Scheduled: (11) acetaminophen 500 mg Tab [[facility]] 1,000 mg 2 tab(s), Oral, TID apixaban 5 mg tab [[facility]] 5 mg 1 tab(s), Oral, BID ascorbic acid 500 mg Tab [[facility]] 500 mg 1 tab(s), Oral, Daily bisacodyl 10 mg Supp [[facility]] 10 mg 1 supp, Per rectum, Daily calcium carbonate 500 mg Chew Tab [[facility]] 500 mg 1 tab(s), Oral, Daily carboxymethylcellulose 0.5% ophth Emeli [[facility]] 1 drop(s), Eye-Both, HS cholecalciferol (25 mcg) 1000 units tablet [[facility]] 2,000 unit(s) 2 tab(s), Oral, Daily furosemide 40 mg Tab [[facility]] 40 mg 1 tab(s), Oral, Daily magnesium oxide 400 mg Tab [[facility]] 400 mg 1 tab(s), Oral, Daily senna 8.6 mg Tab [[facility]] 17.2 mg 2 tab(s), Oral, HS tamsulosin 0.4 mg Oral Cap [[facility]] 0.4 mg 1 cap(s), Oral, HS Continuous: (0) PRN: (11) bacitracin zinc 500 units/g Top Oint UD [[facility]] 1 yefri, TOP, q8hr benzonatate 100 mg Cap [[facility]] 100 mg 1 cap(s), Oral, TID bisacodyl 10 mg Supp [[facility]] 10 mg 1 supp, Per rectum, Daily docusate sodium 100 mg Cap [[facility]] 100 mg 1 cap(s), Oral, BID fluticasone Nasal 50 mcg/inh [place] [[facility]] 50 mcg 1 spray(s), Nostrils-Both, Daily guaiFENesin 20 mg/mL Oral Liq [[facility]] 300 mg 15 mL, Oral, q6hr melatonin 3 mg Tab [[facility]] 3 mg 1 tab(s), Oral, HS ondansetron 4 mg Dis Tab [[facility]] 4 mg 1 tab(s), Oral, q6hr oxyCODONE 5 mg Tab [[facility]] 5 mg 1 tab(s), Oral, q4hr polyethylene glycol 3350 Oral Pwdr Recon [[facility]] 17 gm 1 packet(s), Oral, Daily traZODone 50 mg Tab [[facility]] 25 mg 0.5 tab(s), Oral, HS . 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 #SHERIE - CPAP per home #Cardiovascular #afib #mod to severe TR continue apixaban 5 bid and lasix 40 daily. Daily weights 71->72 kg #anemia Hb 10.2, stable from DH check at 10 secondary to ABLA, ACD #NG bowel starting daily bowel program with daily supp and dig stim #NG bladder follow PVRs on flomax (sub for silodosin) PVRs 100-200 not requiring cathing likely to eventually have small spastic bladder given level of injury discussed trial ditropan and need for f/u with neuro-urology #sleep improved, continues on melatonin, trazodone prn #Pain postoperative pain, controlled with acetaminophen, topical anesthetics, marinol, oxycodone 5 q 4 prn taking oxycodone only 1x/d #dispo home after 3 week LOS f/u PCP, neurosurg, urology if needed #Potential or actual clinically significant medication issues addressed per CMS regulations: NO 35 min total time spent of chart review, team discussion, and face to face eval Extracted from: Title:SOAP Note: Rehab Note Author:Starr Burt Date:12/08/22 Health Status Allergies: Allergic Reactions (All) Severe Shellfish- No reactions were documented., Allergies (1) Active Severity Reaction shellfish Severe None Documented Medications Current medications: (Selected) Inpatient Medications Ordered Colace: 100 mg = 1 cap(s), Oral, BID, PRN: Constipation Dulcolax Laxative: 10 mg = 1 supp, Per rectum, Daily Dulcolax Laxative: 10 mg = 1 supp, Per rectum, Daily, PRN: Constipation Eliquis: 5 mg = 1 tab(s), Oral, BID Flomax: 0.4 mg = 1 cap(s), Oral, HS Lasix: 40 mg = 1 tab(s), Oral, Daily Marinol: 2.5 mg = 1 cap(s), Oral, BID MiraLax: 17 gm = 1 packet(s), Oral, Daily, PRN: Constipation Refresh PM: 1 drop(s), Eye-Both, HS Robitussin Sugar-Free: 300 mg = 15 mL, Oral, q6hr, PRN: Cough Vitamin C: 500 mg = 1 tab(s), Oral, Daily Vitamin D3: 2,000 unit(s) = 2 tab(s), Oral, Daily acetaminophen: 1,000 mg = 2 tab(s), Oral, TID bacitracin zinc 500 units/g topical ointment: 1 yefri, TOP, q8hr, PRN: Other (see comment) benzonatate: 100 mg = 1 cap(s), Oral, TID, PRN: Cough calcium (as carbonate) 500 mg oral tablet, chewable: 500 mg = 1 tab(s), Oral, Daily fluticasone 50 mcg/inh nasal spray: 50 mcg = 1 spray(s), Nostrils-Both, Daily, PRN: Allergy symptoms lidocaine 5% topical film: 3 patch(es), TOP, HS lidocaine patch removal: Removal of 3 patch(es), TOP, Daily magnesium oxide: 400 mg = 1 tab(s), Oral, Daily melatonin: 3 mg = 1 tab(s), Oral, HS, PRN: Insomnia ondansetron: 4 mg = 1 tab(s), Oral, q6hr, PRN: Nausea/Vomiting oxyCODONE immediate release: 5 mg = 1 tab(s), Oral, q4hr, PRN: Pain senna: 17.2 mg = 2 tab(s), Oral, HS traZODone: 25 mg = 0.5 tab(s), Oral, HS, PRN: Insomnia Documented Medications Documented Eliquis 5 mg oral tablet: 5 mg = 1 tab(s), Oral, BID, 0 Refill(s) Flonase 50 mc mcg = 1 spray(s), Nasal, Daily, PRN: Allergy symptoms, 0 Refill(s) Lasix 40 mg oral tablet: 40 mg = 1 tab(s), Oral, Daily, 0 Refill(s) Ultram 50 mg oral tablet: 50 mg, Oral, q6hr, PRN: Pain, 0 Refill(s) Vitamin C 500 mg oral tablet: 500 mg = 1 tab(s), Oral, Daily, 0 Refill(s) Vitamin D3 2000 intl units oral capsule: 50 mcg = 1 cap(s), Oral, Daily, 0 Refill(s) calcium citrate: 200 mg, Oral, Daily, 0 Refill(s) lactobacillus rhamnosus: 1 capsule, Oral, Daily, 0 Refill(s) magnesium gluconate 250 mg oral tablet: 250 mg = 1 tab(s), Oral, Daily, 0 Refill(s) saw palmetto: 0 Refill(s) silodosin: 0 Refill(s), Medications (25) Active Scheduled: (14) acetaminophen 500 mg Tab [[facility]] 1,000 mg 2 tab(s), Oral, TID apixaban 5 mg tab [[facility]] 5 mg 1 tab(s), Oral, BID ascorbic acid 500 mg Tab [[facility]] 500 mg 1 tab(s), Oral, Daily bisacodyl 10 mg Supp [[facility]] 10 mg 1 supp, Per rectum, Daily calcium carbonate 500 mg Chew Tab [[facility]] 500 mg 1 tab(s), Oral, Daily cholecalciferol (25 mcg) 1000 units tablet [[facility]] 2,000 unit(s) 2 tab(s), Oral, Daily dronabinol 2.5 mg Cap [[facility]] 2.5 mg 1 cap(s), Oral, BID furosemide 40 mg Tab [[facility]] 40 mg 1 tab(s), Oral, Daily lidocaine 5% Transdermal Patch [[facility]] 3 patch(es), TOP, HS lidocaine patch removal [[facility]] Removal of 3 patch(es), TOP, Daily magnesium oxide 400 mg Tab [[facility]] 400 mg 1 tab(s), Oral, Daily ocular lubricant 1 drop(s), Eye-Both, HS senna 8.6 mg Tab [[facility]] 17.2 mg 2 tab(s), Oral, HS tamsulosin 0.4 mg Oral Cap [[facility]] 0.4 mg 1 cap(s), Oral, HS Continuous: (0) PRN: (11) bacitracin zinc 500 units/g Top Oint UD [[facility]] 1 yefri, TOP, q8hr benzonatate 100 mg Cap [[facility]] 100 mg 1 cap(s), Oral, TID bisacodyl 10 mg Supp [[facility]] 10 mg 1 supp, Per rectum, Daily docusate sodium 100 mg Cap [[facility]] 100 mg 1 cap(s), Oral, BID fluticasone Nasal 50 mcg/inh [place] [[facility]] 50 mcg 1 spray(s), Nostrils-Both, Daily guaiFENesin 20 mg/mL Oral Liq [[facility]] 300 mg 15 mL, Oral, q6hr melatonin 3 mg Tab [[facility]] 3 mg 1 tab(s), Oral, HS ondansetron 4 mg Dis Tab [[facility]] 4 mg 1 tab(s), Oral, q6hr oxyCODONE 5 mg Tab [[facility]] 5 mg 1 tab(s), Oral, q4hr polyethylene glycol 3350 Oral Pwdr Recon [[facility]] 17 gm 1 packet(s), Oral, Daily traZODone 50 mg Tab [[facility]] 25 mg 0.5 tab(s), Oral, HS . 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 #SHERIE - CPAP per home #Cardiovascular #afib #mod to severe TR continue apixaban 5 bid and lasix 40 daily. Daily weights #anemia Hb 10.2, stable from DH check at 10 secondary to ABLA, ACD #NG bowel starting daily bowel program with daily supp and dig stim #NG bladder follow PVRs on flomax (sub for silodosin) PVRs 100-200 not requiring cathing likely to eventually have small spastic bladder given level of injury #sleep improved, continues on melatonin, trazodone prn #Pain postoperative pain, controlled with acetaminophen, topical anesthetics, marinol, oxycodone 5 q 4 prn taking oxycodone only 1x/d #dispo home after 3 week LOS f/u PCP, neurosurg, urology if needed #Potential or actual clinically significant medication issues addressed per CMS regulations: NO 35 min total time spent of chart review, team discussion, and face to face eval Extracted from: Title:SOAP Note: Rehab Note Author:Starr Burt Date:12/07/22 Health Status Allergies: Allergic Reactions (All) Severe Shellfish- No reactions were documented., Allergies (1) Active Severity Reaction shellfish Severe None Documented Medications Current medications: (Selected) Inpatient Medications Ordered Colace: 100 mg = 1 cap(s), Oral, BID, PRN: Constipation Dulcolax Laxative: 10 mg = 1 supp, Per rectum, Daily Dulcolax Laxative: 10 mg = 1 supp, Per rectum, Daily, PRN: Constipation Eliquis: 5 mg = 1 tab(s), Oral, BID Flomax: 0.4 mg = 1 cap(s), Oral, HS Lasix: 40 mg = 1 tab(s), Oral, Daily Marinol: 2.5 mg = 1 cap(s), Oral, BID MiraLax: 17 gm = 1 packet(s), Oral, Daily, PRN: Constipation Robitussin Sugar-Free: 300 mg = 15 mL, Oral, q6hr, PRN: Cough Vitamin C: 500 mg = 1 tab(s), Oral, Daily Vitamin D3: 2,000 unit(s) = 2 tab(s), Oral, Daily acetaminophen: 1,000 mg = 2 tab(s), Oral, TID bacitracin zinc 500 units/g topical ointment: 1 yefri, TOP, q8hr, PRN: Other (see comment) benzonatate: 100 mg = 1 cap(s), Oral, TID, PRN: Cough calcium (as carbonate) 500 mg oral tablet, chewable: 500 mg = 1 tab(s), Oral, Daily fluticasone 50 mcg/inh nasal spray: 50 mcg = 1 spray(s), Nostrils-Both, Daily, PRN: Allergy symptoms lidocaine 5% topical film: 3 patch(es), TOP, HS lidocaine patch removal: Removal of 3 patch(es), TOP, Daily magnesium oxide: 400 mg = 1 tab(s), Oral, Daily melatonin: 3 mg = 1 tab(s), Oral, HS, PRN: Insomnia ondansetron: 4 mg = 1 tab(s), Oral, q6hr, PRN: Nausea/Vomiting oxyCODONE immediate release: 5 mg = 1 tab(s), Oral, q4hr, PRN: Pain senna: 17.2 mg = 2 tab(s), Oral, HS traZODone: 25 mg = 0.5 tab(s), Oral, HS, PRN: Insomnia Documented Medications Documented Eliquis 5 mg oral tablet: 5 mg = 1 tab(s), Oral, BID, 0 Refill(s) Flonase 50 mc mcg = 1 spray(s), Nasal, Daily, PRN: Allergy symptoms, 0 Refill(s) Lasix 40 mg oral tablet: 40 mg = 1 tab(s), Oral, Daily, 0 Refill(s) Ultram 50 mg oral tablet: 50 mg, Oral, q6hr, PRN: Pain, 0 Refill(s) Vitamin C 500 mg oral tablet: 500 mg = 1 tab(s), Oral, Daily, 0 Refill(s) Vitamin D3 2000 intl units oral capsule: 50 mcg = 1 cap(s), Oral, Daily, 0 Refill(s) calcium citrate: 200 mg, Oral, Daily, 0 Refill(s) lactobacillus rhamnosus: 1 capsule, Oral, Daily, 0 Refill(s) magnesium gluconate 250 mg oral tablet: 250 mg = 1 tab(s), Oral, Daily, 0 Refill(s) saw palmetto: 0 Refill(s) silodosin: 0 Refill(s), Medications (24) Active Scheduled: (13) acetaminophen 500 mg Tab [[facility]] 1,000 mg 2 tab(s), Oral, TID apixaban 5 mg tab [[facility]] 5 mg 1 tab(s), Oral, BID ascorbic acid 500 mg Tab [[facility]] 500 mg 1 tab(s), Oral, Daily bisacodyl 10 mg Supp [[facility]] 10 mg 1 supp, Per rectum, Daily calcium carbonate 500 mg Chew Tab [[facility]] 500 mg 1 tab(s), Oral, Daily cholecalciferol (25 mcg) 1000 units tablet [[facility]] 2,000 unit(s) 2 tab(s), Oral, Daily dronabinol 2.5 mg Cap [[facility]] 2.5 mg 1 cap(s), Oral, BID furosemide 40 mg Tab [[facility]] 40 mg 1 tab(s), Oral, Daily lidocaine 5% Transdermal Patch [[facility]] 3 patch(es), TOP, HS lidocaine patch removal [[facility]] Removal of 3 patch(es), TOP, Daily magnesium oxide 400 mg Tab [[facility]] 400 mg 1 tab(s), Oral, Daily senna 8.6 mg Tab [[facility]] 17.2 mg 2 tab(s), Oral, HS tamsulosin 0.4 mg Oral Cap [[facility]] 0.4 mg 1 cap(s), Oral, HS Continuous: (0) PRN: (11) bacitracin zinc 500 units/g Top Oint UD [[facility]] 1 yefri, TOP, q8hr benzonatate 100 mg Cap [[facility]] 100 mg 1 cap(s), Oral, TID bisacodyl 10 mg Supp [[facility]] 10 mg 1 supp, Per rectum, Daily docusate sodium 100 mg Cap [[facility]] 100 mg 1 cap(s), Oral, BID fluticasone Nasal 50 mcg/inh [place] [[facility]] 50 mcg 1 spray(s), Nostrils-Both, Daily guaiFENesin 20 mg/mL Oral Liq [[facility]] 300 mg 15 mL, Oral, q6hr melatonin 3 mg Tab [[facility]] 3 mg 1 tab(s), Oral, HS ondansetron 4 mg Dis Tab [[facility]] 4 mg 1 tab(s), Oral, q6hr oxyCODONE 5 mg Tab [[facility]] 5 mg 1 tab(s), Oral, q4hr polyethylene glycol 3350 Oral Pwdr Recon [[facility]] 17 gm 1 packet(s), Oral, Daily traZODone 50 mg Tab [[facility]] 25 mg 0.5 tab(s), Oral, HS . 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 #SHERIE - CPAP per home #Cardiovascular #afib #mod to severe TR continue apixaban 5 bid and lasix 40 daily. Daily weights #anemia Hb 10.2, stable from check at 10 secondary to ABLA, ACD #NG bowel starting daily bowel program with daily supp and dig stim #NG bladder follow PVRs on flomax (sub for silodosin) likely to have small spastic bladder given level of injury #sleep improved, continues on melatonin, trazodone prn #Pain postoperative pain, controlled with acetaminophen, topical anesthetics, oxycodone 5 q 4 prn #dispo home after 3 week LOS f/u PCP, neurosurg, urology if needed #Potential or actual clinically significant medication issues addressed per CMS regulations: YES started trazodone Did the facility complete prescribed/recommended actions in response to the identified potentially clinically significant medication issues by midnight of the next calendar day? YES 35 min total time spent of chart review, team discussion, and face to face eval Extracted from: Title:ayana Author:Winnie Mauricio Date:12/06 Pt an 87 yo male arrived [facility] at 1500, via ambulance on stretcher, s/p compression Fx T2-T5/Laminectomy, and tumor excision PSIF. pt transferred from stretcher to bed with 4 assist and back board. and Son present Hx A-Fib on Elequis, Metastatic prostrate Ca. Using CPAP (RT informed and will set-up) Pt is alert and oriented x 4 . VSS assessment benign, HRR, lungs clear, + BS x4 (last BM today 12/06). pt has had urge incontinence post surgery, is wearing brief. Used urinal on admission PVR 111ml. Pt able to answer admission questions. Pt has advanced directives, requested more information. Belongings documented in admission history. Admission process initiated. Wheelchair and FWW. Falls prevention gone over, Orientation to call noel, telephone and TV remote gone over, pt has been informed to use call noel before getting OOB. Pt has been assessed by MD, Extracted from: Title:Rehab Admission H&P * spinal cord Author:Starr Paz MD Date:12/06/22 History of Present Illness Mr Kramer is a 87 yo man with active metastatic prostate CA and atrial fibrillation on AC, SHERIE on CPAP, and moderate to severe tricuspid regurgitation who was admitted to [facility] 11/28 to 12/06 after presenting with 1 week of LE weakness and back pain especially with coughing. MRI of thoracic and lumbar spine showed T4-5 neoplasm with epidural extension compression at the spinal cord at T5. TTE done prior to surgery showing mod to severe TR. He was started on dexamethasone prior to surgery. On 12/01 he had decompression laminectomy and PSIF of T2-5 and excision of tumor. Pain controlled with tylenol, oxycodone, lidocaine patches. Chronic cough treated with guaifenesin and tessalon. He had ABLA after surgery, likely worsened by ACD. Hb 10.4 at discharge up from 9.4 after surgery. He had leukocytosis attributed to dexamethasone. For afib, he was restarted on apixaban at 5 bid after surgery (was on 2.5 bid for unclear reasons). Home lasix held before surgery but may be restarted in rehab. The patient worked daily with PT and OT. However due to continued impaired mobility and ADLs requiring assist of 2 for mobility and ADLs, it was thought he would benefit from acute rehab to improve functional status with the goal of discharge home as safely and independently as possible. Review of Systems Constitutional: Negative. Pain assessment: Self-reports pain The location is: operative site. Aggravating factors: movement, weight bearing. . Eye: Negative. Ear/Nose/Mouth/Throat: Negative. Respiratory: No shortness of breath, No cough. Cardiovascular: No chest pain, No palpitations, No leg swelling. Gastrointestinal: Constipation, No nausea, No vomiting, No abdominal pain. Genitourinary: Urinary incontinence, using purewick external catheter, No dysuria. Hematology/Lymphatics: Anemia, ABLA and ACD. Endocrine: Negative. Musculoskeletal: Joint pain, Muscle pain, Decreased range of motion, Joint stiffness, Joint swelling. Integumentary: spine incision, No rash, No breakdown. Neurologic: Numbness, Tingling, Spasticity, Weakness, No dizziness, No tremor. Psychiatric: Sleeping problems. Health Status Allergies: No allergies have been recorded., No qualifying data available Medications Current medications: (Selected) Inpatient Medications Ordered Colace: 100 mg = 1 cap(s), Oral, BID Dulcolax Laxative: 10 mg = 1 supp, Per rectum, Daily, PRN: Constipation Eliquis: 5 mg = 1 tab(s), Oral, BID Flomax: 0.4 mg = 1 cap(s), Oral, HS Lasix: 40 mg = 1 tab(s), Oral, Daily Marinol: 2.5 mg = 1 cap(s), Oral, BID MiraLax: 17 gm = 1 packet(s), Oral, Daily, PRN: Constipation Robitussin Sugar-Free: 300 mg = 15 mL, Oral, q6hr, PRN: Cough Ultram: 50 mg = 1 tab(s), Oral, q6hr, PRN: Pain Vitamin C: 500 mg = 1 tab(s), Oral, Daily Vitamin D3: 50 mcg = 1 cap(s), Oral, Daily acetaminophen: 1,000 mg = 2 tab(s), Oral, TID bacitracin zinc 500 units/g topical ointment: 1 yefri, TOP, q8hr, PRN: Other (see comment) benzonatate: 100 mg = 1 cap(s), Oral, TID, PRN: Cough calcium (as carbonate) 500 mg oral tablet, chewable: 500 mg = 1 tab(s), Oral, Daily fluticasone 50 mcg/inh nasal spray: 1 spray(s), Nasal, Daily, PRN: Allergy symptoms magnesium oxide: 400 mg = 1 tab(s), Oral, Daily melatonin: 3 mg = 1 tab(s), Oral, HS, PRN: Insomnia ondansetron: 4 mg = 1 tab(s), Oral, q6hr, PRN: Nausea/Vomiting oxyCODONE immediate release: 5 mg = 1 tab(s), Oral, q4hr, PRN: Pain senna: 17.2 mg = 2 tab(s), Oral, HS Documented Medications Documented Eliquis 5 mg oral tablet: 5 mg = 1 tab(s), Oral, BID, 0 Refill(s) Flonase 50 mc mcg = 1 spray(s), Nasal, Daily, PRN: Allergy symptoms, 0 Refill(s) Lasix 40 mg oral tablet: 40 mg = 1 tab(s), Oral, Daily, 0 Refill(s) Ultram 50 mg oral tablet: 50 mg, Oral, q6hr, PRN: Pain, 0 Refill(s) Vitamin C 500 mg oral tablet: 500 mg = 1 tab(s), Oral, Daily, 0 Refill(s) Vitamin D3 2000 intl units oral capsule: 50 mcg = 1 cap(s), Oral, Daily, 0 Refill(s) calcium citrate: 200 mg, Oral, Daily, 0 Refill(s) lactobacillus rhamnosus: 1 capsule, Oral, Daily, 0 Refill(s) magnesium gluconate 250 mg oral tablet: 250 mg = 1 tab(s), Oral, Daily, 0 Refill(s) saw palmetto: 0 Refill(s) silodosin: 0 Refill(s), Medications (21) Active Scheduled: (11) acetaminophen 500 mg Tab [[facility]] 1,000 mg 2 tab(s), Oral, TID apixaban 5 mg tab [[facility]] 5 mg 1 tab(s), Oral, BID ascorbic acid 500 mg Tab [[facility]] 500 mg 1 tab(s), Oral, Daily calcium carbonate 500 mg Chew Tab [[facility]] 500 mg 1 tab(s), Oral, Daily cholecalciferol 50 mcg 1 cap(s), Oral, Daily docusate sodium 100 mg Cap [[facility]] 100 mg 1 cap(s), Oral, BID dronabinol 2.5 mg Cap [[facility]] 2.5 mg 1 cap(s), Oral, BID furosemide 40 mg Tab [[facility]] 40 mg 1 tab(s), Oral, Daily magnesium oxide 400 mg Tab [[facility]] 400 mg 1 tab(s), Oral, Daily senna 8.6 mg Tab [[facility]] 17.2 mg 2 tab(s), Oral, HS tamsulosin 0.4 mg Oral Cap [[facility]] 0.4 mg 1 cap(s), Oral, HS Continuous: (0) PRN: (10) bacitracin zinc 500 units/g Top Oint UD [[facility]] 1 yefri, TOP, q8hr benzonatate 100 mg Cap [[facility]] 100 mg 1 cap(s), Oral, TID bisacodyl 10 mg Supp [[facility]] 10 mg 1 supp, Per rectum, Daily fluticasone nasal 1 spray(s), Nasal, Daily guaiFENesin 20 mg/mL Oral Liq [[facility]] 300 mg 15 mL, Oral, q6hr melatonin 3 mg Tab [[facility]] 3 mg 1 tab(s), Oral, HS ondansetron 4 mg Dis Tab [[facility]] 4 mg 1 tab(s), Oral, q6hr oxyCODONE 5 mg Tab [[facility]] 5 mg 1 tab(s), Oral, q4hr polyethylene glycol 3350 Oral Pwdr Recon [[facility]] 17 gm 1 packet(s), Oral, Daily traMADol 50 mg Tab [[facility]] 50 mg 1 tab(s), Oral, q6hr . Medications (21) Active Scheduled: (11) acetaminophen 500 mg Tab [[facility]] 1,000 mg 2 tab(s), Oral, TID apixaban 5 mg tab [[facility]] 5 mg 1 tab(s), Oral, BID ascorbic acid 500 mg Tab [[facility]] 500 mg 1 tab(s), Oral, Daily calcium carbonate 500 mg Chew Tab [[facility]] 500 mg 1 tab(s), Oral, Daily cholecalciferol 50 mcg 1 cap(s), Oral, Daily docusate sodium 100 mg Cap [[facility]] 100 mg 1 cap(s), Oral, BID dronabinol 2.5 mg Cap [[facility]] 2.5 mg 1 cap(s), Oral, BID furosemide 40 mg Tab [[facility]] 40 mg 1 tab(s), Oral, Daily magnesium oxide 400 mg Tab [[facility]] 400 mg 1 tab(s), Oral, Daily senna 8.6 mg Tab [[facility]] 17.2 mg 2 tab(s), Oral, HS tamsulosin 0.4 mg Oral Cap [[facility]] 0.4 mg 1 cap(s), Oral, HS Continuous: (0) PRN: (10) bacitracin zinc 500 units/g Top Oint UD [[facility]] 1 yefri, TOP, q8hr benzonatate 100 mg Cap [[facility]] 100 mg 1 cap(s), Oral, TID bisacodyl 10 mg Supp [[facility]] 10 mg 1 supp, Per rectum, Daily fluticasone nasal 1 spray(s), Nasal, Daily guaiFENesin 20 mg/mL Oral Liq [[facility]] 300 mg 15 mL, Oral, q6hr melatonin 3 mg Tab [[facility]] 3 mg 1 tab(s), Oral, HS ondansetron 4 mg Dis Tab [[facility]] 4 mg 1 tab(s), Oral, q6hr oxyCODONE 5 mg Tab [[facility]] 5 mg 1 tab(s), Oral, q4hr polyethylene glycol 3350 Oral Pwdr Recon [[facility]] 17 gm 1 packet(s), Oral, Daily traMADol 50 mg Tab [[facility]] 50 mg 1 tab(s), Oral, q6hr . Problem list: All Problems Atrial fibrillation / [id number] / Confirmed Prostate cancer metastatic to bone / [id number] / Confirmed, Active Problems (2) Atrial fibrillation Prostate cancer metastatic to bone Physical Examination VS/Measurements No qualifying data available General: Alert and oriented, No acute distress, Well developed, Well nourished. Eye: Extraocular movements are intact, Normal conjunctiva. HENT: Normocephalic, Oral mucosa is moist. Respiratory: Lungs are clear to auscultation, Respirations are non-labored, Breath sounds are equal. Cardiovascular: Normal rate, Regular rhythm, nain-incisional edema. Gastrointestinal: Soft, Non-tender, Non-distended, Normal bowel sounds. Integumentary: Intact, No rash, incision well approximated without erythema or drainage. Mental status/ Cognition Alert. Oriented x 3. Speech and language intact. Cognition intact. Sensorimotor/ Reflexes T5 sensory level strength BUE 5/5, BLE hip flexion 2/5, quads 4/4 ankle dorsiflexion 4/5 SILT BLE however +paresthesias reflexes brisk BLE 3+. Psychiatric: Cooperative, Appropriate mood & affect. Impression and Plan Diagnosis T5 mass causing cord compression s/p excision s/p T2-5 decompression lami and PSIF metastatic prostate CA BLE weakness NG bowel and bladder. Impairments: Pain. General: Decreased strength, Decreased endurance, Decreased balance, Decreased range of motion. Disabilities: Decreased: Mobility, Ability to transfer self, Ability to ambulate, Ability to dress self, Ability to bathe self, Ability to toilet self, Ability to self-care, Problem-solving abilities, Safety. Limiting factors: Pain. Safety/ Precautions: Weight bearing: As tolerated. Nursing goals: Nutrition/diet: Maintain optimal caloric intake. Medication monitor for treatment: Effects, Adverse reactions. Bladder: Continent, Regulated with program. Bowel: Continent, Regulated with program. Skin: Promote wound healing, Prevent breakdown, Decrease limb edema. Pain/Sleep: Regulate sleep cycle, Decrease pain level. Occupational therapy goals: Modified independent, Equipment/DME assessment. Physical therapy goals: Modified independent, Equipment/DME assessment. Therapeutic Recreation Goals: Leisure skills assessment, Improve social interaction with peers. Patient/Family Goals: Return to home independent, Return to home with assistance. Potential for improvement to meet goals: Good. Patient/Family Educational Needs: ADL assistance, Bowel/bladder program, Disease process education, Medication education, Pain management strategies, Safety awareness, Transfers. Estimated length of stay: 3-4 weeks. Disposition: Home. Code Status Medical Plan DVT prophylaxis: anti-embolus stockings, apixaban at 5 bid (home dose 2.5 bid but unclear reasons so DH increased to 5 bid). Skin: wound/incision management. Respiratory: pulmonary hygiene incentive spirometry, SHERIE CPAP. Cardiovascular: afib - continue apixaban 5 bid and lasix 40 daily. Daily weights mod to severe TR. Hematology: ABLA, ACD - Hb10, recheck CBC in am prostate CA, metastatic - f/u oncology after rehab. GI: Constipation (laxative, stool softener, NG bowel - daily bowel program with daily supp and dig stim). : retention (flomax instead of silodosin (formulary sub), follow PVRs, cath as needed, may anticipate spastic bladder given level of injury). Nutrition: regular. Psych/ Sleep: sleep melatonin, added trazodone prn. Pain: postoperative, controlled, managed with (acetaminophen, narcotics, topical anesthetics, ice, oxycodone 5 q 4 prn, no tramadol). #[facility] medication review: Did a complete drug regimen review identify potential clinically significant medication issues? - NO ? no issues found during review . #CMS High-Risk Drug Classes Is patient taking any medications in the following pharmacological classifications: Antipsychotic, Anticoagulant, Antibiotic, Opioid, Antiplatelet, Hypoglycemic (including insulin)? ? ? YES - Anticoagulant, Opioid Is there an indication noted for all medications in the drug classes noted above? ? ? YES, indication noted . 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 Post Admission Physician Evaluation: Risk for complications. Documentation Reviewed: I have reviewed the Preadmission Screen. Functional status documented at preadmission: I agree with the patient's current functional status as documented in the preadmission screening. Medical conditions: The patient's medical conditions can be managed in the rehab hospital, The plan of treatment is documented above in the history and physical. Patient participation in therapy: The patient can participate in, and will benefit from an intense therapy program at least 3 hours per day / 5 days per week. Therapies/services include:, Physical therapy, Occupational therapy, Rehabilitation Nursing, Case Management, Therapeutic Recreation. Functional Status 12/30/22 History of Fall in Last 3 Months Karimi N o Mobility Juan Daniel No limitation 12/19/22 Bathing ADL Index Requires assistance (1) Dressing ADL Index Requires assistance (1) Toileting ADL Index Dependent (0) Transferring Bed or Chair ADL Index Depe ndent (0) Continence ADL Index Independent (2) 12/15/22 ADLs Moderate assistance 12/06/22 Recent Travel History No recent travel Family Member Travel History No recent t ravel Medications acetaminophen 325 mg oral tablet 650 mg = 2 tab(s), Oral, q6hr, PRN PRN Pain, 0 Refill(s) Start Date: 12/29/22 Status: Ordered calcium citrate 200 mg, Oral, Daily, 0 Refill(s) Start Date: 12/06/22 Status: Ordered Colace 100 mg oral capsule 100 mg = 1 cap(s), Oral, BID, PRN PRN Constipation, 0 Refill(s) Start Date: 12/29/22 Status: Ordered Ditropan XL 10 mg/24 hr oral tablet, extended release 10 mg = 1 tab(s), Oral, Daily, # 30 tab(s), 0 Refill(s), Pharmacy: [email or web address] #[id number], 1 tab(s) Oral Daily, 180.9, cm, 12/06/22 16:04:00 EDT, Height/Length Dosing, 72, kg, 12/10/22 15:14:00 EDT, WeightDosing Start Date: 12/29/22 Status: Ordered Eliquis 5 mg oral tablet 5 mg = 1 tab(s), Oral, BID, 0 Refill(s) Start Date: 12/06/22 Status: Ordered Flomax 0.4 mg oral capsule 0.4 mg = 1 cap(s), Oral, HS, # 30 cap(s), 1 Refill(s), Pharmacy: [facility] #[id number], 1 cap(s) Oral HS,x30 day(s), 180.9, cm, 12/06/22 16:04:00 EDT, Height/Length Dosing, 72, kg, 12/10/22 15:14:00 EDT, Weight Dosing Start Date: 12/30/22 Stop Date: 02/28/23 Status: Ordered Flonase 50 mcg 50 mcg = 1 spray(s), Nasal, Daily, PRN PRN Allergy symptoms, 0 Refill(s) Start Date: 12/06/22 Status: Ordered Lasix 40 mg oral tablet 40 mg = 1 tab(s), Oral, Daily, 0 Refill(s) Start Date: 12/06/22 Status: Ordered magnesium gluconate 250 mg oral tablet 250 mg = 1 tab(s), Oral, Daily, 0 Refill(s) Start Date: 12/06/22 Status: Ordered melatonin 3 mg oral tablet 3 mg = 1 tab(s), Oral, HS, PRN PRN Insomnia, 0 Refill(s) Start Date: 12/29/22 Status: Ordered Refresh PM = 1 drop(s), Eye-Both, q6hr, PRN PRN Dry eyes, 0 Refill(s) Start Date: 12/29/22 Status: Ordered saw palmetto 0 Refill(s) Start Date: 12/06/22 Status: Ordered senna 8.6 mg oral tablet 17.2 mg = 2 tab(s), Oral, HS, 0 Refill(s) Start Date: 12/29/22 Status: Ordered silodosin 0 Refill(s) Start Date: 12/06/22 Status: Ordered traZODone 50 mg oral tablet 25 mg = 0.5 tab(s), Oral, HS, PRN PRN Insomnia, # 10 tab(s), 0 Refill(s), Pharmacy: [facility] #[id number], 0.5 tab(s) Oral HS,PRN:Insomnia, 180.9, cm, 12/06/22 16:04:00 EDT, Height/Length Dosing, 72, kg, 12/10/22 15:14:00 EDT, Weight Dosing Start Date: 12/29/22 Status: Ordered Vitamin C 500 mg oral tablet 500 mg = 1 tab(s), Oral, Daily, 0 Refill(s) Start Date: 12/06/22 Status: Ordered Vitamin D3 2000 intl units oral capsule 50 mcg = 1 cap(s), Oral, Daily, 0 Refill(s) Start Date: 12/06/22 Status: Ordered Mental Status 12/30/22 Sensory Perception Juan Daniel Slightly limit ed Level of Consciousness Alert Problem List Condition Confirmation Course Effective Dates Status H ealth Status Informant Atrial fibrillation Confirmed Active Moderate tricuspid regurgitation Confirmed Active 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 Results Laboratory List Name Date Basic Metabolic Panel DH (BMP DH) 12/12/22 .Hemogram DH (CBC DH) 12/07/22 Basic Metabolic Panel DH 12/07/22 SARS-CoV-2 (COVID-19)/Influenza PCR (Karon t) 12/06/22 Most recent to oldest [Reference Range]: 1 2 Anion Gap DH [5-15 mmol/L] 8 mmol/L (12/12/22 5:41 AM) 7 mmol/L (12/07/22 6:00 AM) Chloride Lvl DH [98-107 mmol/L] 100 mmol /L (12/12/22 5:41 AM) 101 mmol/L (12/07/22 6:00 AM) CO2 DH [22-31 mmol/L] 28 mmol/L (12/12/22 5:41 AM) 27 mmol/L (12/07/22 6:00 AM) Est GFR DH [>=60 mL/min/1.73 m2] 88 mL/m in/1.73 m2 1 (12/12/22 5:41 AM) 91 mL/min/1.73 m2 2 (12/07/22 6:00 AM) Glucose Lvl DH [65-99 mg/dL] 100 mg/dL *HI* (12/12/22 5:41 AM) 99 mg/dL (12/07/22 6:00 AM) Potassium Lvl DH [3.5-5.0 mmol/L] 4.8 mm ol/L (12/12/22 5:41 AM) 4.4 mmol/L (12/07/22 6:00 AM) Sodium Lvl DH [135-145 mmol/L] 136 mmol/ L (12/12/22 5:41 AM) 135 mmol/L (12/07/22 6:00 AM) BUN DH [10-20 mg/dL] 16 mg/dL (12/12/22 5:41 AM) 26 mg/dL *HI* (12/07/22 6:00 AM) Calcium Lvl DH [8.5-10.5 mg/dL] 9.0 mg/d L (12/12/22 5:41 AM) 8.8 mg/dL (12/07/22 6:00 AM) Creatinine [0.80-1.50 mg/dL] .76 mg/dL *LOW* (12/12/22 5:41 AM) .68 mg/dL *LOW* (12/07/22 6:00 AM) Creatinine 0.6 mg/dL (12/06/22 2:27 AM) Influenza A [Negative] Negative 3 (12/06/22 7:50 PM) Influenza B [Negative] Negative (12/06/22 7:50 PM) Hct DH [40.5-48.5 %] 31.2 % *LOW* (12/07/22 6:00 AM) Hgb DH [13.7-16.5 g/dL] 10.2 g/dL *LOW* (12/07/22 6:00 AM) MCHC DH [32.0-35.7 g/dL] 32.7 g/dL (12/07/22 6:00 AM) MCH DH [27.5-32.1 pg] 32.1 pg (12/07/22 6:00 AM) MCV DH [82.9-93.1 fL] 98.1 fL *HI* (12/07/22 6:00 AM) MPV DH [7.6-12.9 fL] 9.4 fL (12/07/22 6:00 AM) Platelet DH [145-357 x10(3)/mcL] 196 x10 (3)/mcL (12/07/22 6:00 AM) RBC DH [4.58-5.54 x10(6)/mcL] 3.18 x10(6 )/mcL *LOW* (12/07/22 6:00 AM) RDWCV DH [11.4-13.8 %] 14.3 % *HI* (12/07/22 6:00 AM) RDWSD DH [36.0-45.0 fL] 51.7 fL *HI* (12/07/22 6:00 AM) WBC DH [4.0-9.5 x10(3)/mcL] 8.7 x10(3)/m cL (12/07/22 6:00 AM) SARS-CoV-2 (COVID-19) PCR [Not Detected] Not Detected 4 (12/06/22 7:50 PM) 1Result Comment: This patient's estimated GFR was calculated using the 2020 CKD- EPI equation. The estimated GFR can vary from the measured GFR by up to 30% in the absence of rapidly changing kidney function. Assessment of the estimated GFR is not appropriate when creatinine concentrations are rapidly changing. For clinical situations in which a more precise estimate of GFR is necessary, consider alternative methods of GFR estimation such as a 24-hour urine creatinine clearance. Assignment of CKD stage 1-5 for patients with an eGFR near the transition point between stages may be based on clinical assessment of muscle mass and symptoms in addition to eGFR. 2Result Comment: This patient's estimated GFR was calculated using the 2020 CKD- EPI equation. The estimated GFR can vary from the measured GFR by up to 30% in the absence of rapidly changing kidney function. Assessment of the estimated GFR is not appropriate when creatinine concentrations are rapidly changing. For clinical situations in which a more precise estimate of GFR is necessary, consider alternative methods of GFR estimation such as a 24-hour urine creatinine clearance. Assignment of CKD stage 1-5 for patients with an eGFR near the transition point between stages may be based on clinical assessment of muscle mass and symptoms in addition to eGFR. 3Interpretive Data: A positive test result indicates that influenza infection is likely.?? Negative results does not exclude influenza infection and should be interpreted in conjunction with other laboratory and clinical data available.?? In patients with high clinical suspicion of influenza, repeattesting may be warranted. 4Interpretive Data: Influenza A and Influenza B negative results should be considered presumptive insamples that have a positive SARS CoV-2 result. CDC COVID-19 criteria for testing on human specimens and clinical management guidance information are available at the CDC Coronavirus Disease 2019 (COVID- 19) webpage under Information for Healthcare Professionals (https://www.cdc.gov/coronavirus/2019-ncov/hcp/index.html). Additional information about this and other EUA tests can be found in provider and patient fact sheets at the following FDA website: https://www.fda.gov/medical-devices/hwqgbycubld-gjumvqb-5705-xlgfy-74-cbuqtvlhe- useauthorizations- medical-devices/vjnkx-lhwwnmuyupq-dmqw https://diagnostics.[employer]/us/en/products/params/edhsd-yhoe-mke-7-ynwubcxas-a -i-vejhcro-wnro-test.html Vital Signs Most recent to oldest [Reference Range]: 1 2 3 Temperature Oral [35.8-37.3 DegC] 36.8 DegC (12/30/22 8:35 AM) 37.0 DegC (12/29/22 9:00 PM) 36.6 DegC (12/29/22 10:00 AM) Temperature Oral (DegF) 98.24 DegF (12/30/22 8:35 AM) 98.6 DegF (12/29/22 9:00 PM) 101.48 DegF (12/28/22 10:14 AM) Temperature Temporal Artery [36.3-37.8 DegC] 37.4 DegC (12/18/22 2:00 PM) Temperature Temporal Artery (DegF) 99.32 DegF (12/18/22 2:00 PM) Apical Heart Rate [60-100 bpm] 70 bpm (12/29/22 10:00 AM) 68 bpm (12/25/22 9:00 AM) 71 bpm (12/15/22 8:43 AM) Peripheral Pulse Rate [60-100 bpm] 79 bpm (12/30/22 8:35 AM) 77 bpm (12/29/22 9:00 PM) 67 bpm (12/29/22 10:00 AM) Respiratory Rate [14-20 br/min] 18 br/min (12/30/22 8:35 AM) 16 br/min (12/29/22 10:00 AM) 16 br/min (12/28/22 8:00 PM) Blood Pressure [90-140/60-90 mmHg] 121/64mmHg (12/30/22 8:35 AM) 131/75mmHg (12/29/22 9:00 PM) 123/64mmHg (12/29/22 10:00 AM) Mean Arterial Pressure, Cuff [70-110 mmHg] 94 mmHg (12/29/22 9:00 PM) 98 mmHg (12/27/22 8:00 PM) Mean Arterial Pressure, Cuff 87 mmHg (12/27/22 8:22 AM) BP Site Left arm (12/30/22 8:35 AM) Left arm (12/29/22 9:00 PM) Right arm (12/29/22 10:00 AM) FIO2 21 % (12/28/22 7:42 PM) 21 % (12/14/22 9:45 PM) SpO2 [92-100 %] 98 % (12/30/22 8:35 AM) 97 % (12/29/22 9:00 PM) 98 % (12/29/22 10:00 AM) SpO2 Location Left hand (12/27/22 8:00 PM) Left hand (12/26/22 9:00 PM) Left hand (12/26/22 4:00 AM) BP Method Automatic (12/29/22 9:00 PM) Automatic (12/27/22 8:00 PM) Automatic (12/26/22 9:00 PM) Height 177.5 cm (12/19/22 9:57 AM) 177.5 cm (12/10/22 3:00 PM) Height/Length Dosing 180.9 cm (12/06/22 4:04 PM) 177.5 cm (11/30/22 11:18 AM) Weight 71.23 kg (12/29/22 4:52 PM) 71.4 kg (12/28/22 3:31 PM) 70.5 kg (12/27/22 5:02 PM) Weight Dosing 72 kg (12/10/22 3:14 PM) 70.6 kg (12/06/22 4:04 PM) 70.6 kg (12/06/22 3:39 AM) Social History Social History Type Response Smoking Status Smoking tobacco use: Never tobacco user;Never entered on: 12/06/22 Sex Hospital Discharge Instructions Patient Education 12/29/2022 16:59:01 Hospitalist Services Upon Discharge ([facility]) (CUSTOM) Services Upon Discharge Patient is being discharged home with these services in place: HOME SERVICES: Home Services Discharge - Arrangements and orders for follow-up care Service Provider: [facility] Contact Phone Number: Service(s) to be Provided: Physical Therapy; Occupational Therapy; Home Health Aide Frequency: Two times a week per therapy Additional Comments: Date of the face to face encounter: 12/29/22 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 Prosper Hall-with all follow up regarding your services. Reviewed and Electronically Signed By: Starr Burt MD Date: 12/29/22 12/26/2022 01:46:40 Neurogenic Bowel Neurogenic Bowel Neurogenic bowel is a condition that makes it difficult to control your bowel movements. If you have neurogenic bowel, you may lose the sensation of needing to have a bowel movement, lose the abilityto have a bowel movement, or both. Neurogenic bowel can cause stool to remain in your colon (stool retention). It can also cause stool to leak out of your colon without warning or control (incontinence). This condition results from an injury or a disease that affects your nervous system. Most people with a spinal cord injury from trauma will have neurogenic bowel. Managing neurogenic bowel is important for your quality of life. Everyone with this condition is different, so management requires a personalized bowel program. The purpose of a bowel program is to reduce accidents and make bowel movements more regular and predictable. What are the causes? This condition is often caused by a spinal cord injury. Other causes include: ??? Traumatic brain injury. ??? Brain tumor. ??? Spinal cord tumors or malformations. ??? Stroke. ??? Multiple sclerosis (MS). ??? Cerebral palsy. The condition can also be caused by diseases that affect the peripheral nervous system. These include: ??? Parkinson's disease. ??? Amyotrophic lateral sclerosis (ALS). ??? Conditions that cause pinched nerves in the lower back (cauda equina syndrome or conus medullaris syndrome). ??? Diabetes. What are the signs or symptoms? The most common symptoms of this condition are stool retention and incontinence. Other symptoms include: ??? Constipation. ??? Diarrhea. ??? Indigestion or heartburn. ??? Loss of appetite. ??? Pain or cramps. ??? Gas, bloating, or a swelled abdomen (distention). How is this diagnosed? This condition may be diagnosed based on: ??? Your symptoms and medical history. ??? A physical exam, including an abdominal and rectal exam. You may also have an imaging test of your abdomen. This can show if stool is being retained or if the size of your colon has been stretched by stool retention (megacolon). How is this treated? There is no standard treatment for neurogenic bowel. You will need to work with your health care providers to develop an individual bowel management program. Your personalized treatment program will depend on the cause of your condition as well as your symptoms, activity level, diet, overall physical condition, and mental ability to manage your condition. A bowel management plan usually starts with lifestyle changes and may also include medicines and physical therapy. You may be asked to keep arecord of your bowel movements. Initial treatment options may include some combination of: ??? Increasing physical activity or doing physical therapy. ??? Increasing fluid intake. ??? Increasing the amount of fiber in your diet. ??? Scheduling a bowel movement at the best time of day for you. ??? Using laxatives or stool softeners. ??? Stimulating a bowel movement with abdominal massage or finger stimulation (inserting a finger into the rectum). ??? Using a suppository or an enema. ??? Biofeedback training. ??? Regular flushing out (irrigation) of the colon with water using a tube placed in the rectum (transanal irrigation). You may need surgery if other treatments have not helped. Procedure options may include: ??? Implanting an electric nerve stimulator into your lower spine to stimulate colon muscles for bowel movements (sacral nerve stimulation). ??? Draining the colon through a surgically created opening (stoma). This is called an ileostomy orcolostomy procedure. Follow these instructions at home: Eating and drinking ??? Follow instructions from your health care provider about eating or drinking restrictions. ??? Eat foods that are high in fiber, such as beans, whole grains, and fresh fruits and vegetables. ??? Limit foods that are high in fat and processed sugars, such as fried or sweet foods. ??? Drink enough fluid to keep your urine pale yellow. General instructions ??? Work with your health care providers to find the best ways to manage your condition. ??? Take or use fnha-aqx-yzgptax and prescription medicines only as told by your health care provider. ??? Keep a record of your bowel movements. ??? Do exercises as told by your health care provider. ??? Keep all follow-up visits as told by your health care provider. This is important. Contact a health care provider if: ??? You are not able to manage stool retention or incontinence by following your bowel management program. ??? You have blood in your stool. ??? You have abdominal pain. ??? You have chills or a fever. ??? You have persistent diarrhea. ??? You have not had a bowel movement in 3 days. Get help right away if: ??? You have severe abdominal pain. ??? You have not had a bowel movement in 7 days. Summary ??? Neurogenic bowel is a condition that makes it difficult to control your bowel movements. ??? This condition can be caused by injury or disease to the brain or spinal cord. It can also be caused by diseases that affect the peripheral nervous system. ??? There is no standard treatment for this condition. Work with your health care providers to develop an individual bowel management program. ??? A bowel management plan usually starts with lifestyle changes and may also include medicines and physical therapy. You may need surgery if other treatments have not helped. This information is not intended to replace advice given to you by your health care provider. Make sure you discuss any questions you have with your health care provider. Document Revised: 07/18/2019 Document Reviewed: 10/14/2018 [employer] Patient Education ?? 2021 [employer] 12/18/2022 14:25:33 Laminectomy, Care After Laminectomy, Care After This sheet gives you information about how to care for yourself after your procedure. Your health care provider may also give you more specific instructions. If you have problems or questions, contact your health care provider. What can I expect after the procedure? After the procedure, it is common to have: ??? Some pain around your incision area. ??? Muscle tightening (spasms) across the back. Follow these instructions at home: Medicines ??? Take luyt-rbz-coibbvp and prescription medicines only as told by your health care provider. ??? If you were prescribed an antibiotic medicine, use it as told by your health care provider. Do not stop using the antibiotic even if you start to feel better. ??? If you are taking blood thinners: ??? Talk with your health care provider before you take any medicines that contain aspirin or NSAIDs, such as ibuprofen. These medicines increase your risk for dangerous bleeding. ??? Take your medicine exactly as told, at the same time every day. ??? Avoid activities that could cause injury or bruising, and follow instructions about how to prevent falls. ??? Wear a medical alert bracelet or carry a card that lists what medicines you take. ??? Ask your health care provider if the medicine prescribed to you: ??? Requires you to avoid driving or using heavy machinery. ??? Can cause constipation. You may need to take these actions to prevent or treat constipation: ??? Drink enough fluid to keep your urine pale yellow. ??? Take gfxv-gvq-pcgcjdq or prescription medicines. ??? Eat foods that are high in fiber, such as beans, whole grains, and fresh fruits and vegetables. ??? Limit foods that are high in fat and processed sugars, such as fried or sweet foods. ??? Do not drink alcohol if you are taking prescription pain medicine. Incision care ??? Follow instructions from your health care provider about how to take care of your incision area. Make sure you: ??? Wash your hands with soap and water before and after you apply medicine to the area or change your bandage (dressing). If soap and water are not available, use hand nurse informaticist. ??? Change your dressing as told by your health care provider. ??? Leave stitches (sutures), skin glue, or adhesive strips in place. These skin closures may need to stay in place for 2 weeks or longer. If adhesive strip edges start to loosen and curl up, you maytrim the loose edges. Do not remove adhesive strips completely unless your health care provider tells you to do that. ??? Check your incision area every day for signs of infection. Check for: ??? More redness, swelling, or pain. ??? Fluid or blood. ??? Warmth. ??? Pus or a bad smell. Activity ??? Rest as told by your health care provider. ??? Avoid bending or twisting at your waist. Always bend at your knees. ??? Avoid sitting for a long time without moving. Get up to take short walks every 1???2 hours. This is important to improve blood flow and breathing. Ask for help if you feel weak or unsteady. ??? Do not lift anything that is heavier than 10 lb (4.5 kg) or the limit that your health care provider tells you, until he or she says that it is safe. ??? Do exercises as told by your health care provider, including breathing exercises. ??? Return to your normal activities as told by your health care provider. Ask your health care provider what activities are safe for you. General instructions ??? Do not drive for 2 weeks after your procedure or for as long as told by your health care provider. ??? Do not take baths, swim, or use a hot tub for 2 weeks, or until your incision has healed completely. Ask your health care provider if you may take showers after your dressing has been removed. You may only be allowed to take sponge baths. ??? Do not use any products that contain nicotine or tobacco, such as cigarettes, e-cigarettes, andchewing tobacco. These can delay bone healing after surgery. If you need help quitting, ask your health care provider. ??? Wear compression stockings as told by your health care provider. These stockings help to prevent blood clots and reduce swelling in your legs. ??? Keep all follow-up visits as told by your health care provider. This is important. Contact a health care provider if: ??? You have more redness, swelling, or pain around your incision area. ??? Your incision feels warm to the touch. ??? You are not able to return to activities or do exercises as told by your health care provider. Get help right away if you: ??? Have any of these signs of infection: ??? Fluid or blood coming from your incision area. ??? Pus or a bad smell coming from your incision area. ??? Chills or a fever. ??? Feel dizzy or you faint while standing. ??? Develop a rash. ??? Develop shortness of breath or you have difficulty breathing. ??? Cannot control when you urinate or have a bowel movement. ??? Become weak. ??? Are not able to use your legs. These symptoms may represent a serious problem that is an emergency. Do not wait to see if the symptoms will go away. Get medical help right away. Call your local emergency services (911 in the [place] Do not drive yourself to the hospital. Summary ??? After the procedure, it is common to have some pain around your incision area. You may also have muscle tightening (spasms) across the back. ??? Follow instructions from your health care provider about how to care for your incision area. ??? Do not lift anything that is heavier than 10 lb (4.5 kg) or the limit that your health care provider tells you, until he or she says that it is safe. ??? Contact your health care provider if you have more redness, swelling, or pain around your incision area or if your incision feels warm to the touch. These can be signs of infection. This information is not intended to replace advice given to you by your health care provider. Make sure you discuss any questions you have with your health care provider. Document Revised: 10/20/2019 Document Reviewed: 10/20/2019 [employer] Patient Education ?? 2021 [employer]. 12/18/2022 14:25:02 Prostate Cancer Prostate Cancer The prostate is a small gland that produces fluid that makes up semen (seminal fluid). It is located below the bladder in men, in front of the rectum. Prostate cancer is the abnormal growth of cells in the prostate gland. What are the causes? The exact cause of this condition is not known. What increases the risk? You are more likely to develop this condition if: ??? You are 65 years of age or older. ??? You have a family history of prostate cancer. ??? You have a family history of breast and ovarian cancer. ??? You have genes that are passed from parent to child (inherited), such as BRCA1 and BRCA2. ??? You have Sweeney syndrome. men and men of descent are diagnosed with prostate cancer at higher rates than other men. The reasons for this are not well understood and are likely due to a combination of genetic and environmental factors. What are the signs or symptoms? Symptoms of this condition include: ??? Problems with urination. This may include: ??? A weak or interrupted flow of urine. ??? Trouble starting or stopping urination. ??? Trouble emptying the bladder all the way. ??? The need to urinate more often, especially at night. ??? Blood in urine or semen. ??? Persistent pain or discomfort in the lower back, lower abdomen, or hips. ??? Trouble getting an erection. ??? Weakness or numbness in the legs or feet. How is this diagnosed? This condition can be diagnosed with: ??? A digital rectal exam. For this exam, a health care provider inserts a gloved finger into the rectum to feel the prostate gland. ??? A blood test called a prostate-specific antigen (PSA) test. ??? A procedure in which a sample of tissue is taken from the prostate and checked under a microscope (prostate biopsy). ??? An imaging test called transrectal ultrasonography. Once the condition is diagnosed, tests will be done to determine how far the cancer has spread. This is called staging the cancer. Staging may involve imaging tests, such as a bone scan, CT scan, PETscan, or MRI. Stages of prostate cancer The stages of prostate cancer are as follows: ??? Stage 1 (I). At this stage, the cancer is found in the prostate only. The cancer is not visibleon imaging tests, and it is usually found by accident, such as during prostate surgery. ??? Stage 2 (II). At this stage, the cancer is more advanced than it is in stage 1, but the cancer has not spread outside the prostate. ??? Stage 3 (III). At this stage, the cancer has spread beyond the outer layer of the prostate to nearby tissues. The cancer may be found in the seminal vesicles, which are near the bladder and the prostate. ??? Stage 4 (IV). At this stage, the cancer has spread to other parts of the body, such as the lymph nodes, bones, bladder, rectum, liver, or lungs. Prostate cancer grading Prostate cancer is also graded according to how the cancer cells look under a microscope. This is called the Marlon score and the total score can range from 6???10, indicating how likely it is that the cancer will spread (metastasize) to other parts of the body. The higher the score, the greater the likelihood that the cancer will spread. ??? [place] 6 or lower: This indicates that the cancer cells look similar to normal prostate cells (well differentiated). ??? Marlon 7: This indicates that the cancer cells look somewhat similar to normal prostate cells (moderately differentiated). ??? [place] 8, 9, or 10: This indicates that the cancer cells look very different than normal prostate cells (poorly differentiated). How is this treated? Treatment for this condition depends on several factors, including the stage of the cancer, your age, personal preferences, and your overall health. Talk with your health care provider about treatment options that are recommended for you. Common treatments include: ??? Observation for early stage prostate cancer (active surveillance). This involves having exams, blood tests, and in some cases, more biopsies. For some men, this is the only treatment needed. ??? Surgery. Types of surgeries include: ??? Open surgery (radical prostatectomy). In this surgery, a larger incision is made to remove the prostate. ??? A laparoscopic radical prostatectomy. This is a surgery to remove the prostate and lymph nodes through several small incisions. It is often referred to as a minimally invasive surgery. ??? A robotic radical prostatectomy. This is laparoscopic surgery to remove the prostate and lymph nodes with the help of robotic arms that are controlled by the surgeon. ??? Cryoablation. This is surgery to freeze and destroy cancer cells. ??? Radiation treatment. Types of radiation treatment include: ??? External beam radiation. This type aims beams of radiation from outside the body at the prostate to destroy cancerous cells. ??? Brachytherapy. This type uses radioactive needles, seeds, wires, or tubes that are implanted into the prostate gland. Like external beam radiation, brachytherapy destroys cancerous cells. An advantage is that this type of radiation limits the damage to surrounding tissue and has fewer side effects. ??? Chemotherapy. This treatment kills cancer cells or stops them from multiplying. It kills both cancer cells and normal cells. ??? Targeted therapy. This treatment uses medicines to kill cancer cells without damaging normal cells. ??? Hormone treatment. This treatment involves taking medicines that act on testosterone, one of the male hormones, by: ??? Stopping your body from producing testosterone. ??? Blocking testosterone from reaching cancer cells. Follow these instructions at home: Lifestyle ??? Do not use any products that contain nicotine or tobacco. These products include cigarettes, chewing tobacco, and vaping devices, such as e-cigarettes. If you need help quitting, ask your health care provider. ??? Eat a healthy diet. To do this: ??? Eat foods that are high in fiber. These include beans, whole grains, and fresh fruits and vegetables. ??? Limit foods that are high in fat and sugar. These include fried or sweet foods. ??? Treatment for prostate cancer may affect sexual function. If you have a partner, continue to have intimate moments. This may include touching, holding, hugging, and caressing your partner. ??? Get plenty of sleep. ??? Consider joining a support group for men who have prostate cancer. Meeting with a support groupmay help you learn to manage the stress of having cancer. General instructions ??? Take wmsq-qhv-lwpqpqk and prescription medicines only as told by your health care provider. ??? If you have to go to the hospital, notify your cancer specialist (oncologist). ??? Keep all follow-up visits. This is important. Where to find more information ??? [place] [employer]: www.cancer.org ??? [place] Society of Clinical Oncology: www.cancer.net ??? National Cancer [place]: www.cancer.gov Contact a health care provider if: ??? You have new or increasing trouble urinating. ??? You have new or increasing blood in your urine. ??? You have new or increasing pain in your hips, back, or chest. Get help right away if: ??? You have weakness or numbness in your legs. ??? You cannot control urination or your bowel movements (incontinence). ??? You have chills or a fever. Summary ??? The prostate is a small gland that is involved in the production of semen. It is located below a man's bladder, in front of the rectum. ??? Prostate cancer is the abnormal growth of cells in the prostate gland. ??? Treatment for this condition depends on the stage of the cancer, your age, personal preferences, and your overall health. Talk with your health care provider about treatment options that are recommended for you. ??? Consider joining a support group for men who have prostate cancer. Meeting with a support groupmay help you learn to manage the stress of having cancer. This information is not intended to replace advice given to you by your health care provider. Make sure you discuss any questions you have with your health care provider. Document Revised: 06/22/2021 Document Reviewed: 06/22/2021 [employer] Patient Education ?? 2021 [employer]. 12/18/2022 14:24:55 Metastatic Cancer Metastatic Cancer Metastatic cancer is cancer that has spread from the place where it started (primary site) to another part of the body. The process of cancer spreading from the primary site is called metastasis. When cancer cells metastasize, they do not change the way they look or the way they affect the body. Anexample is when primary lung cancer spreads to the brain. This is called metastatic lung cancer, not brain cancer. All types of cancer can spread. Some cancers are more likely to metastasize than others. The most common places that cancers metastasize to are: ??? Bones. ??? Liver. ??? Lungs. What are the causes? Metastasis occurs when cancer cells spread from the primary site to another part of the body. Cancer cells can spread: ??? Directly from one part of the body to a nearby area (local invasion). ??? Into a lymph vessel. Cancer cells can be carried through the lymph system to lymph nodes and other parts of the body. The lymph system is a network of vessels and nodes that help protect against infections. ??? Into the blood vessels. Cancer cells can be carried to other parts of the body through the bloodstream. What increases the risk? The following factors may make you more likely to develop this condition: ??? The type of cancer that you have. ??? The stage and grade of your primary cancer at the time of diagnosis. ??? The grade and stage of the tumor. Grading and staging predict how quickly cancer cells will grow and their chances of metastasis. ??? A large primary tumor. ??? A higher grade of tumor. ??? Deeper growth of tumor. ??? A tumor that has entered the lymph system. What are the signs or symptoms? Symptoms of this condition include: ??? Weakness. ??? Lack of energy. ??? Pain. ??? Weight loss. ??? Trouble breathing. ??? Fluid buildup in your lungs or abdomen. ??? Tumor growths that can be felt or seen. ??? An enlarged liver. Some people with this condition may have no symptoms. How is this diagnosed? This condition may be diagnosed based on: ??? Your symptoms. ??? Physical exam. This may include: ??? Blood tests to check for certain substances that are secreted by tumors (tumor markers). ??? Tumor markers that increase after treatment can indicate metastasis. ??? Tumor markers may be used to help diagnose metastasis in some cancers, such as colon and prostate cancer. ??? Not all cancers have tumor markers. ??? Imaging studies, such as: ??? X-rays. ??? Ultrasound. ??? MRI. ??? Other imaging tests, such as CT scans, bone scans, and PET scans. ??? Testing tissue that is removed from the new cancer site (biopsy). If the cells are similar to cancer cells from the primary site, this can confirm metastatic cancer. ??? Testing fluid samples from the lungs, spine, or abdomen for metastatic cancer cells. How is this treated? There are many options for treating metastatic cancer. Your treatment will depend on: ??? The type of cancer you have. ??? How far your cancer has advanced. ??? Your general health. Treatment may not be able to cure metastatic cancer, but it can often relieve the symptoms. In manycases, you may have a combination of treatments. Options may include: ??? Surgery. ??? Medicines that kill cancer cells (chemotherapy). ??? High-energy rays that kill cancer cells (radiation therapy). ??? Targeted therapy. This targets specific parts of cancer cells and the area around them to blockthe growth and the spread of the cancer. Targeted therapy can help to limit the damage to healthy cells. ??? Hormone therapy. ??? Treatments that help your body fight cancer (biologic therapy). ??? Medicines that help your body's disease-fighting system (immune system) fight cancer cells (immunotherapy). ??? Freezing cancer cells using gas or liquid that is delivered through a needle (cryoablation). ??? Destroying cancer cells using high-energy radio waves that are delivered through a needle-like probe (radiofrequency ablation). ??? A procedure to block the artery that supplies blood to the tumor, which kills the cancer cells (embolization). ??? Other medicines to manage symptoms related to cancer or cancer treatments. Follow these instructions at home: Eating and drinking ??? Some of your treatments might affect your appetite and your ability to chew and swallow. If youare having problems eating, or if you do not have an appetite, meet with a diet and nutritional services host (dietitian). ??? If you have side effects that affect eating, it may help to: ??? Eat smaller meals and snacks often. ??? Drink high-nutrition and high-calorie shakes or supplements. ??? Eat bland and soft foods that are easy to eat. ??? Avoid foods that are hot, spicy, or hard to swallow. Lifestyle ??? Do not drink alcohol. ??? Do not use any products that contain nicotine or tobacco, such as cigarettes and e-cigarettes. If you need help quitting, ask your health care provider. General instructions ??? Take molt-pyp-iludifx and prescription medicines only as told by your health care provider. This includes vitamins, supplements, and herbal products. ??? Work with your health care provider to manage any side effects of treatment. ??? Keep all follow-up visits as told by your health care provider. This is important. Where to find more information ??? [place] Cancer Society: www.cancer.org ??? National Cancer [place] (NCI): www.cancer.gov Contact a health care provider if you: ??? Notice that you bruise or bleed easily. ??? Are losing weight without trying. ??? Have new or increased fatigue or weakness. Get help right away if you have: ??? A seizure. ??? A sudden increase in pain. ??? A fever. ??? Shortness of breath. ??? Chest pain. Summary ??? Metastatic cancer is cancer that has spread from the place where it started (primary site) to another part of the body. ??? Cancer cells can spread directly from one part of the body to a nearby area, or they may spreadthrough the lymph system or the bloodstream. ??? Your risk for metastatic cancer depends on the type of cancer you have and the stage and grade of your primary cancer. ??? Treatment may not be able to cure metastatic cancer, but it can often relieve the symptoms. This information is not intended to replace advice given to you by your health care provider. Make sure you discuss any questions you have with your health care provider. Document Revised: 05/19/2019 Document Reviewed: 04/10/2018 [employer] Patient Education ?? 2021 [employer]. Follow Up Care 12/06/2022 10:27:54 With:Suzy Fountain Address: When: Unknown Comments:f/u neurogenic bladder, on flomax and ditropan With:Allan Monge Address: [place], [place] When:01/02/2023 14:30:00 Comments:Hematology/Oncology arrive at [facility] end of [facility]- PLEASE ARRIVE FOR 2:30 PM With:[facility] Address: [place], [place] When:01/04/2023 14:45:00 Comments:[facility] Xray concierge receptionist 3T- Please arrive for 2:45 PM With:Prosper Hall Address: [address] [place] [id number] [facility] (1) When:01/15/2023 10:40:00 Comments:Follow up with your PCP With:Anjum Mueller Address: [place], [place] When:01/22/2023 Comments:[facility] [address] Dermatology Followup visit With:[facility] Address: [place], [place] When:01/04/2023 Comments:[facility] arrive concierge receptionist area 3D With:KATIE PROS SCAN Address: [place], [place] When:12/25/2022 Comments:Radiology 3Z With:[facility]ject Address: [place], [place] When:12/25/2022 Comments:Arrive Radiology 3Z Discharge summary * Winnie Mauricio: PERFORM Event Display: Discharge Note Authored Date: pt and report received from MITA. RN reported pt had uneventful night. no new findings. pt found up in chair in room alert, pleasant and oriented x4. VSS assessment benign, took am medications without issue, denies pain. pt scheduled for d/c this morning 0930/ and son will bring pt home. Discharge instructions gone over with pt including; medication schedule, purpose and dosing, prescriptions for new medications faxed to preferred pharmacy, pt and family verbalized understanding. Safety and physical restrictions gone over, pt understands the importance of safety and restrictions, returning home and toileting plan gone over, pt and family had no questions. pivot board, w/c and gait belt given to pt. Referrals and prescription for PT/ OT/ [facility] [employer]/ placed in blue book, blue book gone over, personal belongings returned to pt. contract writer took pt in w/c to private car, slide board transfer to car, pt left in stable condition at 11:00 [Electronically Signed on: 12/30/2022 11:16 EDT] Winnie Mauricio [Verified on: 12/30/2022 11:16 EDT] Winnie Mauricio Edita B: PERFORM Event Display: Discharge Note Authored Date: [id number] Flomax order/prescription sent to pharmacy (Dr Jean Carlos Beckman) for pick-up. pt has f/u appointment with Neuro urology. [Electronically Signed on: 12/30/2022 11:38 EDT] Winnie Mauricio * Starr Burt MD: VERIFY, PERFORM, SIGN Event Display: Discharge Summary Authored Date: [id number] Patient: MARISA KRAMER Age: 87 years Sex: Male : 1935 Associated Diagnoses: None Author: Starr Burt MD History of Present Illness Mr Kramer is a 87 yo man with active metastatic prostate CA and atrial fibrillation on AC, SHERIE on CPAP, and moderate to severe tricuspid regurgitation who was admitted to [facility] 11/28 to 12/06 after presenting with 1 week of LE weakness and back pain especially with coughing. MRI of thoracic and lumbarspine showed T4-5 neoplasm with epidural extension compression at the spinal cord at T5. TTE done prior to surgery showing mod to severe TR. He was started on dexamethasone prior to surgery. On 12/01 he had decompression laminectomy and PSIF of T2-5 and excision of tumor. Pain controlled with tylenol, oxycodone, lidocaine patches. Chronic cough treated with guaifenesin and tessalon. He had ABLA after surgery, likely worsened by ACD. Hb 10.4 at discharge up from 9.4 after surgery. He had leukocytosis attributed to dexamethasone. For afib, he was restarted on apixaban at 5 bid after surgery (was on 2.5 bid for unclear reasons). Home lasix held before surgery but may be restarted in rehab. The patient worked daily with PT and OT. However due to continued impaired mobility and ADLs requiring assist of 2 for mobility and ADLs, it was thought he would benefit from acute rehab to improve functional status with the goal of discharge home as safely and independently as possible. Histories Past Medical History: Active Prostate cancer metastatic to bone ([id number]) Atrial fibrillation (69051824) Moderate tricuspid regurgitation ([id number]) Procedure history: No active procedure history items have been selected or recorded. Social History Social & Psychosocial History Social History Tobacco Never tobacco user Tobacco Use:. Never Smokeless Tobacco Use:. Electronic Cigarette/Vaping Electronic Cigarette Use: Use, within last 90 days. Type: Cannabinoid infused. Psychosocial History No active psychosocial history has been recorded . Social History Social & Psychosocial History Social History Tobacco Never tobacco user Tobacco Use:. Never Smokeless Tobacco Use:. Electronic Cigarette/Vaping Electronic Cigarette Use: Use, within last 90 days. Type: Cannabinoid infused. Psychosocial History No active psychosocial history has been recorded . Family/ Social situation: Lives in [facility] with , son is supportive. Home has 1 [address]. No tobacco no alcohol. . Results Review Results review Labs (Last four charted values) WBC 8.7 (DEC 07) Hgb L 10.2 (DEC 07) Hct L 31.2 (DEC 07) Plt 196 (DEC 07) Na 136 (DEC 12) 135 (DEC 07) K 4.8 (DEC 12) 4.4 (DEC 07) CO2 28 (DEC 12) 27 (DEC 07) Cl 100 (DEC 12) 101 (DEC 07) Cr L .76 (DEC 12) L .68 (DEC 07) 0.6 (DEC 06) BUN 16 (DEC 12) H 26 (DEC 07) Glucose H 100 (DEC 12) 99 (DEC 07) Ca 9.0 (DEC 12) 8.8 (DEC 07) Health Status Allergies: Allergic Reactions (All) Severe Shellfish- No reactions were documented., Allergies (1) Active Severity Reaction shellfish Severe None Documented Current medications: Home Medications (16) Active acetaminophen 325 mg oral tablet 650 mg = 2 tab(s), PRN, Oral, q6hr calcium citrate 200 mg, Oral, Daily Colace 100 mg oral capsule 100 mg = 1 cap(s), PRN, Oral, BID Ditropan XL 10 mg/24 hr oral tablet, extended release 10 mg = 1 tab(s), Oral, Daily Eliquis 5 mg oral tablet 5 mg = 1 tab(s), Oral, BID Flonase 50 mcg 50 mcg = 1 spray(s), PRN, Nasal, Daily Lasix 40 mg oral tablet 40 mg = 1 tab(s), Oral, Daily magnesium gluconate 250 mg oral tablet 250 mg = 1 tab(s), Oral, Daily melatonin 3 mg oral tablet 3 mg = 1 tab(s), PRN, Oral, HS Refresh PM 1 drop(s), PRN, Eye-Both, q6hr saw palmetto senna 8.6 mg oral tablet 17.2 mg = 2 tab(s), Oral, HS silodosin traZODone 50 mg oral tablet 25 mg = 0.5 tab(s), PRN, Oral, HS Vitamin C 500 mg oral tablet 500 mg = 1 tab(s), Oral, Daily Vitamin D3 2000 intl units oral capsule 50 mcg = 1 cap(s), Oral, Daily Problem list: All Problems Atrial fibrillation / [id number] / Confirmed Moderate tricuspid regurgitation / [id number] / Confirmed Prostate cancer metastatic to bone / [id number] / Confirmed, Active Problems (3) Atrial fibrillation Moderate tricuspid regurgitation Prostate cancer metastatic to bone Health Maintenance Health Maintenance Pending (in the next year) OverDue Influenza Vaccine due 12/09/22 and every 1 year(s) Due Adult Wellness Exam due 12/29/22 and every 1 year(s) Annual Wellness Visit (Medicare) due 12/29/22 and every 1 year(s) Body Mass Index Check due 12/29/22 and every 1 year(s) Glaucoma Screening due 12/29/22 and every 1 year(s) HIV Screening (if sexually active) due 12/29/22 and every 1 year(s) Initial Preventative Physical Examination (Medicare) due 12/29/22 One-time only Lipid Disorders Screening due 12/29/22 and every 1 year(s) Prostate Cancer Screening due 12/29/22 Variable frequency Sexually Transmitted Infections: Behavioral Counseling due 12/29/22 and every 1 year(s) Syphilis Screening (if sexually active) due 12/29/22 and every 1 year(s) Tobacco Use Screening due 12/29/22 and every 1 year(s) Due In Future Depression Screening not due until 12/07/23 and every 1 year(s) Type 2 Diabetes Mellitus Screening not due until 12/13/23 and every 1 year(s) Satisfied (in the past 1 year) Satisfied Depression Screening on 12/06/22. Satisfied by Winnie Mauricio Fall Risk Screening on 12/29/22. Satisfied by Jenny Rincon, BIANKA High Blood Pressure Screening on 12/29/22. Satisfied by Jenny Rincon RN Type 2 Diabetes Mellitus Screening on 12/12/22. 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 and sons had multiple sessions of CGT and pt is discharging home 12/30.Outpatient follow up with oncology. #DVT prophylaxis Continued on apixaban 5 bid. #SHERIE - CPAP per home #Cardiovascular #afib #mod to severe TR Continued on apixaban 5 bid and lasix 40 daily. Daily weights stable 71 kg #anemia Anemia secondary to ABLA, ACD. Hb 10.2, stable from DH 10. #NG bowel Daily bowel program with daily supp and dig stim worked well but able to have BMs without suppository so suppositories made prn by time of discharge. #NG bladder PVRs on flomax (substitution for home silodosin) were 100-200, not requiring cathing. He did have small spastic bladder with frequent incontinence, so started on ditropan which was increased from 2.5t 10 daily. Outpatient f/u with neuro-urology recommended and referral placed. #sleep Improved on melatonin, trazodone prn #Pain Postoperative pain, controlled with acetaminophen, topical anesthetics, marinol, oxycodone 5 q 4 prn. Able to taper off all pain meds during his rehab stay, #dispo He is being discharged to home 12/30 after 3 week LOS. Home health services PT OT [employer] requested. Outpatient f/u is with PCP, neurosurg, neurourology for eval for NG bladder. Physical Examination VS/Measurements Vital Signs (last 24 hrs) Last Charted Temp Oral 36.6 DegC (DEC 29 10:00) Heart Rate Apical 70 bpm (DEC 29 10:00) Resp Rate 16 br/min (DEC 29 10:00) SBP 123 mmHg (DEC 29 10:00) DBP 64 mmHg (DEC 29 10:00) Weight 71.4 kg (DEC 28 15:31) Discharge Plan Instructions to patient Discharge medications: Home Medications (16) Active acetaminophen 325 mg oral tablet 650 mg = 2 tab(s), PRN, Oral, q6hr calcium citrate 200 mg, Oral, Daily Colace 100 mg oral capsule 100 mg = 1 cap(s), PRN, Oral, BID Ditropan XL 10 mg/24 hr oral tablet, extended release 10 mg = 1 tab(s), Oral, Daily Eliquis 5 mg oral tablet 5 mg = 1 tab(s), Oral, BID Flonase 50 mcg 50 mcg = 1 spray(s), PRN, Nasal, Daily Lasix 40 mg oral tablet 40 mg = 1 tab(s), Oral, Daily magnesium gluconate 250 mg oral tablet 250 mg = 1 tab(s), Oral, Daily melatonin 3 mg oral tablet 3 mg = 1 tab(s), PRN, Oral, HS Refresh PM 1 drop(s), PRN, Eye-Both, q6hr saw palmetto senna 8.6 mg oral tablet 17.2 mg = 2 tab(s), Oral, HS silodosin traZODone 50 mg oral tablet 25 mg = 0.5 tab(s), PRN, Oral, HS Vitamin C 500 mg oral tablet 500 mg = 1 tab(s), Oral, Daily Vitamin D3 2000 intl units oral capsule 50 mcg = 1 cap(s), Oral, Daily . Discharge disposition: Discharge to home: with family. Post discharge services: occupational therapy, physical therapy, services provided via home health,[facility]. #Did the facility contact and complete physician prescribed/recommended actions by midnight of the next calendar day each time potential clinically significant medication issues were identified sincethe admission? YES #CMS High-Risk Drug Classes Is patient taking any medications in the following pharmacological classifications: Antipsychotic, Anticoagulant, Antibiotic, Opioid, Antiplatelet, Hypoglycemic (including insulin)? YES?? - Anticoagulant Is there an indication noted for all medications in the drug classes noted above? YES, indication noted I have personally seen and examined the patient and they are ready for discharge. Discharge Summary Plan Discharge Status: improved. Discharge instructions given: to patient. Discharge disposition: discharge to home (into the care of family member, with home health care, self care). Prescriptions: continue same medications. 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 The following includes patient education materials and information regarding your injury/illness. Your Next Steps Instructions From Your Care Team ??NURSING INSTRUCTIONS: ?? Follow these instructions at home: 1.?? Take medications as prescribed. You will need help to manage and will benefit from using a pill box to help keep track. Do not crush or chew the oxybutinin (Ditropan). 2.?? Bladder/ bowels - The goal is??to be able to manage urination independently with urinal.??Toilet daily typically after breakfast. The use of a suppository can help regulate function. 3.?? Continue to use the adaptive equipment to perform self care tasks. You should try to perform tasks with as little help as needed but you have required??some instruction and assistance (toiletinghygiene, some dressing). 4.?? Weigh yourself daily to be sure you are not retaining fluids. 5.?? Continue to follow spinal precautions until your orthopedic surgeon??discontinues this. 6.?? Remember to shift your weight in bed while lying (turn from side to side to relieve pressure injury to your??sacral area), and avoid sitting in one position too long especially if semi-reclined.You have a sore on your coccyx that will need to be monitored for healing. ? Follow Up Appointments Follow Up with??Suzy Fountain Why: f/u neurogenic bladder, on flomax and ditropan Follow Up with??[facility] When:??In 18 days 12/25/2022 EDT Why: Radiology 3Z Where: [facility] [place], [place] Follow Up with??[facility] Glucose/Inject When:??In 18 days 12/25/2022 EDT Why: Arrive Radiology 3Z Where: [place], [place] Follow Up with??Allan Monge When:??01/02/2023 02:30 PM EDT Why: Hematology/Oncology ??arrive at [facility] end of [facility]- PLEASE ARRIVE FOR 2:30 PM Where: ?? [place], [place] Follow Up with[facility] When:??In 4 weeks 01/04/2023 EDT Why: [facility] arrive concierge receptionist area 3D Where: [facility] [place], [place] Follow Up with??Xray [facility] When:??01/04/2023 02:45 PM EDT Why: [facility] Xray concierge receptionist 3T- Please arrive for 2:45 PM Where: [facility] [place], [place] Follow Up with??Prosper Hall When:??01/15/2023 10:40 AM EDT Why: Follow up with your PCP Where: [address] [place] [address] [address] [place] [address]- Business (1) Follow Up with??Anjum Mueller When:??In 46 days 01/22/2023 EDT Why: [facility] [address] Dermatology ??Followup visit Where: ?? [place], [place] The Following Services Have Been Arranged for You Special Services and Community Resources - None Medications What How Much When Instructions Next Dose New acetaminophen (acetaminophen 325 mg oral tablet) 2 tab(s) Oral Every 6 hours as needed for Pain New docusate (Colace 100 mg oral capsule) 1 cap Oral 2 times a day as needed for Constipation New melatonin (melatonin 3 mg oral tablet) 1 tab(s) Oral Bedtime as needed for Insomnia New ocular lubricant (Refresh PM) 1 Drops Both eyes Every 6 hours as needed for Dry eyes New oxybutynin (Ditropan XL 10 mg/ 24 hr oral tablet, extended release) 1 tab(s) Oral Every day Pickup at [facility] New senna (senna 8.6 mg oral tablet) 2 tab(s) Oral Bedtime New traZODone (traZODone 50 mg oral tablet) 0.5 tab(s) Oral Bedtime as needed for Insomnia Pickup at [facility] Unchanged apixaban (Eliquis 5 mg oral tablet) 1 tab(s) Oral 2 times a day Unchanged ascorbic acid (Vitamin C 500 mg oral tablet) 1 tab(s) Oral Every day Unchanged calcium citrate 200 Milligram Oral Every day Unchanged cholecalciferol (Vitamin D3 2000 intl units oral capsule) 1 cap Oral Every day Unchanged fluticasone nasal (Flonase 50 mcg) 50 Microgram Nasal Every day as needed for Allergy symptoms Unchanged furosemide (Lasix 40 mg oral tablet) 1 tab(s) Oral Every day Unchanged magnesium gluconate (magnesium gluconate 250 mg oral tablet) 1 tab(s) Oral Every day Unchanged saw palmetto Unchanged silodosin Pharmacy Information [facility]: [address] [facility] [facility] [address] [place], [place] [id number] [phone] ?? What How Much When Comments Stop Taking lactobacillus rhamnosus 1 capsule Oral Every day Stop Taking traMADol (Ultram 50 mg oral tablet) 50 Milligram Oral Every 6 hours as needed for Pain Your Summary Your Care Team Admitting Physician - Starr Burt MD Attending Physician - Starr Burt MD Consulting Physician - Suzy Fountain Primary Care Physician - Prosper Hall MD Your Diagnosis CA of prostate S/P fusion of thoracic spine Spinal cord mass Problems Ongoing - Any problem that you are currently receiving treatment for. Atrial fibrillation Moderate tricuspid regurgitation Prostate cancer metastatic to bone Tests Performed/Pending Basic Metabolic Panel DH BMP DH CBC DH SARS-CoV-2 (COVID-19)/Influenza PCR ([place]) Discharge Vitals Temperature??(Oral) 98.2 ??F (36.8 ??C) Heart Rate??(Peripheral) 79 Respiratory Rate?? 18 Blood Pressure?? 121/64?? Weight?? 157.06 lb (71.23 kg) Allergies shellfish Education Materials ? Services Upon Discharge ? Patient is being discharged home with these services in place: ? HOME SERVICES: ? Home Services Discharge - Arrangements and orders for follow-up care ? Service Provider: [facility] ? Contact Phone Number: ? Service(s) to be Provided: Physical Therapy; Occupational Therapy; Home Health Aide ? Frequency: Two times a week per therapy ? Additional Comments: ? Date of the face to face encounter: 12/29/22 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 My clinical findings support the need for skilled: ? Occupational Therapy- 2x weekly for independence with ADLs Physical Therapy- 2x weekly for strengthening, endurance, balance and functional independence Home Health Aide- 2x weekly for impaired weakness and immobility, ADL independence ? The patient is homebound and requires considerable and taxing effort to leave their residence secondary to impaired mobility and ADLs sec to thoracic myelopathy ? To all home service providers, please contact the patient???s Primary Care Provider - Dr. Prosper Hall-with all follow up regarding your services. ? Reviewed and Electronically Signed By: Starr Burt MD Date: 12/29/22 Patient/General Internist And Physician Leader Signature Patient Name:MARISA KRAMER I have received this information and my questions have been answered. Patient/General Internist And Physician Leader Name: Patient/General Internist And Physician Leader Signature: Relationship to Patient: Witness Name/Signature: Date: Electronically Signed on: 12/30/2022 09:35 EDT Signed by:Leanna Elmore.: PERFORM Event Display: Discharge Instructions Authored Date: [id number] repair department manager Note * Lisa Freire.: PERFORM Event Display: Case Management Note Authored Date: [id number] This contract writer called Ana to inform/update her after team discussion about extending Marisa's stay at the families request. The team discussed and decided we could extend his d/c date to Friday, December 30, 2022. This contract writer called Ana and left a clear message regarding this as well as her concern over labs that do not need to be completed. This contract writer had a message left from Thor asking for a call back but this contract writer has not returned that call given the point person for communication is Ana and has been since 12/06. This contract writer reiterated that Ana will be coming in the morning for Caregiver training and these extra days allow for time for her to be here doing hands on training. No call back received as of 5:15pm. * Lisa Freire: PERFORM Event Display: Case Management Note Authored Date: [id number] This contract writer consulted wit Ana who did not think we called her at Team, let her know we did try.Discussed the CPAP and [facility]. Answer the best I could about the equipment. She reports the [facility] bed will not come in time so they want to rent a hospital bed but that also takes time to come in. She understands this is a discussion to have with Danuta at [facility] as well as to inquire wiht her about bed rails and wheels for his walker. She had more questions about his W/C and what to do, so this contract writer consulted with David in PT and he will give Ana a call to consult aboutthe W/C. Ana and Miguel are coming on Sunday to bring Marisa to his appt at [facility]. They will now come in earlier that day, 8:30am to pear picker the CPAP machine and bring it to [facility] for repair. They will then return to Acute Rehab to complete some more hands on CGT with therapies and PT will assist with care transfer at the time of departure for [facility]. Ana mentioned I just don't see how this will all be ready by Sunday. This contract writer reminded Ana that the bed is not a barrier at this time. * Lisa Freire: PERFORM, MODIFY Event Display: Case Management Note Authored Date: [id number] Call was made to Ana after discussing with Health Coordinator the need to plan for transport onDecember 25 at [facility] for his PET scan. This contract writer inquired whether or not Ana or hissons would be willing to transport him for this appt, or if they would rather a Wheel Chair van which unfortunately is an out of pocket cost. This contract writer also consulted with Osmin from Respiratory about Marisa's CPAP machine suddenly stopped working. Osmin has set him up with a CPAP machine from here which if fine for him to use but he is unsure how he will tolerate the mask as it is different than the one he was using. Osmin consulted with [facility] about this and they need to see it to determine if it is something they can repair or if it will have to be replaced. This is something that the family needs to manage, as far as getting the machine to [facility] for repair or replacement. Osmin wanted to communicate this with the family HARJIT in order to get the process started as to his upcoming discharge and needs going home. This contract writer left a message with Ana about this as well asking if the boys, friends or Ana can pick this up to drop it off to [facility]. Unfortunately we missed the opportunity for his sons totake it with them when they departed caregiver training today. This contract writer asked Ana to call back and let this contract writer know her thoughts on both needs in order for the transportation to be set up tomorrow. Nurse Progress note * Annetta Davila: PERFORM, MODIFY, MODIFY Event Display: Progress Note-Nurse Authored Date: Physical Assessment: Up in chair at the start of shift. Denies resp s/sx. LS clr, diminished with slight faint scattered wheeze right LF. CPAP at night. Uneventful night. Skin: P/D, reports he feels cold and has cold feet. Requesting warm blankets for comfort. Mepilex on coccyx and bilateral shins. His penis is red and has a small amount of edema, he denies c/o. His face is red and with dry flaking skin on the bridge of his nose. Other small scattered, abrasions. Nocomplaints of. Psychosocial / Cognitive: AAO, pleasant and cooperative. Mobility: Transferred with 1A, a gait belt and a slide board from the w/c to the bed. Transferred well. Repositioned q2hrs. Pain: Denies c/o. Safety: Call light within reach. Spinal precautions continue. Appropriate foot wear when up OOB. Medication needs / Diet: Takes some meds whole and some meds crushed, in applesauce. Bowel / Bladder: Continent of B+B. Occ incontinent of urine. Uses the urinal and a condom cath at night. Working on...: Plan for d/c in the AM at 10:30. Urology consult ordered. [Electronically Signed on: 12/30/2022 07:05 EDT] Annetta Davila [Verified on: 12/30/2022 07:05 EDT] Annetta Davila * Lindsay Quinn RN: PERFORM Event Display: Progress Note-Nurse Authored Date: [id number] Physical Assessment: See I view for full assessment detail Skin: Area to sacrum continues to be of concern. Positioning side lying tonight for sleep. Psychosocial / Cognitive: Alert, oriented with significant memory difficulties. Mobility: No ambulation, slide board or pivot disc Pain: Denies pain at bedtime. Safety: Rings appropriately, able to make needs known. Medication needs / Diet: Eating/drinking well. Taking medication crushed in . Bowel / Bladder: Condom cath @ night only. Pt may use during the day at home but counseled about preventing skin breakdown. BM 12/28 after suppository. Working on...: Preparing for discharge Sunday [Electronically Signed on: 12/29/2022 01:00 EDT] Lindsay Quinn RN [Verified on: 12/29/2022 01:00 EDT] Lindsay Quinn, BIANKA * Lindsay Quinn RN: PERFORM Event Display: Progress Note-Nurse Authored Date: [id number] Is up at this time for the day and states he did not sleep well because he was trying to side sleepwith pillows between his legs per the suggestion of his day nurses, and he did not find this comfortable. He did not ring to tell us however, as he also noted. [Electronically Signed on: 12/29/2022 05:04 EDT] Lindsay Quinn RN * Jenny Rincon RN: PERFORM Event Display: Progress Note-Nurse Authored Date: [id number] Physical Assessment: _ VSS Lung sounds CTA X 5 BS + HRIR at baseline. Skin: WDE very fragile and dry leonardo wounds are stable CDI foam dressing and cocyx Mepilex in intact, lotion applied to arms and legs. Psychosocial / Cognitive: - A 7 o x4 but has short term memory deficits poor initiation and specific cues for spinal precautions and mobility. Patient is cooperative and willing to do what is asked of him.. Mobility: - Uses stand pivot board well strength in extremities is good, spoke with patient and family, about sitting and lying and off pressure for his cocyx area. Pain: - denies [pain and has been refusing Tylenol. Safety: - Uses call noel appropriately. waits for assistance. Medication needs / Diet: - No new medication needs at this time Bowel / Bladder: - XXL BM with use of suppository 30 minutes after breakfast, condom cath at night Working on...: - Caregiver training, safe return to home on 12/30/2022 [Electronically Signed on: 12/28/2022 13:55 EDT] Jenny Rincon RN [Verified on: 12/28/2022 13:55 EDT] Jenny Rincon RN Hospital Summary note * Dara Graham J: SIGN Tia Goddard, RESIN PAINTER: PERFORM, SIGN Tia Goddard, RESIN PAINTER: SIGN, VERIFY Tia Goddard, RESIN PAINTER: VERIFY Event Display: Inpatient Patient Summary Authored Date: [address], [place] [address] Patient Information Name: MARISA KRAMER Age: 87 Years Date of : 1935 Arrival Date/Time: 12/06/2022 15:00:00 Discharge Date/Time: Reason For Visit: T5 cord compression s/p T2-T5 laminectomy w/tumor excision, PSIF Allergies: shellfish Diagnosis: CA of prostate; S/P fusion of thoracic spine; Spinal cord mass Comment: Provider Information: Admitting Physician: Starr Burt MD Attending Physician:Starr Burt MD Primary Care Provider:Prosper Hall MD [facility] would like to thank you for allowing us to assist you with your healthcare needs. The following includes patient education materials and information regarding your injury/illness. Our entire staff strives to provide a very good experience for our patients andtheir families. You may receive, by mail, a survey about your experience with us. PLEASE ENSURE YOUFOLLOW-UP PER THE INSTRUCTIONS BELOW! Medication Information: It is important to always keep an active list of medications available so that you can share with other providers and manage your medications appropriately. As an additional courtesy, we are also providing you with your final active medications list that you can keep with you. acetaminophen (acetaminophen 325 mg oral tablet) 2 tab(s) Oral every 6 hours as needed Pain. apixaban (Eliquis 5 mg oral tablet) 1 tab(s) Oral 2 times a day. ascorbic acid (Vitamin C 500 mg oral tablet) 1 tab(s) Oral every day. calcium citrate 200 Milligram Oral every day. cholecalciferol (Vitamin D3 2000 intl units oral capsule) 1 cap Oral every day. docusate (Colace 100 mg oral capsule) 1 cap Oral 2 times a day as needed Constipation. fluticasone nasal (Flonase 50 mcg) 50 Microgram Nasal every day as needed Allergy symptoms. furosemide (Lasix 40 mg oral tablet) 1 tab(s) Oral every day. magnesium gluconate (magnesium gluconate 250 mg oral tablet) 1 tab(s) Oral every day. melatonin (melatonin 3 mg oral tablet) 1 tab(s) Oral Bedtime as needed Insomnia. ocular lubricant (Refresh PM) 1 Drops Both eyes every 6 hours as needed Dry eyes. oxybutynin (Ditropan XL 10 mg/24 hr oral tablet, extended release) 1 tab(s) Oral every day. Refills: 0. saw palmetto senna (senna 8.6 mg oral tablet) 2 tab(s) Oral Bedtime. silodosin tamsulosin (Flomax 0.4 mg oral capsule) 1 cap Oral Bedtime for 30 Days. Refills: 1. traZODone (traZODone 50 mg oral tablet) 0.5 tab(s) Oral Bedtime as needed Insomnia. Refills: 0. Take only the medications listed above. Contact your doctor prior to taking any medications not on this list. MARISA KRAMER has been given the following list of follow-up instructions, patient education materials, and medication leaflets: Follow-up Instructions: With: Address: When: Suzy Fountain Comments: f/u neurogenic bladder, on flomax and ditropan With: Address: When: Allan Monge [place], [place] 01/02/2023 2:30 PM Comments: Hematology/Oncology arrive at [facility] end of [facility]- PLEASE ARRIVE FOR 2:30 PM With: Address: When: Fl[place], [place] 01/04/2023 2:45 PM Comments: [facility] concierge receptionist - Please arrive for 2:45 PM With: Address: When: Prosper Hall [address] [place] [address] [place] [id number] Business (1) 01/15/2023 10:40 AM Comments: Follow up with your PCP With: Address: When: Anjum Mueller [place] , [place] In 46 days 01/22/2023 Comments: [facility] [address] Dermatology Followup visit With: Address: When: [facility] [place], [place] In 4 weeks 01/04/2023 Comments: [facility] arrive concierge receptionist area 3D With: Address: When: [facility] [place], [place] In 18 days 12/25/2022 Comments: Radiology 3Z With: Address: When: [facility] Glucose/Inject [place], [place] In 18 days 12/25/2022 Comments: Arrive Radiology 3Z Patient Education Materials: Hospitalist Services Upon Discharge (PHILLIP YOUSSEF) (CUSTOM); Neurogenic Bowel; Laminectomy, Care After; Prostate Cancer; Metastatic Cancer Patient Activity Level: Patient Activity Restrictions: Patient Diet: Comment: Services Upon Discharge Patient is being discharged home with these services in place: HOME SERVICES: Home Services Discharge - Arrangements and orders for follow-up care Service Provider: [facility] Contact Phone Number: Service(s) to be Provided: Physical Therapy; Occupational Therapy; Home Health Aide Frequency: Two times a week per therapy Additional Comments: Date of the face to face encounter: 12/29/22 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 Prosper aHll-with all follow up regarding your services. Reviewed and Electronically Signed By: Starr Burt MD Date: 12/29/22 Neurogenic Bowel Neurogenic bowel is a condition that makes it difficult to control your bowel movements. If you have neurogenic bowel, you may lose the sensation of needing to have a bowel movement, lose the abilityto have a bowel movement, or both. Neurogenic bowel can cause stool to remain in your colon (stool retention). It can also cause stool to leak out of your colon without warning or control (incontinence). This condition results from an injury or a disease that affects your nervous system. Most people with a spinal cord injury from trauma will have neurogenic bowel. Managing neurogenic bowel is important for your quality of life. Everyone with this condition is different, so management requires a personalized bowel program. The purpose of a bowel program is to reduce accidents and make bowel movements more regular and predictable. What are the causes? This condition is often caused by a spinal cord injury. Other causes include: ??? Traumatic brain injury. ??? Brain tumor. ??? Spinal cord tumors or malformations. ??? Stroke. ??? Multiple sclerosis (MS). ??? Cerebral palsy. The condition can also be caused by diseases that affect the peripheral nervous system. These include: ??? Parkinson's disease. ??? Amyotrophic lateral sclerosis (ALS). ??? Conditions that cause pinched nerves in the lower back (cauda equina syndrome or conus medullaris syndrome). ??? Diabetes. What are the signs or symptoms? The most common symptoms of this condition are stool retention and incontinence. Other symptoms include: ??? Constipation. ??? Diarrhea. ??? Indigestion or heartburn. ??? Loss of appetite. ??? Pain or cramps. ??? Gas, bloating, or a swelled abdomen (distention). How is this diagnosed? This condition may be diagnosed based on: ??? Your symptoms and medical history. ??? A physical exam, including an abdominal and rectal exam. You may also have an imaging test of your abdomen. This can show if stool is being retained or if the size of your colon has been stretched by stool retention (megacolon). How is this treated? There is no standard treatment for neurogenic bowel. You will need to work with your health care providers to develop an individual bowel management program. Your personalized treatment program will depend on the cause of your condition as well as your symptoms, activity level, diet, overall physical condition, and mental ability to manage your condition. A bowel management plan usually starts with lifestyle changes and may also include medicines and physical therapy. You may be asked to keep arecord of your bowel movements. Initial treatment options may include some combination of: ??? Increasing physical activity or doing physical therapy. ??? Increasing fluid intake. ??? Increasing the amount of fiber in your diet. ??? Scheduling a bowel movement at the best time of day for you. ??? Using laxatives or stool softeners. ??? Stimulating a bowel movement with abdominal massage or finger stimulation (inserting a finger into the rectum). ??? Using a suppository or an enema. ??? Biofeedback training. ??? Regular flushing out (irrigation) of the colon with water using a tube placed in the rectum (transanal irrigation). You may need surgery if other treatments have not helped. Procedure options may include: ??? Implanting an electric nerve stimulator into your lower spine to stimulate colon muscles for bowel movements (sacral nerve stimulation). ??? Draining the colon through a surgically created opening (stoma). This is called an ileostomy orcolostomy procedure. Follow these instructions at home: Eating and drinking ??? Follow instructions from your health care provider about eating or drinking restrictions. ??? Eat foods that are high in fiber, such as beans, whole grains, and fresh fruits and vegetables. ??? Limit foods that are high in fat and processed sugars, such as fried or sweet foods. ??? Drink enough fluid to keep your urine pale yellow. General instructions ??? Work with your health care providers to find the best ways to manage your condition. ??? Take or use nldy-lwg-jyzqszs and prescription medicines only as told by your health care provider. ??? Keep a record of your bowel movements. ??? Do exercises as told by your health care provider. ??? Keep all follow-up visits as told by your health care provider. This is important. Contact a health care provider if: ??? You are not able to manage stool retention or incontinence by following your bowel management program. ??? You have blood in your stool. ??? You have abdominal pain. ??? You have chills or a fever. ??? You have persistent diarrhea. ??? You have not had a bowel movement in 3 days. Get help right away if: ??? You have severe abdominal pain. ??? You have not had a bowel movement in 7 days. Summary ??? Neurogenic bowel is a condition that makes it difficult to control your bowel movements. ??? This condition can be caused by injury or disease to the brain or spinal cord. It can also be caused by diseases that affect the peripheral nervous system. ??? There is no standard treatment for this condition. Work with your health care providers to develop an individual bowel management program. ??? A bowel management plan usually starts with lifestyle changes and may also include medicines and physical therapy. You may need surgery if other treatments have not helped. This information is not intended to replace advice given to you by your health care provider. Make sure you discuss any questions you have with your health care provider. Document Revised: 07/18/2019 Document Reviewed: 10/14/2018 [facility] Patient Education ?? 2021 [facility] [employer] Laminectomy, Care After This sheet gives you information about how to care for yourself after your procedure. Your health care provider may also give you more specific instructions. If you have problems or questions, contact your health care provider. What can I expect after the procedure? After the procedure, it is common to have: ??? Some pain around your incision area. ??? Muscle tightening (spasms) across the back. Follow these instructions at home: Medicines ??? Take bkfq-vas-bvhmpvj and prescription medicines only as told by your health care provider. ??? If you were prescribed an antibiotic medicine, use it as told by your health care provider. Do not stop using the antibiotic even if you start to feel better. ??? If you are taking blood thinners: ??? Talk with your health care provider before you take any medicines that contain aspirin or NSAIDs, such as ibuprofen. These medicines increase your risk for dangerous bleeding. ??? Take your medicine exactly as told, at the same time every day. ??? Avoid activities that could cause injury or bruising, and follow instructions about how to prevent falls. ??? Wear a medical alert bracelet or carry a card that lists what medicines you take. ??? Ask your health care provider if the medicine prescribed to you: ??? Requires you to avoid driving or using heavy machinery. ??? Can cause constipation. You may need to take these actions to prevent or treat constipation: ??? Drink enough fluid to keep your urine pale yellow. ??? Take qfdx-bbf-uqdoikh or prescription medicines. ??? Eat foods that are high in fiber, such as beans, whole grains, and fresh fruits and vegetables. ??? Limit foods that are high in fat and processed sugars, such as fried or sweet foods. ??? Do not drink alcohol if you are taking prescription pain medicine. Incision care ??? Follow instructions from your health care provider about how to take care of your incision area. Make sure you: ??? Wash your hands with soap and water before and after you apply medicine to the area or change your bandage (dressing). If soap and water are not available, use hand nurse informaticist. ??? Change your dressing as told by your health care provider. ??? Leave stitches (sutures), skin glue, or adhesive strips in place. These skin closures may need to stay in place for 2 weeks or longer. If adhesive strip edges start to loosen and curl up, you maytrim the loose edges. Do not remove adhesive strips completely unless your health care provider tells you to do that. ??? Check your incision area every day for signs of infection. Check for: ??? More redness, swelling, or pain. ??? Fluid or blood. ??? Warmth. ??? Pus or a bad smell. Activity ??? Rest as told by your health care provider. ??? Avoid bending or twisting at your waist. Always bend at your knees. ??? Avoid sitting for a long time without moving. Get up to take short walks every 1???2 hours. This is important to improve blood flow and breathing. Ask for help if you feel weak or unsteady. ??? Do not lift anything that is heavier than 10 lb (4.5 kg) or the limit that your health care provider tells you, until he or she says that it is safe. ??? Do exercises as told by your health care provider, including breathing exercises. ??? Return to your normal activities as told by your health care provider. Ask your health care provider what activities are safe for you. General instructions ??? Do not drive for 2 weeks after your procedure or for as long as told by your health care provider. ??? Do not take baths, swim, or use a hot tub for 2 weeks, or until your incision has healed completely. Ask your health care provider if you may take showers after your dressing has been removed. You may only be allowed to take sponge baths. ??? Do not use any products that contain nicotine or tobacco, such as cigarettes, e-cigarettes, andchewing tobacco. These can delay bone healing after surgery. If you need help quitting, ask your health care provider. ??? Wear compression stockings as told by your health care provider. These stockings help to prevent blood clots and reduce swelling in your legs. ??? Keep all follow-up visits as told by your health care provider. This is important. Contact a health care provider if: ??? You have more redness, swelling, or pain around your incision area. ??? Your incision feels warm to the touch. ??? You are not able to return to activities or do exercises as told by your health care provider. Get help right away if you: ??? Have any of these signs of infection: ??? Fluid or blood coming from your incision area. ??? Pus or a bad smell coming from your incision area. ??? Chills or a fever. ??? Feel dizzy or you faint while standing. ??? Develop a rash. ??? Develop shortness of breath or you have difficulty breathing. ??? Cannot control when you urinate or have a bowel movement. ??? Become weak. ??? Are not able to use your legs. These symptoms may represent a serious problem that is an emergency. Do not wait to see if the symptoms will go away. Get medical help right away. Call your local emergency services (911 in the [place] Do not drive yourself to the hospital. Summary ??? After the procedure, it is common to have some pain around your incision area. You may also have muscle tightening (spasms) across the back. ??? Follow instructions from your health care provider about how to care for your incision area. ??? Do not lift anything that is heavier than 10 lb (4.5 kg) or the limit that your health care provider tells you, until he or she says that it is safe. ??? Contact your health care provider if you have more redness, swelling, or pain around your incision area or if your incision feels warm to the touch. These can be signs of infection. This information is not intended to replace advice given to you by your health care provider. Make sure you discuss any questions you have with your health care provider. Document Revised: 10/20/2019 Document Reviewed: 10/20/2019 [employer] Patient Education ?? 2021 [facility] Prostate Cancer The prostate is a small gland that produces fluid that makes up semen (seminal fluid). It is located below the bladder in men, in front of the rectum. Prostate cancer is the abnormal growth of cells in the prostate gland. What are the causes? The exact cause of this condition is not known. What increases the risk? You are more likely to develop this condition if: ??? You are 65 years of age or older. ??? You have a family history of prostate cancer. ??? You have a family history of breast and ovarian cancer. ??? You have genes that are passed from parent to child (inherited), such as BRCA1 and BRCA2. ??? You have Sweeney syndrome. men and men of descent are diagnosed with prostate cancer at higher rates than other men. The reasons for this are not well understood and are likely due to a combination of genetic and environmental factors. What are the signs or symptoms? Symptoms of this condition include: ??? Problems with urination. This may include: ??? A weak or interrupted flow of urine. ??? Trouble starting or stopping urination. ??? Trouble emptying the bladder all the way. ??? The need to urinate more often, especially at night. ??? Blood in urine or semen. ??? Persistent pain or discomfort in the lower back, lower abdomen, or hips. ??? Trouble getting an erection. ??? Weakness or numbness in the legs or feet. How is this diagnosed? This condition can be diagnosed with: ??? A digital rectal exam. For this exam, a health care provider inserts a gloved finger into the rectum to feel the prostate gland. ??? A blood test called a prostate-specific antigen (PSA) test. ??? A procedure in which a sample of tissue is taken from the prostate and checked under a microscope (prostate biopsy). ??? An imaging test called transrectal ultrasonography. Once the condition is diagnosed, tests will be done to determine how far the cancer has spread. This is called staging the cancer. Staging may involve imaging tests, such as a bone scan, CT scan, PETscan, or MRI. Stages of prostate cancer The stages of prostate cancer are as follows: ??? Stage 1 (I). At this stage, the cancer is found in the prostate only. The cancer is not visibleon imaging tests, and it is usually found by accident, such as during prostate surgery. ??? Stage 2 (II). At this stage, the cancer is more advanced than it is in stage 1, but the cancer has not spread outside the prostate. ??? Stage 3 (III). At this stage, the cancer has spread beyond the outer layer of the prostate to nearby tissues. The cancer may be found in the seminal vesicles, which are near the bladder and the prostate. ??? Stage 4 (IV). At this stage, the cancer has spread to other parts of the body, such as the lymph nodes, bones, bladder, rectum, liver, or lungs. Prostate cancer grading Prostate cancer is also graded according to how the cancer cells look under a microscope. This is called the Hustisford score and the total score can range from 6???10, indicating how likely it is that the cancer will spread (metastasize) to other parts of the body. The higher the score, the greater the likelihood that the cancer will spread. ??? Hustisford 6 or lower: This indicates that the cancer cells look similar to normal prostate cells (well differentiated). ??? Hustisford 7: This indicates that the cancer cells look somewhat similar to normal prostate cells (moderately differentiated). ??? Hustisford 8, 9, or 10: This indicates that the cancer cells look very different than normal prostate cells (poorly differentiated). How is this treated? Treatment for this condition depends on several factors, including the stage of the cancer, your age, personal preferences, and your overall health. Talk with your health care provider about treatment options that are recommended for you. Common treatments include: ??? Observation for early stage prostate cancer (active surveillance). This involves having exams, blood tests, and in some cases, more biopsies. For some men, this is the only treatment needed. ??? Surgery. Types of surgeries include: ??? Open surgery (radical prostatectomy). In this surgery, a larger incision is made to remove the prostate. ??? A laparoscopic radical prostatectomy. This is a surgery to remove the prostate and lymph nodes through several small incisions. It is often referred to as a minimally invasive surgery. ??? A robotic radical prostatectomy. This is laparoscopic surgery to remove the prostate and lymph nodes with the help of robotic arms that are controlled by the surgeon. ??? Cryoablation. This is surgery to freeze and destroy cancer cells. ??? Radiation treatment. Types of radiation treatment include: ??? External beam radiation. This type aims beams of radiation from outside the body at the prostate to destroy cancerous cells. ??? Brachytherapy. This type uses radioactive needles, seeds, wires, or tubes that are implanted into the prostate gland. Like external beam radiation, brachytherapy destroys cancerous cells. An advantage is that this type of radiation limits the damage to surrounding tissue and has fewer side effects. ??? Chemotherapy. This treatment kills cancer cells or stops them from multiplying. It kills both cancer cells and normal cells. ??? Targeted therapy. This treatment uses medicines to kill cancer cells without damaging normal cells. ??? Hormone treatment. This treatment involves taking medicines that act on testosterone, one of the male hormones, by: ??? Stopping your body from producing testosterone. ??? Blocking testosterone from reaching cancer cells. Follow these instructions at home: Lifestyle ??? Do not use any products that contain nicotine or tobacco. These products include cigarettes, chewing tobacco, and vaping devices, such as e-cigarettes. If you need help quitting, ask your health care provider. ??? Eat a healthy diet. To do this: ??? Eat foods that are high in fiber. These include beans, whole grains, and fresh fruits and vegetables. ??? Limit foods that are high in fat and sugar. These include fried or sweet foods. ??? Treatment for prostate cancer may affect sexual function. If you have a partner, continue to have intimate moments. This may include touching, holding, hugging, and caressing your partner. ??? Get plenty of sleep. ??? Consider joining a support group for men who have prostate cancer. Meeting with a support groupmay help you learn to manage the stress of having cancer. General instructions ??? Take wozq-wac-wvcksyv and prescription medicines only as told by your health care provider. ??? If you have to go to the hospital, notify your cancer specialist (oncologist). ??? Keep all follow-up visits. This is important. Where to find more information ??? [place] [employer]: www.cancer.org ??? [place] [employer]: www.cancer.net ??? National Cancer [place]: www.cancer.gov Contact a health care provider if: ??? You have new or increasing trouble urinating. ??? You have new or increasing blood in your urine. ??? You have new or increasing pain in your hips, back, or chest. Get help right away if: ??? You have weakness or numbness in your legs. ??? You cannot control urination or your bowel movements (incontinence). ??? You have chills or a fever. Summary ??? The prostate is a small gland that is involved in the production of semen. It is located below a man's bladder, in front of the rectum. ??? Prostate cancer is the abnormal growth of cells in the prostate gland. ??? Treatment for this condition depends on the stage of the cancer, your age, personal preferences, and your overall health. Talk with your health care provider about treatment options that are recommended for you. ??? Consider joining a support group for men who have prostate cancer. Meeting with a support groupmay help you learn to manage the stress of having cancer. This information is not intended to replace advice given to you by your health care provider. Make sure you discuss any questions you have with your health care provider. Document Revised: 06/22/2021 Document Reviewed: 06/22/2021 [facility] Patient Education ?? 2021 [employer]. Metastatic Cancer Metastatic cancer is cancer that has spread from the place where it started (primary site) to another part of the body. The process of cancer spreading from the primary site is called metastasis. When cancer cells metastasize, they do not change the way they look or the way they affect the body. Anexample is when primary lung cancer spreads to the brain. This is called metastatic lung cancer, not brain cancer. All types of cancer can spread. Some cancers are more likely to metastasize than others. The most common places that cancers metastasize to are: ??? Bones. ??? Liver. ??? Lungs. What are the causes? Metastasis occurs when cancer cells spread from the primary site to another part of the body. Cancer cells can spread: ??? Directly from one part of the body to a nearby area (local invasion). ??? Into a lymph vessel. Cancer cells can be carried through the lymph system to lymph nodes and other parts of the body. The lymph system is a network of vessels and nodes that help protect against infections. ??? Into the blood vessels. Cancer cells can be carried to other parts of the body through the bloodstream. What increases the risk? The following factors may make you more likely to develop this condition: ??? The type of cancer that you have. ??? The stage and grade of your primary cancer at the time of diagnosis. ??? The grade and stage of the tumor. Grading and staging predict how quickly cancer cells will grow and their chances of metastasis. ??? A large primary tumor. ??? A higher grade of tumor. ??? Deeper growth of tumor. ??? A tumor that has entered the lymph system. What are the signs or symptoms? Symptoms of this condition include: ??? Weakness. ??? Lack of energy. ??? Pain. ??? Weight loss. ??? Trouble breathing. ??? Fluid buildup in your lungs or abdomen. ??? Tumor growths that can be felt or seen. ??? An enlarged liver. Some people with this condition may have no symptoms. How is this diagnosed? This condition may be diagnosed based on: ??? Your symptoms. ??? Physical exam. This may include: ??? Blood tests to check for certain substances that are secreted by tumors (tumor markers). ??? Tumor markers that increase after treatment can indicate metastasis. ??? Tumor markers may be used to help diagnose metastasis in some cancers, such as colon and prostate cancer. ??? Not all cancers have tumor markers. ??? Imaging studies, such as: ??? X-rays. ??? Ultrasound. ??? MRI. ??? Other imaging tests, such as CT scans, bone scans, and PET scans. ??? Testing tissue that is removed from the new cancer site (biopsy). If the cells are similar to cancer cells from the primary site, this can confirm metastatic cancer. ??? Testing fluid samples from the lungs, spine, or abdomen for metastatic cancer cells. How is this treated? There are many options for treating metastatic cancer. Your treatment will depend on: ??? The type of cancer you have. ??? How far your cancer has advanced. ??? Your general health. Treatment may not be able to cure metastatic cancer, but it can often relieve the symptoms. In manycases, you may have a combination of treatments. Options may include: ??? Surgery. ??? Medicines that kill cancer cells (chemotherapy). ??? High-energy rays that kill cancer cells (radiation therapy). ??? Targeted therapy. This targets specific parts of cancer cells and the area around them to blockthe growth and the spread of the cancer. Targeted therapy can help to limit the damage to healthy cells. ??? Hormone therapy. ??? Treatments that help your body fight cancer (biologic therapy). ??? Medicines that help your body's disease-fighting system (immune system) fight cancer cells (immunotherapy). ??? Freezing cancer cells using gas or liquid that is delivered through a needle (cryoablation). ??? Destroying cancer cells using high-energy radio waves that are delivered through a needle-like probe (radiofrequency ablation). ??? A procedure to block the artery that supplies blood to the tumor, which kills the cancer cells (embolization). ??? Other medicines to manage symptoms related to cancer or cancer treatments. Follow these instructions at home: Eating and drinking ??? Some of your treatments might affect your appetite and your ability to chew and swallow. If youare having problems eating, or if you do not have an appetite, meet with a diet and nutritional services host (dietitian). ??? If you have side effects that affect eating, it may help to: ??? Eat smaller meals and snacks often. ??? Drink high-nutrition and high-calorie shakes or supplements. ??? Eat bland and soft foods that are easy to eat. ??? Avoid foods that are hot, spicy, or hard to swallow. Lifestyle ??? Do not drink alcohol. ??? Do not use any products that contain nicotine or tobacco, such as cigarettes and e-cigarettes. If you need help quitting, ask your health care provider. General instructions ??? Take wfig-wib-kcjrbqi and prescription medicines only as told by your health care provider. This includes vitamins, supplements, and herbal products. ??? Work with your health care provider to manage any side effects of treatment. ??? Keep all follow-up visits as told by your health care provider. This is important. Where to find more information ??? [place] [employer]: www.cancer.org ??? National Cancer [place] (NCI): www.cancer.gov Contact a health care provider if you: ??? Notice that you bruise or bleed easily. ??? Are losing weight without trying. ??? Have new or increased fatigue or weakness. Get help right away if you have: ??? A seizure. ??? A sudden increase in pain. ??? A fever. ??? Shortness of breath. ??? Chest pain. Summary ??? Metastatic cancer is cancer that has spread from the place where it started (primary site) to another part of the body. ??? Cancer cells can spread directly from one part of the body to a nearby area, or they may spreadthrough the lymph system or the bloodstream. ??? Your risk for metastatic cancer depends on the type of cancer you have and the stage and grade of your primary cancer. ??? Treatment may not be able to cure metastatic cancer, but it can often relieve the symptoms. This information is not intended to replace advice given to you by your health care provider. Make sure you discuss any questions you have with your health care provider. Document Revised: 05/19/2019 Document Reviewed: 04/10/2018 [facility] Patient Education ?? 2021 [employer]. Medication Information Materials: To assist you in sharing the care we have provided to you with another provider or health care organization, we have created a 'Transition of Care Summary' inclusive of referral comments, medications, clinical results, follow up appointments etc. You may find and print a copy of your 'Transition ofCare Summary' on your Patient Portal. Your [facility] Patient Portal is located at [email or web address] If you have not yet signed up for a [facility] Patient Portal account you may request access by going to the [facility]'s website at [email or web address] and clicking on the blue oval on the left hand side of the page that says 'Sign Up for [facility] Patient Portal'. Your 'Summary of Care' will be waiting for you once your Portal account is created. MARISA RTACY , have received the following patient education materials/instructions and have verbalized understanding: Date: 12/30/2022 11:32:20 Patient Signature History and physical note * Starr Burt MD: PERFORM, SIGN, VERIFY, MODIFY, SIGN, MODIFY, SIGN Event Display: History and Physical Authored Date: [id number] Patient: MARISA KRAMER Age: 87 years Sex: Male : 1935 Associated Diagnoses: None Author: Starr Burt MD Basic Information Visit type: New patient evaluation. Source of history: Self. Chief Complaint rehabilitation s/p spine surgery T5 tumor causing cord compression, s/p excision and T2-5 decompression laminectomy and posterior instrumented spinal fusion History of Present Illness Mr Kramer is a 87 yo man with active metastatic prostate CA and atrial fibrillation on AC, SHERIE on CPAP, and moderate to severe tricuspid regurgitation who was admitted to [facility] 11/28 to 12/06 after presenting with 1 week of LE weakness and back pain especially with coughing. MRI of thoracic and lumbarspine showed T4-5 neoplasm with epidural extension compression at the spinal cord at T5. TTE done prior to surgery showing mod to severe TR. He was started on dexamethasone prior to surgery. On 12/01 he had decompression laminectomy and PSIF of T2-5 and excision of tumor. Pain controlled with tylenol, oxycodone, lidocaine patches. Chronic cough treated with guaifenesin and tessalon. He had ABLA after surgery, likely worsened by ACD. Hb 10.4 at discharge up from 9.4 after surgery. He had leukocytosis attributed to dexamethasone. For afib, he was restarted on apixaban at 5 bid after surgery (was on 2.5 bid for unclear reasons). Home lasix held before surgery but may be restarted in rehab. The patient worked daily with PT and OT. However due to continued impaired mobility and ADLs requiring assist of 2 for mobility and ADLs, it was thought he would benefit from acute rehab to improve functional status with the goal of discharge home as safely and independently as possible. Review of Systems Constitutional: Negative. Pain assessment: Self-reports pain The location is: operative site. Aggravating factors: movement, weight bearing. . Eye: Negative. Ear/Nose/Mouth/Throat: Negative. Respiratory: No shortness of breath, No cough. Cardiovascular: No chest pain, No palpitations, No leg swelling. Gastrointestinal: Constipation, No nausea, No vomiting, No abdominal pain. Genitourinary: Urinary incontinence, using purewick external catheter, No dysuria. Hematology/Lymphatics: Anemia, ABLA and ACD. Endocrine: Negative. Musculoskeletal: Joint pain, Muscle pain, Decreased range of motion, Joint stiffness, Joint swelling. Integumentary: spine incision, No rash, No breakdown. Neurologic: Numbness, Tingling, Spasticity, Weakness, No dizziness, No tremor. Psychiatric: Sleeping problems. Health Status Allergies: No allergies have been recorded., No qualifying data available Medications Current medications: (Selected) Inpatient Medications Ordered Colace: 100 mg = 1 cap(s), Oral, BID Dulcolax Laxative: 10 mg = 1 supp, Per rectum, Daily, PRN: Constipation Eliquis: 5 mg = 1 tab(s), Oral, BID Flomax: 0.4 mg = 1 cap(s), Oral, HS Lasix: 40 mg = 1 tab(s), Oral, Daily Marinol: 2.5 mg = 1 cap(s), Oral, BID MiraLax: 17 gm = 1 packet(s), Oral, Daily, PRN: Constipation Robitussin Sugar-Free: 300 mg = 15 mL, Oral, q6hr, PRN: Cough Ultram: 50 mg = 1 tab(s), Oral, q6hr, PRN: Pain Vitamin C: 500 mg = 1 tab(s), Oral, Daily Vitamin D3: 50 mcg = 1 cap(s), Oral, Daily acetaminophen: 1,000 mg = 2 tab(s), Oral, TID bacitracin zinc 500 units/g topical ointment: 1 yefri, TOP, q8hr, PRN: Other (see comment) benzonatate: 100 mg = 1 cap(s), Oral, TID, PRN: Cough calcium (as carbonate) 500 mg oral tablet, chewable: 500 mg = 1 tab(s), Oral, Daily fluticasone 50 mcg/inh nasal spray: 1 spray(s), Nasal, Daily, PRN: Allergy symptoms magnesium oxide: 400 mg = 1 tab(s), Oral, Daily melatonin: 3 mg = 1 tab(s), Oral, HS, PRN: Insomnia ondansetron: 4 mg = 1 tab(s), Oral, q6hr, PRN: Nausea/Vomiting oxyCODONE immediate release: 5 mg = 1 tab(s), Oral, q4hr, PRN: Pain senna: 17.2 mg = 2 tab(s), Oral, HS Documented Medications Documented Eliquis 5 mg oral tablet: 5 mg = 1 tab(s), Oral, BID, 0 Refill(s) Flonase 50 mc mcg = 1 spray(s), Nasal, Daily, PRN: Allergy symptoms, 0 Refill(s) Lasix 40 mg oral tablet: 40 mg = 1 tab(s), Oral, Daily, 0 Refill(s) Ultram 50 mg oral tablet: 50 mg, Oral, q6hr, PRN: Pain, 0 Refill(s) Vitamin C 500 mg oral tablet: 500 mg = 1 tab(s), Oral, Daily, 0 Refill(s) Vitamin D3 2000 intl units oral capsule: 50 mcg = 1 cap(s), Oral, Daily, 0 Refill(s) calcium citrate: 200 mg, Oral, Daily, 0 Refill(s) lactobacillus rhamnosus: 1 capsule, Oral, Daily, 0 Refill(s) magnesium gluconate 250 mg oral tablet: 250 mg = 1 tab(s), Oral, Daily, 0 Refill(s) saw palmetto: 0 Refill(s) silodosin: 0 Refill(s), Medications (21) Active Scheduled: (11) acetaminophen 500 mg Tab [[facility]] 1,000 mg 2 tab(s), Oral, TID apixaban 5 mg tab [[facility]] 5 mg 1 tab(s), Oral, BID ascorbic acid 500 mg Tab [[facility]] 500 mg 1 tab(s), Oral, Daily calcium carbonate 500 mg Chew Tab [[facility]] 500 mg 1 tab(s), Oral, Daily cholecalciferol 50 mcg 1 cap(s), Oral, Daily docusate sodium 100 mg Cap [[facility]] 100 mg 1 cap(s), Oral, BID dronabinol 2.5 mg Cap [[facility]] 2.5 mg 1 cap(s), Oral, BID furosemide 40 mg Tab [[facility]] 40 mg 1 tab(s), Oral, Daily magnesium oxide 400 mg Tab [[facility]] 400 mg 1 tab(s), Oral, Daily senna 8.6 mg Tab [[facility]] 17.2 mg 2 tab(s), Oral, HS tamsulosin 0.4 mg Oral Cap [[facility]] 0.4 mg 1 cap(s), Oral, HS Continuous: (0) PRN: (10) bacitracin zinc 500 units/g Top Oint UD [[facility]] 1 yefri, TOP, q8hr benzonatate 100 mg Cap [[facility]] 100 mg 1 cap(s), Oral, TID bisacodyl 10 mg Supp [[facility]] 10 mg 1 supp, Per rectum, Daily fluticasone nasal 1 spray(s), Nasal, Daily guaiFENesin 20 mg/mL Oral Liq [[facility]] 300 mg 15 mL, Oral, q6hr melatonin 3 mg Tab [[facility]] 3 mg 1 tab(s), Oral, HS ondansetron 4 mg Dis Tab [[facility]] 4 mg 1 tab(s), Oral, q6hr oxyCODONE 5 mg Tab [[facility]] 5 mg 1 tab(s), Oral, q4hr polyethylene glycol 3350 Oral Pwdr Recon [[facility]] 17 gm 1 packet(s), Oral, Daily traMADol 50 mg Tab [[facility]] 50 mg 1 tab(s), Oral, q6hr . Medications (21) Active Scheduled: (11) acetaminophen 500 mg Tab [[facility]] 1,000 mg 2 tab(s), Oral, TID apixaban 5 mg tab [[facility]] 5 mg 1 tab(s), Oral, BID ascorbic acid 500 mg Tab [[facility]] 500 mg 1 tab(s), Oral, Daily calcium carbonate 500 mg Chew Tab [[facility]] 500 mg 1 tab(s), Oral, Daily cholecalciferol 50 mcg 1 cap(s), Oral, Daily docusate sodium 100 mg Cap [[facility]] 100 mg 1 cap(s), Oral, BID dronabinol 2.5 mg Cap [[facility]] 2.5 mg 1 cap(s), Oral, BID furosemide 40 mg Tab [[facility]] 40 mg 1 tab(s), Oral, Daily magnesium oxide 400 mg Tab [[facility]] 400 mg 1 tab(s), Oral, Daily senna 8.6 mg Tab [[facility]] 17.2 mg 2 tab(s), Oral, HS tamsulosin 0.4 mg Oral Cap [[facility]] 0.4 mg 1 cap(s), Oral, HS Continuous: (0) PRN: (10) bacitracin zinc 500 units/g Top Oint UD [[facility]] 1 yefri, TOP, q8hr benzonatate 100 mg Cap [[facility]] 100 mg 1 cap(s), Oral, TID bisacodyl 10 mg Supp [[facility]] 10 mg 1 supp, Per rectum, Daily fluticasone nasal 1 spray(s), Nasal, Daily guaiFENesin 20 mg/mL Oral Liq [[facility]] 300 mg 15 mL, Oral, q6hr melatonin 3 mg Tab [[facility]] 3 mg 1 tab(s), Oral, HS ondansetron 4 mg Dis Tab [[facility]] 4 mg 1 tab(s), Oral, q6hr oxyCODONE 5 mg Tab [[facility]] 5 mg 1 tab(s), Oral, q4hr polyethylene glycol 3350 Oral Pwdr Recon [[facility]] 17 gm 1 packet(s), Oral, Daily traMADol 50 mg Tab [[facility]] 50 mg 1 tab(s), Oral, q6hr . Problem list: All Problems Atrial fibrillation / [id number] / Confirmed Prostate cancer metastatic to bone / [id number] / Confirmed, Active Problems (2) Atrial fibrillation Prostate cancer metastatic to bone Histories Past Medical History: Active Prostate cancer metastatic to bone ([id number]) Atrial fibrillation ([id number]) Family History: No family history items have been selected or recorded., n/c Procedure history: No active procedure history items have been selected or recorded. Social History Social History No active social history has been recorded Psychosocial History No active psychosocial history has been recorded . Family/ Social situation: Lives in [facility] with , son is supportive. Home has 1 [address]ICIA. No tobacco no alcohol. . Physical Examination VS/Measurements No qualifying data available General: Alert and oriented, No acute distress, Well developed, Well nourished. Eye: Extraocular movements are intact, Normal conjunctiva. HENT: Normocephalic, Oral mucosa is moist. Respiratory: Lungs are clear to auscultation, Respirations are non-labored, Breath sounds are equal. Cardiovascular: Normal rate, Regular rhythm, nain-incisional edema. Gastrointestinal: Soft, Non-tender, Non-distended, Normal bowel sounds. Integumentary: Intact, No rash, incision well approximated without erythema or drainage. Mental status/ Cognition Alert. Oriented x 3. Speech and language intact. Cognition intact. Sensorimotor/ Reflexes T5 sensory level strength BUE 5/5, BLE hip flexion 2/5, quads 4/4 ankle dorsiflexion 4/5 SILT BLE however +paresthesias reflexes brisk BLE 3+. Psychiatric: Cooperative, Appropriate mood & affect. Review / Management Results review: No qualifying data available . Impression and Plan Diagnosis T5 mass causing cord compression s/p excision s/p T2-5 decompression lami and PSIF metastatic prostate CA BLE weakness NG bowel and bladder. Impairments: Pain. General: Decreased strength, Decreased endurance, Decreased balance, Decreased range of motion. Disabilities: Decreased: Mobility, Ability to transfer self, Ability to ambulate, Ability to dress self, Ability to bathe self, Ability to toilet self, Ability to self-care, Problem-solving abilities, Safety. Limiting factors: Pain. Safety/ Precautions: Weight bearing: As tolerated. Nursing goals: Nutrition/diet: Maintain optimal caloric intake. Medication monitor for treatment: Effects, Adverse reactions. Bladder: Continent, Regulated with program. Bowel: Continent, Regulated with program. Skin: Promote wound healing, Prevent breakdown, Decrease limb edema. Pain/Sleep: Regulate sleep cycle, Decrease pain level. Occupational therapy goals: Modified independent, Equipment/DME assessment. Physical therapy goals: Modified independent, Equipment/DME assessment. Therapeutic Recreation Goals: Leisure skills assessment, Improve social interaction with peers. Patient/Family Goals: Return to home independent, Return to home with assistance. Potential for improvement to meet goals: Good. Patient/Family Educational Needs: ADL assistance, Bowel/bladder program, Disease process education,Medication education, Pain management strategies, Safety awareness, Transfers. Estimated length of stay: 3-4 weeks. Disposition: Home. Code Status Medical Plan DVT prophylaxis: anti-embolus stockings, apixaban at 5 bid (home dose 2.5 bid but unclear reasons so DH increased to 5 bid). Skin: wound/incision management. Respiratory: pulmonary hygiene incentive spirometry, SHERIE CPAP. Cardiovascular: afib - continue apixaban 5 bid and lasix 40 daily. Daily weights mod to severe TR. Hematology: ABLA, ACD - Hb10, recheck CBC in am prostate CA, metastatic - f/u oncology after rehab. GI: Constipation (laxative, stool softener, NG bowel - daily bowel program with daily supp and dig stim). : retention (flomax instead of silodosin (formulary sub), follow PVRs, cath as needed, may anticipate spastic bladder given level of injury). Nutrition: regular. Psych/ Sleep: sleep melatonin, added trazodone prn. Pain: postoperative, controlled, managed with (acetaminophen, narcotics, topical anesthetics, ice, oxycodone 5 q 4 prn, no tramadol). #[facility] medication review: Did a complete drug regimen review identify potential clinically significant medication issues? - NO ??? no issues found during review . #[facility] High-Risk Drug Classes Is patient taking any medications in the following pharmacological classifications: Antipsychotic, Anticoagulant, Antibiotic, Opioid, Antiplatelet, Hypoglycemic (including insulin)? YES - Anticoagulant, Opioid Is there an indication noted for all medications in the drug classes noted above? YES, indication noted . 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 Post Admission Physician Evaluation: Risk for complications. Documentation Reviewed: I have reviewed the Preadmission Screen. Functional status documented at preadmission: I agree with the patient's current functional status as documented in the preadmission screening. Medical conditions: The patient's medical conditions can be managed in the rehab hospital, The planof treatment is documented above in the history and physical. Patient participation in therapy: The patient can participate in, and will benefit from an intense therapy program at least 3 hours per day / 5 days per week. Therapies/services include:, Physical therapy, Occupational therapy, Rehabilitation Nursing, Case Management, Therapeutic Recreation. [Electronically Signed on: 12/06/2022 13:36 EDT] Starr Burt MD, MD [Electronically Signed on: 12/06/2022 15:55 EDT] Starr Burt MD, MD [Electronically Signed on: 12/07/2022 15:56 EDT] Starr Burt MD, MD [Verified on: 12/06/2022 13:36 EDT] Starr Burt MD, MD Progress note * Starr Burt MD: PERFORM, SIGN, VERIFY Event Display: Progress Note-Physician Authored Date: Patient: MARISA KRAMER Age: 87 years Sex: Male : 1935 Associated Diagnoses: None Author: Starr Burt MD Subjective Discussion re ditropan, he thinks had less output into catheter last night, Discussed goal to stop use of external catheter if able. Also discussed side effects constipation and dry mouth. Health Status Allergies: Allergic Reactions (All) Severe Shellfish- No reactions were documented., Allergies (1) Active Severity Reaction shellfish Severe None Documented Medications Current medications: (Selected) Inpatient Medications Ordered Colace: 100 mg = 1 cap(s), Oral, BID, PRN: Constipation Ditropan XL: 10 mg = 2 tab(s), Oral, Daily Dulcolax Laxative: 10 mg = 1 supp, Per rectum, Daily, PRN: Congestion Dulcolax Laxative: 10 mg = 1 supp, Per rectum, Daily, PRN: Constipation Eliquis: 5 mg = 1 tab(s), Oral, BID Flomax: 0.4 mg = 1 cap(s), Oral, HS Lasix: 40 mg = 1 tab(s), Oral, Daily MiraLax: 17 gm = 1 packet(s), Oral, Daily, PRN: Constipation Refresh PM: 1 drop(s), Eye-Both, q6hr, PRN: Dry eyes Robitussin Sugar-Free: 300 mg = 15 mL, Oral, q6hr, PRN: Cough Vitamin C: 500 mg = 1 tab(s), Oral, Daily Vitamin D3: 2,000 unit(s) = 2 tab(s), Oral, Daily acetaminophen: 650 mg = 2 tab(s), Oral, q6hr, PRN: Pain bacitracin zinc 500 units/g topical ointment: 1 yefri, TOP, q8hr, PRN: Other (see comment) benzonatate: 100 mg = 1 cap(s), Oral, TID, PRN: Cough calcium (as carbonate) 500 mg oral tablet, chewable: 500 mg = 1 tab(s), Oral, Daily fluticasone 50 mcg/inh nasal spray: 50 mcg = 1 spray(s), Nostrils-Both, Daily, PRN: Allergy symptoms magnesium oxide: 400 mg = 1 tab(s), Oral, Daily melatonin: 3 mg = 1 tab(s), Oral, HS, PRN: Insomnia ondansetron: 4 mg = 1 tab(s), Oral, q6hr, PRN: Nausea/Vomiting oxyCODONE immediate release: 5 mg = 1 tab(s), Oral, q4hr, PRN: Pain senna: 17.2 mg = 2 tab(s), Oral, HS traZODone: 25 mg = 0.5 tab(s), Oral, HS, PRN: Insomnia Documented Medications Documented Eliquis 5 mg oral tablet: 5 mg = 1 tab(s), Oral, BID, 0 Refill(s) Flonase 50 mc mcg = 1 spray(s), Nasal, Daily, PRN: Allergy symptoms, 0 Refill(s) Lasix 40 mg oral tablet: 40 mg = 1 tab(s), Oral, Daily, 0 Refill(s) Ultram 50 mg oral tablet: 50 mg, Oral, q6hr, PRN: Pain, 0 Refill(s) Vitamin C 500 mg oral tablet: 500 mg = 1 tab(s), Oral, Daily, 0 Refill(s) Vitamin D3 2000 intl units oral capsule: 50 mcg = 1 cap(s), Oral, Daily, 0 Refill(s) calcium citrate: 200 mg, Oral, Daily, 0 Refill(s) lactobacillus rhamnosus: 1 capsule, Oral, Daily, 0 Refill(s) magnesium gluconate 250 mg oral tablet: 250 mg = 1 tab(s), Oral, Daily, 0 Refill(s) saw palmetto: 0 Refill(s) silodosin: 0 Refill(s), Medications (23) Active Scheduled: (9) apixaban 5 mg tab [[facility]] 5 mg 1 tab(s), Oral, BID ascorbic acid 500 mg Tab [[facility]] 500 mg 1 tab(s), Oral, Daily calcium carbonate 500 mg Chew Tab [[facility]] 500 mg 1 tab(s), Oral, Daily cholecalciferol (25 mcg) 1000 units tablet [[facility]] 2,000 unit(s) 2 tab(s), Oral, Daily furosemide 40 mg Tab [[facility]] 40 mg 1 tab(s), Oral, Daily magnesium oxide 400 mg Tab [[facility]] 400 mg 1 tab(s), Oral, Daily oxybutynin 5 mg ER Tab [[facility]] 10 mg 2 tab(s), Oral, Daily senna 8.6 mg Tab [[facility]] 17.2 mg 2 tab(s), Oral, HS tamsulosin 0.4 mg Oral Cap [[facility]] 0.4 mg 1 cap(s), Oral, HS Continuous: (0) PRN: (14) acetaminophen 325 mg Tab [[facility]] 650 mg 2 tab(s), Oral, q6hr bacitracin zinc 500 units/g Top Oint UD [[facility]] 1 yefri, TOP, q8hr benzonatate 100 mg Cap [[facility]] 100 mg 1 cap(s), Oral, TID bisacodyl 10 mg Supp [[facility]] 10 mg 1 supp, Per rectum, Daily bisacodyl 10 mg Supp [[facility]] 10 mg 1 supp, Per rectum, Daily carboxymethylcellulose 0.5% ophth [place] [[facility]] 1 drop(s), Eye-Both, q6hr docusate sodium 100 mg Cap [[facility]] 100 mg 1 cap(s), Oral, BID fluticasone Nasal 50 mcg/inh [place] [[facility]] 50 mcg 1 spray(s), Nostrils-Both, Daily guaiFENesin 20 mg/mL Oral Liq [[facility]] 300 mg 15 mL, Oral, q6hr melatonin 3 mg Tab [[facility]] 3 mg 1 tab(s), Oral, HS ondansetron 4 mg Dis Tab [[facility]] 4 mg 1 tab(s), Oral, q6hr oxyCODONE 5 mg Tab [[facility]] 5 mg 1 tab(s), Oral, q4hr polyethylene glycol 3350 Oral Pwdr Recon [[facility]] 17 gm 1 packet(s), Oral, Daily traZODone 50 mg Tab [[facility]] 25 mg 0.5 tab(s), Oral, HS . Problem list: All Problems Atrial fibrillation / [id number] / Confirmed Moderate tricuspid regurgitation / [id number] / Confirmed Prostate cancer metastatic to bone / [id number] / Confirmed, Active Problems (3) Atrial fibrillation Moderate tricuspid regurgitation Prostate cancer metastatic to bone Objective VS/Measurements Vital Signs (last 24 hrs) Last Charted Temp Oral 36.9 DegC (DEC 27:) Heart Rate Peripheral 78 bpm (DEC 27:) Resp Rate 16 br/min (DEC 26 21:00) SBP 127 mmHg (DEC 27:) DBP 67 mmHg (DEC 27:) Weight 71.9 kg (DEC 26 15:43) General: Alert and oriented, No acute distress. Respiratory: Respirations are non-labored. Cardiovascular: Normal rate, Regular rhythm. Gastrointestinal: Soft, Non-distended. Integumentary: Intact, No rash. Mental status/ Cognition Alert. Oriented x 3. Speech and language intact. Cognition intact. Psychiatric: Cooperative, Appropriate mood & affect. 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 #SHERIE - CPAP per home #Cardiovascular #afib #mod to severe TR continue apixaban 5 bid and lasix 40 daily. Daily weights 71->72 kg #anemia Hb 10.2, stable from DH check at 10 secondary to ABLA, ACD #NG bowel daily bowel program with daily supp and dig stim #NG bladder follow PVRs on flomax (sub for silodosin) PVRs 100-200 not requiring cathing likely to eventually have small spastic bladder given level of injury discussed trial ditropan and need for f/u with neuro-urology started ditropan XL 5 mg daily on 12/20, increased to 10 12/26 #sleep improved, continues on melatonin, trazodone prn #Pain postoperative pain, controlled with acetaminophen, topical anesthetics, marinol, oxycodone 5 q 4 prn has tapered off oxycodone and marinol already stopped #DME Patient is non-ambulatory and has mobility limitations that cannot be resolved with a cane or walker.?? He will be able to propel a wheelchair in his home, except to his toilet.?? He will be using the wheelchair for mobility and ADLs in his home, including to get to a commode.?? He is able to propel a wheelchair on level surfaces.?? His home has a ramp to enter, and his family will be assisting him on the ramp. #dispo home after 3 week LOS; planning d/c home 12/27,may be delayed few days to allow for additional CGT for f/u PCP, neurosurg, neurourology for eval for NG bladder #Potential or actual clinically significant medication issues addressed per CMS regulations: NO 35 min total time spent of chart review, team discussion, and face to face eval [Electronically Signed on: 12/27/2022 12:21 EDT] Starr Burt MD, MD [Verified on: 12/27/2022 12:21 EDT] Starr Burt MD, MD * Starr Burt MD: PERFORM, SIGN, VERIFY Event Display: Progress Note-Physician Authored Date: [id number] Patient: MARISA KRAMER Age: 87 years Sex: Male : 1935 Associated Diagnoses: None Author: Starr Burt MD Subjective Pt perseverative on labs needing to be drawn today but called Dr Brown's office and they are certain no labs needed. PET scan yesterday at . Ditropan being increased as he is still incontinent, needing condom cath. Discussed common adverse effects constipation and dry mouth. Health Status Allergies: Allergic Reactions (All) Severe Shellfish- No reactions were documented., Allergies (1) Active Severity Reaction shellfish Severe None Documented Medications Current medications: (Selected) Inpatient Medications Ordered Colace: 100 mg = 1 cap(s), Oral, BID, PRN: Constipation Ditropan XL: 10 mg = 2 tab(s), Oral, Daily Dulcolax Laxative: 10 mg = 1 supp, Per rectum, Daily, PRN: Congestion Dulcolax Laxative: 10 mg = 1 supp, Per rectum, Daily, PRN: Constipation Eliquis: 5 mg = 1 tab(s), Oral, BID Flomax: 0.4 mg = 1 cap(s), Oral, HS Lasix: 40 mg = 1 tab(s), Oral, Daily MiraLax: 17 gm = 1 packet(s), Oral, Daily, PRN: Constipation Refresh PM: 1 drop(s), Eye-Both, q6hr Robitussin Sugar-Free: 300 mg = 15 mL, Oral, q6hr, PRN: Cough Vitamin C: 500 mg = 1 tab(s), Oral, Daily Vitamin D3: 2,000 unit(s) = 2 tab(s), Oral, Daily acetaminophen: 650 mg = 2 tab(s), Oral, q6hr, PRN: Pain bacitracin zinc 500 units/g topical ointment: 1 yefri, TOP, q8hr, PRN: Other (see comment) benzonatate: 100 mg = 1 cap(s), Oral, TID, PRN: Cough calcium (as carbonate) 500 mg oral tablet, chewable: 500 mg = 1 tab(s), Oral, Daily fluticasone 50 mcg/inh nasal spray: 50 mcg = 1 spray(s), Nostrils-Both, Daily, PRN: Allergy symptoms magnesium oxide: 400 mg = 1 tab(s), Oral, Daily melatonin: 3 mg = 1 tab(s), Oral, HS, PRN: Insomnia ondansetron: 4 mg = 1 tab(s), Oral, q6hr, PRN: Nausea/Vomiting oxyCODONE immediate release: 5 mg = 1 tab(s), Oral, q4hr, PRN: Pain senna: 17.2 mg = 2 tab(s), Oral, HS traZODone: 25 mg = 0.5 tab(s), Oral, HS, PRN: Insomnia Documented Medications Documented Eliquis 5 mg oral tablet: 5 mg = 1 tab(s), Oral, BID, 0 Refill(s) Flonase 50 mc mcg = 1 spray(s), Nasal, Daily, PRN: Allergy symptoms, 0 Refill(s) Lasix 40 mg oral tablet: 40 mg = 1 tab(s), Oral, Daily, 0 Refill(s) Ultram 50 mg oral tablet: 50 mg, Oral, q6hr, PRN: Pain, 0 Refill(s) Vitamin C 500 mg oral tablet: 500 mg = 1 tab(s), Oral, Daily, 0 Refill(s) Vitamin D3 2000 intl units oral capsule: 50 mcg = 1 cap(s), Oral, Daily, 0 Refill(s) calcium citrate: 200 mg, Oral, Daily, 0 Refill(s) lactobacillus rhamnosus: 1 capsule, Oral, Daily, 0 Refill(s) magnesium gluconate 250 mg oral tablet: 250 mg = 1 tab(s), Oral, Daily, 0 Refill(s) saw palmetto: 0 Refill(s) silodosin: 0 Refill(s), Medications (23) Active Scheduled: (10) apixaban 5 mg tab [[facility]] 5 mg 1 tab(s), Oral, BID ascorbic acid 500 mg Tab [[facility]] 500 mg 1 tab(s), Oral, Daily calcium carbonate 500 mg Chew Tab [[facility]] 500 mg 1 tab(s), Oral, Daily carboxymethylcellulose 0.5% ophth Emeli [[facility]] 1 drop(s), Eye-Both, q6hr cholecalciferol (25 mcg) 1000 units tablet [[facility]] 2,000 unit(s) 2 tab(s), Oral, Daily furosemide 40 mg Tab [[facility]] 40 mg 1 tab(s), Oral, Daily magnesium oxide 400 mg Tab [[facility]] 400 mg 1 tab(s), Oral, Daily oxybutynin 5 mg ER Tab [[facility]] 10 mg 2 tab(s), Oral, Daily senna 8.6 mg Tab [[facility]] 17.2 mg 2 tab(s), Oral, HS tamsulosin 0.4 mg Oral Cap [[facility]] 0.4 mg 1 cap(s), Oral, HS Continuous: (0) PRN: (13) acetaminophen 325 mg Tab [[facility]] 650 mg 2 tab(s), Oral, q6hr bacitracin zinc 500 units/g Top Oint UD [[facility]] 1 yefri, TOP, q8hr benzonatate 100 mg Cap [[facility]] 100 mg 1 cap(s), Oral, TID bisacodyl 10 mg Supp [[facility]] 10 mg 1 supp, Per rectum, Daily bisacodyl 10 mg Supp [[facility]] 10 mg 1 supp, Per rectum, Daily docusate sodium 100 mg Cap [[facility]] 100 mg 1 cap(s), Oral, BID fluticasone Nasal 50 mcg/inh [place] [[facility]] 50 mcg 1 spray(s), Nostrils-Both, Daily guaiFENesin 20 mg/mL Oral Liq [[facility]] 300 mg 15 mL, Oral, q6hr melatonin 3 mg Tab [[facility]] 3 mg 1 tab(s), Oral, HS ondansetron 4 mg Dis Tab [[facility]] 4 mg 1 tab(s), Oral, q6hr oxyCODONE 5 mg Tab [[facility]] 5 mg 1 tab(s), Oral, q4hr polyethylene glycol 3350 Oral Pwdr Recon [[facility]] 17 gm 1 packet(s), Oral, Daily traZODone 50 mg Tab [[facility]] 25 mg 0.5 tab(s), Oral, HS . 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 Respiratory: Respirations are non-labored. Cardiovascular: Normal rate, Regular rhythm. Gastrointestinal: Soft, Non-distended. Integumentary: Intact, No rash. Mental status/ Cognition Alert. Oriented x 3. Speech and language intact. Cognition intact. Psychiatric: Cooperative, Appropriate mood & affect. 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 #SHERIE - CPAP per home #Cardiovascular #afib #mod to severe TR continue apixaban 5 bid and lasix 40 daily. 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 He will be able to propel a wheelchair in his home, except to his toilet.?? He will be using the wheelchair for mobility and ADLs in his home, including to get to a commode.?? He is able to propel a wheelchair on level surfaces.?? His home has a ramp to enter, and his family will be assisting him on the ramp. #dispo home after 3 week LOS; planning d/c home 12/27,may be delayed few days to allow for additional CGT for f/u PCP, neurosurg, neurourology for eval for NG bladder #Potential or actual clinically significant medication issues addressed per CMS regulations: YES ditropan increased Did the facility complete prescribed/recommended actions in response to the identified potentially clinically significant medication issues by midnight of the next calendar day? YES 35 min total time spent of chart review, team discussion, and face to face eval [Electronically Signed on: 12/26/2022 12:46 EDT] Starr Burt MD, MD [Verified on: 12/26/2022 12:46 EDT] Starr Burt MD, MD * Starr Burt MD: PERFORM, SIGN, VERIFY Event Display: Progress Note-Physician Authored Date: [id number] Patient: MARISA KRAMER Age: 87 years Sex: Male : 1935 Associated Diagnoses: None Author: Starr Burt MD Patient attending appointments at [facility] today. [Electronically Signed on: 12/25/2022 12:59 EDT] Starr Burt MD, MD [Verified on: 12/25/2022 12:59 EDT] Starr Burt MD, MD Patient Care team information Care Team Personnel Name: Starr Burt MD Position: Rehab Physician Acute/Clinic/PNED Member Role: Informed Provider Address: Address: [address] [place] [address]- Name: Prosper Hall MD Position: [facility] No Access Member Role: Primary Care Physician Address: Address: [address] [place] [id number]- Care Team Related Persons Name: ANA KRAMER Address: Home [address] [place] [phone]
[2023-03-13 12:17] LABS: Abs Immature Grans 0.03 10^3/uL (0.0-0.06); Absolute Basophil Count 0.07 10^3/uL (0.0-0.2); Absolute Eosinophil Count 0.12 10^3/uL (0.0-0.7); Absolute Lymphocyte Count 0.76 10^3/uL (1.2-3.4); Absolute Monocyte Count 0.88 10^3/uL (0.1-0.8); Basophils % 1.1; Eosinophils % 1.8; HCT 28.8 % (40.0-50.0); HGB 9.2 g/dL (13.5-17.5); Immature Grans % 0.5; Lymphocytes % 11.6; MCH 29.7 pg (27.0-33.0); MCHC 31.9 % (32.0-36.0); MCV 93 fL (80-95); MPV 9.1 fL (8.0-11.0); Monocytes % 13.4; Neutrophils % 71.6; Platelet Count 273 10^3/uL (130-400); RDW 16.7 % (11.8-14.1); RDW-SD 56.4 fL; WBC 6.56 10^3/uL (4.4-10.8)
[2023-03-13 12:32] LABS: ALT 12 U/L (16-63); AST 22 U/L (15-37); Albumin 2.9 g/dL (3.4-5.0); Alkaline Phosphatase 126 U/L (46-116); Anion Gap 6.6 mmol/L (3-11); BUN 27 mg/dL (7-18); Bilirubin, Total 0.5 mg/dL (0.2-1.0); CO2 28.4 mmol/L (21.0-32.0); CREATININE 0.9 mg/dL (0.70-1.30); Calcium 8.6 mg/dL (8.5-10.1); Chloride 102 mmol/L (98-107); Estimated GFR 83.18 (mL/min/1.73m2); Glucose 116 mg/dL (74-106); Potassium 4.4 mmol/L (3.5-5.1); Sodium 137 mmol/L (136-145); Total Protein 7.3 g/dL (6.4-8.2)
[2023-03-14 18:34] LABS: PSA, Ultrasensitive 5.1 ng/mL (<= 7.2)
[2023-03-17 09:24] LABS: Testosterone, Total <7.0 ng/dL (240-950)
== END 2023-03-13 02:24 | disposition home or self-care (01) ==
PROVIDERS: PCP Family Medicine; Visit Provider Internal Medicine
DX: C61 Malignant neoplasm of prostate (principal)
CPT/HCPCS: 36415; 80053; 84153; 84403; 85025

== ENCOUNTER 2023-04-12 15:28 | Outpatient (REF) | payer MEDICARE, SELFPAY ==
[2023-04-12 15:01] LABS: Abs Immature Grans 0.01 10^3/uL (0.0-0.06); Absolute Basophil Count 0.03 10^3/uL (0.0-0.2); Absolute Eosinophil Count 0.43 10^3/uL (0.0-0.7); Absolute Lymphocyte Count 0.84 10^3/uL (1.2-3.4); Absolute Monocyte Count 0.47 10^3/uL (0.1-0.8); Absolute Neutrophil Count 2.88 10^3/uL (1.2-6.7); Basophils % 0.6; Eosinophils % 9.2; HCT 32.6 % (40.0-50.0); HGB 10.2 g/dL (13.5-17.5); Immature Grans % 0.2; MCH 29.1 pg (27.0-33.0); MCHC 31.3 % (32.0-36.0); MCV 93 fL (80-95); MPV 10.1 fL (8.0-11.0); Monocytes % 10.1; Neutrophils % 61.9; Platelet Count 176 10^3/uL (130-400); RBC 3.51 10^6/uL (4.36-5.78); RDW 16.1 % (11.8-14.1); RDW-SD 55.6 fL; WBC 4.66 10^3/uL (4.4-10.8)
[2023-04-12 16:09] LABS: ALT 14 U/L (16-63); AST 20 U/L (15-37); Alkaline Phosphatase 134 U/L (46-116); BUN 27 mg/dL (7-18); Bilirubin, Total 0.6 mg/dL (0.2-1.0); CREATININE 0.8 mg/dL (0.70-1.30); Calcium 8.8 mg/dL (8.5-10.1); Chloride 102 mmol/L (98-107); Estimated GFR 86.19 (mL/min/1.73m2); Ferritin 67 ng/mL (26-388); Glucose 90 mg/dL (74-106); Sodium 138 mmol/L (136-145); Total Protein 7.3 g/dL (6.4-8.2)
== END 2023-04-12 15:29 | disposition home or self-care (01) ==
LOC: NCHCN 15:28
PROVIDERS: PCP Family Medicine; Visit Provider Family Medicine
DX: R03.0 Elevated blood-pressure reading, without diagnosis of hypertension (principal); G25.81 Restless legs syndrome; C79.51 Secondary malignant neoplasm of bone; C61 Malignant neoplasm of prostate
CPT/HCPCS: 80053; 82728; 83735; 85025

== ENCOUNTER 2023-04-23 05:33 | Outpatient (CLI) | payer MEDICARE, SELFPAY ==
[2023-04-23 10:55] LABS: Abs Immature Grans 0.01 10^3/uL (0.0-0.06); Absolute Basophil Count 0.03 10^3/uL (0.0-0.2); Absolute Eosinophil Count 0.18 10^3/uL (0.0-0.7); Absolute Lymphocyte Count 0.99 10^3/uL (1.2-3.4); Absolute Neutrophil Count 3.36 10^3/uL (1.2-6.7); Basophils % 0.6; Eosinophils % 3.6; HCT 34.6 % (40.0-50.0); Immature Grans % 0.2; Lymphocytes % 19.5; MCH 29.5 pg (27.0-33.0); MCHC 31.8 % (32.0-36.0); MCV 93 fL (80-95); MPV 8.9 fL (8.0-11.0); Monocytes % 9.9; Neutrophils % 66.2; Platelet Count 183 10^3/uL (130-400); RBC 3.73 10^6/uL (4.36-5.78); RDW 15.3 % (11.8-14.1); RDW-SD 52.5 fL; WBC 5.07 10^3/uL (4.4-10.8)
[2023-04-23 11:34] LABS: ALT 11 U/L (16-63); AST 23 U/L (15-37); Albumin 3.3 g/dL (3.4-5.0); Alkaline Phosphatase 156 U/L (46-116); Anion Gap 6.4 mmol/L (3-11); BUN 23 mg/dL (7-18); Bilirubin, Total 0.6 mg/dL (0.2-1.0); CO2 29.6 mmol/L (21.0-32.0); CREATININE 0.8 mg/dL (0.70-1.30); Calcium 9.1 mg/dL (8.5-10.1); Chloride 101 mmol/L (98-107); Estimated GFR 86.19 (mL/min/1.73m2); Glucose 84 mg/dL (74-106); Potassium 4.1 mmol/L (3.5-5.1); Sodium 137 mmol/L (136-145); Total Protein 8.5 g/dL (6.4-8.2)
[2023-04-24 20:22] LABS: PSA, Ultrasensitive 7.4 ng/mL (<= 7.2)
[2023-04-25 10:11] LABS: Testosterone, Total <7.0 ng/dL (240-950)
== END 2023-04-23 05:34 | disposition home or self-care (01) ==
PROVIDERS: PCP Family Medicine; Visit Provider Internal Medicine
DX: C61 Malignant neoplasm of prostate (principal)
CPT/HCPCS: 36415; 80053; 84153; 84403; 85025

== ENCOUNTER 2023-05-15 04:34 | Outpatient (CLI) | payer MEDICARE, OTHER, SELFPAY ==
[2023-05-15 12:08] LABS: Abs Immature Grans 0.01 10^3/uL (0.0-0.06); Absolute Basophil Count 0.04 10^3/uL (0.0-0.2); Absolute Eosinophil Count 0.25 10^3/uL (0.0-0.7); Absolute Lymphocyte Count 0.83 10^3/uL (1.2-3.4); Absolute Monocyte Count 0.62 10^3/uL (0.1-0.8); Absolute Neutrophil Count 3.05 10^3/uL (1.2-6.7); Basophils % 0.8; Eosinophils % 5.2; HCT 35.3 % (40.0-50.0); HGB 11.4 g/dL (13.5-17.5); Immature Grans % 0.2; Lymphocytes % 17.3; MCH 29.6 pg (27.0-33.0); MCHC 32.3 % (32.0-36.0); MCV 92 fL (80-95); Monocytes % 12.9; Neutrophils % 63.6; Platelet Count 152 10^3/uL (130-400); RBC 3.85 10^6/uL (4.36-5.78); RDW 14.9 % (11.8-14.1); RDW-SD 50.4 fL
[2023-05-15 12:23] LABS: ALT 14 U/L (16-63); AST 21 U/L (15-37); Albumin 3.3 g/dL (3.4-5.0); Alkaline Phosphatase 195 U/L (46-116); Anion Gap 9.4 mmol/L (3-11); BUN 29 mg/dL (7-18); Bilirubin, Total 0.5 mg/dL (0.2-1.0); CO2 26.6 mmol/L (21.0-32.0); CREATININE 0.7 mg/dL (0.70-1.30); Calcium 9.1 mg/dL (8.5-10.1); Chloride 103 mmol/L (98-107); Estimated GFR 89.73 (mL/min/1.73m2); Glucose 88 mg/dL (74-106); Potassium 3.9 mmol/L (3.5-5.1); Sodium 139 mmol/L (136-145); Total Protein 8.5 g/dL (6.4-8.2)
[2023-05-19 08:29] LABS: Testosterone, Total <7.0 ng/dL (240-950)
[2023-05-22 10:06] LABS: PSA, Ultrasensitive 8.9 ng/mL (<= 7.2)
== END 2023-05-15 04:35 | disposition home or self-care (01) ==
LOC: LBO 04:34
PROVIDERS: PCP Family Medicine; Visit Provider Internal Medicine
DX: C61 Malignant neoplasm of prostate (principal); C79.51 Secondary malignant neoplasm of bone
CPT/HCPCS: 36415; 80053; 84153; 84403; 85025

== ENCOUNTER 2023-06-12 04:34 | Outpatient (CLI) | payer MEDICARE, OTHER, SELFPAY ==
[2023-06-12 23:12] LABS: Bilirubin Negative (Negative); Blood Moderate (Negative); Clarity Cloudy (Clear); Glucose Negative (Negative); Ketones Negative (Negative); Leukocyte Esterase Large (Negative); Nitrite Positive (Negative); Specific Gravity 1.015 (1.005-1.025); Urobilinogen 0.2 mg/dL (Up to 0.2); pH 6.5 (5-8)
[2023-06-12 23:18] LABS: WBC >50 HPF (0-5)
[2023-06-12 23:19] LABS: Bacteria Many HPF (Negative); C & S Indicated? C&S Done As Ordered
== END 2023-06-12 04:35 | disposition home or self-care (01) ==
LOC: LBO 04:35
PROVIDERS: Urology; PCP Family Medicine; Visit Provider Internal Medicine
DX: R35.0 Frequency of micturition (principal); R82.89 Other abnormal findings on cytological and histological examination of urine
CPT/HCPCS: 87077; 81003; 81015; 87086; 87186

== ENCOUNTER 2023-06-26 04:31 | Outpatient (CLI) | payer MEDICARE, OTHER, SELFPAY ==
[2023-06-26 10:51] LABS: Abs Immature Grans 0.03 10^3/uL (0.0-0.06); Absolute Basophil Count 0.03 10^3/uL (0.0-0.2); Absolute Eosinophil Count 0.14 10^3/uL (0.0-0.7); Absolute Lymphocyte Count 0.85 10^3/uL (1.2-3.4); Absolute Monocyte Count 0.58 10^3/uL (0.1-0.8); Basophils % 0.5; Eosinophils % 2.3; HCT 34.6 % (40.0-50.0); Immature Grans % 0.5; Lymphocytes % 13.9; MCH 29.5 pg (27.0-33.0); MCHC 31.8 % (32.0-36.0); MCV 93 fL (80-95); MPV 8.3 fL (8.0-11.0); Monocytes % 9.5; Neutrophils % 73.3; Platelet Count 216 10^3/uL (130-400); RBC 3.73 10^6/uL (4.36-5.78); RDW 14.9 % (11.8-14.1); RDW-SD 50.4 fL; WBC 6.13 10^3/uL (4.4-10.8)
[2023-06-26 11:12] LABS: ALT 14 U/L (16-63); AST 19 U/L (15-37); Albumin 3.1 g/dL (3.4-5.0); Alkaline Phosphatase 241 U/L (46-116); Anion Gap 10.3 mmol/L (3-11); BUN 22 mg/dL (7-18); Bilirubin, Total 0.4 mg/dL (0.2-1.0); CO2 28.7 mmol/L (21.0-32.0); CREATININE 0.9 mg/dL (0.70-1.30); Calcium 8.8 mg/dL (8.5-10.1); Chloride 101 mmol/L (98-107); Estimated GFR 82.66 (mL/min/1.73m2); Glucose 88 mg/dL (74-106); Sodium 140 mmol/L (136-145); Total Protein 8.5 g/dL (6.4-8.2)
[2023-06-27 17:38] LABS: PSA, Ultrasensitive 14.7 ng/mL (<= 7.2)
[2023-07-01 17:40] LABS: Testosterone, Total <7.0 ng/dL (240-950)
== END 2023-06-26 04:32 | disposition home or self-care (01) ==
LOC: LBO 04:31
PROVIDERS: PCP Family Medicine; Visit Provider Internal Medicine
DX: C61 Malignant neoplasm of prostate (principal)
CPT/HCPCS: 36415; 80053; 84153; 84403; 85025

== ENCOUNTER → 2023-07-03 09:23 | Outpatient (BNVA) | payer MEDICARE, OTHER, SELFPAY | PROVIDERS: PCP Family Medicine; Referring Provider Family Medicine; Visit Provider Urology | DX: R39.15 Urgency of urination (principal) | CPT/HCPCS: 99214 ==

== ENCOUNTER 2023-08-07 05:37 | Outpatient (CLI) | payer MEDICARE, OTHER, SELFPAY ==
[2023-08-07 14:11] LABS: Abs Immature Grans 0.01 10^3/uL (0.0-0.06); Absolute Basophil Count 0.03 10^3/uL (0.0-0.2); Absolute Lymphocyte Count 0.49 10^3/uL (1.2-3.4); Absolute Monocyte Count 0.47 10^3/uL (0.1-0.8); Absolute Neutrophil Count 2.91 10^3/uL (1.2-6.7); Basophils % 0.7; Eosinophils % 7.1; HCT 33.4 % (40.0-50.0); HGB 10.7 g/dL (13.5-17.5); Immature Grans % 0.2; Lymphocytes % 11.6; MCH 30.1 pg (27.0-33.0); MCV 94 fL (80-95); MPV 8.6 fL (8.0-11.0); Monocytes % 11.2; Neutrophils % 69.2; Platelet Count 154 10^3/uL (130-400); RBC 3.55 10^6/uL (4.36-5.78); RDW 15.9 % (11.8-14.1); WBC 4.21 10^3/uL (4.4-10.8)
[2023-08-07 14:31] LABS: ALT 16 U/L (16-63); AST 21 U/L (15-37); Albumin 3.2 g/dL (3.4-5.0); Alkaline Phosphatase 311 U/L (46-116); Anion Gap 3.6 mmol/L (3-11); BUN 21 mg/dL (7-18); Bilirubin, Total 0.4 mg/dL (0.2-1.0); CO2 30.4 mmol/L (21.0-32.0); CREATININE 0.8 mg/dL (0.70-1.30); Calcium 8.8 mg/dL (8.5-10.1); Chloride 101 mmol/L (98-107); Estimated GFR 85.65 (mL/min/1.73m2); Glucose 95 mg/dL (74-106); Potassium 4.2 mmol/L (3.5-5.1); Sodium 135 mmol/L (136-145); Total Protein 8.2 g/dL (6.4-8.2)
[2023-08-08 17:46] LABS: PSA, Ultrasensitive 12.1 ng/mL (<= 7.2)
[2023-08-11 13:49] LABS: Testosterone, Total <7.0 ng/dL (240-950)
== END 2023-08-07 05:38 | disposition home or self-care (01) ==
LOC: LBO 05:37
PROVIDERS: PCP Family Medicine; Visit Provider Internal Medicine
DX: C61 Malignant neoplasm of prostate (principal); C79.51 Secondary malignant neoplasm of bone
CPT/HCPCS: 36415; 80053; 84153; 84403; 85025

== ENCOUNTER → 2023-08-28 14:17 | Outpatient (BNVA) | payer MEDICARE, OTHER, SELFPAY | PROVIDERS: PCP Family Medicine; Referring Provider Family Medicine; Visit Provider Urology ==

== ENCOUNTER 2023-09-26 17:26 | Outpatient (CLI) | payer MEDICARE, OTHER, SELFPAY ==
[2023-09-18 12:18] LABS: Abs Immature Grans 0.03 10^3/uL (0.0-0.06); Absolute Basophil Count 0.04 10^3/uL (0.0-0.2); Absolute Eosinophil Count 0.12 10^3/uL (0.0-0.7); Absolute Lymphocyte Count 0.31 10^3/uL (1.2-3.4); Absolute Monocyte Count 0.51 10^3/uL (0.1-0.8); Absolute Neutrophil Count 4.01 10^3/uL (1.2-6.7); Basophils % 0.8 %; Eosinophils % 2.4 %; HCT 33.1 % (40.0-50.0); HGB 11.3 g/dL (13.5-17.5); Immature Grans % 0.6 %; Lymphocytes % 6.2 %; MCH 31.5 pg (27.0-33.0); MCHC 34.1 % (32.0-36.0); MCV 92 fL (80-95); MPV 8.9 fL (8.0-11.0); Monocytes % 10.2 %; Neutrophils % 79.8 %; Platelet Count 160 10^3/uL (130-400); RBC 3.59 10^6/uL (4.36-5.78); RDW 15.1 % (11.8-14.1); RDW-SD 50.4 fL; WBC 5.02 10^3/uL (4.4-10.8)
[2023-09-18 12:37] LABS: ALT 19 U/L (16-63); AST 29 U/L (15-37); Albumin 3.2 g/dL (3.4-5.0); Alkaline Phosphatase 493 U/L (46-116); Anion Gap 7.4 mmol/L (3-11); BUN 17 mg/dL (7-18); Bilirubin, Total 0.6 mg/dL (0.2-1.0); CO2 28.6 mmol/L (21.0-32.0); CREATININE 0.8 mg/dL (0.70-1.30); Calcium 8.7 mg/dL (8.5-10.1); Chloride 98 mmol/L (98-107); Estimated GFR 85.65 (mL/min/1.73m2); Glucose 95 mg/dL (74-106); Potassium 4.1 mmol/L (3.5-5.1); Sodium 134 mmol/L (136-145); Total Protein 8.3 g/dL (6.4-8.2)
[2023-09-18 14:09] LABS: Bilirubin Negative (Negative); Blood Moderate (Negative); Clarity Cloudy (Clear); Glucose Negative (Negative); Ketones Negative (Negative); Leukocyte Esterase Large (Negative); Nitrite Positive (Negative); Urobilinogen 0.2 mg/dL (Up to 0.2); pH 6.5 (5-8)
[2023-09-18 14:20] LABS: Bacteria Many HPF (Negative); C & S Indicated? C&S Done As Ordered; Casts Negative LPF (Negative); Crystals Negative HPF (Negative); Epithelial Cells Rare HPF (Negative); Mucus Negative (Negative); WBC >50 HPF (0-5)
[2023-09-20 11:19] LABS: PSA, Ultrasensitive 21.9 ng/mL (<= 7.2)
[2023-09-21 16:54] LABS: Testosterone, Total <7.0 ng/dL (240-950)
== END 2023-09-26 17:27 | disposition home or self-care (01) ==
LOC: LBO 17:26
PROVIDERS: Urology; PCP Family Medicine; Visit Provider Internal Medicine
DX: C61 Malignant neoplasm of prostate (principal); R35.0 Frequency of micturition; C79.51 Secondary malignant neoplasm of bone; B96.89 Other specified bacterial agents as the cause of diseases classified elsewhere; Z16.19 Resistance to other specified beta lactam antibiotics
CPT/HCPCS: 36415; 80053; 84153; 84403; 87077; 81003; 81015; 85025; 87086; 87186

== ENCOUNTER 2023-10-05 21:40 | Outpatient (REF) | payer MEDICARE, OTHER, SELFPAY ==
[2023-10-05 21:52] LABS: Bilirubin Negative (Negative); Blood Small (Negative); Clarity Clear (Clear); Glucose Negative (Negative); Ketones Negative (Negative); Leukocyte Esterase Trace (Negative); Nitrite Negative (Negative); Urobilinogen 0.2 mg/dL (Up to 0.2); pH 5.5 (5-8)
[2023-10-05 21:55] LABS: Bacteria Few HPF (Negative); C & S Indicated? C&S Done As Ordered; Casts Negative LPF (Negative); Crystals Negative HPF (Negative); Epithelial Cells Rare HPF (Negative); Mucus Negative (Negative)
== END 2023-10-05 21:41 | disposition home or self-care (01) ==
LOC: NCHCN 21:40
PROVIDERS: Urology; PCP Family Medicine; Visit Provider Family Medicine
DX: R33.8 Other retention of urine (principal); R39.89 Other symptoms and signs involving the genitourinary system; Z85.46 Personal history of malignant neoplasm of prostate
CPT/HCPCS: 81003; 81015; 87086

== ENCOUNTER → 2023-10-19 15:04 | Outpatient (BNVA) | payer MEDICARE, OTHER, SELFPAY | PROVIDERS: PCP Family Medicine; Referring Provider Family Medicine; Visit Provider Urology | DX: C61 Malignant neoplasm of prostate (principal); C79.51 Secondary malignant neoplasm of bone ==